=== PATIENT | male | born 1955 | race Caucasian/White ===

== ENCOUNTER 2016-07-17 11:50 | Inpatient (IN) | payer MEDICARE ==
[2016-07-17 12:43] LABS: Hematocrit 23 % (42-52); Hemoglobin 7.6 g/dl (14.0-18.0); Mean Corpuscular HGB Conc 34 g/dl (31-36); Mean Corpuscular Hemoglobin 33 pg (27-31); Mean Corpuscular Volume 98 fL (80-94); Mean Platelet Volume 9 um3 (7.4-10.4); Red Blood Count 2.33 10^6/ul (4.0-5.4); Red Cell Distribution Width 16 % (10.5-15); White Blood Count 10.5 10^3/ul (3.5-10.8)
[2016-07-17 12:44] LABS: Comments Flag Yes
[2016-07-17] MEDS ORDERED: NS 0.9% 1000 ML* 1,000 ML IV ONE (12:45)
[2016-07-17 12:47] LABS: Add Diff/Slide Review? Slide Review Added
[2016-07-17] MEDS ORDERED: Pantoprazole IV* 40 MG IV ONE (12:51)
--- NOTE | 2016-07-17 12:54 | RAD ---
HISTORY: Chest pain COMPARISONS: January 17, 2016 VIEWS:1: Single frontal portable view of the chest at 12:49 PM FINDINGS: LINES AND TUBES: None. CARDIOMEDIASTINAL SILHOUETTE: The cardiomediastinal silhouette is normal for portable technique. PLEURA: The costophrenic angles are sharp. No pleural abnormalities are noted. LUNG PARENCHYMA: The lungs are clear. ABDOMEN: The upper abdomen is clear. There is no subphrenic gas. BONES AND SOFT TISSUES: No bone or soft tissue abnormalities are noted. IMPRESSION: NO ACTIVE CARDIOPULMONARY DISEASE.
[2016-07-17 12:57] LABS: ALT 13 U/L (7-52); AST 28 U/L (13-39); Albumin 2.6 g/dL (3.2-5.2); Alkaline Phosphatase 113 U/L (34-104); Anion Gap 7 mmol/L (2-11); BUN/Creatinine Ratio 39.7 (8-20); Blood Urea Nitrogen 50 mg/dL (6-24); CO2 Carbon Dioxide 22 mmol/L (22-32); Calcium 7.9 mg/dL (8.6-10.3); Chloride 107 mmol/L (101-111); Creatine Kinase 166 U/L (10-223); EGFR African American 74.8 (>60); EGFR Non-African American 58.2 (>60); Globulin 2.9 g/dL (2-4); Glucose 140 mg/dL (70-100); Lipase 69 U/L (11.0-82.0); Potassium 5.4 mmol/L (3.5-5.0); Sodium 136 mmol/L (133-145); Total Protein 5.5 g/dL (6.4-8.9)
[2016-07-17 12:58] LABS: Troponin I 0.03 ng/mL (<0.04)
[2016-07-17] MEDS ORDERED: Phytonadione INJ (Adult)* 10 MG/ML 1 ML AMP SUBCUT ONE (13:54)
[2016-07-17] MEDS ORDERED: Octreotide Acetate* 50 MCG in NS 0.9% 50 ML* 50 ML IVPB ONE (13:54)
[2016-07-17] MEDS ORDERED: Thiamine IV* 100 MG, Folic Acid IV* 1 MG, Multiple Vitamin IV ADULT* 10 ML in NS 0.9% 1... IV ONE (13:59)
[2016-07-17] MEDS ORDERED: LORazepam INJ* 2 MG/ML 1 ML VIAL IV SCH (14:00)
[2016-07-17] MEDS ORDERED: Octreotide Acetate* 500 MCG in NS 0.9% 100 ML* 100 ML IVPB SCH ×5 (14:00→18:00)
[2016-07-17] MEDS ORDERED: Pantoprazole IV* 80 MG in NS 0.9% 250 ML* 250 ML IVPB SCH (14:00)
[2016-07-17 14:45] LABS: Alcohol < 10 mg/dL (<10)
[2016-07-17] MEDS ORDERED: cefTRIAXone VIAL(*) 1,000 MG in NS 0.9% 50 ML* 50 ML IVPB SCH (15:00)
[2016-07-17] MEDS ORDERED: Meperidine SYRINGE* 50 MG/ML ONE (15:42)
[2016-07-17] MEDS ORDERED: Midazolam* 1 MG/ML 10 ML VIAL (10 MG) ONE (15:43)
[2016-07-17] MEDS: cefTRIAXone VIAL(*) 1,000 MG in NS 0.9% 50 ML* 50 ML IVPB SCH (18:10)
[2016-07-17 18:43] LABS: Comments Flag Yes; Hematocrit 25 % (42-52); Hemoglobin 8.5 g/dl (14.0-18.0)
--- NOTE | 2016-07-17 23:25 | HP ---
HISTORY AND PHYSICAL: DATE OF ADMISSION: 07/17/16 PRIMARY CARE PROVIDER: None. ATTENDING PHYSICIAN WHILE IN THE HOSPITAL: John Thornton MD * (report dictated by Guero Landis NP) CONSULTING CRYPTOGRAPHER: Gallito Glez MD CHIEF COMPLAINT: Hematemesis. HISTORY OF PRESENT ILLNESS: Mr. Goode is a 60-year-old male patient who has a history of EtOH abuse, varices, and cirrhosis. He also carries a history of portal hypertension and grade I esophageal varices that were diagnosed in 2014. He comes in today stating that at 1 o'clock in the morning, he started vomiting. He vomited twice. He did not realize that he was vomiting blood. He vomited again around 4 in the morning and at that point, he noticed that he was vomiting up profuse amounts of blood with clots. He continued to vomit off and on. Until about 11 o'clock this morning, he vomited about a total of 8 times at least. His daughter at that point convinced him to come in to the hospital because obviously there was something wrong and he himself thought that there was obviously something going on and then, he was still coughing up blood. He says that this morning at around 11, he went to stand up quickly and he felt very lightheaded and he felt like he was going to pass out, so he called 911 and he was brought in to the hospital. He denies any melena. He does state that he does not take any blood thinners. He is only on Aldactone and Lasix. He states that he did continue to drink about 4 beverages a day and he continues to smoke cigarettes and marijuana occasionally. He does admit to having some epigastric discomfort. He denies having any chest pain or any shortness of breath and states he does not feel like he is going to pass out at this point and states that he feels tired. He was evaluated in the ER. It was noted that he was obviously vomiting blood. His BUN was 50. His H and H were 7.6 and 23. He was noted to be a little tachycardic and slightly hypotensive with blood pressures in the 100s and the hospital service was asked to evaluate in admission. PAST MEDICAL HISTORY: Significant for: 1. Cirrhosis. 2. Esophageal varices. 3. EtOH abuse. 4. Portal hypertension. PAST SURGICAL HISTORY: 1. He has had an ORIF of the right upper extremity. 2. Back surgeries. HOME MEDICATIONS: According to the patient includes: 1. Spironolactone 50 mg daily. 2. Lasix 20 mg daily. 3. Ferrous sulfate 324 mg p.o. b.i.d. ALLERGIES TO MEDICATIONS: Include no known drug allergies. FAMILY HISTORY: His mother is alive and well. Father has a history of cancer. SOCIAL HISTORY: He does drink wine and beer daily. He is drinking 4 hard root beers a day now. He does state that he smokes about half a pack a day. He is not . His surrogate decision maker is his friend, Jono. He does smoke marijuana occasionally. REVIEW OF SYSTEMS: There is no documented fever. He denied any significant weight change. There is no double vision. There is no ear discharge. There is no rhinorrhea. No sore throat. No thyroid enlargement. Denies having any chest pain. There is no orthopnea. No nocturnal dyspnea. There is abdominal discomfort per my HPI. He does admit to having ascites and abdominal bloating. There was nausea with vomiting. No dysuria. No frequency. No loss of conscious. No pruritus. No skin ulcerations. Review of 14 systems completed, all others negative. PHYSICAL EXAMINATION VITAL SIGNS: Last blood pressure was 105/72 with a pulse of 97. HEENT: Head is atraumatic and normocephalic. Eyes: EOMs intact. Sclerae are anicteric and not pale. Throat: Oral mucosa appeared to be dry. He did have dry blood in his oropharynx. NECK: Supple. LUNGS: Clear to auscultation bilaterally. HEART: Sounds S1, S2. Regular rate and rhythm. No murmurs, rubs, or gallops. ABDOMEN: He does have an umbilical hernia. He has abdominal ascites as well, but he was nontender on exam. Bowel sounds present. EXTREMITIES: Pulses were 2+ throughout. He does have lower extremity edema, worse on the right side, compared to the left. He does have +2 to 3 pitting edema to the right ankle, which he has had for several years. NEUROLOGIC: He is awake, alert, and oriented x3. Tongue midline. Satellite Project Site Monitor are equal. He had no gross focal deficits. SKIN: Intact. DIAGNOSTIC STUDIES/LAB DATA: Today revealed a WBC of 10.5, RBC of 2.33, hemoglobin 7.6, and hematocrit 23. Last H and H from January of this year was again, his hemoglobin was 7.6 and platelet count was 76,000 and that was the platelet count in January. He does have an INR of 1.75 and PTT of 32.4. Sodium was 136, potassium was 5.4, chloride 107, bicarb of 22, BUN 50, creatinine of 1.26, glucose 140, lactic 3.2, and calcium 7.9. Total bili 3.3, AST is 28, ALT 13, and alk phos 113. Troponin 0.03. Albumin 2.6 and lipase 69. He had an EKG obtained today as well, which showed normal sinus rhythm with a rate of 92, normal axis, and no ST elevation or T-wave inversions. He had a chest x-ray, which did show no active cardiopulmonary disease. Old medical records were reviewed. ASSESSMENT AND PLAN: Mr. Goode is a 60-year-old male patient coming in to the ER today with complaints of hematemesis. On evaluation in the ER, it was noted that his H and H were low. In addition, his blood pressure was in the low 100s and heart rates in the 90s. He will be admitted under inpatient status for: 1. Upper gastrointestinal bleed: I am concerned for variceal bleed. He did have grade I varices in [address]. Dr. Glez has been consulted and will be evaluating the patient. Plan at this point is to go ahead and put him on an octreotide drip, Protonix drip, give him 2 units of blood right now, and have 2 units on hold. He can have 2 IVs. In addition to this, we will hydrate him with normal saline at 150 an hour. I will continue to monitor him closely. Fortunately, he has not had anymore episodes of recurrent bleeding. I am going to go ahead and give him a dose of vitamin K as well and we will continue to follow his platelets closely. We may need to consider platelet transfusion, but at this point, we will hold off. Hemoccults. 2. History of cirrhosis: He does have a mild amount of ascites. I am going to treat him empirically because of the GI bleed with Rocephin. We will restart his spironolactone and Lasix when able. 3. Acute blood loss anemia: We will transfuse 2 units and will continue to follow. We will give him 2 units of blood now. We will go ahead and have 2 on hold. In addition to this, we will go ahead and restart him on his iron when able. 4. Portal hypertension: Again, we will continue his Lasix and spironolactone when he is more stable. 5. EtOH abuse: I will put a social work consult and I did put a WAM protocol in. 6. DVT prophylaxis: He will just be put on SCDs for the time being because of active bleeding. 7. Code status: Full code. 8. Fluids, electrolytes, and nutrition: He is n.p.o. TIME SPENT: Time spent on the admission was 60 minutes; greater than half the time was spent [id number] with the patient obtaining my history and physical, the other half time is spent going over the plan of care with the patient and implementing plan of care. I discussed the plan of care with my attending, Dr. Thornton. He is in agreement. GUERO LANDIS NP CC: Dr. Glez* [id number]/[facility] #: [id number] [facility]
--- NOTE | 2016-07-17 23:59 | CONS ---
CONSULTATION REPORT: DATE OF CONSULT: 07/17/16 REQUESTING PHYSICIAN: Guero Landis NP NARRATIVE: Mr. Goode is a 60-year-old alcoholic who comes in today after having black and tarry stools and hematemesis. History is obtained from both the daughter and the patient. He does have a history of cirrhosis likely secondary to alcoholism. [facility] provide his [facility] and GI care. He tells us that he had an EGD with his [facility] try out person last year, which revealed grade 1 esophageal varices and portal hypertensive gastropathy. He continues to drink alcohol. He drinks hard root beer 3 to 4 per day. He states yesterday around 2:00 a.m., he started vomiting blood. Every 2 to 3 hours, he would vomit more blood, it was maroon in color. He has also been having black stools over the past day or two. He does have mild abdominal pain. There is no dizziness or lightheadedness. PAST MEDICAL HISTORY: Significant for alcoholism. PAST SURGICAL HISTORY: He had spinal surgeries. ALLERGIES: None. FAMILY HISTORY: No cirrhosis in the family. SOCIAL HISTORY: Continues to drink alcohol. REVIEW OF SYSTEMS: 12 systems were reviewed, other than mentioned in the HPI were unremarkable. PHYSICAL EXAM: Blood pressure is 113/72, pulse is 79, temperature is 99.0. General: Disheveled appearing male, appears older than stated age. Alert, oriented, pleasant, fluent. HEENT: Mucous membranes are moist. Dentition is absent. Heart: Regular rate and rhythm. Lungs were clear to auscultation. Abdomen: Positive bowel sounds. Soft, nontender, nondistended. No hepatosplenomegaly, masses, rebound or guarding. Skin is warm and dry. Numerous ecchymoses. Numerous spider angiomata. DIAGNOSTIC STUDIES/LAB DATA: Of note, white count is 10.8, hemoglobin of 7.6, platelets of 76, INR is 1.75. Potassium is 5.4, sodium is 136, BUN , creatinine is 1.29, lactic acid is 3.2, bilirubin is 3.3, alk phos is 113, albumin is 2.6. ASSESSMENT AND PLAN: Mr. Goode is a 60-year-old alcoholic with cirrhosis. He is having an upper gastrointestinal bleed. Given the history of varices and portal hypertensive gastropathy, we need to perform an upper endoscopy to make sure he does not have any variceal bleed. I will make arrangements for it in the very near future. He has been started on octreotide and Protonix. We will continue with both. He needs 2 large bore IVs. He is actively drinking, thus will not be a transplant candidate for at least the next 6 months. He will need to follow up with his [facility] try out person at discharge. CC: [facility]* [id number]/[facility] #: [id number] [facility]
[2016-07-18 02:02] LABS: Hematocrit 24 % (42-52); Hemoglobin 8.3 g/dl (14.0-18.0)
[2016-07-18 02:04] LABS: Comments Flag Yes
[2016-07-18 07:42] LABS: Hematocrit 23 % (42-52); Mean Corpuscular HGB Conc 34 g/dl (31-36); Mean Corpuscular Hemoglobin 32 pg (27-31); Mean Corpuscular Volume 94 fL (80-94); Mean Platelet Volume 9 um3 (7.4-10.4); Red Blood Count 2.47 10^6/ul (4.0-5.4); Red Cell Distribution Width 17 % (10.5-15); White Blood Count 8.1 10^3/ul (3.5-10.8)
--- NOTE | 2016-07-18 07:48 | PRO ---
PROCEDURE REPORT: DATE OF PROCEDURE: 07/17/16 PROCEDURE: EGD. INDICATION: Hematemesis. REFERRING PHYSICIAN: Gera Mcknight MD MEDICATIONS GIVEN: 1. 50 mg IV Demerol. 2. 9 mg IV Versed. DESCRIPTION OF PROCEDURE: After the EGD procedure including the risks, benefits , and alternatives not limited to perforation, surgery and/or were explained to the patient; written consent was then obtained; IV medication was given; and a biteblock was placed between the teeth. Olympus gastroscope was then inserted into the patient's mouth, and advanced down the esophagus, into the stomach, into the distal duodenum. In the esophagus at the GE junction, there were 3 varices. One was very large, grade 3 to 4, and 2 others were smaller grade 2, but of those had red giovany signs on them. I then went down into the stomach. No gastric varices were seen on retroflexion maneuver. Forward views did reveal mild portal hypertension gastropathy. The scope was advanced through the widely patent pylorus through the duodenal bulb and into the distal duodenum. Both of which were unremarkable. The scope was then withdrawn from the patient. A petroleum blending plant operator was placed on the tip of the scope and reintroduced into the patient's esophagus. I then placed 3 rubber bands each on one of the varices. They were deployed successfully. The scope was then withdrawn from the patient. He tolerated the procedure well and was returned to the care of the intensive care unit staff. IMPRESSION: 1. Complete upper endoscopy into the distal duodenum with esophageal varices and band ligation. 2. Esophageal varices, status post band ligation. 3. Portal hypertensive gastropathy. 4. I would recommend he continue with the octreotide. He should be on clears until tomorrow and we will continue to follow along. He can follow up with his [facility] pacu nurse. CC: Gera Mcknight MD, at [facility]* [id number]/[facility] #: [id number] [facility]
[2016-07-18 07:53] LABS: Calcium 7.5 mg/dL (8.6-10.3); EGFR African American 88.4 (>60); EGFR Non-African American 68.8 (>60); Potassium 4.3 mmol/L (3.5-5.0)
[2016-07-18 07:56] LABS: Comments Flag Yes
[2016-07-18] MEDS: NS 0.9% 1000 ML* 1,000 ML IV SCH ×3 (08:09→21:57)
[2016-07-18] MEDS: Thiamine TAB* 100 MG TAB PO SCH (10:57)
[2016-07-18] MEDS: Multivitamins/Minerals TAB PO SCH (10:57)
[2016-07-18] MEDS: Folic Acid TAB* 1 MG PO SCH (10:57)
[2016-07-18] MEDS ORDERED: NS 0.9% 500 ML* 500 ML IV ONE (17:00)
[2016-07-18] MEDS: cefTRIAXone VIAL(*) 1,000 MG in NS 0.9% 50 ML* 50 ML IVPB SCH (18:13)
--- NOTE | 2016-07-18 21:01 | PN ---
Subjective Date of Service: 07/18/16 Interval History: . Interviewed and examined patient at bedside; Discussed case with LOCOMOTIVE BOILERMAKER Boby and Dr. Hand ; Reviewed previous notes and radiology results; Patient stable - ok to go to floor will stop octreotide gtt. denies pain Family History: Unchanged from Admission Social History: Unchanged from Admission Past Medical History: Unchanged from Admission Objective Active Medications: . Folic Acid (Folvite Tab*) 1 mg PO DAILY [facility] Last Admin: 07/18/16 10:57 Dose: 1 mg Sodium Chloride (Ns 0.9% 1000 Ml*) 1,000 mls @ 150 mls/hr IV PER RATE [facility] Last Admin: 07/18/16 16:05 Dose: 150 mls/hr Ceftriaxone Sodium 1,000 mg/ (Sodium Chloride) 50 mls @ 200 mls/hr IVPB 1800 [facility] Last Admin: 07/18/16 18:13 Dose: 200 mls/hr Lorazepam (Ativan Inj*) 0 mg IV .PER WAM SCORE [facility] PRN Reason: Protocol Multivitamins/Minerals (Theragran/Minerals Tab*) 1 tab PO DAILY [facility] Last Admin: 07/18/16 10:57 Dose: 1 tab Thiamine HCl (Vitamin B-1 Tab*) 100 mg PO DAILY [facility] Last Admin: 07/18/16 10:57 Dose: 100 mg . Vital Signs 07/17/16 07/17/16 07/17/16 21:00 21:30 22:00 Temperature 98.1 F Pulse Rate 73 77 70 Respiratory 20 18 22 Rate Blood Pressure 116/69 111/65 101/64 (mmHg) O2 Sat by Pulse 93 96 95 Oximetry 07/17/16 07/17/16 07/17/16 22:30 23:00 23:30 Temperature Pulse Rate 76 72 80 Respiratory 20 21 26 Rate Blood Pressure 112/67 94/65 113/67 (mmHg) O2 Sat by Pulse 96 96 96 Oximetry Oxygen Devices in Use Now: Nasal Cannula Appearance: older than stated age. NAD Ears/Nose/Mouth/Throat: Clear Oropharnyx Neck: NL Appearance and Movements; NL JVP Respiratory: Symmetrical Chest Expansion and Respiratory Effort Cardiovascular: NL Sounds; No Murmurs; No JVD Abdominal: NL Sounds; No Tenderness; No Distention, - - + ascites Lymphatic: No Cervical Adenopathy Extremities: No Edema Skin: No Rash or Ulcers Neurological: Alert and Oriented x 3 Lines/Tubes/Other Access: Clean, Dry and Intact Peripheral IV Nutrition: Taking PO's Result Diagrams: 07/18/16 06:00 07/18/16 06:00 Microbiology and Other Data: Microbiology 07/17/16 20:15 Stool Occult Blood (TIFFANIE) - Final Stool 07/17/16 15:50 Nasal Screen MRSA (PCR)(TIFFANIE) - Final Nasal Mrsa Negative Assess/Plan/Problems-Billing . Assessment: 60 year old man with portal hypertensive gastropathy and hemorrhaging esophageal varices -- requiring massive transfusion. s/p EGD and band ligation. - Patient Problems (1) Portal hypertensive gastropathy Current Visit: Yes Status: Acute Priority: High Code(s): K31.89 - OTHER DISEASES OF STOMACH AND DUODENUM Comment: - stable - no active bleeding by end of EGD. - octreotide to reduce splanchnic blood flow - follow CBC and vitals (2) Transfusion of blood during current hospitalization Current Visit: Yes Status: Acute Priority: High Code(s): YGW8170 - Comment: - 2 units total (3) Symptomatic anemia Current Visit: No Status: Acute Priority: High Code(s): D64.9 - ANEMIA, UNSPECIFIED SNOMED Code(s): 949812796 Comment: - s/p 2 units prbc (4) Alcohol abuse Current Visit: No Status: Chronic Priority: Medium Code(s): F10.10 - ALCOHOL ABUSE, UNCOMPLICATED SNOMED Code(s): 19427358 Comment: Discussed cessation. Continue thiamine, folate, MVM. (5) Alcoholic cirrhosis Current Visit: No Status: Chronic Priority: Medium Code(s): K70.30 - ALCOHOLIC CIRRHOSIS OF LIVER WITHOUT ASCITES SNOMED Code(s): 482436578 Comment: Continue Lasix 20 mg daily and Spironolactone 25 mg daily Needs to f/u with outpatient GI. (6) Tobacco abuse Current Visit: Yes Status: Acute Priority: High Code(s): Z72.0 - TOBACCO USE SNOMED Code(s): 533317022 (7) Marijuana abuse Current Visit: Yes Status: Acute Priority: High Code(s): F12.10 - CANNABIS ABUSE, UNCOMPLICATED
[2016-07-19 02:07] LABS: Urine Bacteria Absent (Absent); Urine Bilirubin Negative (Negative); Urine Glucose Negative (Negative); Urine Nitrite Negative (Negative)
[2016-07-19 05:07] LABS: Hematocrit 20 % (42-52); Hemoglobin 6.9 g/dl (14.0-18.0); Mean Corpuscular HGB Conc 34 g/dl (31-36); Mean Corpuscular Hemoglobin 32 pg (27-31); Mean Corpuscular Volume 94 fL (80-94); Mean Platelet Volume 8 um3 (7.4-10.4); Red Blood Count 2.12 10^6/ul (4.0-5.4); Red Cell Distribution Width 17 % (10.5-15); White Blood Count 5.5 10^3/ul (3.5-10.8)
[2016-07-19 05:09] LABS: Comments Flag Yes
[2016-07-19 05:20] LABS: Albumin 2.3 g/dL (3.2-5.2); BUN/Creatinine Ratio 27.1 (8-20); Calcium 7.3 mg/dL (8.6-10.3); EGFR African American 102.4 (>60); EGFR Non-African American 79.6 (>60); Globulin 2.6 g/dL (2-4); Potassium 3.4 mmol/L (3.5-5.0); Total Protein 4.9 g/dL (6.4-8.9)
[2016-07-19] MEDS: NS 0.9% 1000 ML* 1,000 ML IV SCH (06:14)
[2016-07-19] MEDS: Folic Acid TAB* 1 MG PO SCH (08:57)
[2016-07-19] MEDS: Thiamine TAB* 100 MG TAB PO SCH (08:57)
[2016-07-19] MEDS: Multivitamins/Minerals TAB PO SCH (08:57)
--- NOTE | 2016-07-19 10:37 | PN ---
Subjective Date of Service: 07/19/16 Interval History: Pt is feeling ok but feels like his is not bouncing back as quick as before. He c/o pain in the R 1st MTP-he states it has bothered him for years. Additionally he c/o his umbilical hernia. He states he is able to "push it back in" but he is tired of dealing with it and would like it fixed. Objective Active Medications: Colchicine (Colcrys*) 0.6 mg PO DAILY [facility] Folic Acid (Folvite Tab*) 1 mg PO DAILY [facility] Last Admin: 07/19/16 08:57 Dose: 1 mg Sodium Chloride (Ns 0.9% 1000 Ml*) 1,000 mls @ 150 mls/hr IV PER RATE [facility] Last Admin: 07/19/16 06:14 Dose: 150 mls/hr Ceftriaxone Sodium 1,000 mg/ (Sodium Chloride) 50 mls @ 200 mls/hr IVPB 1800 [facility] Last Admin: 07/18/16 18:13 Dose: 200 mls/hr Lorazepam (Ativan Inj*) 0 mg IV .PER WAM SCORE [facility] PRN Reason: Protocol Multivitamins/Minerals (Theragran/Minerals Tab*) 1 tab PO DAILY [facility] Last Admin: 07/19/16 08:57 Dose: 1 tab Thiamine HCl (Vitamin B-1 Tab*) 100 mg PO DAILY [facility] Last Admin: 07/19/16 08:57 Dose: 100 mg Vital Signs 07/18/16 07/18/16 07/18/16 11:00 12:00 12:30 Temperature Pulse Rate 72 65 64 Respiratory 21 19 26 Rate Blood Pressure 106/56 96/53 103/60 (mmHg) O2 Sat by Pulse 96 96 96 Oximetry 07/18/16 07/18/16 07/18/16 13:00 13:30 14:34 Temperature 98.1 F Pulse Rate 75 70 67 Respiratory 19 19 18 Rate Blood Pressure 101/58 95/47 96/49 (mmHg) O2 Sat by Pulse 95 90 94 Oximetry 07/18/16 07/18/16 07/18/16 15:00 17:12 17:22 Temperature 98.1 F Pulse Rate 67 68 Respiratory 16 Rate Blood Pressure 96/49 105/54 (mmHg) O2 Sat by Pulse 94 95 Oximetry 07/18/16 07/18/16 07/18/16 18:04 20:00 20:12 Temperature 98.7 F 98.7 F Pulse Rate 67 73 Respiratory 20 12 Rate Blood Pressure 100/53 112/54 (mmHg) O2 Sat by Pulse 97 97 Oximetry 07/18/16 07/18/16 07/18/16 20:33 22:03 22:48 Temperature 99.5 F Pulse Rate 71 Respiratory 16 20 24 Rate Blood Pressure 96/46 (mmHg) O2 Sat by Pulse 98 Oximetry 07/19/16 07/19/16 07/19/16 00:06 00:11 02:09 Temperature 99.2 F 98.4 F Pulse Rate 71 69 Respiratory 16 12 16 Rate Blood Pressure 96/45 93/52 (mmHg) O2 Sat by Pulse 95 94 Oximetry 07/19/16 07/19/16 07/19/16 02:28 02:38 04:00 Temperature Pulse Rate Respiratory 16 16 18 Rate Blood Pressure (mmHg) O2 Sat by Pulse Oximetry 07/19/16 07/19/16 07/19/16 04:07 05:59 06:00 Temperature 98.2 F Pulse Rate 61 62 Respiratory 18 16 16 Rate Blood Pressure 97/36 93/44 (mmHg) O2 Sat by Pulse 94 96 Oximetry 07/19/16 07/19/16 08:03 10:17 Temperature 97.3 F Pulse Rate 64 Respiratory 16 Rate Blood Pressure 108/59 92/48 (mmHg) O2 Sat by Pulse 95 Oximetry Oxygen Devices in Use Now: None Appearance: Middle aged male lying in bed, NAD Eyes: No Scleral Icterus Ears/Nose/Mouth/Throat: Mucous Membranes Moist Respiratory: Symmetrical Chest Expansion and Respiratory Effort, Clear to Auscultation - diminished breath sounds in all lung cox Cardiovascular: NL Sounds; No Murmurs; No JVD, RRR, No Edema Abdominal: - - BS+ soft, NT, moderately distended, + reducible umbilical hernia Extremities: No Clubbing, Cyanosis Skin: No Rash or Ulcers, No Nodules or Sclerosis, - - + gouty appearing R 1st MTP (red/ hot) Neurological: Alert and Oriented x 3 Result Diagrams: 07/19/16 04:55 07/19/16 04:55 Microbiology and Other Data: Microbiology 07/17/16 20:15 Stool Occult Blood (TIFFANIE) - Final Stool 07/17/16 15:50 Nasal Screen MRSA (PCR)(TIFFANIE) - Final Nasal Mrsa Negative Assess/Plan/Problems-Billing Mr Goode is a 60 yo M with a h/o alcoholism, ascites and known esophageal varices who presented to the ER with c/o black stools and hematemesis. - Patient Problems (1) Upper GI bleed Current Visit: Yes Status: Acute Code(s): K92.2 - GASTROINTESTINAL HEMORRHAGE, UNSPECIFIED SNOMED Code(s): 66950926 Comment: The patient developed an upper GI bleed secondary to likely bleeding varices. He is s/p protonix and octreotide drips. He is also s/p EGD with banding x3. He appears to have stopped bleeding though his H/H is lower today. He will be transfused another unit of PRBC for his acute blood loss anemia secondary to UGIB. Will advance to soft diet today. Await any further recommendations from GI. He will need to continue to follow with his usual [facility]. (2) Ascites Current Visit: Yes Status: Acute Code(s): R18.8 - OTHER ASCITES SNOMED Code(s): 605946327 Comment: No signs of SBP. I will stop the ceftriaxone. Monitor for fever, leukocytosis and pain. (3) Alcohol abuse Current Visit: No Status: Chronic Code(s): F10.10 - ALCOHOL ABUSE, UNCOMPLICATED SNOMED Code(s): 21383991 Comment: I have encouraged abstinence though I am not convinced he will even attempt to quit. Continue thiamine, folate and multivitamin. Stop WAM as the patient has not been scoring. (4) DVT prophylaxis Current Visit: Yes Status: Acute Code(s): MPR5312 - SNOMED Code(s): 698124794 Comment: SCDs (5) Full code status Current Visit: Yes Status: Acute Code(s): Z78.9 - OTHER SPECIFIED HEALTH STATUS SNOMED Code(s): 140127639
[2016-07-19] MEDS ORDERED: Potassium Chlor TAB* 20 MEQ TAB.ER PO ONE (10:40)
[2016-07-19] MEDS: Spironolactone TAB* 25 MG PO SCH (11:19)
[2016-07-19] MEDS: Colchicine* 0.6 MG TAB PO SCH (11:22)
[2016-07-20 06:57] LABS: Hematocrit 23 % (42-52); Hemoglobin 7.8 g/dl (14.0-18.0); Mean Corpuscular HGB Conc 34 g/dl (31-36); Mean Corpuscular Hemoglobin 32 pg (27-31); Mean Corpuscular Volume 94 fL (80-94); Mean Platelet Volume 9 um3 (7.4-10.4); Red Blood Count 2.43 10^6/ul (4.0-5.4); Red Cell Distribution Width 17 % (10.5-15); White Blood Count 5.6 10^3/ul (3.5-10.8)
[2016-07-20 07:11] LABS: Comments Flag Yes
--- NOTE | 2016-07-20 07:57 | ED ---
Laura Moreno Rebecca, scribed for Chip Mclain MD on 07/17/16 at 1247 . GI/ HPI - HPI Summary HPI Summary: Pt is a 60 y/o M BIBA who presents to ED c/o hematemesis. Reports 4 episodes of hematemesis, suddenly starting at 0100 this morning and the last one at 1100 today. Describes blood as dark red. Sx aggravated and alleviated by nothing. Additionally c/o melena and abd pain. Pain is currently diffuse without radiation and ranked 5/10. Denies blood in stool. PMHx cirrhosis of the liver. SHx drinking 3-4 drinks every day. When asked, pt states that drop foot of the right foot is the result of a back operation. IF THERE IS ONE, PLEASE SEE DICTATION BY DR. MCLAIN FOR FURTHER INFORMATION. - History of Current Complaint Chief Complaint: EDGIBleed Time Seen by Provider: 07/17/16 12:28 Stated Complaint: VOMITING BLOOD Hx Obtained From: Patient Onset/Duration: Started Hours Ago - 12 hours ago Timing: Intermittent Severity: Moderate Current Severity: Moderate Vaginal Bleeding Description: Dark Red Pain Intensity: 5 Location of Pain: Diffuse Associated Signs and Symptoms: Positive: Hematemesis, Abdominal Pain - diffuse, Melena. Negative: Blood w/Stool Aggravating Factor(s): Nothing Alleviating Factor(s): Nothing - Additional Pertinent History Primary Care Physician: [id number] - Allergy/Home Medications Allergies/Adverse Reactions: Allergies Allergy/AdvReac Type Severity Reaction Status Date / Time No Known Allergies Allergy Verified 09/10/15 13:56 Home Medications: Home Medications Spironolactone (NF) [Spironolactone 50 MG (NF)] 50 mg PO DAILY 07/17/16 [ History Confirmed 07/17/16] PMH/Surg Hx/FS Hx/Imm Hx Endocrine/Hematology History: Denies: Hx Diabetes Cardiovascular History: Denies: Hx Hypercholesterolemia, Hx Hypertension GI History: Reports: Hx Hiatal Hernia, Other GI Disorders - ABD PAIN History: Reports: Other Problems/Disorders - Hx cirrhosis of the liver Infectious Disease History: No Infectious Disease History: Denies: Traveled Outside the [place] in Last 30 Days - Family History Known Family History: Positive: Cardiac Disease - Social History Alcohol Use: Daily Alcohol Amount: 3-4 drinks per day Hx Substance Use: No Substance Use Type: Reports: Marijuana Substance Use Comment - Amount & Last Used: 3x/wk Hx Tobacco Use: Yes Smoking Status (MU): Heavy Every Day Tobacco Smoker Type: Cigarettes Review of Systems - ROS Summary Review of Systems Summary: IF THERE IS ONE, PLEASE SEE DICTATION BY DR. MCLAIN FOR FURTHER INFORMATION. Positive: Abdominal Pain - diffuse, Vomiting - Hematemesis - 4 episodes Positive: other - Melena; denies blood in stool All Other Systems Reviewed And Are Negative: Yes Physical Exam - Summary Physical Exam Summary: GENERAL: Awake, alert, oriented, no acute distress, very pleasant, speaks slowly HEAD/FACE: Head is normocephalic, atraumatic, covered in blood EYES: anicteric sclera, clear conjunctiva ENT: mucous membranes moist, no erythema, no discharge, no lesions, neck is supple, trachea is midline, no JVD CARDIAC: S1, S2, no rub, no murmur, no gallop, 2+ radial and pedal pulses bilaterally, tachycardic RESPIRATORY: Clear to auscultation bilaterally with no rales, rhonchi, or wheezes, non-tender ABDOMEN: Bowel sounds positive, no bruit, soft, non-tender, no CVA tenderness, prominent veins on the belly EXTREMITIES: No edema, warm, dry, foot dop of the R foot NEUROLOGICAL: Mood is appropriate, moving all extremities in a grossly normal manner IF THERE IS ONE, PLEASE SEE DICTATION BY DR. MCLAIN FOR FURTHER INFORMATION. Triage Information Reviewed: Yes Vital Signs On Initial Exam: Initial Vitals Temp Pulse Resp BP Pulse Ox 97.8 F 96 16 111/64 94 07/17/16 11:53 07/17/16 11:53 07/17/16 11:53 07/17/16 11:53 07/17/16 11:53 Vital Signs Reviewed: Yes Diagnostics - Vital Signs Vital Signs Temp Pulse Resp BP Pulse Ox 07/17/16 12:20 84 18 125/65 100 07/17/16 12:10 84 21 111/64 100 07/17/16 12:09 85 20 100 07/17/16 11:53 97.8 F 96 16 111/64 94 - Laboratory Lab Results: Lab Results 07/17/16 07/17/16 07/17/16 Range/Units 12:23 12:23 12:23 WBC 10.5 (3.5-10.8) 10^3/ul RBC 2.33 L (4.0-5.4) 10^6/ul Hgb 7.6 L (14.0-18.0) g/dl Hct 23 L (42-52) % MCV 98 H (80-94) fL MCH 33 H (27-31) pg MCHC 34 (31-36) g/dl RDW 16 H (10.5-15) % Plt Count 76 L (150-450) 10^3/ul MPV 9 (7.4-10.4) um3 Neut % (Auto) 82.3 (38-83) % Lymph % (Auto) 10.3 L (25-47) % [place] % (Auto) 6.9 (1-9) % Eos % (Auto) 0.1 (0-6) % Baso % (Auto) 0.4 (0-2) % Absolute Neuts (auto) 8.6 H (1.5-7.7) 10^3/ul Absolute Lymphs (auto) 1.1 (1.0-4.8) 10^3/ul Absolute Monos (auto) 0.7 (0-0.8) 10^3/ul Absolute Eos (auto) 0 (0-0.6) 10^3/ul Absolute Basos (auto) 0 (0-0.2) 10^3/ul Absolute Nucleated RBC 0 10^3/ul Nucleated RBC % 0 INR (Anticoag Therapy) 1.75 H (0.89-1.11) APTT 32.4 (26.0-36.3) seconds Sodium 136 (133-145) mmol/L Potassium 5.4 H (3.5-5.0) mmol/L Chloride 107 (101-111) mmol/L Carbon Dioxide 22 (22-32) mmol/L Anion Gap 7 (2-11) mmol/L BUN 50 H (6-24) mg/dL Creatinine 1.26 H (0.67-1.17) mg/dL Est GFR ( Amer) 74.8 (>60) Est GFR (Non-Af Amer) 58.2 (>60) BUN/Creatinine Ratio 39.7 H (8-20) Glucose 140 H (70-100) mg/dL Lactic Acid (0.5-2.0) mmol/L Calcium 7.9 L (8.6-10.3) mg/dL Total Bilirubin 3.30 H (0.2-1.0) mg/dL AST 28 (13-39) U/L ALT 13 (7-52) U/L Alkaline Phosphatase 113 H (34-104) U/L Total Creatine Kinase 166 (10-223) U/L CK-MB (CK-2) 5.4 (0.6-6.3) ng/mL Myoglobin 100.3 (17.4-105.7) ng/mL Troponin I 0.03 (<0.04) ng/mL B-Natriuretic Peptide ( - 100) pg/mL Total Protein 5.5 L (6.4-8.9) g/dL Albumin 2.6 L (3.2-5.2) g/dL Globulin 2.9 (2-4) g/dL Albumin/Globulin Ratio 0.9 L (1-3) Lipase 69 (11.0-82.0) U/L Serum Alcohol < 10 (<10) mg/dL Blood Type Antibody Screen Crossmatch 07/17/16 07/17/16 07/17/16 Range/Units 12:23 12:23 12:23 WBC (3.5-10.8) 10^3/ul RBC (4.0-5.4) 10^6/ul Hgb (14.0-18.0) g/dl Hct (42-52) % MCV (80-94) fL MCH (27-31) pg MCHC (31-36) g/dl RDW (10.5-15) % Plt Count (150-450) 10^3/ul MPV (7.4-10.4) um3 Neut % (Auto) (38-83) % Lymph % (Auto) (25-47) % [place] % (Auto) (1-9) % Eos % (Auto) (0-6) % Baso % (Auto) (0-2) % Absolute Neuts (auto) (1.5-7.7) 10^3/ul Absolute Lymphs (auto) (1.0-4.8) 10^3/ul Absolute Monos (auto) (0-0.8) 10^3/ul Absolute Eos (auto) (0-0.6) 10^3/ul Absolute Basos (auto) (0-0.2) 10^3/ul Absolute Nucleated RBC 10^3/ul Nucleated RBC % INR (Anticoag Therapy) (0.89-1.11) APTT (26.0-36.3) seconds Sodium (133-145) mmol/L Potassium (3.5-5.0) mmol/L Chloride (101-111) mmol/L Carbon Dioxide (22-32) mmol/L Anion Gap (2-11) mmol/L BUN (6-24) mg/dL Creatinine (0.67-1.17) mg/dL Est GFR ( Amer) (>60) Est GFR (Non-Af Amer) (>60) BUN/Creatinine Ratio (8-20) Glucose (70-100) mg/dL Lactic Acid 3.2 H* (0.5-2.0) mmol/L Calcium (8.6-10.3) mg/dL Total Bilirubin (0.2-1.0) mg/dL AST (13-39) U/L ALT (7-52) U/L Alkaline Phosphatase (34-104) U/L Total Creatine Kinase (10-223) U/L CK-MB (CK-2) (0.6-6.3) ng/mL Myoglobin (17.4-105.7) ng/mL Troponin I (<0.04) ng/mL B-Natriuretic Peptide 116 H ( - 100) pg/mL Total Protein (6.4-8.9) g/dL Albumin (3.2-5.2) g/dL Globulin (2-4) g/dL Albumin/Globulin Ratio (1-3) Lipase (11.0-82.0) U/L Serum Alcohol (<10) mg/dL Blood Type A Positive Antibody Screen Negative Crossmatch See Detail Result Diagrams: 07/20/16 06:02 07/19/16 04:55 Lab Statement: Any lab studies that have been ordered have been reviewed, and results considered in the medical decision making process. - Radiology CXR Xray Interpretation: No Acute Changes Radiology Interpretation Completed By: Radiologist - EKG 1146 Cardiac Rate: NL - 92 bpm EKG Rhythm: Sinus Rhythm - normal EKG Interpretation: No acute ischemia GIGU Course/Dx - Diagnoses Provider Diagnoses: GI bleed, Cirrhosis - Physician Notifications Discussed Care Of Patient With: Dr. Thornton, hospitalist, who agrees to admit pt. Dr. Glez, dredge hand, at 1300 who advised that pt receive protonix and he will evaluate pt in the ED. Time Discussed With Above Provider: 12:55 Discharge - Discharge Plan Condition: Guarded Disposition: ADMITTED TO [facility] documentation as recorded by the Laura figueroa Rebecca accurately reflects the service I personally performed and the decisions made by , Chip Mclain MD.
[2016-07-20] MEDS: Thiamine TAB* 100 MG TAB PO SCH (08:55)
[2016-07-20] MEDS: Colchicine* 0.6 MG TAB PO SCH (08:55)
[2016-07-20] MEDS: Multivitamins/Minerals TAB PO SCH (08:55)
[2016-07-20] MEDS: Folic Acid TAB* 1 MG PO SCH (08:56)
[2016-07-20] MEDS: Spironolactone TAB* 25 MG PO SCH (08:56)
[2016-07-20 16:05] LABS: Hematocrit 25 % (42-52); Hemoglobin 8.5 g/dl (14.0-18.0)
[2016-07-20 16:06] LABS: Comments Flag Yes
--- NOTE | 2016-07-20 16:09 | PN ---
Subjective Date of Service: 07/20/16 Interval History: Pt is feeling well. He states he has been having black stools. He states the stools have been black since his banding procedure. He denies any abdominal pain. He is anxious to go home but understands why I want him to stay overnight again. Objective Active Medications: Colchicine (Colcrys*) 0.6 mg PO DAILY [facility] Last Admin: 07/20/16 08:55 Dose: 0.6 mg Folic Acid (Folvite Tab*) 1 mg PO DAILY [facility] Last Admin: 07/20/16 08:56 Dose: 1 mg Multivitamins/Minerals (Theragran/Minerals Tab*) 1 tab PO DAILY [facility] Last Admin: 07/20/16 08:55 Dose: 1 tab Spironolactone (Aldactone Tab*) 25 mg PO DAILY [facility] Last Admin: 07/20/16 08:56 Dose: 25 mg Thiamine HCl (Vitamin B-1 Tab*) 100 mg PO DAILY [facility] Last Admin: 07/20/16 08:55 Dose: 100 mg Vital Signs 07/19/16 07/20/16 07/20/16 20:00 00:01 07:31 Temperature 99.1 F 98.5 F Pulse Rate 73 66 Respiratory 16 16 16 Rate Blood Pressure 106/60 97/50 (mmHg) O2 Sat by Pulse 96 97 Oximetry 07/20/16 07/20/16 08:00 15:55 Temperature Pulse Rate Respiratory 16 Rate Blood Pressure (mmHg) O2 Sat by Pulse 95 Oximetry Oxygen Devices in Use Now: None Appearance: Middle aged male lying in bed, NAD Eyes: No Scleral Icterus Ears/Nose/Mouth/Throat: Mucous Membranes Moist Respiratory: Symmetrical Chest Expansion and Respiratory Effort, Clear to Auscultation Cardiovascular: NL Sounds; No Murmurs; No JVD, RRR, No Edema Abdominal: NL Sounds; No Tenderness; No Distention, - - + umbilical hernia Extremities: No Clubbing, Cyanosis Skin: No Rash or Ulcers, No Nodules or Sclerosis, - - erythematous R 1st MTP, less warm to touch Neurological: Alert and Oriented x 3 Result Diagrams: 07/20/16 06:02 07/19/16 04:55 Additional Lab and Data: Lab Results 07/17/16 07/17/16 07/17/16 Range/Units 12:23 12:23 12:23 WBC 10.5 (3.5-10.8) 10^3/ul RBC 2.33 L (4.0-5.4) 10^6/ul Hgb 7.6 L (14.0-18.0) g/dl Hct 23 L (42-52) % MCV 98 H (80-94) fL MCH 33 H (27-31) pg MCHC 34 (31-36) g/dl RDW 16 H (10.5-15) % Plt Count 76 L (150-450) 10^3/ul MPV 9 (7.4-10.4) um3 Neut % (Auto) 82.3 (38-83) % Lymph % (Auto) 10.3 L (25-47) % [place] % (Auto) 6.9 (1-9) % Eos % (Auto) 0.1 (0-6) % Baso % (Auto) 0.4 (0-2) % Absolute Neuts (auto) 8.6 H (1.5-7.7) 10^3/ul Absolute Lymphs (auto) 1.1 (1.0-4.8) 10^3/ul Absolute Monos (auto) 0.7 (0-0.8) 10^3/ul Absolute Eos (auto) 0 (0-0.6) 10^3/ul Absolute Basos (auto) 0 (0-0.2) 10^3/ul Absolute Nucleated RBC 0 10^3/ul Nucleated RBC % 0 INR (Anticoag Therapy) 1.75 H (0.89-1.11) APTT 32.4 (26.0-36.3) seconds Sodium 136 (133-145) mmol/L Potassium 5.4 H (3.5-5.0) mmol/L Chloride 107 (101-111) mmol/L Carbon Dioxide 22 (22-32) mmol/L Anion Gap 7 (2-11) mmol/L BUN 50 H (6-24) mg/dL Creatinine 1.26 H (0.67-1.17) mg/dL Est GFR ( Amer) 74.8 (>60) Est GFR (Non-Af Amer) 58.2 (>60) BUN/Creatinine Ratio 39.7 H (8-20) Glucose 140 H (70-100) mg/dL Lactic Acid (0.5-2.0) mmol/L Calcium 7.9 L (8.6-10.3) mg/dL Total Bilirubin 3.30 H (0.2-1.0) mg/dL AST 28 (13-39) U/L ALT 13 (7-52) U/L Alkaline Phosphatase 113 H (34-104) U/L Total Creatine Kinase 166 (10-223) U/L CK-MB (CK-2) 5.4 (0.6-6.3) ng/mL Myoglobin 100.3 (17.4-105.7) ng/mL Troponin I 0.03 (<0.04) ng/mL B-Natriuretic Peptide ( - 100) pg/mL Total Protein 5.5 L (6.4-8.9) g/dL Albumin 2.6 L (3.2-5.2) g/dL Globulin 2.9 (2-4) g/dL Albumin/Globulin Ratio 0.9 L (1-3) Lipase 69 (11.0-82.0) U/L Serum Alcohol < 10 (<10) mg/dL Blood Type Antibody Screen Crossmatch 07/17/16 07/17/16 07/17/16 Range/Units 12:23 12:23 12:23 WBC (3.5-10.8) 10^3/ul RBC (4.0-5.4) 10^6/ul Hgb (14.0-18.0) g/dl Hct (42-52) % MCV (80-94) fL MCH (27-31) pg MCHC (31-36) g/dl RDW (10.5-15) % Plt Count (150-450) 10^3/ul MPV (7.4-10.4) um3 Neut % (Auto) (38-83) % Lymph % (Auto) (25-47) % [place] % (Auto) (1-9) % Eos % (Auto) (0-6) % Baso % (Auto) (0-2) % Absolute Neuts (auto) (1.5-7.7) 10^3/ul Absolute Lymphs (auto) (1.0-4.8) 10^3/ul Absolute Monos (auto) (0-0.8) 10^3/ul Absolute Eos (auto) (0-0.6) 10^3/ul Absolute Basos (auto) (0-0.2) 10^3/ul Absolute Nucleated RBC 10^3/ul Nucleated RBC % INR (Anticoag Therapy) (0.89-1.11) APTT (26.0-36.3) seconds Sodium (133-145) mmol/L Potassium (3.5-5.0) mmol/L Chloride (101-111) mmol/L Carbon Dioxide (22-32) mmol/L Anion Gap (2-11) mmol/L BUN (6-24) mg/dL Creatinine (0.67-1.17) mg/dL Est GFR ( Amer) (>60) Est GFR (Non-Af Amer) (>60) BUN/Creatinine Ratio (8-20) Glucose (70-100) mg/dL Lactic Acid 3.2 H* (0.5-2.0) mmol/L Calcium (8.6-10.3) mg/dL Total Bilirubin (0.2-1.0) mg/dL AST (13-39) U/L ALT (7-52) U/L Alkaline Phosphatase (34-104) U/L Total Creatine Kinase (10-223) U/L CK-MB (CK-2) (0.6-6.3) ng/mL Myoglobin (17.4-105.7) ng/mL Troponin I (<0.04) ng/mL B-Natriuretic Peptide 116 H ( - 100) pg/mL Total Protein (6.4-8.9) g/dL Albumin (3.2-5.2) g/dL Globulin (2-4) g/dL Albumin/Globulin Ratio (1-3) Lipase (11.0-82.0) U/L Serum Alcohol (<10) mg/dL Blood Type A Positive Antibody Screen Negative Crossmatch See Detail Microbiology and Other Data: Microbiology 07/17/16 20:15 Stool Occult Blood (TIFFANIE) - Final Stool 07/17/16 15:50 Nasal Screen MRSA (PCR)(TIFFANIE) - Final Nasal Mrsa Negative Assess/Plan/Problems-Billing Mr Goode is a 60 yo M with a h/o alcoholism, ascites and known esophageal varices who presented to the ER with c/o black stools and hematemesis. - Patient Problems (1) Upper GI bleed Current Visit: Yes Status: Acute Code(s): K92.2 - GASTROINTESTINAL HEMORRHAGE, UNSPECIFIED SNOMED Code(s): 94762540 Comment: The patient developed an upper GI bleed secondary to likely bleeding varices. He is s/p protonix and octreotide drips. He is also s/p EGD with banding x3. The patient has been having black stools (just reported to me today though the patient states they have been ongoing). Will repeat H/H now and follow up again tomorrow AM. (2) Ascites Current Visit: Yes Status: Acute Code(s): R18.8 - OTHER ASCITES SNOMED Code(s): 304220338 Comment: No signs of SBP. Monitor for fever, leukocytosis and pain. (3) Alcohol abuse Current Visit: Yes Status: Chronic Code(s): F10.10 - ALCOHOL ABUSE, UNCOMPLICATED SNOMED Code(s): 50614471 Comment: Continue to encourage abstinence though I am not convinced he will even attempt to quit. Continue thiamine, folate and multivitamin. Stop WAM as the patient has not been scoring. (4) DVT prophylaxis Current Visit: Yes Status: Acute Code(s): PLS0135 - SNOMED Code(s): 574699011 Comment: SCDs (5) Full code status Current Visit: Yes Status: Acute Code(s): Z78.9 - OTHER SPECIFIED HEALTH STATUS SNOMED Code(s): 070679019
[2016-07-21 08:16] VITALS: BP 92/56
[2016-07-21] MEDS: Multivitamins/Minerals TAB PO SCH (08:31)
[2016-07-21] MEDS: Folic Acid TAB* 1 MG PO SCH (08:31)
[2016-07-21] MEDS: Thiamine TAB* 100 MG TAB PO SCH (08:31)
[2016-07-21] MEDS: Spironolactone TAB* 25 MG PO SCH (08:31)
[2016-07-21] MEDS: Colchicine* 0.6 MG TAB PO SCH (08:32)
[2016-07-21 09:05] LABS: Hematocrit 27 % (42-52); Hemoglobin 9.1 g/dl (14.0-18.0); Mean Corpuscular HGB Conc 34 g/dl (31-36); Mean Corpuscular Hemoglobin 32 pg (27-31); Mean Corpuscular Volume 94 fL (80-94); Mean Platelet Volume 8 um3 (7.4-10.4); Red Blood Count 2.82 10^6/ul (4.0-5.4); Red Cell Distribution Width 17 % (10.5-15); White Blood Count 7.5 10^3/ul (3.5-10.8)
[2016-07-21 09:06] LABS: Comments Flag Yes
[2016-07-21 09:22] LABS: Albumin 3.1 g/dL (3.2-5.2); BUN/Creatinine Ratio 16.1 (8-20); Calcium 8.3 mg/dL (8.6-10.3); EGFR African American 114.7 (>60); EGFR Non-African American 89.2 (>60); Globulin 3.2 g/dL (2-4); Potassium 3.7 mmol/L (3.5-5.0); Total Bilirubin 2.3 mg/dL (0.2-1.0); Total Protein 6.3 g/dL (6.4-8.9)
--- NOTE | 2016-07-21 10:26 | PN ---
Subjective Date of Service: 07/21/16 Interval History: Pt is feeling well. He is anxious to go home. He states his stool is less black this AM. No abdominal pain. Objective Active Medications: Colchicine (Colcrys*) 0.6 mg PO DAILY [facility] Last Admin: 07/21/16 08:32 Dose: 0.6 mg Folic Acid (Folvite Tab*) 1 mg PO DAILY [facility] Last Admin: 07/21/16 08:31 Dose: 1 mg Multivitamins/Minerals (Theragran/Minerals Tab*) 1 tab PO DAILY [facility] Last Admin: 07/21/16 08:31 Dose: 1 tab Spironolactone (Aldactone Tab*) 25 mg PO DAILY [facility] Last Admin: 07/21/16 08:31 Dose: 25 mg Thiamine HCl (Vitamin B-1 Tab*) 100 mg PO DAILY [facility] Last Admin: 07/21/16 08:31 Dose: 100 mg Vital Signs 07/20/16 07/20/16 07/20/16 15:32 15:55 20:00 Temperature 98.5 F Pulse Rate 71 Respiratory 16 18 Rate Blood Pressure 126/54 (mmHg) O2 Sat by Pulse 98 95 Oximetry 07/20/16 07/21/16 07/21/16 23:23 07:36 08:00 Temperature 97.9 F 98.5 F Pulse Rate 64 82 Respiratory 16 16 18 Rate Blood Pressure 101/53 92/56 (mmHg) O2 Sat by Pulse 100 96 Oximetry Oxygen Devices in Use Now: None Appearance: Middle aged male sittin kaden the edge of the bed, NAD Eyes: No Scleral Icterus Ears/Nose/Mouth/Throat: Mucous Membranes Moist Respiratory: Symmetrical Chest Expansion and Respiratory Effort, Clear to Auscultation Cardiovascular: NL Sounds; No Murmurs; No JVD, RRR, - - 1+ LE ededma, R foot more markedly swollen (chronic per pt) Abdominal: NL Sounds; No Tenderness; No Distention - + umbilical hernia- reducible Extremities: No Clubbing, Cyanosis Skin: No Rash or Ulcers, No Nodules or Sclerosis, - - R 1st MTP still mildy erthematous and warm Neurological: Alert and Oriented x 3 Result Diagrams: 07/21/16 08:57 07/21/16 08:57 Additional Lab and Data: Lab Results 07/17/16 07/17/16 07/17/16 Range/Units 12:23 12:23 12:23 WBC 10.5 (3.5-10.8) 10^3/ul RBC 2.33 L (4.0-5.4) 10^6/ul Hgb 7.6 L (14.0-18.0) g/dl Hct 23 L (42-52) % MCV 98 H (80-94) fL MCH 33 H (27-31) pg MCHC 34 (31-36) g/dl RDW 16 H (10.5-15) % Plt Count 76 L (150-450) 10^3/ul MPV 9 (7.4-10.4) um3 Neut % (Auto) 82.3 (38-83) % Lymph % (Auto) 10.3 L (25-47) % [place] % (Auto) 6.9 (1-9) % Eos % (Auto) 0.1 (0-6) % Baso % (Auto) 0.4 (0-2) % Absolute Neuts (auto) 8.6 H (1.5-7.7) 10^3/ul Absolute Lymphs (auto) 1.1 (1.0-4.8) 10^3/ul Absolute Monos (auto) 0.7 (0-0.8) 10^3/ul Absolute Eos (auto) 0 (0-0.6) 10^3/ul Absolute Basos (auto) 0 (0-0.2) 10^3/ul Absolute Nucleated RBC 0 10^3/ul Nucleated RBC % 0 INR (Anticoag Therapy) 1.75 H (0.89-1.11) APTT 32.4 (26.0-36.3) seconds Sodium 136 (133-145) mmol/L Potassium 5.4 H (3.5-5.0) mmol/L Chloride 107 (101-111) mmol/L Carbon Dioxide 22 (22-32) mmol/L Anion Gap 7 (2-11) mmol/L BUN 50 H (6-24) mg/dL Creatinine 1.26 H (0.67-1.17) mg/dL Est GFR ( Amer) 74.8 (>60) Est GFR (Non-Af Amer) 58.2 (>60) BUN/Creatinine Ratio 39.7 H (8-20) Glucose 140 H (70-100) mg/dL Lactic Acid (0.5-2.0) mmol/L Calcium 7.9 L (8.6-10.3) mg/dL Total Bilirubin 3.30 H (0.2-1.0) mg/dL AST 28 (13-39) U/L ALT 13 (7-52) U/L Alkaline Phosphatase 113 H (34-104) U/L Total Creatine Kinase 166 (10-223) U/L CK-MB (CK-2) 5.4 (0.6-6.3) ng/mL Myoglobin 100.3 (17.4-105.7) ng/mL Troponin I 0.03 (<0.04) ng/mL B-Natriuretic Peptide ( - 100) pg/mL Total Protein 5.5 L (6.4-8.9) g/dL Albumin 2.6 L (3.2-5.2) g/dL Globulin 2.9 (2-4) g/dL Albumin/Globulin Ratio 0.9 L (1-3) Lipase 69 (11.0-82.0) U/L Serum Alcohol < 10 (<10) mg/dL Blood Type Antibody Screen Crossmatch 07/17/16 07/17/16 07/17/16 Range/Units 12:23 12:23 12:23 WBC (3.5-10.8) 10^3/ul RBC (4.0-5.4) 10^6/ul Hgb (14.0-18.0) g/dl Hct (42-52) % MCV (80-94) fL MCH (27-31) pg MCHC (31-36) g/dl RDW (10.5-15) % Plt Count (150-450) 10^3/ul MPV (7.4-10.4) um3 Neut % (Auto) (38-83) % Lymph % (Auto) (25-47) % [place] % (Auto) (1-9) % Eos % (Auto) (0-6) % Baso % (Auto) (0-2) % Absolute Neuts (auto) (1.5-7.7) 10^3/ul Absolute Lymphs (auto) (1.0-4.8) 10^3/ul Absolute Monos (auto) (0-0.8) 10^3/ul Absolute Eos (auto) (0-0.6) 10^3/ul Absolute Basos (auto) (0-0.2) 10^3/ul Absolute Nucleated RBC 10^3/ul Nucleated RBC % INR (Anticoag Therapy) (0.89-1.11) APTT (26.0-36.3) seconds Sodium (133-145) mmol/L Potassium (3.5-5.0) mmol/L Chloride (101-111) mmol/L Carbon Dioxide (22-32) mmol/L Anion Gap (2-11) mmol/L BUN (6-24) mg/dL Creatinine (0.67-1.17) mg/dL Est GFR ( Amer) (>60) Est GFR (Non-Af Amer) (>60) BUN/Creatinine Ratio (8-20) Glucose (70-100) mg/dL Lactic Acid 3.2 H* (0.5-2.0) mmol/L Calcium (8.6-10.3) mg/dL Total Bilirubin (0.2-1.0) mg/dL AST (13-39) U/L ALT (7-52) U/L Alkaline Phosphatase (34-104) U/L Total Creatine Kinase (10-223) U/L CK-MB (CK-2) (0.6-6.3) ng/mL Myoglobin (17.4-105.7) ng/mL Troponin I (<0.04) ng/mL B-Natriuretic Peptide 116 H ( - 100) pg/mL Total Protein (6.4-8.9) g/dL Albumin (3.2-5.2) g/dL Globulin (2-4) g/dL Albumin/Globulin Ratio (1-3) Lipase (11.0-82.0) U/L Serum Alcohol (<10) mg/dL Blood Type A Positive Antibody Screen Negative Crossmatch See Detail Microbiology and Other Data: Microbiology 07/17/16 20:15 Stool Occult Blood (TIFFANIE) - Final Stool 07/17/16 15:50 Nasal Screen MRSA (PCR)(TIFFANIE) - Final Nasal Mrsa Negative Assess/Plan/Problems-Billing Mr Goode is a 60 yo M with a h/o alcoholism, ascites and known esophageal varices who presented to the ER with c/o black stools and hematemesis. - Patient Problems (1) Upper GI bleed Current Visit: Yes Status: Acute Code(s): K92.2 - GASTROINTESTINAL HEMORRHAGE, UNSPECIFIED SNOMED Code(s): 61075879 Comment: The patient developed an upper GI bleed secondary to likely bleeding varices. He is s/p protonix and octreotide drips. He is also s/p EGD with banding x3. The patient has been having black stools but now improving. H/ H is improving despite the black stools making me think the black stools are from old blood. Follow up H/H on 07/24/16. He will need to follow up with GI for his varices-[facility] is where he had been seen previously or can establish with [facility]. (2) Ascites Current Visit: Yes Status: Acute Code(s): R18.8 - OTHER ASCITES SNOMED Code(s): 108403884 Comment: No signs of SBP. Continue spironolactone but continue to hold lasix as his BP is soft. (3) Alcohol abuse Current Visit: Yes Status: Chronic Code(s): F10.10 - ALCOHOL ABUSE, UNCOMPLICATED SNOMED Code(s): 47465774 Comment: I continue to encourage abstinence though the patient will likely not quit drinking. (4) DVT prophylaxis Current Visit: Yes Status: Acute Code(s): ALG7990 - SNOMED Code(s): 676675717 Comment: SCDs (5) Full code status Current Visit: Yes Status: Acute Code(s): Z78.9 - OTHER SPECIFIED HEALTH STATUS SNOMED Code(s): 173051660
--- NOTE | 2016-07-22 01:38 | DS ---
DISCHARGE SUMMARY: DATE OF ADMISSION: 07/17/16 DATE OF DISCHARGE: 07/21/16 PRIMARY CARE PROVIDER: To be established. PRINCIPAL DIAGNOSES: 1. Upper GI bleed secondary to bleeding esophageal varices. 2. Alcohol abuse. 3. Ascites. SECONDARY DIAGNOSIS: Possible gout of the right first MTP. DISCHARGE MEDICATIONS: 1. Ferrous gluconate 324 mg p.o. b.i.d. 2. Spironolactone 25 mg p.o. daily (reduced dose). 3. Thiamine 100 mg p.o. daily (new). 4. Multivitamin 1 tab p.o. daily (new). 5. Folic acid 1 mg p.o. daily (new). 6. Colchicine 0.6 mg p.o. daily (p.r.n. gout/pain). Discontinued medications: Lasix. HOSPITAL COURSE: Mr. Goode is a 60-year-old male who presented to the emergency room on 07/17/16 with complaints of hematemesis. The patient carries a longstanding history of alcohol abuse with known cirrhosis and varices. He had been previously diagnosed with grade 1 esophageal varices in 2014. At approximately 1 a.m., he started vomiting. He noted this to be blood with clots. The patient presented to the emergency room for evaluation. The patient was seen urgently in consultation by Dr. Glez. The patient underwent emergent EGD that revealed one large grade 3 to 4 esophageal varix and 2 smaller grade 2 varices. Each of these were banded. The patient presented initially with a hemoglobin of 7.6. It did trend down to 6.9 on 07/19/16. He received one more unit of packed red blood cells. His hemoglobin is up to 9.1 on the day of discharge. The patient has been having black stools; however, with his improving hemoglobin, I suspect that this is old blood that he is passing. The patient's mental status is quite clear. He has no abdominal pain. The patient has been instructed to abstain from drinking alcohol; however , I have a very low suspicion that he will do so. The patient was also found to be thrombocytopenic during his hospitalization. The patient's platelet count has been relatively stable and in fact slightly improved on the day of discharge. In terms of the patient's known history of cirrhosis and ascites, he was supposed to be taking Lasix and spironolactone at home. I do not believe that he was taking these routinely. His blood pressure has been soft to low normal. During the course of his hospitalization, he has been asymptomatic with this. Because of his lower blood pressures, I have discontinued the Lasix and continued him only on spironolactone 25 mg p.o. daily. The patient at this time does not have a primary care provider and needs to establish with somebody. The patient's coordinator will work on getting this in place. Additionally, the patient will need to follow up with Gastroenterology. The patient had previously seen at [facility] and this has been recommended that he follow back up with them. FOLLOWUP CONCERNS: The patient is being discharged home today on 07/21/16. ACTIVITY LEVEL: As tolerated. DIET: Regular. CONDITION ON DISCHARGE: Stable. TIME SPENT: 35 minutes were spent discharging this patient. [id number] #: [id number] MTDD
== END 2016-07-21 11:05 | disposition home or self-care (01) | DRG 441 ==
LOC: ED 11:50 → ICU 13:47 → MED 07-18 11:59
PROVIDERS: ADMIT Internal Medicine; ATTEND Hospitalist
PROC: 0W3P8ZZ Control Bleeding in Gastrointestinal Tract, Via Natural or Artificial Opening Endoscopic (ICD-10-PCS; principal; 2016-07-17)
PROC: 30233N1 Transfusion of Nonautologous Red Blood Cells into Peripheral Vein, Percutaneous Approach (ICD-10-PCS; 2016-07-17)
DX: K76.6 Portal hypertension (principal); I85.11 Secondary esophageal varices with bleeding; D62 Acute posthemorrhagic anemia; D69.6 Thrombocytopenia, unspecified; K70.31 Alcoholic cirrhosis of liver with ascites; F10.20 Alcohol dependence, uncomplicated; Y90.0 Blood alcohol level of less than 20 mg/100 ml; K31.89 Other diseases of stomach and duodenum; F17.210 Nicotine dependence, cigarettes, uncomplicated; F12.10 Cannabis abuse, uncomplicated
CPT/HCPCS: 36415; 71010; 80048; 80053; 80320; 81003; 81015; 82140; 82272; 82550; 82553; 83605; 83690; 83874; 83880; 84484; 85014; 85018; 85025; 85027; 85610; 85730; 86850; 86900; 86901; 86922; 87641; 93005; 94760; 99284; 99406; A9270-GY; G0480; J0696; J2175; J2250; J2354; J3411; J3430; P9040

== ENCOUNTER 2016-09-12 18:36 | Emergency (ER) | payer MEDICARE ==
[2016-09-12] MEDS ORDERED: Pantoprazole IV* 40 MG IV ONE (19:03)
[2016-09-12] MEDS ORDERED: NS 0.9% 1000 ML* 3,000 ML IV ONE (19:03)
[2016-09-12 19:25] LABS: Hematocrit 29 % (42-52); Hemoglobin 9.8 g/dl (14.0-18.0); Mean Corpuscular HGB Conc 34 g/dl (31-36); Mean Corpuscular Hemoglobin 32 pg (27-31); Mean Corpuscular Volume 97 fL (80-94); Mean Platelet Volume 9 um3 (7.4-10.4); Red Blood Count 3.02 10^6/ul (4.0-5.4); Red Cell Distribution Width 17 % (10.5-15); White Blood Count 14.3 10^3/ul (3.5-10.8)
[2016-09-12 19:42] LABS: Albumin 3.1 g/dL (3.2-5.2); C Reactive Protein 9.51 mg/L (< 5.00); Calcium 9.6 mg/dL (8.6-10.3); EGFR African American 81.2 (>60); EGFR Non-African American 63.2 (>60); Globulin 3.5 g/dL (2-4); Potassium 4.7 mmol/L (3.5-5.0); Total Bilirubin 2.3 mg/dL (0.2-1.0); Total Protein 6.6 g/dL (6.4-8.9)
[2016-09-12] MEDS ORDERED: Pantoprazole IV* 80 MG in NS 0.9% 250 ML* 250 ML IV SCH (20:00)
--- NOTE | 2016-09-12 20:17 | ED ---
Driss Moreno Benjamin, scribed for Gt Gamino MD on 09/12/16 at 1934 . GI/ HPI - HPI Summary HPI Summary: 61yo male who had two episodes of hematemesis at home. States he has black tarry stool. Symptoms started this am. Pt reports feeling lightheaded and dizzy. Denies CP or SOB. Was admitted to [facility] on Jul 17, 2016 for esophageal varices which banding was performed. Pt states doing well until today. Pt still drinks. Hx includes of cirrhosis. Pt is still smoking tobacco. No fever, chills , cough, or RIVERO. - History of Current Complaint Chief Complaint: EDGIBleed Time Seen by Provider: 09/12/16 19:01 Stated Complaint: VOMITING BLOOD Hx Obtained From: Patient Onset/Duration: Started Days Ago, Still Present Timing: Constant Severity: Mild Current Severity: Mild Pain Intensity: 0 Location of Pain: None Associated Signs and Symptoms: Positive: Vomiting - hematemisis, Black Tarry Stool - Additional Pertinent History Primary Care Physician: ARIANE - Allergy/Home Medications Allergies/Adverse Reactions: Allergies Allergy/AdvReac Type Severity Reaction Status Date / Time No Known Allergies Allergy Verified 09/10/15 13:56 PMH/Surg Hx/FS Hx/Imm Hx Endocrine/Hematology History: Reports: Hx Anemia, Other Endocrine/Hematological Disorders - elevated INR-liver disease Denies: Hx Anticoagulant Therapy, Hx Diabetes Cardiovascular History: Denies: Hx Hypercholesterolemia, Hx Hypertension GI History: Reports: Hx Cirrhosis, Hx Hiatal Hernia, Other GI Disorders - ABD PAIN History: Reports: Other Problems/Disorders - Hx cirrhosis of the liver Musculoskeletal History: Reports: Hx Back Problems - back surgery, foot drop, Other Musculoskeletal History - right arm surgery Neurological History: Reports: Hx Spinal Cord Injury - hx back surg with drop foot right - Surgical History Surgery Procedure, Year, and Place: low back, right forearm Infectious Disease History: No Infectious Disease History: Denies: Hx Clostridium Difficile, Traveled Outside the [place] in Last 30 Days - Family History Known Family History: Positive: Unknown, Cardiac Disease - Social History Alcohol Use: Daily Alcohol Amount: 3-4 drinks per day Hx Substance Use: No Substance Use Type: Reports: Marijuana Substance Use Comment - Amount & Last Used: 3x/wk Hx Tobacco Use: Yes Smoking Status (MU): Heavy Every Day Tobacco Smoker Type: Cigarettes Review of Systems Constitutional: Negative Eyes: Negative ENT: Negative Cardiovascular: Negative Negative: Chest Pain Respiratory: Negative Positive: Vomiting - hemetemisis , Other - black tarry stool Genitourinary: Negative Musculoskeletal: Negative Skin: Negative Neurological: Negative Psychological: Normal All Other Systems Reviewed And Are Negative: Yes Physical Exam - Summary Physical Exam Summary: The patient is well-nourished in no acute distress and in no acute pain. The skin is warm. Diaphoretic. Pale. Capillary refill greater than 3 seconds. HEENT: The head is normocephalic and atraumatic. The pupils are equal and reactive. Sclera icterus and jaundice. Nares are patent and without drainage. Mouth reveals dry mucous membranes and the throat is without erythema and exudate. The external ears are intact. The ear canals are patent and without drainage. The tympanic membranes are intact. Neck is supple with full range of motion and non-tender. There are no carotid bruits. There is no neck vein distension. Respiratory: Chest is non-tender. Lungs are clear to auscultation and breath sounds are symmetrical and equal. Cardiovascular: Hear is tachycardic. There is no murmur or rub auscultated. There is no peripheral edema and pulses are symmetrical and equal. Pt has umbilical hernia, which is easily reducible. Abdomen: The abdomen is obese, but soft and non-tender. There are normal bowel sounds heard in all four quadrants and there is no organomegaly palpated. Musculoskeletal: There is no back pain noted. Extremities are non-tender with full range of motion. There is good capillary refill. There is no peripheral edema or calf tenderness elicited. Neurological: Patient is alert and oriented to person, place and time. The patient has symmetrical motor strength in all four extremities. Cranial nerves are grossly intact. Deep tendon reflexes are symmetrical and equal in all four extremities. Psychiatric: The patient has an appropriate affect and does not exhibit any anxiety or depression. RECTAL EXAM: black tarry melanotic stool noted. Triage Information Reviewed: Yes Vital Signs On Initial Exam: Initial Vitals Temp Pulse Resp BP Pulse Ox 98.0 F 128 20 86/53 95 09/12/16 18:42 09/12/16 18:42 09/12/16 18:42 09/12/16 18:42 09/12/16 18:42 Vital Signs Reviewed: Yes Diagnostics - Vital Signs Vital Signs Temp Pulse Resp BP Pulse Ox 03/01/17 18:42 98.0 F 128 20 86/53 95 - Laboratory Lab Results: Lab Results 09/12/16 09/12/16 09/12/16 Range/Units 19:00 19:00 19:00 WBC 14.3 H (3.5-10.8) 10^3/ul RBC 3.02 L (4.0-5.4) 10^6/ul Hgb 9.8 L (14.0-18.0) g/dl Hct 29 L (42-52) % MCV 97 H (80-94) fL MCH 32 H (27-31) pg MCHC 34 (31-36) g/dl RDW 17 H (10.5-15) % Plt Count 126 L (150-450) 10^3/ul MPV 9 (7.4-10.4) um3 Neut % (Auto) 60.5 (38-83) % Lymph % (Auto) 29.5 (25-47) % [place] % (Auto) 8.2 (1-9) % Eos % (Auto) 0.8 (0-6) % Baso % (Auto) 1.0 (0-2) % Absolute Neuts (auto) 8.7 H (1.5-7.7) 10^3/ul Absolute Lymphs (auto) 4.2 (1.0-4.8) 10^3/ul Absolute Monos (auto) 1.2 H (0-0.8) 10^3/ul Absolute Eos (auto) 0.1 (0-0.6) 10^3/ul Absolute Basos (auto) 0.1 (0-0.2) 10^3/ul Absolute Nucleated RBC 0 10^3/ul Nucleated RBC % 0 Sodium 139 (133-145) mmol/L Potassium 4.7 (3.5-5.0) mmol/L Chloride 108 (101-111) mmol/L Carbon Dioxide 22 (22-32) mmol/L Anion Gap 9 (2-11) mmol/L BUN 48 H (6-24) mg/dL Creatinine 1.17 (0.67-1.17) mg/dL Est GFR ( Amer) 81.2 (>60) Est GFR (Non-Af Amer) 63.2 (>60) BUN/Creatinine Ratio 41.0 H (8-20) Glucose 111 H (70-100) mg/dL Lactic Acid (0.5-2.0) mmol/L Calcium 9.6 (8.6-10.3) mg/dL Total Bilirubin 2.30 H (0.2-1.0) mg/dL AST 34 (13-39) U/L ALT 13 (7-52) U/L Alkaline Phosphatase 123 H (34-104) U/L Ammonia 79 H (16-53) mol/L Total Creatine Kinase 188 (10-223) U/L C-Reactive Protein 9.51 H (< 5.00) mg/L Total Protein 6.6 (6.4-8.9) g/dL Albumin 3.1 L (3.2-5.2) g/dL Globulin 3.5 (2-4) g/dL Albumin/Globulin Ratio 0.9 L (1-3) Amylase 54 (29-103) U/L Lipase 57 (11.0-82.0) U/L Blood Type Antibody Screen 09/12/16 09/12/16 Range/Units 19:00 19:00 WBC (3.5-10.8) 10^3/ul RBC (4.0-5.4) 10^6/ul Hgb (14.0-18.0) g/dl Hct (42-52) % MCV (80-94) fL MCH (27-31) pg MCHC (31-36) g/dl RDW (10.5-15) % Plt Count (150-450) 10^3/ul MPV (7.4-10.4) um3 Neut % (Auto) (38-83) % Lymph % (Auto) (25-47) % [place] % (Auto) (1-9) % Eos % (Auto) (0-6) % Baso % (Auto) (0-2) % Absolute Neuts (auto) (1.5-7.7) 10^3/ul Absolute Lymphs (auto) (1.0-4.8) 10^3/ul Absolute Monos (auto) (0-0.8) 10^3/ul Absolute Eos (auto) (0-0.6) 10^3/ul Absolute Basos (auto) (0-0.2) 10^3/ul Absolute Nucleated RBC 10^3/ul Nucleated RBC % Sodium (133-145) mmol/L Potassium (3.5-5.0) mmol/L Chloride (101-111) mmol/L Carbon Dioxide (22-32) mmol/L Anion Gap (2-11) mmol/L BUN (6-24) mg/dL Creatinine (0.67-1.17) mg/dL Est GFR ( Amer) (>60) Est GFR (Non-Af Amer) (>60) BUN/Creatinine Ratio (8-20) Glucose (70-100) mg/dL Lactic Acid 2.9 H* (0.5-2.0) mmol/L Calcium (8.6-10.3) mg/dL Total Bilirubin (0.2-1.0) mg/dL AST (13-39) U/L ALT (7-52) U/L Alkaline Phosphatase (34-104) U/L Ammonia (16-53) mol/L Total Creatine Kinase (10-223) U/L C-Reactive Protein (< 5.00) mg/L Total Protein (6.4-8.9) g/dL Albumin (3.2-5.2) g/dL Globulin (2-4) g/dL Albumin/Globulin Ratio (1-3) Amylase (29-103) U/L Lipase (11.0-82.0) U/L Blood Type A Positive Antibody Screen Negative Result Diagrams: 09/12/16 19:00 09/12/16 19:00 Lab Statement: Any lab studies that have been ordered have been reviewed, and results considered in the medical decision making process. - EKG 1847. Cardiac Rate: Tachycardia EKG Rhythm: Sinus Tachycardia EKG Interpretation: Left axis deviation. Poor R waves No STEMI Re-Evaluation - Re-Evaluation First Eval Re-Evaluation Time: 20:01 Change: Improved - BP at 111, pulse in 80s, and pt states that he is feeling better.Pt's Ammonia level of 79. Will give lactulose and transfer the pt. GIGU Course/Dx - Course Course Of Treatment: There is no GI coverage. Pt will be transferred. pt had requested to go to [facility] but they were unable to accept the patient. pt agreed to transfer to [facility] in [place]. [facility] was contacted and the pt was accepted by the hospitalist, Dr. Sykes. - Diagnoses Differential Diagnoses - Male: Esophageal Varices, Other - gi bleed, hepatic encehalopathy, ascites Provider Diagnoses: Upper GI bleed, Esophageal varices, Ascites, hepatic encephalitis - Physician Notifications Discussed Care Of Patient With: Dr. Glez (GI) @191. He states there is no GI coverage. Dr. Sykes from [facility]. @1999. Dr. Sykes accepts the pt for transfer. 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 - there was no GI coverage, today. - Critical Care Time Critical Care Time: 30-74 min - 30 minutes of critcal care time which includes time spent with patient and family, reviewing laboratory studies and old records and time spent with consulatants. Discharge - Discharge Plan Condition: Guarded Disposition: TRANS HIGHER LVL OF CARE FAC The documentation as recorded by the Driss figueroa Benjamin accurately reflects the service I personally performed and the decisions made by me, Gt Gamino MD.
[2016-09-12 21:34] VITALS: BP 121/55
== END 2016-09-12 21:41 | disposition short-term general hospital (02) ==
LOC: ED 18:36
DX: K92.2 Gastrointestinal hemorrhage, unspecified (principal); I85.00 Esophageal varices without bleeding; G04.90 Encephalitis and encephalomyelitis, unspecified; R11.10 Vomiting, unspecified; F17.210 Nicotine dependence, cigarettes, uncomplicated
CPT/HCPCS: 36415; 80053; 82140; 82150; 82272; 82550; 83605; 83690; 85025; 86140; 86850; 86900; 86901; 93005; 96374; 99283

== ENCOUNTER 2016-09-20 06:17 | Inpatient (IN) | payer MEDICARE ==
[2016-09-20] MEDS ORDERED: NS 0.9% 1000 ML* 1,000 ML IV ONE ×2 (06:36→08:52)
[2016-09-20] MEDS ORDERED: Ondansetron INJ* 2 MG/ML VIAL IV ONE (06:36)
[2016-09-20] MEDS ORDERED: Pantoprazole IV* 40 MG IV ONE (07:11)
[2016-09-20 07:44] LABS: Hematocrit 19 % (42-52); Mean Corpuscular HGB Conc 33 g/dl (31-36); Mean Corpuscular Hemoglobin 31 pg (27-31); Mean Corpuscular Volume 95 fL (80-94); Mean Platelet Volume 10 um3 (7.4-10.4); Red Blood Count 2.04 10^6/ul (4.0-5.4); Red Cell Distribution Width 18 % (10.5-15); White Blood Count 12.4 10^3/ul (3.5-10.8)
[2016-09-20 07:51] LABS: Comments Flag Yes
[2016-09-20 07:54] LABS: Add Diff/Slide Review? Slide Review Added; Hemoglobin 6.4 g/dl (14.0-18.0)
[2016-09-20 08:01] LABS: Albumin 2.6 g/dL (3.2-5.2); C Reactive Protein 19.29 mg/L (< 5.00); Calcium 8.7 mg/dL (8.6-10.3); EGFR Non-African American 70.8 (>60); Globulin 2.6 g/dL (2-4); Magnesium 1.4 mg/dL (1.9-2.7); Potassium 3.9 mmol/L (3.5-5.0); Total Bilirubin 1.1 mg/dL (0.2-1.0); Total Protein 5.2 g/dL (6.4-8.9)
[2016-09-20] MEDS ORDERED: Octreotide Acetate* 50 MCG in NS 0.9% 50 ML* 50 ML IVPB ONE (09:03)
[2016-09-20 09:31] LABS: Macrocytosis 1+; Microcytosis 2+; Polychromasia 1+
--- NOTE | 2016-09-20 09:52 | ED ---
Mel Moreno Alok, scribed for Octavio Soliman MD on 09/20/16 at 0742 . GI/ HPI - HPI Summary HPI Summary: 61 y/o male with PMHx of liver sclerosis reports to the ED with c/o hematochezia and hematemesis. Pt's hematemesis reportedly began last night while his hematochezia has been on and off for the last month. Pt notes cramping sensations in his abd currently but denies any N/V currently. PMHx includes hx of GI bleeds and alcohol abuse though the pt has quit drinking since. - History of Current Complaint Chief Complaint: EDGIBleed Time Seen by Provider: 09/20/16 07:10 Stated Complaint: VOMITING BLOOD Hx Obtained From: Patient Onset/Duration: Started Days Ago, Atraumatic, Still Present Timing: Intermittent Severity: Moderate Current Severity: Moderate Pain Intensity: 5 Location of Pain: Diffuse Pain Characteristics: Cramping Associated Signs and Symptoms: Positive: Hematemesis, Black Tarry Stool Aggravating Factor(s): Nothing Alleviating Factor(s): Nothing - Additional Pertinent History Primary Care Physician: [id number] - Allergy/Home Medications Allergies/Adverse Reactions: Allergies Allergy/AdvReac Type Severity Reaction Status Date / Time No Known Allergies Allergy Verified 09/10/15 13:56 PMH/Surg Hx/FS Hx/Imm Hx Endocrine/Hematology History: Reports: Hx Anemia, Other Endocrine/Hematological Disorders - elevated INR-liver disease Denies: Hx Anticoagulant Therapy, Hx Diabetes Cardiovascular History: Denies: Hx Hypercholesterolemia, Hx Hypertension GI History: Reports: Hx Cirrhosis, Hx Hiatal Hernia, Other GI Disorders - ABD PAIN History: Reports: Other Problems/Disorders - Hx cirrhosis of the liver Musculoskeletal History: Reports: Hx Back Problems - back surgery, foot drop, Other Musculoskeletal History - right arm surgery Neurological History: Reports: Hx Spinal Cord Injury - hx back surg with drop foot right - Surgical History Surgery Procedure, Year, and Place: low back, right forearm Infectious Disease History: No Infectious Disease History: Denies: Hx Clostridium Difficile, Traveled Outside the US in Last 30 Days - Family History Known Family History: Positive: Unknown, Cardiac Disease - Social History Alcohol Use: Daily Alcohol Amount: 3-4 drinks per day Hx Substance Use: No Substance Use Type: Reports: Marijuana Substance Use Comment - Amount & Last Used: 3x/wk Hx Tobacco Use: Yes Smoking Status (MU): Heavy Every Day Tobacco Smoker Type: Cigarettes Review of Systems Negative: Fever Positive: Abdominal Pain, Vomiting - Hematemesis, Other - Hematochezia All Other Systems Reviewed And Are Negative: Yes Physical Exam - Summary Physical Exam Summary: Rectal Exam: Normal sphincter tone. Melena. No gross bleeding. Triage Information Reviewed: Yes Vital Signs On Initial Exam: Initial Vitals Temp Pulse Resp BP Pulse Ox 100 F 101 18 113/65 97 09/20/16 06:23 09/20/16 06:23 09/20/16 06:23 09/20/16 06:23 09/20/16 06:23 Vital Signs Reviewed: Yes Appearance: Positive: Well-Appearing - Male. Disheveled., No Pain Distress Skin: Positive: Warm, Dry, Other - Pallor Head/Face: Positive: Normal Head/Face Inspection - Mouth: Dry red blood Eyes: Positive: Normal, EOMI, LUIS ENT: Positive: Normal ENT inspection Neck: Positive: Supple, Nontender Respiratory/Lung Sounds: Positive: Clear to Auscultation, Breath Sounds Present Cardiovascular: Positive: Normal, RRR Abdomen Description: Positive: Distended, Hernia @, Other: - Melena. No active bleeding Bowel Sounds: Positive: Present Musculoskeletal: Positive: Normal Neurological: Positive: Normal, Sensory/Motor Intact, Alert, Oriented to Person Place, Time Psychiatric: Positive: Normal, Affect/Mood Appropriate Diagnostics - Vital Signs Vital Signs Temp Pulse Resp BP Pulse Ox 09/20/16 06:23 100 F 101 18 113/65 97 - Laboratory Lab Results: Lab Results 09/20/16 09/20/16 09/20/16 Range/Units 07:30 07:30 07:30 WBC 12.4 H (3.5-10.8) 10^3/ul RBC 2.04 L (4.0-5.4) 10^6/ul Hgb 6.4 L* (14.0-18.0) g/dl Hct 19 L (42-52) % MCV 95 H (80-94) fL MCH 31 (27-31) pg MCHC 33 (31-36) g/dl RDW 18 H (10.5-15) % Plt Count 113 L (150-450) 10^3/ul MPV 10 (7.4-10.4) um3 Neut % (Auto) 78.2 (38-83) % Lymph % (Auto) 11.0 L (25-47) % [place] % (Auto) 8.7 (1-9) % Eos % (Auto) 1.5 (0-6) % Baso % (Auto) 0.6 (0-2) % Absolute Neuts (auto) 9.7 H (1.5-7.7) 10^3/ul Absolute Lymphs (auto) 1.4 (1.0-4.8) 10^3/ul Absolute Monos (auto) 1.1 H (0-0.8) 10^3/ul Absolute Eos (auto) 0.2 (0-0.6) 10^3/ul Absolute Basos (auto) 0.1 (0-0.2) 10^3/ul Absolute Nucleated RBC 0.01 10^3/ul Nucleated RBC % 0.1 Normal RBC Morphology Not Reportable Polychromasia 1+ Microcytosis 2+ Macrocytosis 1+ INR (Anticoag Therapy) 1.38 H (0.89-1.11) Sodium 137 (133-145) mmol/L Potassium 3.9 (3.5-5.0) mmol/L Chloride 109 (101-111) mmol/L Carbon Dioxide 22 (22-32) mmol/L Anion Gap 6 (2-11) mmol/L BUN 36 H (6-24) mg/dL Creatinine 1.06 (0.67-1.17) mg/dL Est GFR ( Amer) 91.0 (>60) Est GFR (Non-Af Amer) 70.8 (>60) BUN/Creatinine Ratio 34.0 H (8-20) Glucose 112 H (70-100) mg/dL Lactic Acid (0.5-2.0) mmol/L Calcium 8.7 (8.6-10.3) mg/dL Magnesium 1.4 L (1.9-2.7) mg/dL Total Bilirubin 1.10 H (0.2-1.0) mg/dL AST 29 (13-39) U/L ALT 12 (7-52) U/L Alkaline Phosphatase 97 (34-104) U/L Ammonia (16-53) mol/L C-Reactive Protein 19.29 H (< 5.00) mg/L Total Protein 5.2 L (6.4-8.9) g/dL Albumin 2.6 L (3.2-5.2) g/dL Globulin 2.6 (2-4) g/dL Albumin/Globulin Ratio 1.0 (1-3) Lipase 60 (11.0-82.0) U/L Blood Type Antibody Screen Crossmatch 09/20/16 09/20/16 09/20/16 Range/Units 07:30 07:30 07:30 WBC (3.5-10.8) 10^3/ul RBC (4.0-5.4) 10^6/ul Hgb (14.0-18.0) g/dl Hct (42-52) % MCV (80-94) fL MCH (27-31) pg MCHC (31-36) g/dl RDW (10.5-15) % Plt Count (150-450) 10^3/ul MPV (7.4-10.4) um3 Neut % (Auto) (38-83) % Lymph % (Auto) (25-47) % [place] % (Auto) (1-9) % Eos % (Auto) (0-6) % Baso % (Auto) (0-2) % Absolute Neuts (auto) (1.5-7.7) 10^3/ul Absolute Lymphs (auto) (1.0-4.8) 10^3/ul Absolute Monos (auto) (0-0.8) 10^3/ul Absolute Eos (auto) (0-0.6) 10^3/ul Absolute Basos (auto) (0-0.2) 10^3/ul Absolute Nucleated RBC 10^3/ul Nucleated RBC % Normal RBC Morphology Polychromasia Microcytosis Macrocytosis INR (Anticoag Therapy) (0.89-1.11) Sodium (133-145) mmol/L Potassium (3.5-5.0) mmol/L Chloride (101-111) mmol/L Carbon Dioxide (22-32) mmol/L Anion Gap (2-11) mmol/L BUN (6-24) mg/dL Creatinine (0.67-1.17) mg/dL Est GFR ( Amer) (>60) Est GFR (Non-Af Amer) (>60) BUN/Creatinine Ratio (8-20) Glucose (70-100) mg/dL Lactic Acid 1.5 (0.5-2.0) mmol/L Calcium (8.6-10.3) mg/dL Magnesium (1.9-2.7) mg/dL Total Bilirubin (0.2-1.0) mg/dL AST (13-39) U/L ALT (7-52) U/L Alkaline Phosphatase (34-104) U/L Ammonia 82 H (16-53) mol/L C-Reactive Protein (< 5.00) mg/L Total Protein (6.4-8.9) g/dL Albumin (3.2-5.2) g/dL Globulin (2-4) g/dL Albumin/Globulin Ratio (1-3) Lipase (11.0-82.0) U/L Blood Type A Positive Antibody Screen Negative Crossmatch See Detail Result Diagrams: 09/20/16 07:30 09/20/16 07:30 Lab Statement: Any lab studies that have been ordered have been reviewed, and results considered in the medical decision making process. - EKG 0823 Cardiac Rate: Tachycardia EKG Rhythm: Sinus Tachycardia - 105 bpm EKG Interpretation: No ST elevation GIGU Course/Dx - Course Course Of Treatment: 61 y/o male with PMHx of liver sclerosis reports to the ED with c/o hematochezia and hematemesis. Pt's hematemesis reportedly began last night while his hematochezia has been on and off for the last month. Pt notes cramping sensations in his abd currently but denies any N/V currently. PMHx includes hx of GI bleeds and alcohol abuse though the pt has quit drinking since. Assessment/Plan: Blood work normal except WBC 12.4 H, Hemoglobin 6.4 L, INR 1.38 , BUN 36 H, Creatine 1.06, Glucose 112 H, CRP 19.29 H. Pt was given IV fluids, achieved 2 IV axis since BP low to atttempt Resuscitation. Pt BP now stable at 103/59. Ordered two units of packed blood cells. Pt now alert and oriented x3 and he is hemodynamically stable. I discussed the case with Dr. Glez from GI and he will consuult. I also discussed the case with Dr. Thornton and he accepted the patient for admission. - Diagnoses Provider Diagnoses: UPPER GI BLEED - Physician Notifications Discussed Care Of Patient With: Dr. Ramos (Gastro) @ 0800 - Dr. Ramos will consult pt. Dr. Thornton (Hospitalist) @ 0805 - Dr. Thornton will admit pt following further workup - Critical Care Time Critical Care Time: 30-74 min Discharge - Discharge Plan Condition: Stable Disposition: ADMITTED TO [facility] The documentation as recorded by the Mel figueroa Alok accurately reflects the service I personally performed and the decisions made by Jourdan mendoza Walter, MD.
[2016-09-20 11:03] LABS: Urine Bacteria Absent (Absent); Urine Bilirubin Negative (Negative); Urine Glucose Negative (Negative); Urine Nitrite Negative (Negative)
--- NOTE | 2016-09-20 12:09 | RAD ---
HISTORY: Question aspiration pneumonia COMPARISONS: July 17, 2016 VIEWS:1: Single frontal portable view of the chest at 11:45 AM FINDINGS: LINES AND TUBES: None. CARDIOMEDIASTINAL SILHOUETTE: The cardiomediastinal silhouette is normal for portable technique. PLEURA: The costophrenic angles are sharp. No pleural abnormalities are noted. LUNG PARENCHYMA: The lungs are clear. ABDOMEN: The upper abdomen is clear. There is no subphrenic gas. BONES AND SOFT TISSUES: No bone or soft tissue abnormalities are noted. IMPRESSION: NO ACTIVE CARDIOPULMONARY DISEASE.
[2016-09-20] MEDS: Pantoprazole IV* 80 MG in NS 0.9% 250 ML* 250 ML IVPB SCH ×3 (14:00→23:40)
--- NOTE | 2016-09-20 16:46 | HP ---
ADMISSION HISTORY AND PHYSICAL: DATE OF ADMISSION: 09/20/16 REASON FOR ADMISSION: Upper GI hemorrhage. HISTORY OF PRESENT ILLNESS: This patient is a 61-year-old alcoholic with a history of cirrhosis and esophageal varices with upper GI bleeding (has had banding procedures in the past) who came to the emergency department today because of repeated episodes of hematemesis at home and in the emergency department, and was noted to have a hemoglobin of 6.4. The patient's mental status and blood pressure were adequate in the emergency department, and there was only one episode of mild hematemesis in the ED. The patient was discharged from [place] about 3 to 4 days ago for the same problem. He continues to drink. There are no other significant medical problems at this time. OUTPATIENT MEDICATIONS: 1. Thiamine 100 mg daily. 2. Spironolactone 25 mg daily. 3. Folic acid 1 mg daily. 4. Colchicine 0.6 mg daily p.r.n. ALLERGIES: There are no known drug allergies. REVIEW OF SYSTEMS: Noncontributory. PHYSICAL EXAMINATION GENERAL: The patient is alert, oriented and resting comfortably in bed. VITAL SIGNS: Temperature 99.6, blood pressure 101/70, pulse rate 80 and regular , respirations 16, O2 sat 97% on nasal O2 at 4 L/min. HEENT: No fetor hepaticus. LUNGS: Clear. CARDIAC: Regular rhythm. No murmurs, rubs, or gallops. ABDOMEN: Protuberant. Question fluid wave. EXTREMITIES: Warm, not cyanotic. 1+ edema in the legs. NEURO: No asterixis. DIAGNOSTIC STUDIES/LAB DATA: Significant laboratory abnormalities included hemoglobin of 6.4, white count 12.4, magnesium 1.4, bilirubin 1.1, ammonia 82, albumin 2.6, and C-reactive protein 9.29. INR was elevated at 1.38. Chest x-ray showed no pulmonary infiltration. EKG pending. IMPRESSION: Recurrent variceal GI bleeding. No evidence of hepatic encephalopathy at this time. MANAGEMENT PLAN: GI service has been consulted regarding endoscopy. In the meantime, the patient will receive an octreotide drip and a Protonix drip. Two units of packed cells are being infused and patient's hemoglobin will be kept above 7 grams per deciliter. There was no need to correct the underlying coagulopathy at this time (since INR is less than 1.4). CRITICAL CARE TIME: 60 minutes. [id number]/[facility] #: [id number] MTDDivya
[2016-09-20 17:14] LABS: Hematocrit 21 % (42-52); Hemoglobin 7.2 g/dl (14.0-18.0)
[2016-09-20 17:15] LABS: Comments Flag Yes
[2016-09-21 05:27] LABS: Hematocrit 20 % (42-52); Hemoglobin 6.7 g/dl (14.0-18.0); Mean Corpuscular HGB Conc 34 g/dl (31-36); Mean Corpuscular Hemoglobin 30 pg (27-31); Mean Corpuscular Volume 91 fL (80-94); Mean Platelet Volume 9 um3 (7.4-10.4); Red Blood Count 2.22 10^6/ul (4.0-5.4); Red Cell Distribution Width 21 % (10.5-15); White Blood Count 7.2 10^3/ul (3.5-10.8)
[2016-09-21 05:28] LABS: Comments Flag Yes
[2016-09-21 05:38] LABS: BUN/Creatinine Ratio 25.2 (8-20); Calcium 8.1 mg/dL (8.6-10.3); EGFR African American 90.1 (>60); Magnesium 2.3 mg/dL (1.9-2.7); Potassium 4.5 mmol/L (3.5-5.0)
[2016-09-21] MEDS: Pantoprazole IV* 80 MG in NS 0.9% 250 ML* 250 ML IVPB SCH (09:17)
[2016-09-21 13:07] LABS: Hematocrit 22 % (42-52); Hemoglobin 7.3 g/dl (14.0-18.0)
[2016-09-21 13:11] LABS: Comments Flag Yes
--- NOTE | 2016-09-21 13:50 | PN ---
Critical Care Services: Patient admitted yesterday with acute variceal bleeding. No episodes overnight but Hb dropped (slightly) from 7.2 to 6.7 - given one unit packed RBCs with increase in Hb to 7.2. Patient has been hemodynamically stable since admission. Vital Signs: Temp Pulse Resp BP SpO2 FiO2 99.7 F 71 13 102/63 96 Physical Exam: Gen:Alert, oriented Abdomen:distended Extremities:Warm. No cyanosis Neuro:No asterixis Fluid Balance (Past 24 Hours): 09/21/16 06:59 Intake Total 4889 Output Total 1075 Balance +3814 Weight 187 lb Intake: IV Fluids 2594 LR 594 NS (0.9%) 2000 IVPB 103 Mg+ 103 Medicated IV 593 GEN - Octreotide 219 GEN - Pantoprazole/ 374 Protonix Oral 980 Packed Cells 619 Output: Urine 1075 Other: Date of Last Bowel 09/21/16 Movement # Bowel Movements 3 Estimated Stool Amount Large Labs: 09/21/16 05:02 Sodium 136 Potassium 4.5 Chloride 111 Carbon Dioxide 20 BUN 27 Creatinine 1.07 Glucose 103 Magnesium 2.3 09/21/16 09/21/16 09/21/16 05:02 05:02 12:45 WBC 7.2 Hgb 6.7 7.3 Hct 20 22 Plt Count 80 L INR (Anticoag Therapy) 1.18 Ammonia 87 Studies: None Nutrition: Oral diet Impression: No evidence of ongoing hemorrhage. Plan: 1. D/C octreotide and protonix drip. 2. Monitor serum hemoglobin and platelet count. 3. Start lactulose for hepatic encephalopathy prophylaxis (considering ammonia level in 80s) 4. Transfer to floor
[2016-09-21] MEDS: Lactulose* 15 ML UDC PO SCH ×2 (14:01→21:15)
[2016-09-22] MEDS: Lactulose* 15 ML UDC PO SCH (05:51)
[2016-09-22 06:32] LABS: Hematocrit 23 % (42-52); Hemoglobin 7.8 g/dl (14.0-18.0); Mean Corpuscular HGB Conc 34 g/dl (31-36); Mean Corpuscular Hemoglobin 31 pg (27-31); Mean Corpuscular Volume 89 fL (80-94); Mean Platelet Volume 9 um3 (7.4-10.4); Red Blood Count 2.55 10^6/ul (4.0-5.4); Red Cell Distribution Width 19 % (10.5-15); White Blood Count 6.7 10^3/ul (3.5-10.8)
[2016-09-22 06:34] LABS: Comments Flag Yes
[2016-09-22 08:08] VITALS: BP 98/60
[2016-09-22] MEDS ORDERED: Famotidine TAB* 20 MG PO SCH (09:00)
--- NOTE | 2016-09-23 11:50 | DS ---
DISCHARGE SUMMARY: DATE OF ADMISSION: 09/20/16 DATE OF DISCHARGE: 09/22/16 ADMISSION DIAGNOSES: 1. Upper GI bleed. 2. Anemia due to acute blood loss. 3. Alcohol abuse. 4. Cirrhosis. DISCHARGE DIAGNOSES: 1. Upper GI bleed. 2. Anemia due to acute blood loss. 3. Alcohol abuse. 4. Cirrhosis. HOSPITAL COURSE: The patient is a 61-year-old who presented to the [facility] with chief complaint of bleeding with repeated episodes of hematemesis, having a hemoglobin of 6.4. The patient was originally admitted to the ICU. The patient was placed on octreotide and PPI. He stabilized without any evidence of ongoing hemorrhage. The patient apparently did receive 3 units of packed red blood cells and responded accordingly. He felt much better and was very anxious to go home on the date of discharge. There was concern for some hepatic encephalopathy. He was not confused at all and did receive lactulose and did not want it on discharge. The patient will be discharged home with close followup with PCP. He was strongly encouraged not to drink anymore and he will return to the ER if the patient develops anymore episodes of bleeding. PHYSICAL EXAMINATION: Vital Signs: On the date of discharge, temperature 98.8 degrees, heart rate 61 beats per minute, respiratory rate 17 breaths per minute , pulse ox 96% on room air, blood pressure 98/60. HEENT: Normocephalic/ atraumatic. Pupils equal, round, reactive to light. Moist mucous membranes. Neck: Supple. No JVD, bruits, palpable thyroid, or lymphadenopathy. Chest: Clear to auscultation and percussion bilaterally. Cardiovascular: S1, S2 appreciated bilaterally. Regular rate and rhythm. Abdomen: Positive bowel sounds in all 4 quadrants. Soft, nontender, nondistended. Extremities: No cyanosis, clubbing, or edema. +2 peripheral pulses bilaterally. Neuro: Alert and oriented x3. He moves all extremities. Skin: No rashes or abnormalities. STUDIES DONE WHILE IN THE HOSPITAL: Chest x-ray on 09/20/16, impression: No active cardiopulmonary disease. DISCHARGE MEDICATIONS: 1. Thiamine 100 mg daily. 2. Spironolactone 25 mg daily. 3. Multivitamin 1 tablet daily. 4. Folic acid 1 mg daily. 5. Ferrous gluconate 324 mg twice daily. 6. Colchicine 0.6 mg daily. DISCHARGE PLAN: The patient will be discharged home. He will follow up with PCP this week who is encouraging him to stop drinking. He states he will do so. He will return to the ED if there is anymore evidence of bleeding or anemia or if he develops any worrisome symptoms. TIME SPENT: Over 40 minutes was spent on this discharge, more than 25 minutes of which were spent in direct [id number] contact with the patient in evaluation, physical exam, counseling, and coordination of care. CC: Dr. Bolivar* [id number]/[facility] #: [id number] FLOWER
== END 2016-09-22 13:25 | disposition home or self-care (01) | DRG 378 ==
LOC: ED 06:17 → ICU 08:55 → MED 09-21 17:54
PROVIDERS: ADMIT Internal Medicine Critical Care Medicine; ATTEND Internal Medicine
PROC: 30233N1 Transfusion of Nonautologous Red Blood Cells into Peripheral Vein, Percutaneous Approach (ICD-10-PCS; principal; 2016-09-20)
DX: K92.0 Hematemesis (principal); D62 Acute posthemorrhagic anemia; K76.6 Portal hypertension; K70.30 Alcoholic cirrhosis of liver without ascites; F10.20 Alcohol dependence, uncomplicated; I85.10 Secondary esophageal varices without bleeding; K31.89 Other diseases of stomach and duodenum; Z79.899 Other long term (current) drug therapy
CPT/HCPCS: 36415; 71010; 80048; 80053; 81003; 81015; 82140; 82272; 83605; 83690; 83735; 85014; 85018; 85025; 85027; 85610; 86140; 86850; 86900; 86901; 86922; 87086; 93005; 99406; A9270-GY; J2354; J2405; J3475; P9040

== ENCOUNTER 2016-09-25 07:52 | Inpatient (IN) | payer MEDICARE ==
[2016-09-25] MEDS ORDERED: NS 0.9% 1000 ML* 2,000 ML IV ONE (08:18)
[2016-09-25] MEDS ORDERED: Pantoprazole IV* 40 MG IV ONE ×2 (08:18→08:25)
[2016-09-25] MEDS ORDERED: Octreotide Acetate* 50 MCG in NS 0.9% 50 ML* 50 ML IVPB ONE (08:27)
[2016-09-25 08:33] LABS: Hematocrit 18 % (42-52); Mean Corpuscular HGB Conc 31 g/dl (31-36); Mean Corpuscular Hemoglobin 30 pg (27-31); Mean Corpuscular Volume 96 fL (80-94); Mean Platelet Volume 10 um3 (7.4-10.4); Red Blood Count 1.87 10^6/ul (4.0-5.4); Red Cell Distribution Width 21 % (10.5-15); White Blood Count 18.9 10^3/ul (3.5-10.8)
[2016-09-25 08:43] LABS: Comments Flag Yes
[2016-09-25 08:45] LABS: Hemoglobin 5.6 g/dl (14.0-18.0)
[2016-09-25 09:00] LABS: TSH (Thyroid Stimulating Horm) 2.87 mcIU/mL (0.34-5.60)
[2016-09-25] MEDS ORDERED: Ondansetron INJ* 2 MG/ML VIAL IV ONE (09:03)
[2016-09-25] MEDS: Pantoprazole IV* 80 MG in NS 0.9% 250 ML* 250 ML IVPB SCH ×2 (09:07→17:11)
[2016-09-25 09:27] LABS: ALT 14 U/L (7-52); AST 34 U/L (13-39); Albumin 2.7 g/dL (3.2-5.2); Alkaline Phosphatase 95 U/L (34-104); Anion Gap 14 mmol/L (2-11); BUN/Creatinine Ratio 37.1 (8-20); Blood Urea Nitrogen 52 mg/dL (6-24); C Reactive Protein 11.88 mg/L (< 5.00); CO2 Carbon Dioxide 16 mmol/L (22-32); Calcium 8.7 mg/dL (8.6-10.3); Chloride 108 mmol/L (101-111); EGFR Non-African American 51.4 (>60); Globulin 2.6 g/dL (2-4); Glucose 132 mg/dL (70-100); Lipase 86 U/L (11.0-82.0); Magnesium 1.7 mg/dL (1.9-2.7); Potassium 4.9 mmol/L (3.5-5.0); Sodium 138 mmol/L (133-145); Total Protein 5.3 g/dL (6.4-8.9)
--- NOTE | 2016-09-25 09:29 | CONS ---
CONSULTATION REPORT: DATE OF CONSULT: 09/20/16 REQUESTING PHYSICIAN: Dr. Marrero. INDICATION: Hematemesis. NARRATIVE: This is a 61-year-old alcoholic well known to our service. He has a history of cirrhosi s secondary to alcoholism. He also has a history of varices. I had last seen him in July at [facility] time I performed an upper endoscopy with variceal band ligation for esophageal varices. He repre sented to the emergency room last week with hematemesis and hypotension. He was transferred to [facility] and while at [facility] exactly 1 week ago, today, he had an upper endoscopy. The upper endoscopy revealed portal hypertensive gastropathy and very small varices. They were not ed to be grade I and not banded. The patient states that yesterday he was having dark stools. This morning, he threw up blood that looked like coffee ground. He does have mild abdominal pain, sligh t nausea, and no vomiting. He continues to drink alcohol. He came to the emergency room and was fo und to have hemoglobin of 6.4. PAST MEDICAL HISTORY: Please see the HPI. Also gout. PAST SURGICAL HISTORY: Noncontributory. MEDICATIONS: Upon admission include: 1. Spironolactone. 2. Thiamine. 3. Folic acid. 4. Colchicine. ALLERGIES: None. SOCIAL HISTORY: He continues to drink alcohol. No tobacco. REVIEW OF SYSTEMS: Twelve systems are reviewed; other than that mentioned in the HPI were unremarka ble. PHYSICAL EXAM: General: Mildly ill-appearing male, in no apparent distress. Alert and oriented, pl easant, and fluent. Vital Signs: His temperature is 99.1, blood pressure is 93/42, and pulse is 58 . HEENT: Mucous membranes are moist. Lungs: Clear to auscultation. Heart: Regular rate and rhyt hm. Abdomen: Slightly distended. Positive bowel sounds, soft, nontender, and nondistended. No hep atosplenomegaly, masses, rebound, or guarding. Skin: Warm and dry. DIAGNOSTIC STUDIES/LAB DATA: Of note, his hemoglobin is 6.4, white count is 12.4, and platelets of 113. INR is 1.38. His BUN is 36 with creatinine of 1.06. Bilirubin 1.1. CRP is 19. ASSESSMENT AND PLAN: This is a pleasant 61-year-old gentleman with varices and cirrhosis secondary to continued alcohol abuse. The patient just had an endoscopy a week ago at which time, his varices were small. He did have portal hypertensive gastropathy. He has not had any further episodes of h ematemesis since he has been to the hospital. I do wonder if his hematemesis was from his portal hy pertensive gastropathy as his varices were small just a week ago. I would like to continue to monit or him very closely. He is in the intensive care unit. He is on an octreotide drip and a Protonix drip. I do not think we need to perform another endoscopy at this time due to the fact that likely he bled form his portal hypertensive gastropathy; however, if he continues to drop his hemoglobin or becomes hypotensive or vomits bright red blood, we may need to consider a repeat endoscopy to again look for varices; however, just a week ago they were small. We will continue to monitor him very c losely. [id number]/[facility] #: [id number]
[2016-09-25 09:47] LABS: Troponin I 0.02 ng/mL (<0.04)
[2016-09-25] MEDS ORDERED: NS 0.9% 1000 ML* 1,000 ML IV SCH (10:15)
[2016-09-25] MEDS: cefTRIAXone VIAL(*) 1,000 MG in NS 0.9% 50 ML* 50 ML IVPB SCH (10:49)
--- NOTE | 2016-09-25 10:57 | ED ---
Mel Moreno Alok, scribed for Aidan Cuevas MD on 09/25/16 at 0822 . GI/ HPI - HPI Summary HPI Summary: 61 y/o male with Hx of EtOH abuse present to the ED with hematemesis once this morning at 0200. Pt states he has not had a drink for the last week and also notes dark black diarrhea consistent with hematochezia. - History of Current Complaint Chief Complaint: EDGIBleed Stated Complaint: VOMITING BLOOD Hx Obtained From: Patient Onset/Duration: Started Hours Ago, Atraumatic, Still Present Timing: Intermittent Severity: Moderate Current Severity: Moderate Pain Intensity: 0 Associated Signs and Symptoms: Positive: Hematemesis, External Hemorrhoid, Diarrhea - Black Aggravating Factor(s): Nothing Alleviating Factor(s): Nothing - Additional Pertinent History Primary Care Physician: [id number] - Allergy/Home Medications Allergies/Adverse Reactions: Allergies Allergy/AdvReac Type Severity Reaction Status Date / Time No Known Allergies Allergy Verified 09/10/15 13:56 PMH/Surg Hx/FS Hx/Imm Hx Endocrine/Hematology History: Reports: Hx Anemia, Other Endocrine/Hematological Disorders - elevated INR-liver disease Denies: Hx Anticoagulant Therapy, Hx Diabetes Cardiovascular History: Denies: Hx Hypercholesterolemia, Hx Hypertension GI History: Reports: Hx Cirrhosis, Hx Hiatal Hernia, Other GI Disorders - ABD PAIN History: Reports: Other Problems/Disorders - Hx cirrhosis of the liver Musculoskeletal History: Reports: Hx Back Problems - back surgery, foot drop, Other Musculoskeletal History - right arm surgery Neurological History: Reports: Hx Spinal Cord Injury - hx back surg with drop foot right Psychiatric History: Reports: Other Psychiatric Issues/Disorders - ETOH abuse - Surgical History Surgery Procedure, Year, and Place: low back, right forearm Infectious Disease History: No Infectious Disease History: Denies: Hx Clostridium Difficile, Traveled Outside the [place] in Last 30 Days - Family History Known Family History: Positive: Cardiac Disease - Social History Alcohol Use: Daily Alcohol Amount: 3-4 drinks per day Hx Substance Use: No Substance Use Type: Reports: Marijuana Substance Use Comment - Amount & Last Used: 3x/wk Hx Tobacco Use: Yes Smoking Status (MU): Heavy Every Day Tobacco Smoker Type: Cigarettes Review of Systems Negative: Fever Eyes: Negative ENT: Negative Cardiovascular: Negative Respiratory: Negative Positive: Vomiting - Hematoemesis , Diarrhea Genitourinary: Negative Musculoskeletal: Negative Skin: Other - PALE Neurological: Negative Psychological: Normal All Other Systems Reviewed And Are Negative: Yes Physical Exam Triage Information Reviewed: Yes Vital Signs On Initial Exam: Initial Vitals Temp Pulse Resp BP Pulse Ox 98.0 F 126 22 83/35 95 09/25/16 07:52 09/25/16 07:52 09/25/16 07:52 09/25/16 07:52 09/25/16 07:52 Vital Signs Reviewed: Yes Appearance: Positive: Well-Appearing, No Pain Distress Skin: Positive: Warm, Dry, Jaundiced, Pale Head/Face: Positive: Normal Head/Face Inspection Eyes: Positive: EOMI, LUIS ENT: Positive: Normal ENT inspection Neck: Positive: Supple, Nontender Respiratory/Lung Sounds: Positive: Clear to Auscultation, Breath Sounds Present Cardiovascular: Positive: Tachycardia Abdomen Description: Positive: Nontender, Soft Bowel Sounds: Positive: Present Musculoskeletal: Positive: Normal, Strength/ROM Intact Neurological: Positive: Normal, Sensory/Motor Intact, Alert, Oriented to Person Place, Time Psychiatric: Positive: Normal, Affect/Mood Appropriate Diagnostics - Vital Signs Vital Signs Temp Pulse Resp BP Pulse Ox 09/25/16 07:52 98.0 F 126 22 83/35 95 - Laboratory Lab Results: Lab Results 09/25/16 09/25/16 09/25/16 Range/Units 07:10 07:10 07:10 WBC 18.9 H (3.5-10.8) 10^3/ul RBC 1.87 L (4.0-5.4) 10^6/ul Hgb 5.6 L* (14.0-18.0) g/dl Hct 18 L (42-52) % MCV 96 H (80-94) fL MCH 30 (27-31) pg MCHC 31 (31-36) g/dl RDW 21 H (10.5-15) % Plt Count 210 (150-450) 10^3/ul MPV 10 (7.4-10.4) um3 Neut % (Auto) 69.0 (38-83) % Lymph % (Auto) 21.0 L (25-47) % [place] % (Auto) 8.2 (1-9) % Eos % (Auto) 0.4 (0-6) % Baso % (Auto) 1.4 (0-2) % Absolute Neuts (auto) 13.1 H (1.5-7.7) 10^3/ul Absolute Lymphs (auto) 4.0 (1.0-4.8) 10^3/ul Absolute Monos (auto) 1.5 H (0-0.8) 10^3/ul Absolute Eos (auto) 0.1 (0-0.6) 10^3/ul Absolute Basos (auto) 0.3 H (0-0.2) 10^3/ul Absolute Nucleated RBC 0.01 10^3/ul Nucleated RBC % 0 INR (Anticoag Therapy) 1.31 H (0.89-1.11) APTT 28.7 (26.0-36.3) seconds Sodium 138 (133-145) mmol/L Potassium 4.9 (3.5-5.0) mmol/L Chloride 108 (101-111) mmol/L Carbon Dioxide 16 L (22-32) mmol/L Anion Gap 14 H (2-11) mmol/L BUN 52 H (6-24) mg/dL Creatinine 1.40 H (0.67-1.17) mg/dL Est GFR ( Amer) 66.0 (>60) Est GFR (Non-Af Amer) 51.4 (>60) BUN/Creatinine Ratio 37.1 H (8-20) Glucose 132 H (70-100) mg/dL Lactic Acid (0.5-2.0) mmol/L Calcium 8.7 (8.6-10.3) mg/dL Magnesium 1.7 L (1.9-2.7) mg/dL Total Bilirubin 1.30 H (0.2-1.0) mg/dL AST 34 (13-39) U/L ALT 14 (7-52) U/L Alkaline Phosphatase 95 (34-104) U/L Troponin I 0.02 (<0.04) ng/mL C-Reactive Protein 11.88 H (< 5.00) mg/L Total Protein 5.3 L (6.4-8.9) g/dL Albumin 2.7 L (3.2-5.2) g/dL Globulin 2.6 (2-4) g/dL Albumin/Globulin Ratio 1.0 (1-3) Lipase 86 H (11.0-82.0) U/L TSH 2.87 (0.34-5.60) mcIU/mL Blood Type Antibody Screen Crossmatch 09/25/16 09/25/16 Range/Units 07:10 07:10 WBC (3.5-10.8) 10^3/ul RBC (4.0-5.4) 10^6/ul Hgb (14.0-18.0) g/dl Hct (42-52) % MCV (80-94) fL MCH (27-31) pg MCHC (31-36) g/dl RDW (10.5-15) % Plt Count (150-450) 10^3/ul MPV (7.4-10.4) um3 Neut % (Auto) (38-83) % Lymph % (Auto) (25-47) % [place] % (Auto) (1-9) % Eos % (Auto) (0-6) % Baso % (Auto) (0-2) % Absolute Neuts (auto) (1.5-7.7) 10^3/ul Absolute Lymphs (auto) (1.0-4.8) 10^3/ul Absolute Monos (auto) (0-0.8) 10^3/ul Absolute Eos (auto) (0-0.6) 10^3/ul Absolute Basos (auto) (0-0.2) 10^3/ul Absolute Nucleated RBC 10^3/ul Nucleated RBC % INR (Anticoag Therapy) (0.89-1.11) APTT (26.0-36.3) seconds Sodium (133-145) mmol/L Potassium (3.5-5.0) mmol/L Chloride (101-111) mmol/L Carbon Dioxide (22-32) mmol/L Anion Gap (2-11) mmol/L BUN (6-24) mg/dL Creatinine (0.67-1.17) mg/dL Est GFR ( Amer) (>60) Est GFR (Non-Af Amer) (>60) BUN/Creatinine Ratio (8-20) Glucose (70-100) mg/dL Lactic Acid 5.6 H* (0.5-2.0) mmol/L Calcium (8.6-10.3) mg/dL Magnesium (1.9-2.7) mg/dL Total Bilirubin (0.2-1.0) mg/dL AST (13-39) U/L ALT (7-52) U/L Alkaline Phosphatase (34-104) U/L Troponin I (<0.04) ng/mL C-Reactive Protein (< 5.00) mg/L Total Protein (6.4-8.9) g/dL Albumin (3.2-5.2) g/dL Globulin (2-4) g/dL Albumin/Globulin Ratio (1-3) Lipase (11.0-82.0) U/L TSH (0.34-5.60) mcIU/mL Blood Type A Positive Antibody Screen Negative Crossmatch See Detail Result Diagrams: 09/25/16 07:10 09/25/16 07:10 Lab Statement: Any lab studies that have been ordered have been reviewed, and results considered in the medical decision making process. GIGU Course/Dx - Course Assessment/Plan: DISCUSSED WITH DR JEFF. ADMIT TO ICU STABLE. - Diagnoses Provider Diagnoses: GI BLEED, LIKELY VARICEAL - Physician Notifications Discussed Care Of Patient With: Dr. Mccann (Gastro) @ 0862. Dr. Mane ( Hospitalist) @ 6225 - Agreed to admit Discharge - Discharge Plan Condition: Critical Disposition: ADMITTED TO [facility] documentation as recorded by the Mel figueroa Alok accurately reflects the service I personally performed and the decisions made by , Aidan Cuevas MD.
[2016-09-25 14:24] LABS: Urine Bilirubin Negative (Negative); Urine Glucose Negative (Negative); Urine Nitrite Negative (Negative)
--- NOTE | 2016-09-25 14:34 | HP ---
CC: Dr. Bolivar HISTORY AND PHYSICAL: DATE OF ADMISSION: 09/25/16 PRIMARY CARE PHYSICIAN: Dr. Bolivar. CHIEF COMPLAINT: Hematemesis. HISTORY OF PRESENT ILLNESS: Mr. Goode is a 61-year-old male with a past medical history of cirrh osis, varices status post banding and drop foot who presents to the hospital just 3 days after disch arge for the same. The patient states he woke up this morning around 2 a.m. and had some diarrhea t hat he states was black. He subsequently had 1 episode of hematemesis. He states he did not throw up a lot of blood, but quantifies it at about a half a pint. He states there were some blood clots mixed in with fresh blood. He denies any abdominal pain. Since then, he has had 3 additional episo nati of diarrhea; however, very small volume, still black. He had 1 additional episode of emesis her e in the emergency room where he vomited a very small clot. The patient states he had been feeling well since his previous discharge just a few days ago. He denies any abdominal pain, fever, chills, chest pain, shortness of breath, hematuria or dysuria. He denies any intermittent alcohol use. He states his last drink was 10 days ago prior to the previous admission. This has been a recurrent issue for the patient. He underwent an EGD with Dr. Glez on 07/17/16, this was his last procedure done here in the hospital. At that time, he was found to have 3 varices , one that was very large. All 3 were banded. He came back to the emergency room on 09/12/16 and a s we did not have any GI coverage at that time, he was transferred to [facility]. He states he u nderwent an endoscopy there too, but there were no bands placed and he feels that the bleed may have been from the stomach. He was admitted again on 09/20/16 to the ICU service. At that time, he was treated supportively. He did not undergo an additional endoscopy. He was seen again by Dr. Brayden carlos who confirmed that his previous endoscopy showed portal hypertensive gastropathy and small varices that were not banded. At that time, at the last consult, Dr. Glez thought that the patient may have been bleeding from his portal hypertensive gastropathy rather than the varices and just recomme nded continued monitoring. The patient had no further bleeding and was discharged home. PAST MEDICAL HISTORY: Cirrhosis, varices, drop foot. PAST SURGICAL HISTORY: Variceal banding, arm fracture surgery. HOME MEDICATIONS: 1. Thiamine 100 mg by mouth daily. 2. Spironolactone 25 mg by mouth daily. 3. Multivitamin 1 tablet by mouth daily. 4. Folic acid 1 mg by mouth daily. 5. Ferrous gluconate 324 mg by mouth 2 times daily. 6. Colchicine 0.6 mg by mouth daily as needed for gout. ALLERGIES: The patient states no known drug allergies. FAMILY HISTORY: Significant for father with cancer of unknown origin. The patient states his james gutiérrez is still alive but he has no contact with her. SOCIAL HISTORY: The patient has a 40-bjxp-cytk smoking history. He has current tobacco abuse. Occ asionally smokes marijuana. Reports either drinking liquor or alcoholic root beer. He states he wi ll have anywhere between 3 to 5 drinks a day. Again, he states he does not have any alcohol since pr ior to his last admission. REVIEW OF SYSTEMS: A 12-point review of systems is negative except for that as noted in the HPI. PHYSICAL EXAMINATION GENERAL: The patient is a middle aged man lying in bed, in no apparent distress. VITAL SIGNS: On admission, temperature 98, heart rate of 126, respiratory rate of 22, O2 saturation 95% on room air. Initial blood pressure 83/35. Last blood pressure 102/35 with a heart rate of 83 . HEENT: Anicteric sclerae. Dry mucous membranes. No cervical adenopathy. LUNGS: Clear to auscultation bilaterally. No wheezes, rales, or rhonchi. CARDIOVASCULAR: Regular rate and rhythm. S1 and S2. No murmurs, rubs, or gallops. ABDOMEN: Mildly distended. Possibly some hepatomegaly, some tenderness in the right upper quadrant . No rebound or guarding. Bowel sounds are positive. EXTREMITIES: The patient has right foot deformity with some swelling that he states is at baseline. No left lower extremity edema. LABS AND DIAGNOSTICS: White blood cell count of 18.9, hematocrit of 5.6, platelets of 210, INR of 1.31, sodium of 138, potassium of 4.9, chloride of 108. BUN of 52, creatinine 1.40, glucose of 132, magnesium 1.7. Total bilirubin of 1.3. AST of 34, ALT of 14, CRP of 11.8, troponin of 0.02. TSH of 2.87, lipase of 86. ASSESSMENT AND PLAN: Upper gastrointestinal bleed in a 61-year-old male with a past medical history of cirrhosis, esophageal varices, history of ascites, and drop foot. 1. Upper GI bleed, unclear at this time whether this is due to a variceal bleed or possibly portal hypertensive gastropathy. The patient will be transfused 2 units of blood right now. His vital sig ns are stable at the moment. We will recheck a hemoglobin and hematocrit later in the day and again tomorrow. The patient was started on a Protonix and octreotide drip in the emergency department. We will continue this for now as well as IV fluids at 100 cc per hour. We will start the patient on prophylactic antibiotics with ceftriaxone 1 g daily. Will trend his leukocytosis. We will ask Gas troenterology to evaluate the patient. 2. Acute kidney injury. The patient's creatinine is up from baseline, likely due to prerenal cause s. Will trend this for now. Blood and IV fluids as above. 3. Cirrhosis. Hold the patient's home spironolactone along with vitamins for now while the patient is n.p.o. He states he has had a paracentesis only once about 6 to 8 months ago and has not report ed any significant recurrence in his belly since then. 4. Gout. Hold home colchicine for now. 5. DVT prophylaxis. SCDs. 6. Code status. The patient is a full code. TIME SPENT: Total time spent on this admission, 55 minutes, with over half the time spent face to f corrine with the patient in counseling and coordinating care. [id number]/[facility] #: [id number]
[2016-09-25 14:59] LABS: Hematocrit 19 % (42-52)
[2016-09-25 15:00] LABS: Comments Flag Yes; Hemoglobin 6.3 g/dl (14.0-18.0)
[2016-09-25] MEDS ORDERED: Midazolam* 1 MG/ML 10 ML VIAL (10 MG) ONE (18:07)
[2016-09-25] MEDS ORDERED: Meperidine SYRINGE* 50 MG/ML ONE (18:07)
--- NOTE | 2016-09-25 22:54 | CONS ---
GASTROENTEROLOGY CONSULT: DATE: 09/25/16 REFERRING PHYSICIANS: Portia Quiroz, Leonardo Bolivar.* REASON FOR CONSULT: Hematemesis HISTORY: This 61-year-old alcoholic admits he has been drinking heavily for 50 years. He says he quit drinking a couple of weeks ago, and therefore is perplexed that he still continues to have trouble. His first endoscopy ever with variceal banding was in July 2016. He has had several other presentations with hematemesis since then and on September 12, he was transferred to [facility] where upper endoscopy the next day showed small and unimpressive varices and portal hypertensive gastropathy and those findings were assumed to be still relevant when he re-presented here with another episode of hematemesis on 09/20/16 so no EGD was done then. He actually was feeling pretty well over the weekend and having brown stools. He maintains he was not drinking any alcohol. He was quite hungry on 09/23/16 and had sausage and a whole breakfast, skipping lunch, and then had pot roast with all the trimmings and dessert, evening of September 24. His female friend, daughter, and grandchild were with him at that time. He says the meal went down just fine, but then around 2 a.m., he suddenly vomited and there was blood from the beginning. He had another episode of emesis around 5 a.m. He had had normal brown bowel movements on September 24, and then the stools turned darker looking early this morning. He was seen in the ER around 9 a.m. He has not had any more vomiting over the next 8 hours and no more stools either. In the ER, his hemoglobin was 5.6, INR 1.31, platelets 210. His pulse was 126, but with hydration, it fell into the 90s and then 80s, and a blood pressure of 83/35 and that went to 100/60. He was transfused 2 units and is now receiving a third. He also received 3 units in July around the time of the esophageal banding and 2 units, January 2016. He says he was told he has other problems many years ago and cirrhosis several years ago, not remembering the details, saying "it wasn't a hard call." He presented with hematemesis, July 17, and Dr Glez found a large varix and a couple of others and 3 bands were deployed. The second endoscopy, 09/12/16, at [facility] apparently just showed unimpressive varices and portal hypertensive gastropathy. PAST MEDICAL HISTORY: 1. Alcoholic liver disease - he had an impressive elevation of AST in the 300s to 185, October 2010, and bilirubin that was in the upper 3s to as high as 4.4, October 2010, and has diminished over the last couple of months. His worst INR was July 2016 at 1.75, now 1.31. Most recently, he had been drinking alcoholic root beer, but says he has not had any in 2 weeks. He did make the statement that to him now it seems "if you drink, you and if you don't drink , you ." He was at rehab, [facility] in [place], 20 years ago. 2. Anemia - ferritin 18.1, 01/17/16. Iron saturation 7% then, iron 21, TIBC 316, B12 579, October 2010. Folate normal then at 872. His ammonia levels have been consistently elevated above 65 since 07/19/16 and were normal at 57 and 58 , October 2010, when he was admitted with the high elevation of AST. 3. Smoking - ongoing. 4. Right forearm surgery repair of fracture. MEDICATIONS: At home listed as having spironolactone, colchicine, ferrous gluconate, and thiamine, compliance uncertain. ALLERGIES: He has no known drug allergies. SOCIAL HISTORY: He is originally from this area. and estranged from the mother of his two daughters, one of whom has a new grandchild and who has moved in with him in the last couple of months. 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 REVIEW OF SYSTEMS: No history of stroke, IN, angina, arrhythmias, syncope, seizure, ulcer, or recent fall or fracture. PHYSICAL EXAM: He is a middle-aged man with abdominal protuberance, in no distress at this time. He is exuberantly describing all the recent events and has quite colorful comments about many of the highlights. He has no adenopathy or icterus. Lungs are clear. Heart sounds are regular. He seems to be a very accurate historian at this time. His abdomen shows an umbilical hernia and clear-cut ascites with modest protuberance though it is soft. No organomegaly is palpated. Rectal: Deferred. Extremities show 1+ edema. LABORATORY DATA: After 2 units, hemoglobin 6.3, hematocrit 19, MCV 96, platelets 210. INR 1.31. BUN 52, creatinine 1.4. Sodium 138, potassium 4.9, magnesium 1.7. HOSPITAL COURSE: He was admitted to the ICU and placed on octreotide and Protonix drips. He has been clinically stable. IMPRESSION: This 61-year-old man who was drinking up until just several weeks ago has portal hypertension and the borderline liver function is on the verge of synthetic decompensation. He has fixed portal hypertensive gastropathy. His ascites has not been clinically an issue for him, although bleeding from the upper gut has been a major issue. History of the rather large rich meal might suggest a reflux event and a Ольга- Ramirez tear. Another endoscopy will help sort out the proper course. Given his retained functional status and apparent strength, there is still a prospect of improvement should he maintain his sobriety though he is clearly on the knife edge of a fatal bleed. He is aware of TIPS, but with his elevated ammonia baseline, that could be fraught with complications. [id number]/[facility] #: [id number] [place]
[2016-09-26] MEDS ORDERED: Ondansetron INJ* 2 MG/ML VIAL IV PRN (00:10)
[2016-09-26 01:01] LABS: Alcohol < 10 mg/dL (<10); Iron 36 ug/dL (50-212); Total Iron Binding Capacity 325 mcg/dL (250-450); Transferrin 232 mg/dL (203-362)
[2016-09-26 01:21] LABS: Ferritin 29.1 ng/mL (24-336)
[2016-09-26 01:52] LABS: Hematocrit 24 % (42-52)
[2016-09-26 01:54] LABS: Comments Flag Yes
[2016-09-26 01:55] LABS: Hemoglobin 7.9 g/dl (14.0-18.0)
--- NOTE | 2016-09-26 04:53 | PRO ---
DATE: 09/25/16 - inpatient room #[id number] REFERRING PHYSICIAN: Leonardo Bolivar.* PROCEDURE: Upper gastrointestinal endoscopy and esophageal banding with five deployed 38 to 30 cm INDICATION: This man with alcoholic cirrhosis who had banding on 07/17/[address] Glez has had several episodes of hematemesis. Upper endoscopy on 09/12 did not show impressive varices at [facility]. He has actually been feeling reasonably well and ate full meals yesterday. He said his stools were normal brown in color. He is not taking any aspirin. At this time, he is in the ICU with 2 IVs and a PPI and octreotide drip running. Informed consent was obtained with an opportunity for questions and special concerns. ENDOSCOPIST: Dr Mccann. MEDICATIONS: Midazolam 7, meperidine 37.5 with excellent cooperation and actually no gagging whatsoever. FINDINGS: He is a middle-aged man vigorous in no particular distress. He is in no pain. EGD: Larynx - no gross findings on limited slide-by views. Esophagus - easily entered and the mucosa is normal in the upper and mid esophagus and then varices begin from 28 to 30. They slowly mount and are fairly impressive with very intense purple nevi appearance from 35 to 38 to 39. The EG junction is slightly loose. There are no clots or active bleeding. Stomach - moderately impressive portal hypertensive gastropathy in the fundus, but especially proximal body. There was no active bleeding or wispy bleeding seen. There are no erosions. The antrum appears normal. Duodenum - the proximal bulb appears normal though in the distal bulb, there are slight thickenings and irregularities to the mucosa appearing soft and pliable and without dusky tones suggesting venous collaterals. They appear consistent with Lamar's gland hyperplasia, but are broader and lower profile than is typical for that entity. Once into the second portion of the duodenum, findings are normal through the fourth portion. Following this, the scope was withdrawn and the production team member applied. The first production team member deployed all of the upper bands in a cascade unattached. The bands were pushed into the stomach. A second band was then taken down and after test firing externally, five bands were deployed at 38 cm at 10 o'clock orientation 37 at 3, 35 at 4, 32 at 2 o'clock and the final band at a 9 o'clock orientation at 31 cm. The fourth band was the white band. There were no findings in the upper esophagus. The patient tolerated this well. IMPRESSION: 1. Portal hypertensive gastropathy - without active signs of bleeding. 2. Duodenal bulb irregularity - appeared benign. 3. Esophageal varices - banded x5 and octreotide drip will be continued, clear liquids begun and continued sobriety endorsed. 4. Anemia - iron deficiency will need to be reversed. [id number]/[facility] #: [id number] [facility]
[2016-09-26] MEDS: Pantoprazole IV* 80 MG in NS 0.9% 250 ML* 250 ML IVPB SCH ×2 (05:10→14:17)
[2016-09-26] MEDS ORDERED: NS 0.9% 1000 ML* 1,000 ML IV SCH (08:36)
--- NOTE | 2016-09-26 08:42 | PN ---
Subjective Date of Service: 09/26/16 Interval History: Hungry, no other c/o. Objective Active Medications: Pantoprazole Sodium 80 mg/ (Sodium Chloride) 250 mls @ 25 mls/hr IVPB Q10H ZITA Last Admin: 09/26/16 05:10 Dose: 25 mls/hr Octreotide Acetate 500 mcg/ (Sodium Chloride) 101 mls @ 10.1 mls/hr IVPB Q10H ZITA PRN Reason: 50 MCG/HR Last Admin: 09/26/16 05:09 Dose: 10.1 mls/hr Ceftriaxone Sodium 1,000 mg/ (Sodium Chloride) 50 mls @ 200 mls/hr IVPB Q24H ZITA Last Admin: 09/25/16 10:49 Dose: 200 mls/hr Lactulose (Lactulose*) 30 ml PO TID ZITA Ondansetron HCl (Zofran Inj*) 4 mg IV Q6H PRN PRN Reason: NAUSEA/VOMITING Vital Signs 09/25/16 09/25/16 09/25/16 09:15 09:28 09:30 Temperature 99.2 F Pulse Rate 87 90 86 Respiratory 23 15 15 Rate Blood Pressure 99/58 120/66 105/59 (mmHg) O2 Sat by Pulse 97 100 98 Oximetry 09/25/16 09/25/16 09/25/16 09:38 09:45 10:00 Temperature Pulse Rate 97 86 82 Respiratory 19 18 19 Rate Blood Pressure 106/63 102/35 (mmHg) O2 Sat by Pulse 98 98 100 Oximetry 09/25/16 09/25/16 09/25/16 10:02 10:07 10:15 Temperature 99.2 F Pulse Rate 87 Respiratory 21 Rate Blood Pressure 118/70 127/83 (mmHg) O2 Sat by Pulse 97 Oximetry 09/25/16 09/25/16 09/25/16 10:57 11:00 11:57 Temperature Pulse Rate 84 Respiratory 12 16 21 Rate Blood Pressure (mmHg) O2 Sat by Pulse 98 Oximetry 09/25/16 09/25/16 09/25/16 12:00 13:00 14:00 Temperature Pulse Rate 80 72 73 Respiratory 18 17 20 Rate Blood Pressure 118/70 92/50 (mmHg) O2 Sat by Pulse 97 95 97 Oximetry 09/25/16 09/25/16 09/25/16 14:02 14:29 14:47 Temperature 98 F Pulse Rate 77 Respiratory 19 20 Rate Blood Pressure 99/55 (mmHg) O2 Sat by Pulse 97 Oximetry 09/25/16 09/25/16 09/25/16 15:00 16:00 16:25 Temperature Pulse Rate 78 78 75 Respiratory 19 18 17 Rate Blood Pressure 88/46 94/55 96/67 (mmHg) O2 Sat by Pulse 97 95 96 Oximetry 09/25/16 09/25/16 09/25/16 17:00 17:15 17:20 Temperature Pulse Rate 73 89 80 Respiratory 17 20 20 Rate Blood Pressure 112/58 93/51 94/49 (mmHg) O2 Sat by Pulse 97 97 93 Oximetry 09/25/16 09/25/16 09/25/16 17:25 17:30 17:35 Temperature Pulse Rate 74 81 79 Respiratory 19 21 19 Rate Blood Pressure 93/47 87/48 91/44 (mmHg) O2 Sat by Pulse 94 93 94 Oximetry 09/25/16 09/25/16 09/25/16 17:40 17:45 17:50 Temperature Pulse Rate 83 75 79 Respiratory 19 19 17 Rate Blood Pressure 87/43 92/54 126/70 (mmHg) O2 Sat by Pulse 92 95 97 Oximetry 09/25/16 09/25/16 09/25/16 17:55 18:00 18:15 Temperature 98.7 F Pulse Rate 82 75 74 Respiratory 19 20 18 Rate Blood Pressure 133/73 117/80 109/61 (mmHg) O2 Sat by Pulse 95 96 94 Oximetry 09/25/16 09/25/16 09/25/16 18:30 18:45 19:00 Temperature Pulse Rate 72 71 65 Respiratory 19 17 18 Rate Blood Pressure 106/54 104/62 104/64 (mmHg) O2 Sat by Pulse 93 93 95 Oximetry 09/25/16 09/25/16 09/25/16 19:15 19:42 19:55 Temperature 98.6 F Pulse Rate 65 Respiratory 16 16 Rate Blood Pressure 102/53 (mmHg) O2 Sat by Pulse 94 Oximetry 09/25/16 09/25/16 09/25/16 20:00 20:42 21:00 Temperature Pulse Rate 63 61 58 Respiratory 16 19 17 Rate Blood Pressure 99/57 106/52 84/51 (mmHg) O2 Sat by Pulse 94 96 95 Oximetry 09/25/16 09/25/16 09/25/16 21:03 22:00 23:00 Temperature 98.7 F Pulse Rate 68 58 55 Respiratory 19 15 18 Rate Blood Pressure 97/73 109/64 96/56 (mmHg) O2 Sat by Pulse 95 94 98 Oximetry 09/26/16 09/26/16 09/26/16 00:00 00:01 00:40 Temperature Pulse Rate 63 62 60 Respiratory 15 16 20 Rate Blood Pressure 89/76 (mmHg) O2 Sat by Pulse 95 95 96 Oximetry 09/26/16 09/26/16 09/26/16 01:00 02:00 03:00 Temperature Pulse Rate 60 68 66 Respiratory 20 22 19 Rate Blood Pressure 103/86 106/64 114/59 (mmHg) O2 Sat by Pulse 96 95 97 Oximetry 09/26/16 09/26/16 09/26/16 03:54 04:00 05:00 Temperature 98.5 F Pulse Rate 66 68 Respiratory 17 23 Rate Blood Pressure 108/70 110/62 (mmHg) O2 Sat by Pulse 95 94 Oximetry 09/26/16 09/26/16 09/26/16 05:48 06:00 07:00 Temperature Pulse Rate 67 64 Respiratory 22 23 18 Rate Blood Pressure 121/85 97/51 (mmHg) O2 Sat by Pulse 97 93 Oximetry 09/26/16 09/26/16 09/26/16 07:42 07:53 08:00 Temperature 99.5 F Pulse Rate 64 Respiratory 14 21 Rate Blood Pressure 81/46 (mmHg) O2 Sat by Pulse 96 Oximetry Oxygen Devices in Use Now: None Appearance: Alert, partly up in bed. In good spirits. Looks comfortable. Eyes: No Scleral Icterus Ears/Nose/Mouth/Throat: Clear Oropharnyx, Mucous Membranes Moist Neck: NL Appearance and Movements; NL JVP, No Thyroid Enlargement, Masses Respiratory: Symmetrical Chest Expansion and Respiratory Effort, Clear to Auscultation, Clear to Percussion Cardiovascular: NL Sounds; No Murmurs; No JVD, RRR, No Edema, - Extremities: No Clubbing, Cyanosis, - - R foot chronic edema, deformity Skin: No Rash or Ulcers, No Nodules or Sclerosis Neurological: Alert and Oriented x 3, NL Sensation - Knows present month, his age. No asterixis. Result Diagrams: 09/26/16 01:33 09/25/16 07:10 Additional Lab and Data: Lab Results 09/25/16 09/25/16 09/25/16 Range/Units 07:10 07:10 07:10 WBC 18.9 H (3.5-10.8) 10^3/ul RBC 1.87 L (4.0-5.4) 10^6/ul Hgb 5.6 L* (14.0-18.0) g/dl Hct 18 L (42-52) % MCV 96 H (80-94) fL MCH 30 (27-31) pg MCHC 31 (31-36) g/dl RDW 21 H (10.5-15) % Plt Count 210 (150-450) 10^3/ul MPV 10 (7.4-10.4) um3 Neut % (Auto) 69.0 (38-83) % Lymph % (Auto) 21.0 L (25-47) % Sauk % (Auto) 8.2 (1-9) % Eos % (Auto) 0.4 (0-6) % Baso % (Auto) 1.4 (0-2) % Absolute Neuts (auto) 13.1 H (1.5-7.7) 10^3/ul Absolute Lymphs (auto) 4.0 (1.0-4.8) 10^3/ul Absolute Monos (auto) 1.5 H (0-0.8) 10^3/ul Absolute Eos (auto) 0.1 (0-0.6) 10^3/ul Absolute Basos (auto) 0.3 H (0-0.2) 10^3/ul Absolute Nucleated RBC 0.01 10^3/ul Nucleated RBC % 0 INR (Anticoag Therapy) 1.31 H (0.89-1.11) APTT 28.7 (26.0-36.3) seconds Sodium 138 (133-145) mmol/L Potassium 4.9 (3.5-5.0) mmol/L Chloride 108 (101-111) mmol/L Carbon Dioxide 16 L (22-32) mmol/L Anion Gap 14 H (2-11) mmol/L BUN 52 H (6-24) mg/dL Creatinine 1.40 H (0.67-1.17) mg/dL Est GFR ( Amer) 66.0 (>60) Est GFR (Non-Af Amer) 51.4 (>60) BUN/Creatinine Ratio 37.1 H (8-20) Glucose 132 H (70-100) mg/dL Lactic Acid (0.5-2.0) mmol/L Calcium 8.7 (8.6-10.3) mg/dL Magnesium 1.7 L (1.9-2.7) mg/dL Total Bilirubin 1.30 H (0.2-1.0) mg/dL AST 34 (13-39) U/L ALT 14 (7-52) U/L Alkaline Phosphatase 95 (34-104) U/L Troponin I 0.02 (<0.04) ng/mL C-Reactive Protein 11.88 H (< 5.00) mg/L Total Protein 5.3 L (6.4-8.9) g/dL Albumin 2.7 L (3.2-5.2) g/dL Globulin 2.6 (2-4) g/dL Albumin/Globulin Ratio 1.0 (1-3) Lipase 86 H (11.0-82.0) U/L TSH 2.87 (0.34-5.60) mcIU/mL Blood Type Antibody Screen Crossmatch 09/25/16 09/25/16 Range/Units 07:10 07:10 WBC (3.5-10.8) 10^3/ul RBC (4.0-5.4) 10^6/ul Hgb (14.0-18.0) g/dl Hct (42-52) % MCV (80-94) fL MCH (27-31) pg MCHC (31-36) g/dl RDW (10.5-15) % Plt Count (150-450) 10^3/ul MPV (7.4-10.4) um3 Neut % (Auto) (38-83) % Lymph % (Auto) (25-47) % Sauk % (Auto) (1-9) % Eos % (Auto) (0-6) % Baso % (Auto) (0-2) % Absolute Neuts (auto) (1.5-7.7) 10^3/ul Absolute Lymphs (auto) (1.0-4.8) 10^3/ul Absolute Monos (auto) (0-0.8) 10^3/ul Absolute Eos (auto) (0-0.6) 10^3/ul Absolute Basos (auto) (0-0.2) 10^3/ul Absolute Nucleated RBC 10^3/ul Nucleated RBC % INR (Anticoag Therapy) (0.89-1.11) APTT (26.0-36.3) seconds Sodium (133-145) mmol/L Potassium (3.5-5.0) mmol/L Chloride (101-111) mmol/L Carbon Dioxide (22-32) mmol/L Anion Gap (2-11) mmol/L BUN (6-24) mg/dL Creatinine (0.67-1.17) mg/dL Est GFR ( Amer) (>60) Est GFR (Non-Af Amer) (>60) BUN/Creatinine Ratio (8-20) Glucose (70-100) mg/dL Lactic Acid 5.6 H* (0.5-2.0) mmol/L Calcium (8.6-10.3) mg/dL Magnesium (1.9-2.7) mg/dL Total Bilirubin (0.2-1.0) mg/dL AST (13-39) U/L ALT (7-52) U/L Alkaline Phosphatase (34-104) U/L Troponin I (<0.04) ng/mL C-Reactive Protein (< 5.00) mg/L Total Protein (6.4-8.9) g/dL Albumin (3.2-5.2) g/dL Globulin (2-4) g/dL Albumin/Globulin Ratio (1-3) Lipase (11.0-82.0) U/L TSH (0.34-5.60) mcIU/mL Blood Type A Positive Antibody Screen Negative Crossmatch See Detail Assess/Plan/Problems-Billing Assessment: - Patient Problems (1) Alcoholic cirrhosis Current Visit: No Status: Chronic Priority: Medium Code(s): K70.30 - ALCOHOLIC CIRRHOSIS OF LIVER WITHOUT ASCITES SNOMED Code(s): 376375525 Comment: With variceal bleeding, banding x 5 09/25/16. Continue octreotide and pantoprazole infusions. Start lactulose. (2) Tobacco abuse Current Visit: No Status: Acute Priority: High Code(s): Z72.0 - TOBACCO USE SNOMED Code(s): 860575077 Comment: Pt advised to quit smoking and avoid second hand smoke. (3) Alcoholism Current Visit: Yes Status: Acute Code(s): F10.20 - ALCOHOL DEPENDENCE, UNCOMPLICATED SNOMED Code(s): 0768087 Comment: SW consult requested. (4) Anemia Current Visit: Yes Status: Acute Code(s): D64.9 - ANEMIA, UNSPECIFIED SNOMED Code(s): 610925704 Comment: Ferritin low nl, could use some iron supplements.
[2016-09-26] MEDS: LACTULOSE* 30 ML UDC PO SCH ×3 (09:03→20:49)
[2016-09-26] MEDS: cefTRIAXone VIAL(*) 1,000 MG in NS 0.9% 50 ML* 50 ML IVPB SCH (10:39)
[2016-09-26 11:04] LABS: Hematocrit 24 % (42-52); Hemoglobin 7.9 g/dl (14.0-18.0); Mean Corpuscular HGB Conc 33 g/dl (31-36); Mean Corpuscular Hemoglobin 29 pg (27-31); Mean Corpuscular Volume 89 fL (80-94); Mean Platelet Volume 9 um3 (7.4-10.4); Red Cell Distribution Width 20 % (10.5-15); White Blood Count 8.2 10^3/ul (3.5-10.8)
[2016-09-26] MEDS: Spironolactone TAB* 25 MG PO SCH ×2 (11:14→20:49)
[2016-09-26] MEDS: Furosemide TAB* 20 MG PO SCH (11:14)
[2016-09-26 11:16] LABS: Albumin 2.5 g/dL (3.2-5.2); Calcium 7.7 mg/dL (8.6-10.3); EGFR Non-African American 59.1 (>60); Globulin 2.4 g/dL (2-4); Potassium 3.9 mmol/L (3.5-5.0); Total Bilirubin 1.9 mg/dL (0.2-1.0); Total Protein 4.9 g/dL (6.4-8.9)
[2016-09-26] MEDS: Nadolol TAB* 40 MG PO SCH (12:11)
[2016-09-27] MEDS: Pantoprazole IV* 80 MG in NS 0.9% 250 ML* 250 ML IVPB SCH (00:54)
[2016-09-27 08:27] LABS: Hematocrit 24 % (42-52); Hemoglobin 7.9 g/dl (14.0-18.0); Mean Corpuscular HGB Conc 33 g/dl (31-36); Mean Corpuscular Hemoglobin 29 pg (27-31); Mean Corpuscular Volume 88 fL (80-94); Mean Platelet Volume 9 um3 (7.4-10.4); Red Blood Count 2.69 10^6/ul (4.0-5.4); Red Cell Distribution Width 21 % (10.5-15); White Blood Count 7.1 10^3/ul (3.5-10.8)
[2016-09-27 08:29] LABS: Add Diff/Slide Review? Slide Review Added; Comments Flag Yes
[2016-09-27] MEDS: LACTULOSE* 30 ML UDC PO SCH ×3 (08:35→20:21)
[2016-09-27] MEDS: Nadolol TAB* 40 MG PO SCH (08:35)
[2016-09-27] MEDS: Spironolactone TAB* 25 MG PO SCH ×2 (08:35→20:22)
[2016-09-27] MEDS: Furosemide TAB* 20 MG PO SCH (08:36)
--- NOTE | 2016-09-27 08:42 | PN ---
Subjective Date of Service: 09/27/16 Interval History: No c/o. Objective Active Medications: Ferrous Sulfate (Feosol Liq*) 300 mg PO DAILY [facility] Furosemide (Lasix Tab*) 20 mg PO QAM [facility] Last Admin: 09/27/16 08:36 Dose: 20 mg Lactulose (Lactulose*) 30 ml PO TID [facility] Last Admin: 09/27/16 08:35 Dose: 30 ml Nadolol (Corgard Tab*) 10 mg PO DAILY [facility] Last Admin: 09/27/16 08:35 Dose: 10 mg Omeprazole (Prilosec Cap*) 20 mg PO BID [facility] Ondansetron HCl (Zofran Inj*) 4 mg IV Q6H PRN PRN Reason: NAUSEA/VOMITING Spironolactone (Aldactone Tab*) 25 mg PO BID [facility] Last Admin: 09/26/16 20:49 Dose: 25 mg Vital Signs 09/26/16 09/26/16 09/26/16 09:00 10:00 11:00 Temperature Pulse Rate 64 68 60 Respiratory 22 16 24 Rate Blood Pressure 96/54 113/52 102/47 (mmHg) O2 Sat by Pulse 94 96 95 Oximetry 09/26/16 09/26/16 09/26/16 12:00 13:00 14:00 Temperature 98.2 F Pulse Rate 67 62 Respiratory 23 18 19 Rate Blood Pressure 97/56 106/43 (mmHg) O2 Sat by Pulse 94 93 Oximetry 09/26/16 09/26/16 09/26/16 15:00 16:00 16:02 Temperature 99.9 F Pulse Rate 61 Respiratory 20 19 20 Rate Blood Pressure 104/68 104/57 (mmHg) O2 Sat by Pulse 93 Oximetry 09/26/16 09/26/16 09/26/16 17:00 18:00 19:00 Temperature Pulse Rate 57 76 63 Respiratory 19 23 20 Rate Blood Pressure 99/62 121/44 103/59 (mmHg) O2 Sat by Pulse 96 93 94 Oximetry 09/26/16 09/26/16 09/26/16 20:00 21:00 22:00 Temperature 98.7 F Pulse Rate 62 83 58 Respiratory 18 20 19 Rate Blood Pressure 117/65 96/60 (mmHg) O2 Sat by Pulse 93 96 96 Oximetry 09/26/16 09/26/16 09/27/16 23:00 23:55 00:00 Temperature 98.5 F Pulse Rate 61 61 Respiratory 21 22 Rate Blood Pressure 107/67 (mmHg) O2 Sat by Pulse 93 95 Oximetry 09/27/16 09/27/16 09/27/16 00:01 01:00 02:00 Temperature Pulse Rate 59 62 67 Respiratory 19 18 18 Rate Blood Pressure 117/69 109/56 110/62 (mmHg) O2 Sat by Pulse 95 94 93 Oximetry 09/27/16 09/27/16 09/27/16 03:00 04:00 05:00 Temperature 99.2 F Pulse Rate 62 60 62 Respiratory 16 21 22 Rate Blood Pressure 105/64 117/65 107/65 (mmHg) O2 Sat by Pulse 93 93 93 Oximetry 09/27/16 09/27/16 09/27/16 06:00 07:00 07:48 Temperature 99.2 F Pulse Rate 62 61 Respiratory 20 19 Rate Blood Pressure 112/73 119/80 (mmHg) O2 Sat by Pulse 93 93 Oximetry Oxygen Devices in Use Now: None Appearance: Alert, supine in bed. In good spirits. Looks comfortable. Eyes: No Scleral Icterus Ears/Nose/Mouth/Throat: Clear Oropharnyx, Mucous Membranes Moist Neck: NL Appearance and Movements; NL JVP, No Thyroid Enlargement, Masses Respiratory: Symmetrical Chest Expansion and Respiratory Effort, Clear to Auscultation, Clear to Percussion Cardiovascular: NL Sounds; No Murmurs; No JVD, RRR, No Edema, - Abdominal: NL Sounds; No Tenderness; No Distention, No Hepatosplenomegaly, - - 5 -6 cm diameter umbilical hernia, soft and easily reducible, not tender Extremities: No Edema, No Clubbing, Cyanosis, - Skin: No Rash or Ulcers, No Nodules or Sclerosis, - Neurological: Alert and Oriented x 3, NL Sensation Result Diagrams: 09/27/16 06:46 09/26/16 10:51 Additional Lab and Data: Lab Results 09/25/16 09/25/16 09/25/16 Range/Units 07:10 07:10 07:10 WBC 18.9 H (3.5-10.8) 10^3/ul RBC 1.87 L (4.0-5.4) 10^6/ul Hgb 5.6 L* (14.0-18.0) g/dl Hct 18 L (42-52) % MCV 96 H (80-94) fL MCH 30 (27-31) pg MCHC 31 (31-36) g/dl RDW 21 H (10.5-15) % Plt Count 210 (150-450) 10^3/ul MPV 10 (7.4-10.4) um3 Neut % (Auto) 69.0 (38-83) % Lymph % (Auto) 21.0 L (25-47) % Murray % (Auto) 8.2 (1-9) % Eos % (Auto) 0.4 (0-6) % Baso % (Auto) 1.4 (0-2) % Absolute Neuts (auto) 13.1 H (1.5-7.7) 10^3/ul Absolute Lymphs (auto) 4.0 (1.0-4.8) 10^3/ul Absolute Monos (auto) 1.5 H (0-0.8) 10^3/ul Absolute Eos (auto) 0.1 (0-0.6) 10^3/ul Absolute Basos (auto) 0.3 H (0-0.2) 10^3/ul Absolute Nucleated RBC 0.01 10^3/ul Nucleated RBC % 0 INR (Anticoag Therapy) 1.31 H (0.89-1.11) APTT 28.7 (26.0-36.3) seconds Sodium 138 (133-145) mmol/L Potassium 4.9 (3.5-5.0) mmol/L Chloride 108 (101-111) mmol/L Carbon Dioxide 16 L (22-32) mmol/L Anion Gap 14 H (2-11) mmol/L BUN 52 H (6-24) mg/dL Creatinine 1.40 H (0.67-1.17) mg/dL Est GFR ( Amer) 66.0 (>60) Est GFR (Non-Af Amer) 51.4 (>60) BUN/Creatinine Ratio 37.1 H (8-20) Glucose 132 H (70-100) mg/dL Lactic Acid (0.5-2.0) mmol/L Calcium 8.7 (8.6-10.3) mg/dL Magnesium 1.7 L (1.9-2.7) mg/dL Total Bilirubin 1.30 H (0.2-1.0) mg/dL AST 34 (13-39) U/L ALT 14 (7-52) U/L Alkaline Phosphatase 95 (34-104) U/L Troponin I 0.02 (<0.04) ng/mL C-Reactive Protein 11.88 H (< 5.00) mg/L Total Protein 5.3 L (6.4-8.9) g/dL Albumin 2.7 L (3.2-5.2) g/dL Globulin 2.6 (2-4) g/dL Albumin/Globulin Ratio 1.0 (1-3) Lipase 86 H (11.0-82.0) U/L TSH 2.87 (0.34-5.60) mcIU/mL Blood Type Antibody Screen Crossmatch 09/25/16 09/25/16 Range/Units 07:10 07:10 WBC (3.5-10.8) 10^3/ul RBC (4.0-5.4) 10^6/ul Hgb (14.0-18.0) g/dl Hct (42-52) % MCV (80-94) fL MCH (27-31) pg MCHC (31-36) g/dl RDW (10.5-15) % Plt Count (150-450) 10^3/ul MPV (7.4-10.4) um3 Neut % (Auto) (38-83) % Lymph % (Auto) (25-47) % Murray % (Auto) (1-9) % Eos % (Auto) (0-6) % Baso % (Auto) (0-2) % Absolute Neuts (auto) (1.5-7.7) 10^3/ul Absolute Lymphs (auto) (1.0-4.8) 10^3/ul Absolute Monos (auto) (0-0.8) 10^3/ul Absolute Eos (auto) (0-0.6) 10^3/ul Absolute Basos (auto) (0-0.2) 10^3/ul Absolute Nucleated RBC 10^3/ul Nucleated RBC % INR (Anticoag Therapy) (0.89-1.11) APTT (26.0-36.3) seconds Sodium (133-145) mmol/L Potassium (3.5-5.0) mmol/L Chloride (101-111) mmol/L Carbon Dioxide (22-32) mmol/L Anion Gap (2-11) mmol/L BUN (6-24) mg/dL Creatinine (0.67-1.17) mg/dL Est GFR ( Amer) (>60) Est GFR (Non-Af Amer) (>60) BUN/Creatinine Ratio (8-20) Glucose (70-100) mg/dL Lactic Acid 5.6 H* (0.5-2.0) mmol/L Calcium (8.6-10.3) mg/dL Magnesium (1.9-2.7) mg/dL Total Bilirubin (0.2-1.0) mg/dL AST (13-39) U/L ALT (7-52) U/L Alkaline Phosphatase (34-104) U/L Troponin I (<0.04) ng/mL C-Reactive Protein (< 5.00) mg/L Total Protein (6.4-8.9) g/dL Albumin (3.2-5.2) g/dL Globulin (2-4) g/dL Albumin/Globulin Ratio (1-3) Lipase (11.0-82.0) U/L TSH (0.34-5.60) mcIU/mL Blood Type A Positive Antibody Screen Negative Crossmatch See Detail Assess/Plan/Problems-Billing Assessment: - Patient Problems (1) Alcoholic cirrhosis Current Visit: No Status: Chronic Priority: Medium Code(s): K70.30 - ALCOHOLIC CIRRHOSIS OF LIVER WITHOUT ASCITES SNOMED Code(s): 111800381 Comment: With variceal bleeding, banding x 5 09/25/16. Change to bid PPI. Started furosemide and spironolactone 09/26. Output 3000 ml yesterday. BMP . (2) Tobacco abuse Current Visit: No Status: Acute Priority: High Code(s): Z72.0 - TOBACCO USE SNOMED Code(s): 752145924 Comment: Pt advised to quit smoking and avoid second hand smoke. (3) Alcoholism Current Visit: Yes Status: Acute Code(s): F10.20 - ALCOHOL DEPENDENCE, UNCOMPLICATED SNOMED Code(s): 1786441 Comment: SW consult requested. (4) Anemia Current Visit: Yes Status: Acute Code(s): D64.9 - ANEMIA, UNSPECIFIED SNOMED Code(s): 650680161 Comment: Ferritin low nl, start oral liquid iron, change to tablets on discharge.
[2016-09-27] MEDS: Omeprazole CAP* 20 MG PO SCH ×2 (09:39→20:22)
[2016-09-27] MEDS: Ferrous Sulfate LIQ* 300 MG/5 ML UDC PO SCH (09:39)
[2016-09-27] MEDS ORDERED: Acetaminophen TAB* 325 MG PO PRN (20:22)
[2016-09-28 07:37] LABS: Hematocrit 24 % (42-52); Hemoglobin 7.9 g/dl (14.0-18.0)
[2016-09-28 07:40] LABS: Comments Flag Yes
[2016-09-28 07:49] LABS: Albumin 2.4 g/dL (3.2-5.2); BUN/Creatinine Ratio 13.9 (8-20); EGFR African American 82.9 (>60); EGFR Non-African American 64.4 (>60); Globulin 2.5 g/dL (2-4); Potassium 3.7 mmol/L (3.5-5.0); Total Bilirubin 1.3 mg/dL (0.2-1.0); Total Protein 4.9 g/dL (6.4-8.9)
[2016-09-28 08:32] VITALS: BP 96/57
--- NOTE | 2016-09-28 08:50 | DCNOTE ---
Subjective Date of Service: 09/28/16 Interval History: No c/o. Anxious to go home. Objective Active Medications: Acetaminophen (Tylenol Tab*) 650 mg PO Q6H PRN PRN Reason: PAIN Last Admin: 09/27/16 21:02 Dose: 650 mg Ferrous Sulfate (Feosol Liq*) 300 mg PO DAILY [facility]S [facility] Last Admin: 09/27/16 09:39 Dose: 300 mg Furosemide (Lasix Tab*) 20 mg PO QAM [facility]S [facility] Last Admin: 09/27/16 08:36 Dose: 20 mg Lactulose (Lactulose*) 30 ml PO TID [facility]S AT [facility] Last Admin: 09/27/16 20:21 Dose: 30 ml Nadolol (Corgard Tab*) 10 mg PO DAILY [facility] 234 B[facility]S AT [facility] Last Admin: 09/27/16 08:35 Dose: 10 mg Omeprazole (Prilosec Cap*) 20 mg PO BID [facility] 234 B[facility]S AT [facility] Last Admin: 09/27/16 20:22 Dose: 20 mg Ondansetron HCl (Zofran Inj*) 4 mg IV Q6H PRN PRN Reason: NAUSEA/VOMITING Spironolactone (Aldactone Tab*) 25 mg PO BID [facility] 234 B[facility]S [facility] Last Admin: 09/27/16 20:22 Dose: 25 mg Vital Signs 09/27/16 09/27/16 09/27/16 09:00 10:00 11:00 Temperature Pulse Rate 58 Respiratory 19 16 14 Rate Blood Pressure 112/69 (mmHg) O2 Sat by Pulse 92 Oximetry 09/27/16 09/27/16 09/27/16 12:15 15:21 19:51 Temperature 99.4 F 97.7 F 98.4 F Pulse Rate 55 57 65 Respiratory 20 16 16 Rate Blood Pressure 104/55 112/62 102/64 (mmHg) O2 Sat by Pulse 95 93 95 Oximetry 09/27/16 09/27/16 09/28/16 20:00 22:00 00:51 Temperature 98.2 F Pulse Rate 70 Respiratory 16 16 Rate Blood Pressure 118/66 (mmHg) O2 Sat by Pulse 97 Oximetry 09/28/16 09/28/16 03:31 07:43 Temperature 98.0 F 98.0 F Pulse Rate 51 53 Respiratory 18 Rate Blood Pressure 99/54 96/57 (mmHg) O2 Sat by Pulse 94 96 Oximetry Oxygen Devices in Use Now: None Appearance: Alert, in a chair. In good spirits. Looks comfortable. Eyes: No Scleral Icterus Extremities: No Edema, No Clubbing, Cyanosis, - Skin: No Rash or Ulcers, No Nodules or Sclerosis, - Neurological: Alert and Oriented x 3, NL Sensation Result Diagrams: 09/28/16 07:16 09/28/16 07:19 Additional Lab and Data: Lab Results 09/25/16 09/25/16 09/25/16 Range/Units 07:10 07:10 07:10 WBC 18.9 H (3.5-10.8) 10^3/ul RBC 1.87 L (4.0-5.4) 10^6/ul Hgb 5.6 L* (14.0-18.0) g/dl Hct 18 L (42-52) % MCV 96 H (80-94) fL MCH 30 (27-31) pg MCHC 31 (31-36) g/dl RDW 21 H (10.5-15) % Plt Count 210 (150-450) 10^3/ul MPV 10 (7.4-10.4) um3 Neut % (Auto) 69.0 (38-83) % Lymph % (Auto) 21.0 L (25-47) % Rice % (Auto) 8.2 (1-9) % Eos % (Auto) 0.4 (0-6) % Baso % (Auto) 1.4 (0-2) % Absolute Neuts (auto) 13.1 H (1.5-7.7) 10^3/ul Absolute Lymphs (auto) 4.0 (1.0-4.8) 10^3/ul Absolute Monos (auto) 1.5 H (0-0.8) 10^3/ul Absolute Eos (auto) 0.1 (0-0.6) 10^3/ul Absolute Basos (auto) 0.3 H (0-0.2) 10^3/ul Absolute Nucleated RBC 0.01 10^3/ul Nucleated RBC % 0 INR (Anticoag Therapy) 1.31 H (0.89-1.11) APTT 28.7 (26.0-36.3) seconds Sodium 138 (133-145) mmol/L Potassium 4.9 (3.5-5.0) mmol/L Chloride 108 (101-111) mmol/L Carbon Dioxide 16 L (22-32) mmol/L Anion Gap 14 H (2-11) mmol/L BUN 52 H (6-24) mg/dL Creatinine 1.40 H (0.67-1.17) mg/dL Est GFR ( Amer) 66.0 (>60) Est GFR (Non-Af Amer) 51.4 (>60) BUN/Creatinine Ratio 37.1 H (8-20) Glucose 132 H (70-100) mg/dL Lactic Acid (0.5-2.0) mmol/L Calcium 8.7 (8.6-10.3) mg/dL Magnesium 1.7 L (1.9-2.7) mg/dL Total Bilirubin 1.30 H (0.2-1.0) mg/dL AST 34 (13-39) U/L ALT 14 (7-52) U/L Alkaline Phosphatase 95 (34-104) U/L Troponin I 0.02 (<0.04) ng/mL C-Reactive Protein 11.88 H (< 5.00) mg/L Total Protein 5.3 L (6.4-8.9) g/dL Albumin 2.7 L (3.2-5.2) g/dL Globulin 2.6 (2-4) g/dL Albumin/Globulin Ratio 1.0 (1-3) Lipase 86 H (11.0-82.0) U/L TSH 2.87 (0.34-5.60) mcIU/mL Blood Type Antibody Screen Crossmatch 09/25/16 09/25/16 Range/Units 07:10 07:10 WBC (3.5-10.8) 10^3/ul RBC (4.0-5.4) 10^6/ul Hgb (14.0-18.0) g/dl Hct (42-52) % MCV (80-94) fL MCH (27-31) pg MCHC (31-36) g/dl RDW (10.5-15) % Plt Count (150-450) 10^3/ul MPV (7.4-10.4) um3 Neut % (Auto) (38-83) % Lymph % (Auto) (25-47) % Rice % (Auto) (1-9) % Eos % (Auto) (0-6) % Baso % (Auto) (0-2) % Absolute Neuts (auto) (1.5-7.7) 10^3/ul Absolute Lymphs (auto) (1.0-4.8) 10^3/ul Absolute Monos (auto) (0-0.8) 10^3/ul Absolute Eos (auto) (0-0.6) 10^3/ul Absolute Basos (auto) (0-0.2) 10^3/ul Absolute Nucleated RBC 10^3/ul Nucleated RBC % INR (Anticoag Therapy) (0.89-1.11) APTT (26.0-36.3) seconds Sodium (133-145) mmol/L Potassium (3.5-5.0) mmol/L Chloride (101-111) mmol/L Carbon Dioxide (22-32) mmol/L Anion Gap (2-11) mmol/L BUN (6-24) mg/dL Creatinine (0.67-1.17) mg/dL Est GFR ( Amer) (>60) Est GFR (Non-Af Amer) (>60) BUN/Creatinine Ratio (8-20) Glucose (70-100) mg/dL Lactic Acid 5.6 H* (0.5-2.0) mmol/L Calcium (8.6-10.3) mg/dL Magnesium (1.9-2.7) mg/dL Total Bilirubin (0.2-1.0) mg/dL AST (13-39) U/L ALT (7-52) U/L Alkaline Phosphatase (34-104) U/L Troponin I (<0.04) ng/mL C-Reactive Protein (< 5.00) mg/L Total Protein (6.4-8.9) g/dL Albumin (3.2-5.2) g/dL Globulin (2-4) g/dL Albumin/Globulin Ratio (1-3) Lipase (11.0-82.0) U/L TSH (0.34-5.60) mcIU/mL Blood Type A Positive Antibody Screen Negative Crossmatch See Detail Assess/Plan/Problems-Billing Assessment: - Patient Problems (1) Alcoholic cirrhosis Current Visit: No Status: Chronic Priority: Medium Code(s): K70.30 - ALCOHOLIC CIRRHOSIS OF LIVER WITHOUT ASCITES SNOMED Code(s): 845249132 Comment: With variceal bleeding, banding x 5 09/25/16. Continue bid PPI, furosemide and spironolactone. BMP 10/01 as outpt. Labs 09/28 all OK. I again emphasized that even a single drink of alcohol could have fatal consequences, and that continued alcohol consumption almost certainly would have fatal consequences. (2) Tobacco abuse Current Visit: No Status: Acute Priority: High Code(s): Z72.0 - TOBACCO USE SNOMED Code(s): 382635128 Comment: Pt advised to quit smoking and avoid second hand smoke. (3) Alcoholism Current Visit: Yes Status: Acute Code(s): F10.20 - ALCOHOL DEPENDENCE, UNCOMPLICATED SNOMED Code(s): 2894442 Comment: consult requested. (4) Anemia Current Visit: Yes Status: Acute Code(s): D64.9 - ANEMIA, UNSPECIFIED SNOMED Code(s): 504943385 Comment: Ferritin low nl, start oral liquid iron, change to tablets on discharge. Status and Disposition: Discharge now. Fup Dr. Bolivar.
--- NOTE | 2016-09-28 08:52 | PN ---
Progress Note - Progress Note Note: Time spent on discharge 50 minutes.
[2016-09-28] MEDS: Ferrous Sulfate LIQ* 300 MG/5 ML UDC PO SCH (09:46)
[2016-09-28] MEDS: LACTULOSE* 30 ML UDC PO SCH (09:47)
[2016-09-28] MEDS: Furosemide TAB* 20 MG PO SCH (09:47)
[2016-09-28] MEDS: Spironolactone TAB* 25 MG PO SCH (09:47)
[2016-09-28] MEDS: Nadolol TAB* 40 MG PO SCH (09:47)
[2016-09-28] MEDS: Omeprazole CAP* 20 MG PO SCH (09:47)
--- NOTE | 2016-09-28 11:48 | DS ---
CC: Dr. Bolivar DISCHARGE SUMMARY: DATE OF ADMISSION: 09/25/16 DATE OF DISCHARGE: 09/28/16 HISTORY: This 61-year-old man presented with hematemesis, has a known history of cirrhosis and has had esophageal varices banded in the past. He was actually discharged only a few days ago, admitted for GI bleeding and had red cells, I believe 3 units of packed cells. At this time on 09/25/16, the patient had endoscopy with banding of 5 varices. I think he had hepatic gastropathy, but not actively bleeding. The patient had 4 units of packed red blood cells on this admission on . His hemoglobin on the day of discharge was 7.9 and had been stable. The lowest value on admission was 5.6. The patient understands that even 1 drink could have fatal consequences and that continued use of alcohol on regular basis almost certainly would have serious and possibly fatal consequences. The patient was started on several new medications. He will have a BMP on 10/01 as an outpatient as he is on more diuretics than before. FINAL DIAGNOSES: 1. Upper GI bleeding due to esophageal varices, status post banding x5. 2. Alcoholic cirrhosis. 3. Tobacco abuse. 4. Anemia. DISCHARGE MEDICATIONS: 1. Furosemide 20 mg daily. 2. Lactulose 30 mg t.i.d. 3. Nadolol 10 mg daily. 4. Omeprazole 20 mg b.i.d. 5. Spironolactone 25 mg b.i.d. 6. Folic acid daily. 7. Thiamine 100 mg daily. 8. Colchicine 0.6 mg daily p.r.n. [id number]/[facility] #: [id number] [facility]
== END 2016-09-28 12:45 | disposition home or self-care (01) | DRG 369 ==
LOC: ED 07:52 → ICU 09:11 → MED 09-27 08:37
PROVIDERS: ADMIT Hospitalist; ATTEND Internal Medicine
PROC: 0W3P8ZZ Control Bleeding in Gastrointestinal Tract, Via Natural or Artificial Opening Endoscopic (ICD-10-PCS; principal; 2016-09-25)
PROC: 30233N1 Transfusion of Nonautologous Red Blood Cells into Peripheral Vein, Percutaneous Approach (ICD-10-PCS; 2016-09-25)
DX: I85.01 Esophageal varices with bleeding (principal); N17.9 Acute kidney failure, unspecified; K76.6 Portal hypertension; K70.30 Alcoholic cirrhosis of liver without ascites; F17.210 Nicotine dependence, cigarettes, uncomplicated; D50.9 Iron deficiency anemia, unspecified; F12.90 Cannabis use, unspecified, uncomplicated; M10.9 Gout, unspecified; F32.9 Major depressive disorder, single episode, unspecified; K31.89 Other diseases of stomach and duodenum
CPT/HCPCS: 36415; 80053; 80320; 81003; 82140; 82728; 83540; 83550; 83605; 83690; 83735; 84443; 84484; 85014; 85018; 85025; 85610; 85730; 86140; 86850; 86900; 86901; 86922; 93005; 99406; A9270-GY; G0480; J0696; J2250; J2354; J2405; P9040

== ENCOUNTER 2016-12-27 10:12 | Emergency (ER) | payer MEDICARE ==
[2016-12-27] MEDS ORDERED: NS 0.9% 1000 ML* 1,000 ML IV ONE (11:12)
[2016-12-27 11:28] LABS: Hematocrit 28 % (42-52); Hemoglobin 8.9 g/dl (14.0-18.0); Mean Corpuscular HGB Conc 31 g/dl (31-36); Mean Corpuscular Hemoglobin 23 pg (27-31); Mean Corpuscular Volume 74 fL (80-94); Mean Platelet Volume 7 um3 (7.4-10.4); Red Blood Count 3.81 10^6/ul (4.0-5.4); Red Cell Distribution Width 21 % (10.5-15); White Blood Count 5.9 10^3/ul (3.5-10.8)
[2016-12-27 11:31] LABS: Add Diff/Slide Review? Slide Review Added; Comments Flag Yes
[2016-12-27 11:44] LABS: Albumin 3.7 g/dL (3.2-5.2); BUN/Creatinine Ratio 8.7 (8-20); C Reactive Protein 4.04 mg/L (< 5.00); Calcium 9.1 mg/dL (8.6-10.3); EGFR African American 94.1 (>60); EGFR Non-African American 73.2 (>60); Globulin 3.5 g/dL (2-4); Magnesium 1.5 mg/dL (1.9-2.7); Potassium 3.6 mmol/L (3.5-5.0); Total Bilirubin 1.6 mg/dL (0.2-1.0); Total Protein 7.2 g/dL (6.4-8.9)
[2016-12-27] MEDS ORDERED: Magnesium Oxide TAB* 400 MG PO ONE (12:33)
[2016-12-27 15:16] VITALS: BP 128/81
--- NOTE | 2016-12-28 18:08 | ED ---
Aziza Moreno Edward, scribed for Octavio Soliman MD on 12/27/16 at 1116 . Complex/Multi-Sys Presentation - HPI Summary HPI Summary: 61 y/o male presents to ED with general weakness, fatigue and nausea. Pt c/o that he feels like "something is going to break" but cannot describe any further. Assoc sx: dizziness. Denies CP, SOB, abd pain, diarrhea, or constipation. PMHx liver disease. - History Of Current Complaint Chief Complaint: EDGeneral Time Seen by Provider: 12/27/16 10:52 Hx Obtained From: Patient Onset/Duration: Gradual Onset Timing: Constant Severity Currently: Mild Severity Initially: Mild Character: Unable To Describe Associated Signs And Symptoms: Positive: Dizziness, Weakness, Nausea, Other - No constipation. Negative: SOB, Chest Pain, Diarrhea, Abdominal Pain - Allergies/Home Medications Allergies/Adverse Reactions: Allergies Allergy/AdvReac Type Severity Reaction Status Date / Time No Known Allergies Allergy Verified 09/10/15 13:56 PMH/Surg Hx/FS Hx/Imm Hx Previously Healthy: No Endocrine/Hematology History: Reports: Hx Anemia, Other Endocrine/Hematological Disorders - elevated INR-liver disease Denies: Hx Anticoagulant Therapy, Hx Diabetes Cardiovascular History: Denies: Hx Hypercholesterolemia, Hx Hypertension GI History: Reports: Hx Cirrhosis, Hx Hiatal Hernia, Other GI Disorders - ABD PAIN History: Reports: Other Problems/Disorders - Hx cirrhosis of the liver Musculoskeletal History: Reports: Hx Back Problems - back surgery, foot drop, Other Musculoskeletal History - right arm surgery Sensory History: Reports: Hx Contacts or Glasses Opthamlomology History: Reports: Hx Contacts or Glasses Neurological History: Reports: Hx Spinal Cord Injury - hx back surg with drop foot right Psychiatric History: Reports: Other Psychiatric Issues/Disorders - ETOH abuse - Surgical History Surgery Procedure, Year, and Place: low back, right forearm Infectious Disease History: No Infectious Disease History: Denies: Hx Clostridium Difficile, Traveled Outside the [place] in Last 30 Days - Family History Known Family History: Positive: Cardiac Disease - Social History Occupation: Disabled Lives: With Family Alcohol Use: Occasionally Alcohol Amount: 2-3 beers/day Hx Substance Use: No Substance Use Type: Reports: Marijuana Substance Use Comment - Amount & Last Used: 2-3/WEEK Hx Tobacco Use: Yes Smoking Status (MU): Heavy Every Day Tobacco Smoker Type: Cigarettes Amount Used/How Often: 1PPD Length of Time of Smoking/Using Tobacco: 50 Have You Smoked in the Last Year: Yes Review of Systems Positive: Fatigue, Other - Feels "like something's going to break" Eyes: Negative ENT: Negative Cardiovascular: Negative Negative: Chest Pain Respiratory: Negative Negative: Shortness Of Breath Positive: Nausea, Other - No constipation. Negative: Abdominal Pain, Diarrhea Genitourinary: Negative Musculoskeletal: Negative Skin: Negative Positive: Weakness Psychological: Normal All Other Systems Reviewed And Are Negative: Yes Physical Exam - Summary Physical Exam Summary: VITAL SIGNS:~Reviewed. GENERAL:~ Patient is a well-developed, nourished male with poor hygiene who is lying comfortable in the stretcher.~ Patient is not in any acute respiratory distress. HEAD AND FACE:~No signs of trauma.~ No ecchymosis, hematomas or skull depressions. No sinus tenderness. EYES:~PERRLA, EOMI x 2, No injected conjunctiva, no nystagmus. EARS:~Hearing grossly intact. Ear canals and tympanic membranes are within normal limits. MOUTH:~Oropharynx within normal limits. NECK:~Supple, trachea is midline, no adenopathy, no JVD, no carotid bruit, no c- spine tenderness, neck with full ROM. CHEST:~Symmetric, no tenderness at palpation LUNGS:~Clear to auscultation bilaterally. No wheezing or crackles. CVS:~Regular rate and rhythm, S1 and S2 present, no murmurs or gallops appreciated. ABDOMEN:~ Umbilical hernia, not carcerated. Soft, non-tender. No signs of distention. No rebound no guarding, and no masses palpated. Bowel sounds are normal. EXTREMITIES:~FROM in all major joints, no cyanosis or clubbing. Chronic bilateral lower extremity edema. NEURO:~Alert and oriented x 3. No acute neurological deficits. Speech is normal and follows commands. SKIN:~Dry and warm. Ecchymosis in left flank, fading. ~ Triage Information Reviewed: Yes Vital Signs On Initial Exam: Initial Vitals Temp Pulse Resp BP Pulse Ox 98.5 F 89 20 140/86 98 12/27/16 10:21 12/27/16 10:21 12/27/16 10:21 12/27/16 10:12/27/16 10:21 Vital Signs Reviewed: Yes - [place] Coma Scale Coma Scale Total: 15 Diagnostics - Vital Signs Vital Signs Temp Pulse Resp BP Pulse Ox 12/27/16 10:24 99.2 F 93 20 140/86 96 12/27/16 10:21 98.5 F 89 20 140/86 98 - Laboratory Lab Results: Lab Results 12/27/16 12/27/16 12/27/16 Range/Units 11:19 11:19 11:19 WBC 5.9 (3.5-10.8) 10^3/ul RBC 3.81 L (4.0-5.4) 10^6/ul Hgb 8.9 L (14.0-18.0) g/dl Hct 28 L (42-52) % MCV 74 L (80-94) fL MCH 23 L (27-31) pg MCHC 31 (31-36) g/dl RDW 21 H (10.5-15) % Plt Count 84 L (150-450) 10^3/ul MPV 7 L (7.4-10.4) um3 Neut % (Auto) 74.9 (38-83) % Lymph % (Auto) 15.1 L (25-47) % [place] % (Auto) 7.7 (1-9) % Eos % (Auto) 0.9 (0-6) % Baso % (Auto) 1.4 (0-2) % Absolute Neuts (auto) 4.4 (1.5-7.7) 10^3/ul Absolute Lymphs (auto) 0.9 L (1.0-4.8) 10^3/ul Absolute Monos (auto) 0.5 (0-0.8) 10^3/ul Absolute Eos (auto) 0.1 (0-0.6) 10^3/ul Absolute Basos (auto) 0.1 (0-0.2) 10^3/ul Absolute Nucleated RBC 0 10^3/ul Nucleated RBC % 0 Hem Pathologist Commnt Sodium 138 (133-145) mmol/L Potassium 3.6 (3.5-5.0) mmol/L Chloride 106 (101-111) mmol/L Carbon Dioxide 23 (22-32) mmol/L Anion Gap 9 (2-11) mmol/L BUN 9 (6-24) mg/dL Creatinine 1.03 (0.67-1.17) mg/dL Est GFR ( Amer) 94.1 (>60) Est GFR (Non-Af Amer) 73.2 (>60) BUN/Creatinine Ratio 8.7 (8-20) Glucose 103 H (70-100) mg/dL Lactic Acid 2.0 (0.5-2.0) mmol/L Calcium 9.1 (8.6-10.3) mg/dL Magnesium 1.5 L (1.9-2.7) mg/dL Total Bilirubin 1.60 H (0.2-1.0) mg/dL AST 46 H (13-39) U/L ALT 12 (7-52) U/L Alkaline Phosphatase 155 H (34-104) U/L C-Reactive Protein 4.04 (< 5.00) mg/L Total Protein 7.2 (6.4-8.9) g/dL Albumin 3.7 (3.2-5.2) g/dL Globulin 3.5 (2-4) g/dL Albumin/Globulin Ratio 1.1 (1-3) Amylase 53 (29-103) U/L Lipase 42 (11.0-82.0) U/L Result Diagrams: 12/27/16 11:19 12/27/16 11:19 Lab Statement: Any lab studies that have been ordered have been reviewed, and results considered in the medical decision making process. Complex Multi-Symp Course/Dx Assessment/Plan: 61 y/o male presents to ED with general weakness and nausea. Pt c/o that he feels like "something is going to break" but cannot describe any further. Assoc sx: dizziness. Denies CP, SOB, abd pain, diarrhea, or constipation. PMHx liver disease. Test results show chronic anemia and magnesium of 1.5. In the ED course, he was given PO magnesium and was hydrated. The patient is feeling much better, eating and drinking . He is ambulating with good and steady walk. Therefore, since the patient is feeling better , he will be discharged with a f/u with PCP. - Diagnoses Differential Diagnoses/HQI/PQRI: Other - Weakness, fatigue Provider Diagnoses: General weakness Discharge - Discharge Plan Condition: Stable Disposition: HOME Patient Education Materials: Weakness (ED) Referrals: Leonardo Bolivar MD [Primary Care Provider] - 3 Days (Follow up 2-3 days) The documentation as recorded by the Aziza figueroa Edward accurately reflects the service I personally performed and the decisions made by me, Octavio Soliman MD.
== END 2016-12-27 15:13 | disposition home or self-care (01) ==
LOC: ED 10:12
DX: R53.1 Weakness (principal); R42 Dizziness and giddiness; R11.0 Nausea; R53.83 Other fatigue; F17.210 Nicotine dependence, cigarettes, uncomplicated
CPT/HCPCS: 36415; 80053; 82150; 83605; 83690; 83735; 85025; 85060; 86140; 99283

== ENCOUNTER 2017-09-01 23:16 | Emergency (ER) | payer MEDICARE ==
[2017-09-02] MEDS ORDERED: NS 0.9% 1000 ML* 1,000 ML IV ONE (00:33)
[2017-09-02] MEDS ORDERED: Ondansetron INJ* 2 MG/ML VIAL IV ONE (00:38)
[2017-09-02] MEDS ORDERED: HYDROmorphone INJ* 2 MG/ML CARPUJECT SYRINGE IV SLOW PU ONE (00:38)
[2017-09-02 00:52] LABS: ABS Basophils 0.1 10^3/ul (0-0.2); ABS Eosinophils 0.1 10^3/ul (0-0.6); ABS Lymphocytes 1.2 10^3/ul (1.0-4.8); ABS Monocytes 0.8 10^3/ul (0-0.8); ABS Neutrophils 5.6 10^3/ul (1.5-7.7); ABS Nucleated RBC 0 10^3/ul; Eosinophil % 1.3 % (0-6); Hematocrit 39 % (42-52); Hemoglobin 13.6 g/dl (14.0-18.0); Lymphocyte % 15.2 % (25-47); Mean Corpuscular HGB Conc 35 g/dl (31-36); Mean Corpuscular Hemoglobin 33 pg (27-31); Mean Corpuscular Volume 93 fL (80-94); Mean Platelet Volume 8 um3 (7.4-10.4); Nucleated Red Blood Cells % 0.4; Platelet Count 110 10^3/ul (150-450); Red Blood Count 4.18 10^6/ul (4.0-5.4); Red Cell Distribution Width 17 % (10.5-15); White Blood Count 7.8 10^3/ul (3.5-10.8)
[2017-09-02 01:00] LABS: INR 1.11 (0.77-1.02)
[2017-09-02 01:03] LABS: EGFR Non-African American 81.1 (>60)
[2017-09-02 01:57] VITALS: BP 153/83
--- NOTE | 2017-09-02 05:12 | ED ---
Jayden Moreno Julia, scribed for Nish Crooks MD on 09/02/17 at 0033 . Abdominal Pain/Male - HPI Summary HPI Summary: This patient is a 62 year old M presenting to [facility] accompanied by his son with a chief complaint of a protruding lower abdominal hernia with sharp pain described as hard as a rock for the past hour. Patient states when this has happened he has been able to push it back in, but is unable to today. He states the sharp pains with hardened hernia have never happened before. Patient denies vomiting. He last drank fluid at 21:00. The patient rates the pain 10/10 in severity. - History of Current Complaint Chief Complaint: EDAbdPain Stated Complaint: ABD PAIN Time Seen by Provider: 09/02/17 00:24 Hx Obtained From: Patient Onset/Duration: Lasting Hours Timing: Constant Pain Intensity: 10 Pain Scale Used: 0-10 Numeric Location: Other - lower abdomen, at hernia Radiates: No Character: Sharp Associated Signs And Symptoms: Negative: Vomiting Similar Episode/Dx As:: previous hernia - Allergies/Home Medications Allergies/Adverse Reactions: Allergies Allergy/AdvReac Type Severity Reaction Status Date / Time No Known Allergies Allergy Verified 09/10/15 13:56 PMH/Surg Hx/FS Hx/Imm Hx Endocrine/Hematology History: Reports: Hx Anemia, Other Endocrine/Hematological Disorders - elevated INR-liver disease Denies: Hx Anticoagulant Therapy, Hx Diabetes Cardiovascular History: Denies: Hx Hypercholesterolemia, Hx Hypertension GI History: Reports: Hx Cirrhosis, Hx Hiatal Hernia, Other GI Disorders - ABD PAIN History: Reports: Other Problems/Disorders - Hx cirrhosis of the liver Musculoskeletal History: Reports: Hx Back Problems - back surgery, foot drop, Other Musculoskeletal History - right arm surgery Sensory History: Reports: Hx Contacts or Glasses Opthamlomology History: Reports: Hx Contacts or Glasses Neurological History: Reports: Hx Spinal Cord Injury - hx back surg with drop foot right Psychiatric History: Reports: Other Psychiatric Issues/Disorders - ETOH abuse - Surgical History Surgery Procedure, Year, and Place: low back, right forearm Infectious Disease History: No Infectious Disease History: Denies: Hx Clostridium Difficile, Traveled Outside the [place] in Last 30 Days - Family History Known Family History: Positive: Cardiac Disease - Social History Alcohol Use: Occasionally Alcohol Amount: 2-3 beers/day Hx Substance Use: No Substance Use Type: Reports: Marijuana Substance Use Comment - Amount & Last Used: 2-3/WEEK Hx Tobacco Use: Yes Smoking Status (MU): Heavy Every Day Tobacco Smoker Type: Cigarettes Amount Used/How Often: 1PPD Length of Time of Smoking/Using Tobacco: 50 Have You Smoked in the Last Year: Yes Review of Systems Gastrointestinal: Other - hernia Positive: Abdominal Pain. Negative: Vomiting Negative: Myalgia All Other Systems Reviewed And Are Negative: Yes Physical Exam - Summary Physical Exam Summary: Appearance: Well appearing, no pain distress Skin: warm, dry, reflects adequate perfusion with tannish hue Head/face: normal Eyes: EOMI, LUIS ENT: normal Neck: supple, non-tender Respiratory: CTA, breath sounds present Cardiovascular: RRR, pulses symmetrical Abdomen: large protruding umbilical hernia with strangulation and incarceration (unable to reduce) Bowel: present Musculoskeletal: normal, strength/ROM intact, no LE edema, Neuro: normal, sensory motor intact, A&Ox3, R drop foot Triage Information Reviewed: Yes Vital Signs On Initial Exam: Initial Vitals Temp Pulse Resp BP Pulse Ox 99.5 F 93 24 134/89 96 09/01/17 23:17 09/01/17 23:17 09/01/17 23:17 09/01/17 23:17 09/01/17 23:17 Vital Signs Reviewed: Yes Diagnostics - Vital Signs Vital Signs Temp Pulse Resp BP Pulse Ox 09/01/17 23:17 99.5 F 93 24 134/89 96 - Laboratory Lab Results: Lab Results 09/02/17 09/02/17 09/02/17 Range/Units 00:19 00:19 00:19 WBC 7.8 (3.5-10.8) 10^3/ul RBC 4.18 (4.0-5.4) 10^6/ul Hgb 13.6 L (14.0-18.0) g/dl Hct 39 L (42-52) % MCV 93 (80-94) fL MCH 33 H (27-31) pg MCHC 35 (31-36) g/dl RDW 17 H (10.5-15) % Plt Count 110 L (150-450) 10^3/ul MPV 8 (7.4-10.4) um3 Neut % (Auto) 72.6 (38-83) % Lymph % (Auto) 15.2 L (25-47) % [place] % (Auto) 9.9 H (1-9) % Eos % (Auto) 1.3 (0-6) % Baso % (Auto) 1.0 (0-2) % Absolute Neuts (auto) 5.6 (1.5-7.7) 10^3/ul Absolute Lymphs (auto) 1.2 (1.0-4.8) 10^3/ul Absolute Monos (auto) 0.8 (0-0.8) 10^3/ul Absolute Eos (auto) 0.1 (0-0.6) 10^3/ul Absolute Basos (auto) 0.1 (0-0.2) 10^3/ul Absolute Nucleated RBC 0 10^3/ul Nucleated RBC % 0.4 INR (Anticoag Therapy) (0.77-1.02) APTT (26.0-36.3) seconds Sodium 130 L (133-145) mmol/L Potassium 3.9 (3.5-5.0) mmol/L Chloride 99 L (101-111) mmol/L Carbon Dioxide 20 L (22-32) mmol/L Anion Gap 11 (2-11) mmol/L BUN 14 (6-24) mg/dL Creatinine 0.94 (0.67-1.17) mg/dL Est GFR ( Amer) 104.2 (>60) Est GFR (Non-Af Amer) 81.1 (>60) BUN/Creatinine Ratio 14.9 (8-20) Glucose 125 H (70-100) mg/dL Lactic Acid 1.4 (0.5-2.0) mmol/L Calcium 9.4 (8.6-10.3) mg/dL Total Bilirubin 2.40 H (0.2-1.0) mg/dL AST 69 H (13-39) U/L ALT 25 (7-52) U/L Alkaline Phosphatase 308 H (34-104) U/L Ammonia (16-53) mol/L C-Reactive Protein 42.54 H (< 5.00) mg/L Total Protein 7.9 (6.4-8.9) g/dL Albumin 3.7 (3.2-5.2) g/dL Globulin 4.2 H (2-4) g/dL Albumin/Globulin Ratio 0.9 L (1-3) Lipase 146 H (11.0-82.0) U/L 09/02/17 09/02/17 Range/Units 00:19 00:19 WBC (3.5-10.8) 10^3/ul RBC (4.0-5.4) 10^6/ul Hgb (14.0-18.0) g/dl Hct (42-52) % MCV (80-94) fL MCH (27-31) pg MCHC (31-36) g/dl RDW (10.5-15) % Plt Count (150-450) 10^3/ul MPV (7.4-10.4) um3 Neut % (Auto) (38-83) % Lymph % (Auto) (25-47) % [place] % (Auto) (1-9) % Eos % (Auto) (0-6) % Baso % (Auto) (0-2) % Absolute Neuts (auto) (1.5-7.7) 10^3/ul Absolute Lymphs (auto) (1.0-4.8) 10^3/ul Absolute Monos (auto) (0-0.8) 10^3/ul Absolute Eos (auto) (0-0.6) 10^3/ul Absolute Basos (auto) (0-0.2) 10^3/ul Absolute Nucleated RBC 10^3/ul Nucleated RBC % INR (Anticoag Therapy) 1.11 H (0.77-1.02) APTT 35.6 (26.0-36.3) seconds Sodium (133-145) mmol/L Potassium (3.5-5.0) mmol/L Chloride (101-111) mmol/L Carbon Dioxide (22-32) mmol/L Anion Gap (2-11) mmol/L BUN (6-24) mg/dL Creatinine (0.67-1.17) mg/dL Est GFR ( Amer) (>60) Est GFR (Non-Af Amer) (>60) BUN/Creatinine Ratio (8-20) Glucose (70-100) mg/dL Lactic Acid (0.5-2.0) mmol/L Calcium (8.6-10.3) mg/dL Total Bilirubin (0.2-1.0) mg/dL AST (13-39) U/L ALT (7-52) U/L Alkaline Phosphatase (34-104) U/L Ammonia 65 H (16-53) mol/L C-Reactive Protein (< 5.00) mg/L Total Protein (6.4-8.9) g/dL Albumin (3.2-5.2) g/dL Globulin (2-4) g/dL Albumin/Globulin Ratio (1-3) Lipase (11.0-82.0) U/L Result Diagrams: 09/02/17 00:19 09/02/17 00:19 Lab Statement: Any lab studies that have been ordered have been reviewed, and results considered in the medical decision making process. - Radiology CXR Radiology Interpretation Completed By: ED Physician - cardiomegaly, no acute pulmonary disease - CT A/p CT Interpretation Completed By: Radiologist - Cirrhosis and aplenomegaly, indicating portal venous hyertension, without ascites. Small bowel obstruction secondary to an umbilical hernia without abcess of free air. Bilateral common iliac artery aneurysms with evidence of leak. ED Physician has reviewed this report. - EKG 0036 Cardiac Rate: NL - at 71 BPM EKG Rhythm: Sinus Rhythm ST Segment: Non-Specific EKG Interpretation: short SC, nml axis, no delta wave Re-Evaluation - Re-Evaluation First Eval Change: Improved - pain gone after he was able to be successfully reduced by surgeon with my assistance Abdominal Pain Fem Course/Dx - Course Course Of Treatment: Dr. Christianson came to bedside and was able to reduce hernia at 01:10, he recommends discharge and will see pt this week with plan to perform surgery. lactate non-elevated. Pt comfortable at discharge. - Diagnoses Differential Diagnosis/HQI/PQRI: Other - incarcerated/strangulated hernia Provider Diagnoses: Strangulated umbilical hernia - Provider Notifications Discussed Care Of Patient With: Han Christianson Time Discussed With Above Provider: 00:34 Instructed by Provider To: Will See In ED - would like CT Discharge - Discharge Plan Condition: Good Disposition: HOME Patient Education Materials: Umbilical Hernia (ED) Referrals: Han Christianson MD [Medical Doctor] - Leonardo Bolivar MD [Primary Care Provider] - Additional Instructions: Call the surgeon first thing in the morning for appt to have this repaired. Return immediately if it comes back out and cannot be reduced as in the ER. The plan is to fix this surgically this week. Ibuprofen as needed for soreness. The documentation as recorded by the Jayden figueroa Julia accurately reflects the service I personally performed and the decisions made by me, Nish Crooks MD.
--- NOTE | 2017-09-02 07:51 | RAD ---
INDICATION: Preoperative chest x-ray prior to hernia repair COMPARISON: Chest x-ray September 20, 2016 TECHNIQUE: Single AP portable view of the chest was obtained. FINDINGS: Image quality is compromised due to the relative inferiority of a portable chest x-ray. The heart and mediastinum exhibit normal size and contour. The lungs are grossly clear. There is no evidence of a large pleural effusion. Visualized bones are normal for the patient's age. IMPRESSION: No radiographic evidence for acute cardiopulmonary abnormality on this portable chest x-ray.
--- NOTE | 2017-09-02 07:58 | RAD ---
INDICATION: Evaluate incarcerated umbilical hernia for presence of bowel. COMPARISON: Comparison is made with a prior study from June 24, 2014. TECHNIQUE: A CT scan of the abdomen and pelvis was performed without intravenous or oral contrast. Contiguous axial sections were obtained from the lung bases through the symphysis pubis. Images were reconstructed in the coronal and sagittal planes. FINDINGS: There is mild dependent bilateral lower lobe subsegmental atelectasis. No pleural effusion is present. The liver is enlarged in slightly heterogeneous without discrete focal abnormality on this noncontrast study. Liver has a nodular contour consistent with cirrhosis. No calcified gallstones are noted. The spleen is enlarged spanning 16.4 cm craniocaudad which has increased in size and previously measured 13.0 cm craniocaudad. The pancreas appears to be within normal limits. The adrenal glands and kidneys are normal in size. No renal calculi or hydronephrosis is seen. 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 These appear similar to the prior study. No significant enlarged retroperitoneal lymph nodes are seen. The stomach is nondistended. There is moderate distention of the small bowel secondary to a umbilical hernia containing a loop of dilated small bowel with an air-fluid level. There also appears to be mild bowel wall thickening. No pneumatosis is seen. The appendix is not well demonstrated. There is air present within the colon which is nondistended. There is no evidence for diverticulitis or colitis. No free intraperitoneal air or fluid is seen. No significant focal osseous abnormality is seen. IMPRESSION: 1. THERE IS A UMBILICAL HERNIA CONTAINING A LOOP OF SMALL BOWEL GIVING RISE TO A MODERATE GRADE PARTIAL SMALL BOWEL OBSTRUCTION. 2. NO EVIDENCE FOR FREE INTRAPERITONEAL AIR OR ASCITES. 3. FINDINGS CONSISTENT WITH CIRRHOSIS AND PORTAL HYPERTENSION. 4. SMALL ANEURYSM OF THE DISTAL ABDOMINAL AORTA SLIGHTLY INCREASED IN SIZE AND BILATERAL COMMON ILIAC ARTERY ANEURYSMS, UNCHANGED.
--- NOTE | 2017-09-02 12:27 | CONS ---
CC: Dr. Leonardo Bolivar * CONSULTATION REPORT: DATE OF CONSULT: 09/02/17 - EMERGENCY DEPT HISTORY: The patient is a 62-year-old male with a history of alcoholic cirrhosis and a known umbilical hernia. He says it has been popping in and out for years, but now 2 hours prior to arrival he had very intense pain, it is never like that before. He has had no nausea and vomiting, no recent trauma or injury, just very intense pain. He has not had known ascites before. He has not had a previous paracentesis. He states that he is on lactulose for his cirrhosis. PHYSICAL EXAM: On examination, he is a well-developed, well-nourished male, does not appear acutely ill, but he is appearing quite uncomfortable. The abdomen has an 8 cm umbilical hernia which has a trace of erythema and is quite tender and firm. Abdomen is otherwise soft and nontender. DIAGNOSTIC STUDIES/LAB DATA: I reviewed a CT scan which shows a loop of small bowel up in the hernia with the patient placed in little Trendelenburg position. I was able to manipulate the hernia and get it completely reduced. The defect was about 2 fingers across, I put a bulky gauze into the defect and taped it in place. He had immediate release of his pain and again the abdomen remains completely soft and nontender. IMPRESSION: A 62-year-old male with alcoholic cirrhosis and a moderately large umbilical hernia with small bowel entrapment which has now been reduced. I discussed the role of the surgery and I think he absolutely needs surgery in the relatively near future. I offered him the opportunity to come to my office first thing in the morning and we will arrange surgery for him on an urgent basis. He is agreeable to this approach. [id number]/[facility] #: [id number] [place]
== END 2017-09-02 01:59 | disposition home or self-care (01) ==
LOC: ED 23:16
DX: K42.9 Umbilical hernia without obstruction or gangrene (principal); Z86.2 Personal history of diseases of the blood and blood-forming organs and certain disorders involving the immune mechanism; F17.210 Nicotine dependence, cigarettes, uncomplicated
CPT/HCPCS: 36415; 71045; 74176; 80053; 82140; 83605; 83690; 85025; 85610; 85730; 86140; 93005; 99283; J1170; J2405

== ENCOUNTER 2017-09-05 07:43 | Day surgery (SDC) | payer MEDICARE ==
--- NOTE | 2017-09-02 21:44 | HP ---
HISTORY AND PHYSICAL: DATE OF ADMISSION/SURGERY: 09/05/17 PATIENT OF: Han Christianson MD ATTENDING SURGEON: Han Christianson MD * (DICTATED BY MAURISIO MATIAS) PRIMARY CARE PHYSICIAN: Leonardo Bolivar MD CHIEF COMPLAINT: Umbilical hernia. HISTORY OF PRESENT ILLNESS: Mr. Goode is a pleasant 62-year-old gentleman, who was seen in the emergency room last night with complaints of umbilical pain. The patient apparently has had an umbilical hernia for the past 2 years or so that caused him some intermittent abdominal pain. He describes increase in bulging of a known umbilical hernia in the past 2 years but every time he has been able to reduce the hernia manually. He denies any nausea, vomiting, abdominal distention, or changes in the bowel habits. He was seen in the office last year by Dr. Valentino to consider an elective umbilical hernia repair; however, the patient felt he does not need to proceed with surgery at that time. Last night, he described worsening abdominal pain and felt like his hernia was "hard as a rock" for which he went to the emergency room for further evaluation. He was seen by the ED provider, who was unsuccessful to reduce the hernia. The patient was eventually seen by Dr. Christianson last night and his hernia was reduced. CT scan of the abdomen and pelvis was obtained and revealed evidence of umbilical hernia with some bowel involvement; however, there was no evidence of incarceration or strangulation after the hernia was reduced. The patient eventually was discharged home and returned to the office today to discuss proceeding with hernia repair later this week. He denied any significant changes since his emergency room visit last night. His pain has been well under control and he is keeping pressure dressing around his umbilicus. He notes that he has been coughing a lot recently and he believes that was the source of his increased size of umbilical hernia with associated pain. He also notes that he had just returned from an overseas trip in [place], where he went to visit some friends last week. He has a known history of chronic alcoholism with liver cirrhosis and he described an episode of epistaxis while he was in [place] for which he went to the hospital and was found to have low platelet number and according to the patient, it required transfusion of 1 unit of platelets. He denies any easy gum bleeding or easy bruising recently. Given his ongoing symptoms of his umbilical hernia, he was seen today and he is tentatively scheduled for an umbilical hernia repair by Dr. Christianson later this week. PAST MEDICAL HISTORY: Significant for umbilical hernia for which he had for 2 years. He also has history of hyperlipidemia, alcohol abuse, gout, chronic obstructive lung disease, iron deficiency anemia, alcoholic liver cirrhosis, and splenomegaly, and episode of bleeding esophageal varices years ago that required per the patient an upper endoscopy with ligation of esophageal varices. Hypertension and gouty arthritis. PAST SURGICAL HISTORY: Significant for lumbar fusion as well as upper endoscopy with ligation of esophageal varices years ago. CURRENT MEDICATIONS: His medications at home include: 1. Ferrous sulfate 325 mg 1 tablet daily. 2. Lasix 20 mg 1 tablet daily. 3. Omeprazole 20 mg 1 tablet twice a day. 4. Colchicine 0.8 mg 1 tablet by mouth q. day as needed for pain. 5. Nadolol 20 mg p.o. daily. 6. Thiamine 100 mg p.o. daily. 7. Folic acid 1 mg p.o. daily. 8. Spironolactone 25 mg p.o. daily. ALLERGIES: He has no known drug allergies. FAMILY HISTORY: Noncontributory. SOCIAL HISTORY: The patient is single. He lives alone. He continues to smoke on average 1 pack per day for the past 50 years. He is a former alcohol drinker 6 to 8 drinks per day for the past 40 years and he claims he has not been drinking for the past year or so. He denies illicit drug use. REVIEW OF SYSTEMS: See HPI, otherwise negative. He denies any headache, dizziness, blurred vision, or double vision. No sore throat or shortness of breath; however, he admits to chronic nonproductive cough likely due to his COPD. He denies any chest pain, palpitation. No back pain, flank pain, dysuria , hematuria, or urinary frequency. He admits to large umbilical hernia with intermittent pain; however, has been able to reduce it manually and denies any associated nausea, vomiting, or changes in the bowel habits. No fever, chills, weight loss, or night sweats. PHYSICAL EXAMINATION GENERAL: He is a pleasant upper middle-aged gentleman, appears comfortable and in no acute distress or discomfort today. VITAL SIGNS: Revealed blood pressure of 140/92, temperature of 98.4, respirations of 18, pulse of 76, and O2 sats of 100%. His BMI is 27. HEENT: Head is normocephalic, atraumatic. Sclerae anicteric. PERRLA. EOMs intact. Oropharynx is pink and moist with no exudate. NECK: Supple. Trachea midline. No cervical adenopathy, thyromegaly, or JVD. LUNGS: Clear to auscultation bilaterally. There are bilateral decreased breath sounds noted with occasional expiratory wheezing noted. HEART: Regular rate and rhythm. Normal S1 and S2 without rubs, murmurs, or gallops. BACK: With normal curvature. No CVA tenderness. ABDOMEN: Soft and nondistended. There is a large umbilical hernia noted, covered with pressure dressing. Hernia is easily reducible while the patient lying supine. The defect can be felt by hand measuring approximately 2 to 3 cm in diameter. There is no tenderness upon reducing the hernia. No guarding, rigidity, or rebound tenderness noted. There are no other hernias or masses. EXTREMITIES: Without cyanosis, clubbing, or edema. RECTAL: Deferred at this time. NEUROLOGIC: Grossly intact. It is to be mentioned that patient has a slight drop foot on the right lower extremity that was likely due to his history of lumbar fusion in the past. DIAGNOSTIC DATA: Chest x-ray and CT scan, they were all reviewed on his record during [place] [facility] [place] last night. IMPRESSION: A 62-year-old gentleman with intermittent abdominal pain secondary to a large umbilical hernia. PLAN: The patient is scheduled for umbilical hernia repair with mesh by Dr. Christianson on 09/05/17. The rationale, indication, risks, and benefits of surgery were discussed with him today. Risks include but not limited to infection, bleeding, or injury to adjacent structures. He appears to understand and wishes to proceed as outlined. We reviewed his laboratory workup and his platelet count appears to be stable with value of 110. He was advised to seek emergency room visit if he experienced any recurrent pain or hardness of his umbilical hernia; however, he was advised also to maintain his pressure dressing for the next couple of days and we will see him in the office a week after his hernia repair. MAURISIO MATIAS [id number]/[facility] #: [id number] [facility]
[~2017-09-05 07:43] MED LIST: Buffered Lidocaine 0.9% SYRIN* 5 ML/SYR SYRINGE INTRADERM ONE; NS 0.9% 1000 ML* 1,000 ML IV SCH
[2017-09-05] MEDS ORDERED: Buffered Lidocaine 0.9% SYRIN* 5 ML/SYR SYRINGE ONE (08:02)
[2017-09-05] MEDS ORDERED: ceFAZolin 1 GM in Dextrose (*) 2 GM/100 ML BAG IVPB ONE (08:03)
[2017-09-05] MEDS ORDERED: Naloxone* 0.4 MG/ML 1 ML VIAL IV PRN (08:24)
[2017-09-05] MEDS ORDERED: Acetaminophen TAB* 325 MG PO PRN (08:24)
[2017-09-05] MEDS ORDERED: Levalbuterol 0.63MG/3ML NEB* UNIT OF USE INH PRN (08:24)
[2017-09-05] MEDS ORDERED: PROCHLORPERAZINE INJ 5 MG/ML 2 ML VIAL IV PRN (08:24)
[2017-09-05] MEDS ORDERED: DiMENhydriNATE IV* 50 MG/ML VIAL IV PUSH PRN (08:24)
[2017-09-05] MEDS ORDERED: fentaNYL* 50 MCG/ML 2 ML VIAL (100 MCG VIAL) IV PRN (08:24)
[2017-09-05] MEDS ORDERED: Ondansetron INJ* 2 MG/ML VIAL IV PRN (08:24)
[2017-09-05] MEDS ORDERED: fentaNYL* 50 MCG/ML 2 ML VIAL (100 MCG VIAL) ONE ×3 (08:31→10:45)
[2017-09-05] MEDS ORDERED: Midazolam* 1 MG/ML 2 ML VIAL (2 MG) ONE (08:31)
[2017-09-05] MEDS ORDERED: Bupivacaine 0.5% SDV PF* 10-30ML VIAL ONE (09:42)
[2017-09-05] MEDS ORDERED: Lidocaine 1% MPF wEPI 200,000* 30 ML SDV ONE (09:42)
[2017-09-05] MEDS ORDERED: Famotidine IV* 10 MG/ML 2 ML (20 mg) ONE (09:49)
[2017-09-05] MEDS ORDERED: Ketorolac INJ* 30 MG/ML 1 ML VIAL ONE (09:49)
[2017-09-05] MEDS ORDERED: Dexamethasone IV* 4 MG/ML 1 ML (4 MG) ONE ×2 (09:49→10:02)
[2017-09-05] MEDS ORDERED: Propofol* 10 MG/ML 20 ML BTL IV PUSH ONE ×2 (09:49→10:44)
[2017-09-05] MEDS ORDERED: Lidocaine 2% PF * 5 ML VIAL ONE (09:50)
[2017-09-05] MEDS ORDERED: Levalbuterol HFA INHALER* 1 PUFF MDI ONE (10:00)
[2017-09-05] MEDS ORDERED: EPHEDrine (Pressors)* 50 MG/ML VIAL ONE (10:00)
[2017-09-05 13:36] VITALS: BP 119/78
--- NOTE | 2017-09-06 11:21 | OP ---
CC: Dr. Christianson OPERATIVE REPORT: DATE OF OPERATION: 09/05/17 DATE OF : 53 SURGEON: Han Christianson MD FRONT OFFICE MANAGER: None. ANESTHESIOLOGIST: Dr. Momin. ANESTHESIA: General anesthetic and local infiltration by the surgeon. PRE-OP DIAGNOSIS: Umbilical hernia. POST-OP DIAGNOSIS: Umbilical hernia. OPERATIVE PROCEDURE: Open repair umbilical hernia with mesh. DESCRIPTION OF PROCEDURE: The patient was supine on the operative table. After adequate general ane sthesia, compression stockings, and Marky Hugger warmer, intravenous antibiotics, the abdomen was prep ped with antiseptic, draped in a sterile fashion. Supraumbilical curvilinear incision was created of approximately 5 cm in length. The hernia itself was almost 8 cm in greatest dimension. The defect was about 3 cm. The hernia sac was dissected off the back of the umbilical skin. It was dissected f ree from the fascia and reduced in the preperitoneal plane was developed. An 8 cm Ventralex underlay coated patch was utilized. This was parachuted in and tied at the 4 quadrants using 0 Vicryl. Keith tional sutures were then placed in between each of these full thickness up through the suturing patch and then the fascia was closed over top using 0 Vicryl. Operative site was irrigated and hemostasis was ensured. The umbilical skin was tacked back down with 3-0 Vicryl which was also used to reappro ximate the adipose. Skin was closed with 5-0 Vicryl followed by Steri-Strips and a bulky gaze dressi ng. He tolerated the procedure well, was awakened and brought to Recovery in good condition. No com plications. No drains. No pathologic specimens. Sponge and instrument counts were correct. Estima eloina blood loss is 30 mL. [id number]/[facility] #: [id number]
== END 2017-09-05 13:55 | disposition home or self-care (01) ==
LOC: OR 07:43
PROVIDERS: ATTEND Surgery
DX: K42.0 Umbilical hernia with obstruction, without gangrene (principal); I10 Essential (primary) hypertension; J44.9 Chronic obstructive pulmonary disease, unspecified; F17.210 Nicotine dependence, cigarettes, uncomplicated; D50.9 Iron deficiency anemia, unspecified; D73.2 Chronic congestive splenomegaly; K70.30 Alcoholic cirrhosis of liver without ascites; I85.10 Secondary esophageal varices without bleeding
CPT/HCPCS: A9270-GY; C1781; J0690; J1100; J1885; J2001; J2250; J2704; J3010

== ENCOUNTER 2018-03-08 12:58 | Emergency (ER) | payer MEDICARE ==
[2018-03-08] MEDS ORDERED: NS 0.9% 1000 ML* 1,000 ML IV ONE (14:41)
[2018-03-08] MEDS ORDERED: Pantoprazole IV* 40 MG IV ONE (14:42)
[2018-03-08] MEDS ORDERED: Octreotide Acetate* 50 MCG in NS 0.9% 50 ML* 50 ML IVPB ONE (14:42)
--- NOTE | 2018-03-08 14:51 | ED ---
GI/ HPI - HPI Summary HPI Summary: This patient is a 62 year old M presenting to [facility] accompanied by his good friend with a chief complaint of three bouth of vomiting blood blots today with the last episode occurring roughly 45 minutes ago. Reports weakness. Denies abdominal pain and CP. PMHx includes upper GI bleeds, liver cirrhosis and esophageal varices. Denies PMHx of IA. Patient states he smoke roughly a half PPD and is still drinking alcohol. - History of Current Complaint Chief Complaint: EDGIBleed Time Seen by Provider: 03/08/18 14:15 Stated Complaint: BLOOD IN VOMIT Hx Obtained From: Patient Onset/Duration: Started Hours Ago Timing: Intermittent Vaginal Bleeding Description: Bright Red Pain Intensity: 0 Location of Pain: None Associated Signs and Symptoms: Positive: Hematemesis, Weakness - Additional Pertinent History Primary Care Physician: KACEY - Allergy/Home Medications Allergies/Adverse Reactions: Allergies Allergy/AdvReac Type Severity Reaction Status Date / Time No Known Allergies Allergy Verified 09/03/17 11:22 PMH/Surg Hx/FS Hx/Imm Hx Endocrine/Hematology History: Reports: Hx Anemia - takes iron, Other Endocrine/ Hematological Disorders - elevated INR-liver disease Denies: Hx Anticoagulant Therapy, Hx Diabetes Cardiovascular History: Reports: Hx Hypertension - Was told he does but no meds Denies: Hx Hypercholesterolemia GI History: Reports: Hx Cirrhosis - liver from ETOH, Hx Hiatal Hernia, Other GI Disorders - hx of upper GI bleed History: Reports: Other Problems/Disorders - Hx cirrhosis of the liver Musculoskeletal History: Reports: Hx Arthritis, Hx Back Problems - back surgery , foot drop, Other Musculoskeletal History - right arm surgery Sensory History: Reports: Hx Contacts or Glasses - to read Denies: Hx Hearing Aid Opthamlomology History: Reports: Hx Contacts or Glasses - to read Neurological History: Reports: Hx Spinal Cord Injury - hx back surg with drop foot right Psychiatric History: Reports: Other Psychiatric Issues/Disorders - ETOH abuse - Cancer History Hx Chemotherapy: No - Surgical History Surgery Procedure, Year, and Place: lumbar fusion back, right forearm. EGD with ligation of esophageal varices Hx Anesthesia Reactions: No Infectious Disease History: No Infectious Disease History: Denies: Hx Clostridium Difficile, Traveled Outside the [place] in Last 30 Days - Family History Known Family History: Positive: Cardiac Disease - Social History Alcohol Use: Daily Alcohol Amount: couple 6 packs a week Hx Substance Use: No Substance Use Type: Reports: Marijuana Substance Use Comment - Amount & Last Used: 2-3/WEEK Hx Tobacco Use: Yes Smoking Status (MU): Heavy Every Day Tobacco Smoker Type: Cigarettes Amount Used/How Often: 1PPD smoked for 50 years, .5 PPD currently Length of Time of Smoking/Using Tobacco: 50 Have You Smoked in the Last Year: Yes Review of Systems Negative: Chest Pain Positive: Vomiting - hematemsis. Negative: Abdominal Pain Positive: Weakness All Other Systems Reviewed And Are Negative: Yes Physical Exam - Summary Physical Exam Summary: GENERAL: Patient is a well developed and nourished male who is lying comfortable in the stretcher. Patient is not in any acute respiratory distress. HEAD AND FACE: Normocephalic EYES: PERRLA, EOMI x 2. EARS: Hearing grossly intact. MOUTH: Oropharynx within normal limits. NECK: Supple, trachea is midline, no adenopathy, no JVD, no carotid bruit. CHEST: Symmetric, no tenderness at palpation LUNGS: Clear to auscultation bilaterally. No wheezing or crackles. CVS: Tachycardic rate and regular rhythm, S1 and S2 present, no murmurs or gallops appreciated. ABDOMEN: Soft, non-tender. Bowel sounds are normal. No abdominal abnormal pulsations. EXTREMITIES: Full ROM in all major joints, no edema, no cyanosis or clubbing. NEURO: Alert and oriented x 3. No acute neurological deficits. Speech is normal and follows commands. SKIN: Dry and warm Triage Information Reviewed: Yes Vital Signs On Initial Exam: Initial Vitals Temp Pulse Resp BP Pulse Ox 97.8 F 115 14 90/59 90 03/08/18 14:08 03/08/18 14:08 03/08/18 14:08 03/08/18 14:08 03/08/18 14:08 Vital Signs Reviewed: Yes Diagnostics - Vital Signs Vital Signs Temp Pulse Resp BP Pulse Ox 03/08/18 14:08 97.8 F 115 14 90/59 90 - Laboratory Result Diagrams: 03/08/18 15:03 Lab Statement: Any lab studies that have been ordered have been reviewed, and results considered in the medical decision making process. - EKG 1506 Cardiac Rate: NL - 96 BPM EKG Rhythm: Sinus Rhythm EKG Interpretation: left axis deviation GIGU Course/Dx - Course Course Of Treatment: 62 year old M presenting to [facility] accompanied by his good friend with a chief complaint of three bouth of vomiting blood blots today with the last episode occurring roughly 45 minutes ago. Patient is tachycardic and hypotensive upon arrival to the ED. Patient is given Protonix and IV fluids. An EKG reveals normarl sinus rhythm with a rate of 96 BPM with left axis deviation. Bloodwork is obtained. Patient was inititally tachy up to 108 and hypotensive with SPB in the 80s. HGb is 10.7 Hct is 31. Blood Pressure is 113/ 74 and Heart rate is 99 BPM after 1 L IVF. Patient will be transferred to [place] since no GI coverage currently. Patient accepted for transfer by Dr. Hoskins. Transfer was initiated immediately due to lack of GI coverage. Patient will be flying to [place] in [facility]. Helicopter arrived prior to accepting physician name. - Diagnoses Provider Diagnoses: Upper GI bleed - Critical Care Time Critical Care Time: 30-74 min Discharge - Sign-Out/Discharge Documenting (check all that apply): Patient Departure - transfer - Discharge Plan Condition: Critical Disposition: TRANS HIGHER LVL OF CARE FAC Referrals: Leonardo Bolivar MD [Primary Care Provider] - - Billing Disposition and Condition Condition: CRITICAL Disposition: Trans Higher Lvl of Care Fac - Attestation Statements Document Initiated by Scribe: Yes Documenting Scribe: Armida Carpenter Provider For Whom Helena is Documenting (Include Credential): Alvarez Fraser MD Scribe Attestation: Armida Moreno scribed for Alvarez Fraser MD on 03/08/18 at 1536. Scribe Documentation Reviewed: Yes Provider Attestation: The documentation as recorded by the jazzyibArmida beverly accurately reflects the service I personally performed and the decisions made by me, Alvarez Fraser MD
[2018-03-08] MEDS ORDERED: Pantoprazole IV* 80 MG in NS 0.9% 250 ML* 250 ML IV SCH (15:00)
[2018-03-08 15:22] LABS: ABS Basophils 0.1 10^3/ul (0-0.2); ABS Eosinophils 0.1 10^3/ul (0-0.6); ABS Lymphocytes 1.2 10^3/ul (1.0-4.8); ABS Monocytes 0.9 10^3/ul (0-0.8); ABS Nucleated RBC 0 10^3/ul; Eosinophil % 0.7 % (0-6); Hematocrit 31 % (42-52); Hemoglobin 10.7 g/dl (14.0-18.0); Lymphocyte % 10.4 % (25-47); Mean Corpuscular HGB Conc 34 g/dl (31-36); Mean Corpuscular Hemoglobin 33 pg (27-31); Mean Corpuscular Volume 97 fL (80-94); Mean Platelet Volume 8.8 um3 (7.4-10.4); Nucleated Red Blood Cells % 0; Platelet Count 84 10^3/ul (150-450); Red Blood Count 3.21 10^6/ul (4.00-5.40); Red Cell Distribution Width 16 % (10.5-15); White Blood Count 11.1 10^3/ul (3.5-10.8)
[2018-03-08 15:30] LABS: INR 1.35 (0.77-1.02)
[2018-03-08 15:40] LABS: EGFR Non-African American 60.6 (>60)
--- NOTE | 2018-03-08 15:55 | RAD ---
Indication: Shortness of breath, cough. COPD. Comparison: September 02, 2017 Technique: Upright AP 1500 hours Report: Minimal prominence and patchy rarefaction of interstitial markings. No focal pulmonary lesion, compelling alveolar consolidation, pleural effusion, pneumothorax. The heart, pulmonary vasculature, and mediastinal contours are unremarkable. IMPRESSION: #. Stigmata of obstructive lung disease. No acute pulmonary or cardiac process evident.
[2018-03-08 16:01] VITALS: BP 86/61
== END 2018-03-08 16:10 | disposition short-term general hospital (02) ==
LOC: ED 12:58
DX: K92.2 Gastrointestinal hemorrhage, unspecified (principal); R53.1 Weakness; D64.9 Anemia, unspecified; R94.31 Abnormal electrocardiogram [ECG] [EKG]; Z82.49 Family history of ischemic heart disease and other diseases of the circulatory system; F17.210 Nicotine dependence, cigarettes, uncomplicated
CPT/HCPCS: 36415; 71045; 80053; 82140; 84484; 85025; 85610; 85730; 86850; 86900; 86901; 93005; 96374; 99285; J2354

== ENCOUNTER 2018-03-20 19:05 | Inpatient (IN) | payer MEDICARE ==
[2018-03-20] MEDS ORDERED: NS 0.9% 1000 ML* 1,000 ML IV ONE (21:37)
[2018-03-20] MEDS ORDERED: Octreotide Acetate* 50 MCG in NS 0.9% 50 ML* 50 ML IVPB ONE (21:38)
--- NOTE | 2018-03-20 21:40 | ED ---
GI/ HPI - HPI Summary HPI Summary: This pt is a 62 y/o male presenting to [facility] c/o bloody stools for the past 4 hours. Pt also reports abdominal distension , intermittent abd pain, and nausea. He describes diarrhea as black. Denies fever, chills, vomiting. Pt states he was in the ED on 03/08/18 for hematemesis and was transferred to [facility]. He was at [facility] last week where he had an endoscopy and colonoscopy done, pt is unable to give results. Pt notes he still drinks alcohol. PMHx includes alcoholic liver cirrhosis, esophageal varices, upper GI bleeding in the past. Pt is on lactulose. He has had abdominal tap once before a "few years ago" and had 2L taken out. Pt denies syncope or any complications with the abd tap. - History of Current Complaint Chief Complaint: EDAbdPain Time Seen by Provider: 03/20/18 21:24 Stated Complaint: NAUSEA/VOMITING/DIARRHEA Hx Obtained From: Patient Onset/Duration: Started Hours Ago, Still Present Timing: Lasting Hours Current Severity: Mild Pain Intensity: 3 Location of Pain: Diffuse Associated Signs and Symptoms: Positive: Nausea, Blood w/Stool, Diarrhea, Abdominal Pain. Negative: Vomiting, Fever, Chills Aggravating Factor(s): Nothing Alleviating Factor(s): Nothing - Additional Pertinent History Primary Care Physician: [id number] - Allergy/Home Medications Allergies/Adverse Reactions: Allergies Allergy/AdvReac Type Severity Reaction Status Date / Time No Known Allergies Allergy Verified 03/20/18 22:07 PMH/Surg Hx/FS Hx/Imm Hx Endocrine/Hematology History: Reports: Hx Anemia - takes iron, Other Endocrine/ Hematological Disorders - elevated INR-liver disease Denies: Hx Anticoagulant Therapy, Hx Diabetes Cardiovascular History: Reports: Hx Hypertension - Was told he does but no meds Denies: Hx Hypercholesterolemia GI History: Reports: Hx Cirrhosis - liver from ETOH, Hx Hiatal Hernia, Other GI Disorders - hx of upper GI bleed, esophageal varices History: Reports: Other Problems/Disorders - Hx cirrhosis of the liver Musculoskeletal History: Reports: Hx Arthritis, Hx Back Problems - back surgery , foot drop, Other Musculoskeletal History - right arm surgery Sensory History: Reports: Hx Contacts or Glasses - to read Denies: Hx Hearing Aid Opthamlomology History: Reports: Hx Contacts or Glasses - to read Neurological History: Reports: Hx Spinal Cord Injury - hx back surg with drop foot right Psychiatric History: Reports: Other Psychiatric Issues/Disorders - ETOH abuse - Cancer History Hx Chemotherapy: No - Surgical History Surgery Procedure, Year, and Place: lumbar fusion back, right forearm. EGD with ligation of esophageal varices Hx Anesthesia Reactions: No Infectious Disease History: No Infectious Disease History: Denies: Hx Clostridium Difficile, Traveled Outside the [place] in Last 30 Days - Family History Known Family History: Positive: Cardiac Disease - Social History Alcohol Use: Daily Alcohol Amount: couple 6 packs a week Hx Substance Use: No Substance Use Type: Reports: Marijuana Substance Use Comment - Amount & Last Used: 2-3/WEEK Hx Tobacco Use: Yes Smoking Status (MU): Heavy Every Day Tobacco Smoker Type: Cigarettes Amount Used/How Often: 1PPD smoked for 50 years, .5 PPD currently Length of Time of Smoking/Using Tobacco: 50 Have You Smoked in the Last Year: Yes Review of Systems Negative: Fever, Chills Eyes: Negative ENT: Negative Gastrointestinal: Other - abd distension, bloody stools Positive: Abdominal Pain, Vomiting, Diarrhea, Nausea Musculoskeletal: Negative Skin: Negative Neurological: Negative All Other Systems Reviewed And Are Negative: Yes Physical Exam - Summary Physical Exam Summary: VITAL SIGNS: Reviewed. GENERAL: Patient is a well-developed and nourished male who is lying comfortable in the stretcher. Patient is not in any acute respiratory distress. HEAD AND FACE: No signs of trauma. No ecchymosis, hematomas or skull depressions. No sinus tenderness. EYES: PERRLA, EOMI x 2, No injected conjunctiva, no nystagmus. EARS: Hearing grossly intact. Ear canals and tympanic membranes are within normal limits. MOUTH: Oropharynx within normal limits. NECK: Supple, trachea is midline, no adenopathy, no JVD, no carotid bruit, no c- spine tenderness, neck with full ROM. CHEST: Symmetric, no tenderness at palpation LUNGS: Clear to auscultation bilaterally. No wheezing or crackles. CVS: Regular rate and rhythm, S1 and S2 present, no murmurs or gallops appreciated. ABDOMEN: Soft, non-tender. Abdominal distension. No rebound no guarding, and no masses palpated. Bowel sounds are normal. RECTAL EXAM: small external hemorrhoids, melena. EXTREMITIES: FROM in all major joints, no cyanosis or clubbing. Right lower extremity edema which is chronic. NEURO: Alert and oriented x 3. No acute neurological deficits. Speech is normal and follows commands. SKIN: Dry and warm Triage Information Reviewed: Yes Vital Signs On Initial Exam: Initial Vitals Temp Pulse Resp BP Pulse Ox 98.3 F 120 16 121/92 97 03/20/18 19:10 03/20/18 19:10 03/20/18 19:10 03/20/18 19:10 03/20/18 19:10 Vital Signs Reviewed: Yes Diagnostics - Vital Signs Vital Signs Temp Pulse Resp BP Pulse Ox 03/20/18 19:10 98.3 F 120 16 121/92 97 - Laboratory Result Diagrams: 03/20/18 22:07 03/20/18 22:07 Lab Statement: Any lab studies that have been ordered have been reviewed, and results considered in the medical decision making process. GIGU Course/Dx - Course Assessment/Plan: Pt is a 62 y/o male, with hx of alcoholic liver cirrhosis, esophageal varices, upper GI bleeding in the past, presenting to the ED for bloody stools for the past 4 hours. Pt also reports abdominal distension , intermittent abd pain, and nausea. He describes diarrhea as black. Denies fever , chills, vomiting. Pt states he was in the ED on 03/08/18 for hematemesis and was transferred to [facility]. He was at [facility] last week where he had an endoscopy and colonoscopy done, pt is unable to give results. Test results show hemoglobin of 8.3, hematocrit of 24, INR of 1.20, BUN of 38, magnesium of 1.5, total bili of 2.20, AST of 60, alkaline phosphatase of 204, serum alcohol of 79. In the ED course the pt was given IV fluids, octreotide acetate. I discussed pt care with Dr. Brumfield, hospitalist, who accepted the pt for admission. - Diagnoses Provider Diagnoses: Esophageal varices, Upper GI bleed - Physician Notifications Discussed Care Of Patient With: Siddharth Brumfield Time Discussed With Above Provider: 22:46 Instructed by Provider To: Admit As Inpatient Discharge - Sign-Out/Discharge Documenting (check all that apply): Patient Departure - Ad[place] [facility] - Discharge Plan Condition: Stable Disposition: ADMITTED TO [facility] Referrals: Leonardo Bolivar MD [Primary Care Provider] - - Attestation Statements Document Initiated by Scribe: Yes Documenting Scribe: Loretta Anderson Provider For Whom Andrewibrush is Documenting (Include Credential): Dr. Deepthi Hein MD Scribe Attestation: Loretta Moreno, scribed for Dr. Deepthi Hein MD on 03/20/18 at 2246.
[2018-03-20] MEDS ORDERED: Octreotide Acetate* 500 MCG in NS 0.9% 100 ML* 100 ML IVPB SCH (22:00)
[2018-03-20 22:17] LABS: ABS Basophils 0.1 10^3/ul (0-0.2); ABS Eosinophils 0 10^3/ul (0-0.6); ABS Lymphocytes 1.6 10^3/ul (1.0-4.8); ABS Monocytes 0.7 10^3/ul (0-0.8); ABS Neutrophils 6.4 10^3/ul (1.5-7.7); ABS Nucleated RBC 0 10^3/ul; Eosinophil % 0.3 % (0-6); Hematocrit 24 % (42-52); Hemoglobin 8.3 g/dl (14.0-18.0); Lymphocyte % 17.7 % (25-47); Mean Corpuscular HGB Conc 34 g/dl (31-36); Mean Corpuscular Hemoglobin 32 pg (27-31); Mean Corpuscular Volume 95 fL (80-94); Mean Platelet Volume 7.7 um3 (7.4-10.4); Nucleated Red Blood Cells % 0.1; Platelet Count 140 10^3/ul (150-450); Red Blood Count 2.56 10^6/ul (4.00-5.40); Red Cell Distribution Width 17 % (10.5-15); White Blood Count 8.8 10^3/ul (3.5-10.8)
[2018-03-20 22:34] LABS: EGFR Non-African American 78.2 (>60)
[2018-03-20 22:50] LABS: INR 1.2 (0.77-1.02)
--- NOTE | 2018-03-20 23:04 | HP ---
H&P (Free Text) History and Physical: PCP: Ever Bolivar MD Date/Time: 03/20/2018 2300 CC: black stools HPI: Mr Goode is a 62YO male HX alcoholic cirrhosis w/ variceal bleed remotely s/p ligation, HTN, HLD, COPD who notably was in our ED 03/08/2018 with hematemesis and transferred to [place] where upper & lower endoscopy was performed but he is unaware of the findings. Records will be requested. Today he was having lower extremity cramping and took 2 OTC naproxen subsequently developing epigastric discomfort and nausea without emesis and loose/watery black stools. He denies chest pain, SOB, palpitations, light-headedness, or other issues. He reports only occasionally taking naproxen. ED nursing reports a significant drop in BP when going from laying to standing although this was not quantified. PMedHx alcoholic cirrhosis w/ varicele bleed remotely s/p ligation splenomegaly recent EGD/c-scope at [place], records requested HTN HLD COPD gout iron deficiency anemia chronic R foot drop & RLE edema Ambulatory Orders Colchicine* [Colcrys*] 0.6 mg PO DAILY PRN #30 tab 07/21/16 Ferrous Gluconate TAB* [Fergon TAB*] 324 mg PO DAILY #100 tab 09/28/16 Nadolol TAB* [Corgard TAB*] 10 mg PO DAILY #30 tab 09/28/16 Omeprazole CAP* [Prilosec CAP* 20 MG] 20 mg PO BID #60 cap 09/28/16 Folic Acid TAB* [Folvite TAB*] 1 mg PO QAM 09/03/17 Furosemide TAB* [Lasix TAB*] 20 mg PO BID 09/03/17 Lactulose* 30 ml PO BID 09/03/17 Naproxen Sodium [Aleve] 220 - 440 mg PO DAILY PRN 09/03/17 Spironolactone (NF) [Spironolactone 50 MG (NF)] 25 mg PO QAM 09/03/17 Allergies No Known Allergies Allergy (Verified 03/20/18 22:07) PSurgHx L-spine surgery esophagel variceal ligation ORIF R forearm SocHx: 1PPD cigarettes, admits to 1qt liquer [id number], denies recreational drugs ; , lives alone; disabled, 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 Father passed in his 70s of unknown cause. ROS: as above, otherwise reviewed and all were negative vitals: Vital Signs Temp 36.8 C 03/20/18 19:10 Pulse 90 03/20/18 22:23 Resp 18 03/20/18 22:23 BP 109/74 03/20/18 22:23 Pulse Ox 94 03/20/18 22:23 Intake & Output 03/19/18 03/20/18 03/20/18 23:59 11:59 23:59 Weight 81.647 kg Constitutional: NAD, normally developed, overweight white male HEENM: atraumatic; sclera/conjunctiva: very mild icterus/clear; hearing: clinically intact; oropharynx: clear, mucosa moist Neck: soft tissue: non-tender; thyroid: normal Pulmonary: clear to auscultation bilaterally, good aeration, no accessory muscle use CV: RR/RR, normal S1S2, no carotid bruit, no jugular venous distention, 2+ B DP/ PT, 1+ RLE edema Abdominal: soft, non-distended, minimal epigastric discomfort, no rebound/ guarding/rigidity, hyperactive bowel sounds, no hepatosplenomegaly or masses, no costovertebral angle tenderness Musculoskeletal: general: R foot drop Integumental: normal appearance and texture of exposed skin, no jaundice Psychiatric orientation: AA&O to PPS affect: calm mood: cooperative eye contact: good content: reliable responses: timely insight: fair Testing: Lab Results 03/20/18 03/20/18 03/20/18 Range/Units 22:07 22:07 22:07 WBC 8.8 (3.5-10.8) 10^3/ul RBC 2.56 L (4.00-5.40) 10^6/ul Hgb 8.3 L (14.0-18.0) g/dl Hct 24 L (42-52) % MCV 95 H (80-94) fL MCH 32 H (27-31) pg MCHC 34 (31-36) g/dl RDW 17 H (10.5-15) % Plt Count 140 L (150-450) 10^3/ul MPV 7.7 (7.4-10.4) um3 Neut % (Auto) 72.5 (38-83) % Lymph % (Auto) 17.7 L (25-47) % Harrison % (Auto) 8.1 H (0-7) % Eos % (Auto) 0.3 (0-6) % Baso % (Auto) 1.4 (0-2) % Absolute Neuts (auto) 6.4 (1.5-7.7) 10^3/ul Absolute Lymphs (auto) 1.6 (1.0-4.8) 10^3/ul Absolute Monos (auto) 0.7 (0-0.8) 10^3/ul Absolute Eos (auto) 0 (0-0.6) 10^3/ul Absolute Basos (auto) 0.1 (0-0.2) 10^3/ul Absolute Nucleated RBC 0 10^3/ul Nucleated RBC % 0.1 INR (Anticoag Therapy) 1.20 H (0.77-1.02) APTT 34.2 (26.0-36.3) seconds Sodium 142 (135-145) mmol/L Potassium 4.6 (3.5-5.0) mmol/L Chloride 109 (101-111) mmol/L Carbon Dioxide 23 (22-32) mmol/L Anion Gap 10 (2-11) mmol/L BUN 38 H (6-24) mg/dL Creatinine 0.97 (0.67-1.17) mg/dL Est GFR ( Amer) 94.6 (>60) Est GFR (Non-Af Amer) 78.2 (>60) BUN/Creatinine Ratio 39.2 H (8-20) Glucose 95 (70-100) mg/dL Calcium 8.6 (8.6-10.3) mg/dL Magnesium 1.5 L (1.9-2.7) mg/dL Total Bilirubin 2.20 H (0.2-1.0) mg/dL AST 60 H (13-39) U/L ALT 19 (7-52) U/L Alkaline Phosphatase 204 H (34-104) U/L Total Protein 6.0 L (6.4-8.9) g/dL Albumin 3.3 (3.2-5.2) g/dL Globulin 2.7 (2-4) g/dL Albumin/Globulin Ratio 1.2 (1-3) Serum Alcohol 79 H (<10) mg/dL Blood Type Antibody Screen 03/20/18 Range/Units 22:07 WBC (3.5-10.8) 10^3/ul RBC (4.00-5.40) 10^6/ul Hgb (14.0-18.0) g/dl Hct (42-52) % MCV (80-94) fL MCH (27-31) pg MCHC (31-36) g/dl RDW (10.5-15) % Plt Count (150-450) 10^3/ul MPV (7.4-10.4) um3 Neut % (Auto) (38-83) % Lymph % (Auto) (25-47) % Harrison % (Auto) (0-7) % Eos % (Auto) (0-6) % Baso % (Auto) (0-2) % Absolute Neuts (auto) (1.5-7.7) 10^3/ul Absolute Lymphs (auto) (1.0-4.8) 10^3/ul Absolute Monos (auto) (0-0.8) 10^3/ul Absolute Eos (auto) (0-0.6) 10^3/ul Absolute Basos (auto) (0-0.2) 10^3/ul Absolute Nucleated RBC 10^3/ul Nucleated RBC % INR (Anticoag Therapy) (0.77-1.02) APTT (26.0-36.3) seconds Sodium (135-145) mmol/L Potassium (3.5-5.0) mmol/L Chloride (101-111) mmol/L Carbon Dioxide (22-32) mmol/L Anion Gap (2-11) mmol/L BUN (6-24) mg/dL Creatinine (0.67-1.17) mg/dL Est GFR ( Amer) (>60) Est GFR (Non-Af Amer) (>60) BUN/Creatinine Ratio (8-20) Glucose (70-100) mg/dL Calcium (8.6-10.3) mg/dL Magnesium (1.9-2.7) mg/dL Total Bilirubin (0.2-1.0) mg/dL AST (13-39) U/L ALT (7-52) U/L Alkaline Phosphatase (34-104) U/L Total Protein (6.4-8.9) g/dL Albumin (3.2-5.2) g/dL Globulin (2-4) g/dL Albumin/Globulin Ratio (1-3) Serum Alcohol (<10) mg/dL Blood Type A Positive Antibody Screen Negative Impression: 62M HX alcoholic cirrhosis w/ variceal bleed remotely s/p ligation, HTN, HLD, COPD presenting with upper GI bleed DIAGNOSIS & PLAN Primary upper GI bleed in setting of alcoholic cirrhosis w/ varicele bleed remotely s/p ligation : trend H&H : type & screen : IVFs : octreotide bolus/GTT : pantoprazole bolus/GTT : continue lactulose : continue spironolactone : D/C naproxen & avoid NSAIDS in future : supplemental oxygen : obtain records from [place] : KARLA Johnson on-call apprised & will arrange evaluation in AM : supportive care Secondary splenomegaly : no acute issues HTN : hold anti-hypertensives in current situation HLD : review meds once reconciled COPD : albuterol PRN : smoking cessation recommended, low motivation gout : review meds once reconciled chronic R foot drop & RLE edema : no acute issues Admission Rational: Inpatient as without the above interventions the risk of impending adverse outcome is unacceptably high; inappropriate for the outpatient setting DVTp: SCDs, no anticoagulation in setting of GI bleeding Code Status: full HCP: Hilary moise Critical Care time: 50minutes with >50% spent at the bedside obtaining a history , performing the examination, advising of diagnosis & treatment options along with risks/benefits/reasoning; remainder spent discussing with ER MD, consulting GI via phone, reviewing labs and radiology exams, & performing documentation
[2018-03-20] MEDS ORDERED: Acetaminophen TAB* 325 MG PO PRN (23:20)
[2018-03-20] MEDS ORDERED: Melatonin 3 MG TAB PO PRN (23:20)
[2018-03-20] MEDS ORDERED: Pantoprazole IV* 40 MG IV ONE (23:27)
[2018-03-21] MEDS: NS 0.9% 1000 ML* 1,000 ML IV SCH ×2 (01:36→13:09)
[2018-03-21 01:58] LABS: Urine Appearance Clear; Urine Blood Negative (Negative); Urine Color Yellow; Urine Ketones Trace (Negative); Urine Protein Negative (Negative); Urine Specific Gravity 1.015 (1.010-1.030); Urine Urobilinogen Negative (Negative)
[2018-03-21 02:33] LABS: Hematocrit 21 % (42-52); Hemoglobin 7.1 g/dl (14.0-18.0)
[2018-03-21] MEDS: Pantoprazole IV* 80 MG in NS 0.9% 250 ML* 250 ML IVPB SCH ×3 (02:36→20:47)
[2018-03-21 06:32] LABS: Hematocrit 17 % (42-52); Mean Corpuscular HGB Conc 34 g/dl (31-36); Mean Corpuscular Hemoglobin 33 pg (27-31); Mean Corpuscular Volume 95 fL (80-94); Mean Platelet Volume 8.2 um3 (7.4-10.4); Platelet Count 107 10^3/ul (150-450); Red Blood Count 1.82 10^6/ul (4.00-5.40); Red Cell Distribution Width 17 % (10.5-15); White Blood Count 6.7 10^3/ul (3.5-10.8)
[2018-03-21 06:48] LABS: EGFR Non-African American 76.3 (>60)
[2018-03-21 06:53] LABS: ABS Basophils 0.1 10^3/ul (0-0.2); ABS Eosinophils 0.1 10^3/ul (0-0.6); ABS Lymphocytes 1.7 10^3/ul (1.0-4.8); ABS Monocytes 0.6 10^3/ul (0-0.8); ABS Neutrophils 4.2 10^3/ul (1.5-7.7); ABS Nucleated RBC 0 10^3/ul; Eosinophil % 1.5 % (0-6); Lymphocyte % 25.4 % (25-47); Nucleated Red Blood Cells % 0.2
[2018-03-21] MEDS: Spironolactone TAB* 25 MG PO SCH (09:15)
[2018-03-21] MEDS: Octreotide Acetate* 500 MCG in NS 0.9% 100 ML* 100 ML IVPB SCH ×2 (11:55→20:46)
--- NOTE | 2018-03-21 12:32 | CONS ---
CC: Dr. Brisa Bolivar CONSULTATION REPORT: DATE OF CONSULT: 03/21/18 REASON FOR CONSULT: Acute blood loss anemia, history of cirrhosis, and alcohol abuse. HISTORY OF PRESENT ILLNESS: This is a 62-year-old male with a past medical history of alco holic cirrhosis that had been decompensated in the past with variceal bleed, status post variceal ban d ligation; hypertension; hyperlipidemia; COPD; active alcohol use, who [facility] with hematemesis and was transferred to [facility] and upper and lower endosco py performed. Review of these records from [place] shows that they did an upper endoscopy that showe d grade 1 esophageal varices that were not banded, no active bleeding at that time. He had a colonos copy with no active bleeding source identified. His hemoglobin stabilized and he was discharged. Si nce discharge from the hospital, he denies any nausea, vomiting, or retching. He states that he does occasionally take naproxen and he continues to abuse alcohol on a daily basis. He seems to have nicholas y poor insight into his disease. He admits to a combination of black and occasionally maroon-colored stool over the last 24 hours. He denies any abdominal pain. Denies any diarrhea. No dysphagia, no odynophagia, no nausea or emesis at this time. He denies any lightheadedness, chest pain, or shortn ess of breath. The 14-point review of systems was otherwise negative except as mentioned in the HPI. PAST MEDICAL HISTORY: Alcoholic cirrhosis complicated by variceal bleeding, splenomegaly, recent EGD and colonoscopy at [facility] with above-noted results, hypertension, hyperlipidemia, COPD, gout, iron-de ficiency anemia, chronic right foot drop, and right lower extremity edema. PAST SURGICAL HISTORY: Lumbar spine surgery and above endoscopies. MEDICATIONS: Outpatient medications include: 1. Colchicine. 2. Ferrous gluconate. 3. Nadolol. 4. Omeprazole. 5. Folic acid. 6. Furosemide 20 mg p.o. b.i.d. 7. Spironolactone 50 mg daily. 8. Naproxen. 9. Lactulose. ALLERGIES: No known drug allergies. FAMILY HISTORY: No family history of liver or colon problems is noted. No family history of inflamm atory bowel disease. SOCIAL HISTORY: Admits to one-quarter liquor every 1 week, sometimes more. Smokes a pack a day of c igarettes. REVIEW OF SYSTEMS: A 14-point review of systems was otherwise negative except for as mentioned in th e above HPI. PHYSICAL EXAM: Vital Signs: Blood pressure is 106/57, pulse is 70, respiratory rate is 17, he is 93 % on room air, and 98.8 temperature. General: He is alert and oriented x3. Sclerae are mildly icte theresa. Conjunctivae are mildly pale. Oropharynx is without fresh or old blood. Neck is supple. No pa lpable thyromegaly. No palpable lymphadenopathy in the anterior chain. Chest: Diminished at the bas es bilaterally. Cardiovascular: Regular rate and rhythm. S1 and S2. Abdomen is obese, soft, nonte nder, and nondistended. Bowel sounds are positive, mildly hyperactive. Extremities: 1+ pitting antonio ma bilaterally. Rectal exam was deferred. LABORATORY DATA: Hemoglobin is 6.0, platelet count is 107. INR is 1.20. Sodium 141, potassium 4.3, creatinine is 0.99, glucose is 101. Bilirubin is 2.20. ASSESSMENT AND PLAN: This is a 62-year-old male with decompensated alcoholic cirrhosis presenting wi acute blood loss anemia in the form of predominantly melena with maroon stools. 1. Acute blood loss anemia. Agree with IV proton-pump inhibitor along with octreotide. We will als o give a dose of ceftriaxone, potentially erythromycin prior to the procedure. We will plan for uppe r endoscopy today. On review of records from [place], he did have esophageal varices that were grade 1 a week or two ago. He had an upper and lower endoscopy at that time without a clear active bleedi ng source. If this upper endoscopy is negative, I would recommend a bleeding scan to further determi ne the location of his bleeding source. Would transfuse to keep a goal hemoglobin between 7 to 8. A void over transfusion. Keep the head of bed elevated at 30 degrees at all times. Keep 2 units of DE BCs on hold. 2. Decompensated cirrhosis with history of esophageal varices in the past. His MELD sodium is 12. At this time, we will keep him n.p.o., restart his oral diuretics postprocedure and plan for endoscop ic evaluation today. He certainly does need to stop drinking. He is continuing to have active alcoh ol abuse and this is worsening his clinical picture. He has a very poor insight into his disease. 3. Alcohol abuse. The patient was extensively counseled, but seems to have poor insight. [id number]/[facility] #: [id number]
[2018-03-21] MEDS ORDERED: Midazolam* 1 MG/ML 10 ML VIAL (10 MG) ONE (18:27)
[2018-03-21] MEDS ORDERED: fentaNYL* 50 MCG/ML 2 ML VIAL (100 MCG VIAL) ONE (18:30)
[2018-03-21] MEDS ORDERED: KETAMINE HCL* 50 MG/ML 10 ML VIAL ONE (18:35)
[2018-03-21] MEDS ORDERED: Naloxone* 0.4 MG/ML 1 ML VIAL IV PRN (19:01)
--- NOTE | 2018-03-21 19:09 | CONSULT ---
Consult Consult: GI Proc Note (Brief) EGD findings: 2 large column EV with high risk stigmata (red giovany) s/p 3 bands 1 small column Portal hypertensive gastropathy Rec: Clears Octreotide x72 hr H/H q6, keep 2 units PRBC on hold, keep hob elevated. Ceftriaxone q24hr. Viscous lidocaine if pain post banding. Will need repeat egd in 4 weeks for re-evaluation Needs to d/c ETOH!!! Guillaume Mendoza DO 03/21/18 [id number]
[2018-03-21] MEDS: cefTRIAXone(*) 1 GM in NS 0.9% 50 ML* 50 ML IVPB SCH (20:49)
[2018-03-21 21:35] LABS: Hematocrit 24 % (42-52); Mean Corpuscular HGB Conc 34 g/dl (31-36); Mean Corpuscular Hemoglobin 32 pg (27-31); Mean Corpuscular Volume 93 fL (80-94); Mean Platelet Volume 7.8 um3 (7.4-10.4); Platelet Count 68 10^3/ul (150-450); Red Blood Count 2.52 10^6/ul (4.00-5.40); Red Cell Distribution Width 18 % (10.5-15)
--- NOTE | 2018-03-21 21:49 | PN ---
Subjective Date of Service: 03/21/18 Interval History: Pt seen and examined. Meds and labs reviewed. CC: Melena/maroon colored stools ROS: Denied RIVERO/dizziness, F/C, N/V, CP, SOB, increased cough, sputum production , abd pain, constipation, dysuria, myalgias, arthralgias, throat pain, and new skin lesions. The rest of the 14 point ROS are unremarkable. PHYSICAL EXAM: GEN APPEARANCE: Awake, not in acute distress HEENT: NC/AT, PERRLA, moist oral mucosa, (-) throat erythema NECK: Soft, supple, (-) cervical LAD, (-)JVD HEART: S1S2 WNL, RRR, No MRG CHEST: CTA, BL, GAE, No W/R/R ABD: Soft, ND/NT, NABS 4x Q EXT: No C/C/E SKIN: Warm to touch PSYCH: No active psychosis, hallucinations, depression, SI/HI NEURO: AAOx3, (-) asterexis Objective Active Medications: Acetaminophen (Tylenol Tab*) 650 mg PO Q6H PRN PRN Reason: FEVER/PAIN Sodium Chloride (Ns 0.9% 1000 Ml*) 1,000 mls @ 125 mls/hr IV PER RATE [facility] Last Admin: 03/21/18 13:09 Dose: 125 mls/hr Pantoprazole Sodium 80 mg/ (Sodium Chloride) 250 mls @ 25 mls/hr IVPB Q10H [facility] Last Admin: 03/21/18 20:47 Dose: 25 mls/hr Octreotide Acetate 500 mcg/ (Sodium Chloride) 101 mls @ 10.1 mls/hr IVPB Q10H [facility] Last Admin: 03/21/18 20:46 Dose: 10.1 mls/hr Ceftriaxone Sodium 1 gm/ (Sodium Chloride) 50 mls @ 200 mls/hr IVPB Q24H [facility] Last Admin: 03/21/18 20:49 Dose: 200 mls/hr Lactulose (Lactulose*) 30 ml PO BID [facility] Last Admin: 03/21/18 09:15 Dose: Not Given Melatonin (Melatonin) 3 mg PO BEDTIME PRN; Protocol PRN Reason: Sleep Spironolactone (Aldactone Tab*) 25 mg PO QAM [facility] Last Admin: 03/21/18 09:15 Dose: Not Given Vital Signs - 8 hr 03/21/18 03/21/18 03/21/18 14:00 15:00 16:00 Temperature 98 F Pulse Rate 80 62 Respiratory 25 21 20 Rate Blood Pressure (mmHg) O2 Sat by Pulse 92 96 Oximetry 03/21/18 03/21/18 03/21/18 17:00 17:01 18:56 Temperature 99.3 F Pulse Rate 64 62 75 Respiratory 19 22 Rate Blood Pressure 100/57 127/80 (mmHg) O2 Sat by Pulse 95 95 95 Oximetry 03/21/18 03/21/18 03/21/18 19:00 19:01 19:05 Temperature Pulse Rate 75 71 70 Respiratory 16 15 14 Rate Blood Pressure 124/79 116/79 (mmHg) O2 Sat by Pulse 97 98 96 Oximetry 03/21/18 03/21/18 03/21/18 19:10 19:15 19:20 Temperature Pulse Rate 69 69 68 Respiratory 15 14 17 Rate Blood Pressure 118/74 110/72 113/73 (mmHg) O2 Sat by Pulse 96 95 95 Oximetry 03/21/18 03/21/18 03/21/18 19:25 19:30 19:35 Temperature Pulse Rate 66 63 61 Respiratory 15 14 15 Rate Blood Pressure 100/76 116/74 110/75 (mmHg) O2 Sat by Pulse 94 94 93 Oximetry 03/21/18 03/21/18 03/21/18 19:40 19:45 19:50 Temperature Pulse Rate 63 60 62 Respiratory 16 15 18 Rate Blood Pressure 118/71 99/68 117/76 (mmHg) O2 Sat by Pulse 93 94 97 Oximetry 03/21/18 03/21/18 03/21/18 20:00 20:16 20:36 Temperature Pulse Rate 59 54 61 Respiratory 17 20 20 Rate Blood Pressure 118/71 124/76 111/64 (mmHg) O2 Sat by Pulse 97 97 97 Oximetry 03/21/18 03/21/18 03/21/18 20:46 21:00 21:16 Temperature Pulse Rate 58 57 60 Respiratory 21 19 18 Rate Blood Pressure 111/76 105/70 114/71 (mmHg) O2 Sat by Pulse 96 95 94 Oximetry Oxygen Devices in Use Now: Nasal Cannula Result Diagrams: 03/21/18 20:53 03/21/18 06:15 Microbiology and Other Data: Microbiology 03/21/18 02:20 Nasal Screen MRSA (PCR) - Final Nasal Mrsa Not Detected 03/20/18 21:43 Stool Occult Blood (TIFFANIE) - Final Stool Assess/Plan/Problems-Billing Assessment: - Patient Problems (1) UGIB (upper gastrointestinal bleed) Current Visit: Yes Status: Acute Code(s): K92.2 - GASTROINTESTINAL HEMORRHAGE, UNSPECIFIED SNOMED Code(s): 26799624 Comment: -D/W Dr. Mendoza in AM and reviewed data from [place] -S/P EGD late today and was found to have EV with high risk stigmata S/P 3 bands placed, 1 small column and evidence of portal hypertensive gastropathy as seen in recent EGD -Continue Octreotide gtt x 72hrs and consider PPI bolus dosing in AM -Continue to monitor H&H -Transfused with 2 units PRBC today due to active bleed (2) Cirrhosis Current Visit: Yes Status: Acute Comment: #ETOH cirohosis: -MELD score =11 -Advised life style modifications -For outpatient referral to transplant center when pt establish sobriety as an outpatientdefer with GI F/U to time; TIPS maybe considered to prevent further bleeding but has dangers of hepatic decompensation and is best done when pt already listed if at all -Continue Spirinolactone to prevent ascites and Lactulose to prevent hepatic encephalopathy (3) HTN (hypertension) Current Visit: Yes Status: Acute Code(s): I10 - ESSENTIAL (PRIMARY) HYPERTENSION SNOMED Code(s): 68190831 Comment: -Hold BP meds due to active bleed -Continue to monitor since BP well controlled without meds at this time likely due to above (4) COPD (chronic obstructive pulmonary disease) Current Visit: Yes Status: Acute Code(s): J44.9 - CHRONIC OBSTRUCTIVE PULMONARY DISEASE, UNSPECIFIED SNOMED Code(s): 36131641 Comment: -Not in acute exacerbation (5) DVT prophylaxis Current Visit: No Status: Acute Code(s): RMH1706 - SNOMED Code(s): 415955906 Comment: -NO PHARMACOLOGIC PROPHYLAXIS DUE TO GIB -Continue SCDs Status and Disposition: -As above
[2018-03-22] MEDS: Octreotide Acetate* 500 MCG in NS 0.9% 100 ML* 100 ML IVPB SCH ×6 (00:11→19:23)
[2018-03-22] MEDS: NS 0.9% 1000 ML* 1,000 ML IV SCH ×2 (00:12→17:04)
[2018-03-22 03:23] LABS: Hematocrit 23 % (42-52)
[2018-03-22] MEDS: Pantoprazole IV* 80 MG in NS 0.9% 250 ML* 250 ML IVPB SCH ×3 (06:06→18:30)
[2018-03-22 06:29] LABS: Hematocrit 23 % (42-52); Hemoglobin 7.7 g/dl (14.0-18.0); Mean Corpuscular HGB Conc 34 g/dl (31-36); Mean Corpuscular Hemoglobin 32 pg (27-31); Mean Corpuscular Volume 92 fL (80-94); Mean Platelet Volume 8.2 um3 (7.4-10.4); Platelet Count 63 10^3/ul (150-450); Red Blood Count 2.45 10^6/ul (4.00-5.40); Red Cell Distribution Width 19 % (10.5-15); White Blood Count 4.6 10^3/ul (3.5-10.8)
[2018-03-22 06:35] LABS: INR 1.11 (0.77-1.02)
[2018-03-22 06:45] LABS: EGFR Non-African American 83.1 (>60)
[2018-03-22] MEDS: Spironolactone TAB* 25 MG PO SCH (09:51)
[2018-03-22 13:31] LABS: ABS Basophils 0 10^3/ul (0-0.2); ABS Eosinophils 0.1 10^3/ul (0-0.6); ABS Lymphocytes 0.6 10^3/ul (1.0-4.8); ABS Monocytes 0.3 10^3/ul (0-0.8); ABS Nucleated RBC 0 10^3/ul; Eosinophil % 3.2 % (0-6); Hematocrit 23 % (42-52); Hemoglobin 7.8 g/dl (14.0-18.0); Lymphocyte % 15.7 % (25-47); Mean Corpuscular HGB Conc 34 g/dl (31-36); Mean Corpuscular Hemoglobin 32 pg (27-31); Mean Corpuscular Volume 94 fL (80-94); Mean Platelet Volume 8.1 um3 (7.4-10.4); Nucleated Red Blood Cells % 0; Platelet Count 62 10^3/ul (150-450); Red Blood Count 2.47 10^6/ul (4.00-5.40); Red Cell Distribution Width 18 % (10.5-15); White Blood Count 4.1 10^3/ul (3.5-10.8)
--- NOTE | 2018-03-22 18:35 | PN ---
Subjective Date of Service: 03/22/18 Interval History: Pt seen and examined. Meds and labs reviewed. Pt mentions he has been passing brown stools, not maroon colored, not black, not bright red. CC: N/A ROS: Denied RIVERO/dizziness, F/C, N/V, CP, SOB, increased cough, sputum production , abd pain, diarrhea, constipation, dysuria, myalgias, arthralgias, throat pain , and new skin lesions. The rest of the 14 point ROS are unremarkable. PHYSICAL EXAM: GEN APPEARANCE: Awake, not in acute distress HEENT: NC/AT, PERRLA, moist oral mucosa, (-) throat erythema NECK: Soft, supple, (-) cervical LAD, (-)JVD HEART: S1S2 WNL, RRR, No MRG CHEST: CTA, BL, GAE, No W/R/R ABD: Soft, ND/NT, NABS 4x Q EXT: No C/C/E SKIN: Warm to touch PSYCH: No active psychosis, hallucinations, depression, SI/HI Objective Active Medications: Acetaminophen (Tylenol Tab*) 650 mg PO Q6H PRN PRN Reason: FEVER/PAIN Sodium Chloride (Ns 0.9% 1000 Ml*) 1,000 mls @ 125 mls/hr IV PER RATE [facility] Last Admin: 03/22/18 17:04 Dose: 125 mls/hr Pantoprazole Sodium 80 mg/ (Sodium Chloride) 250 mls @ 25 mls/hr IVPB Q10H [facility] Last Admin: 03/22/18 12:45 Dose: 25 mls/hr Octreotide Acetate 500 mcg/ (Sodium Chloride) 101 mls @ 10.1 mls/hr IVPB Q10H [facility] Last Admin: 03/22/18 09:53 Dose: 10.1 mls/hr Ceftriaxone Sodium 1 gm/ (Sodium Chloride) 50 mls @ 200 mls/hr IVPB Q24H [facility] Last Admin: 03/21/18 20:49 Dose: 200 mls/hr Lactulose (Lactulose*) 30 ml PO BID [facility] Last Admin: 03/22/18 09:51 Dose: 30 ml Melatonin (Melatonin) 3 mg PO BEDTIME PRN; Protocol PRN Reason: Sleep Spironolactone (Aldactone Tab*) 25 mg PO QAM [facility] Last Admin: 03/22/18 09:51 Dose: 25 mg Vital Signs - 8 hr 03/22/18 03/22/18 03/22/18 11:00 12:00 13:00 Temperature 99.1 F Pulse Rate 61 58 Respiratory 25 28 22 Rate Blood Pressure 93/62 91/58 (mmHg) O2 Sat by Pulse 92 90 Oximetry 03/22/18 03/22/18 03/22/18 14:00 14:01 15:00 Temperature Pulse Rate 61 68 Respiratory 19 16 22 Rate Blood Pressure 102/57 (mmHg) O2 Sat by Pulse 93 95 Oximetry 03/22/18 16:08 Temperature 97.8 F Pulse Rate 61 Respiratory 16 Rate Blood Pressure 102/66 (mmHg) O2 Sat by Pulse 98 Oximetry Oxygen Devices in Use Now: None Result Diagrams: 03/22/18 13:18 03/22/18 06:05 Microbiology and Other Data: Microbiology 03/21/18 02:20 Nasal Screen MRSA (PCR) - Final Nasal Mrsa Not Detected 03/20/18 21:43 Stool Occult Blood (TIFFANIE) - Final Stool Assess/Plan/Problems-Billing Assessment: - Patient Problems (1) UGIB (upper gastrointestinal bleed) Current Visit: Yes Status: Acute Code(s): K92.2 - GASTROINTESTINAL HEMORRHAGE, UNSPECIFIED SNOMED Code(s): 96620015 Comment: -S/P EGD (03/21) and was found to have EV with high risk stigmata S/P 3 bands placed, 1 small column and evidence of portal hypertensive gastropathy as seen in recent EGD -Continue Octreotide gtt x 72hrs and consider PPI bolus dosing in AM if H&H remain stable -Repeat H&H at 1300 is stable -Transfused with 2 units PRBC (03/21) due to active bleed (2) Cirrhosis Current Visit: Yes Status: Acute Comment: #ETOH cirohosis: -MELD score =10 -Advised life style modifications -For outpatient referral to transplant center when pt establish sobriety as an outpatientdefer with GI F/U to time; TIPS maybe considered to prevent further bleeding but has dangers of hepatic decompensation and is best done when pt already listed if at all -Continue Spirinolactone to prevent ascites and Lactulose to prevent hepatic encephalopathy (3) HTN (hypertension) Current Visit: Yes Status: Acute Code(s): I10 - ESSENTIAL (PRIMARY) HYPERTENSION SNOMED Code(s): 47710541 Comment: -Hold BP meds due to active bleed -Continue to monitor since BP well controlled without meds at this time likely due to above (4) COPD (chronic obstructive pulmonary disease) Current Visit: Yes Status: Acute Code(s): J44.9 - CHRONIC OBSTRUCTIVE PULMONARY DISEASE, UNSPECIFIED SNOMED Code(s): 26800588 Comment: -Not in acute exacerbation (5) DVT prophylaxis Current Visit: No Status: Acute Code(s): XHT9437 - SNOMED Code(s): 724354128 Comment: -NO PHARMACOLOGIC PROPHYLAXIS DUE TO GIB -Continue SCDs Status and Disposition: -Transferred pt out of ICU
[2018-03-22 19:47] LABS: Hematocrit 23 % (42-52); Hemoglobin 7.7 g/dl (14.0-18.0)
[2018-03-22] MEDS: cefTRIAXone(*) 1 GM in NS 0.9% 50 ML* 50 ML IVPB SCH (20:00)
[2018-03-23] MEDS: NS 0.9% 1000 ML* 1,000 ML IV SCH (01:03)
[2018-03-23] MEDS: Octreotide Acetate* 500 MCG in NS 0.9% 100 ML* 100 ML IVPB SCH ×3 (02:11→17:35)
[2018-03-23] MEDS: Pantoprazole IV* 80 MG in NS 0.9% 250 ML* 250 ML IVPB SCH ×2 (02:16→12:01)
[2018-03-23 05:10] LABS: ABS Basophils 0.1 10^3/ul (0-0.2); ABS Eosinophils 0.2 10^3/ul (0-0.6); ABS Lymphocytes 0.9 10^3/ul (1.0-4.8); ABS Monocytes 0.3 10^3/ul (0-0.8); ABS Neutrophils 2.9 10^3/ul (1.5-7.7); ABS Nucleated RBC 0 10^3/ul; Eosinophil % 3.6 % (0-6); Hematocrit 23 % (42-52); Hemoglobin 7.8 g/dl (14.0-18.0); Lymphocyte % 20.7 % (25-47); Mean Corpuscular HGB Conc 34 g/dl (31-36); Mean Corpuscular Hemoglobin 32 pg (27-31); Mean Corpuscular Volume 93 fL (80-94); Mean Platelet Volume 8.3 um3 (7.4-10.4); Nucleated Red Blood Cells % 0; Platelet Count 63 10^3/ul (150-450); Red Blood Count 2.43 10^6/ul (4.00-5.40); Red Cell Distribution Width 18 % (10.5-15); White Blood Count 4.2 10^3/ul (3.5-10.8)
[2018-03-23 05:11] LABS: INR 1.14 (0.77-1.02)
[2018-03-23 05:22] LABS: EGFR Non-African American 87.5 (>60)
--- NOTE | 2018-03-23 07:03 | PN ---
Progress Note - Progress Note Date of Service: 03/23/18 Note: Increased lactulose dose. Patient feels bloated and abdominal distention. Only one small stool per day per RN.
[2018-03-23] MEDS ORDERED: Potassium Phosphate IV* 15 MMOLE in NS 0.9% 250 ML* 250 ML IVPB ONE (09:30)
[2018-03-23] MEDS ORDERED: Magnesium Sulf 4 GM/100 ML IV* 4,000 MG/100 ML BAG IVPB ONE (09:30)
[2018-03-23] MEDS: Spironolactone TAB* 25 MG PO SCH (10:29)
[2018-03-23] MEDS ORDERED: Spironolactone TAB* 25 MG PO STA (11:14)
[2018-03-23] MEDS ORDERED: Furosemide IV* 10 MG/ML VIAL (40 MG) IV SCH (12:00)
[2018-03-23] MEDS ORDERED: Furosemide IV* 10 MG/ML 2 ML VIAL (20 MG) IV STA ×2 (13:42→16:38)
--- NOTE | 2018-03-23 14:40 | PN ---
Subjective Date of Service: 03/23/18 Interval History: Pt seen and examined. Meds and labs reviewed. CC: Abd distention ROS: Denied RIVERO/dizziness, F/C, N/V, CP, SOB, increased cough, sputum production , abd pain, diarrhea, constipation, dysuria, myalgias, arthralgias, throat pain , and new skin lesions. The rest of the 14 point ROS are unremarkable. PHYSICAL EXAM: GEN APPEARANCE: Awake, not in acute distress HEENT: NC/AT, PERRLA, moist oral mucosa, (-) throat erythema NECK: Soft, supple, (-) cervical LAD, (-)JVD HEART: S1S2 WNL, RRR, No MRG CHEST: CTA, BL, GAE, No W/R/R ABD: Soft, distended, dullness to percussion except most anterior portion, (+) fluid wave/NT, NABS 4x Q EXT: No C/C/E SKIN: Warm to touch PSYCH: No active psychosis, hallucinations, depression, SI/HI Objective Active Medications: Acetaminophen (Tylenol Tab*) 650 mg PO Q6H PRN PRN Reason: FEVER/PAIN Last Admin: 03/23/18 07:39 Dose: 650 mg Octreotide Acetate 500 mcg/ (Sodium Chloride) 101 mls @ 10.1 mls/hr IVPB Q10H [facility] Last Admin: 03/23/18 07:11 Dose: 10.1 mls/hr Ceftriaxone Sodium 1 gm/ (Sodium Chloride) 50 mls @ 200 mls/hr IVPB Q24H [facility] Last Admin: 03/22/18 20:00 Dose: 200 mls/hr Potassium Phosphate 15 mmole/ (Sodium Chloride) 255 mls @ 42 mls/hr IVPB ONCE ONE Stop: 03/23/18 15:34 Last Admin: 03/23/18 10:53 Dose: 42 mls/hr Lactulose (Lactulose*) 30 ml PO TID [facility] Last Admin: 03/23/18 13:55 Dose: 30 ml Melatonin (Melatonin) 3 mg PO BEDTIME PRN; Protocol PRN Reason: Sleep Pantoprazole Sodium (Protonix Iv*) 40 mg IV BID [facility] Spironolactone (Aldactone Tab*) 100 mg PO QAM [facility] Vital Signs - 8 hr 03/23/18 03/23/18 07:40 11:07 Temperature 98.3 F 98.0 F Pulse Rate 58 58 Respiratory 18 20 Rate Blood Pressure 103/61 110/51 (mmHg) O2 Sat by Pulse 96 97 Oximetry Oxygen Devices in Use Now: None Result Diagrams: 03/23/18 04:55 03/23/18 04:55 Microbiology and Other Data: Microbiology 03/21/18 02:20 Nasal Screen MRSA (PCR) - Final Nasal Mrsa Not Detected 03/20/18 21:43 Stool Occult Blood (TIFFANIE) - Final Stool Assess/Plan/Problems-Billing Assessment: - Patient Problems (1) UGIB (upper gastrointestinal bleed) Current Visit: Yes Status: Acute Code(s): K92.2 - GASTROINTESTINAL HEMORRHAGE, UNSPECIFIED SNOMED Code(s): 41952105 Comment: -S/P EGD (03/21) and was found to have EV with high risk stigmata S/P 3 bands placed, 1 small column and evidence of portal hypertensive gastropathy as seen in recent EGD -Continue Octreotide gtt x 72hrs (until tomorrow at 10 AM) -Will D/C Pantoprazole gtt and start of IV BID bolus dosing -Transfused with 2 units PRBC (03/21) due to active bleed (2) Ascites Current Visit: No Status: Acute Code(s): R18.8 - OTHER ASCITES SNOMED Code (s): 572307869 Comment: -Will increase spironolactone to total of 100 mg -Will challenge with low dose Lasix today -Continue low sodium diet -Did not have significant ascites previously during bleed and clinical picture does not suggest SBP prophylaxis needed due to recent GIB (3) Cirrhosis Current Visit: Yes Status: Acute Comment: #ETOH cirrhosis: -MELD score = 9 -Advised life style modifications -For outpatient referral to transplant center when pt establish sobriety as an outpatientdefer with GI F/U to time; TIPS maybe considered to prevent further bleeding but has dangers of hepatic decompensation and is best done when pt already listed if at all -Continue Spirinolactone with low dose Lasix to prevent ascites and Lactulose to prevent hepatic encephalopathy (4) COPD (chronic obstructive pulmonary disease) Current Visit: Yes Status: Acute Code(s): J44.9 - CHRONIC OBSTRUCTIVE PULMONARY DISEASE, UNSPECIFIED SNOMED Code(s): 66551432 Comment: -Not in acute exacerbation (5) Portal hypertension Current Visit: Yes Status: Acute Code(s): K76.6 - PORTAL HYPERTENSION SNOMED Code(s): 17504260 Comment: -S/P banding as described above -Hold Nadolol given escalation of diuretic therapy due to tense ascites that developed due to his recent active GIB, transfusion and IV resucitation -Continue to monitor since BP well controlled without meds at this time likely due to above (6) DVT prophylaxis Current Visit: No Status: Acute Code(s): TBF9255 - SNOMED Code(s): 523783113 Comment: -NO PHARMACOLOGIC PROPHYLAXIS DUE TO GIB -Continue SCDs Status and Disposition: -For possible D/C in 1-2 days
[2018-03-23] MEDS: cefTRIAXone(*) 1 GM in NS 0.9% 50 ML* 50 ML IVPB SCH (19:29)
[2018-03-23] MEDS: Pantoprazole IV* 40 MG IV SCH (20:08)
[2018-03-24] MEDS: Octreotide Acetate* 500 MCG in NS 0.9% 100 ML* 100 ML IVPB SCH ×3 (01:09→11:19)
--- NOTE | 2018-03-24 04:03 | PRO ---
CC: Dr. Trevino.* ELECTROENCEPHALOGRAPHY: DATE OF PROCEDURE: 03/21/18 - ROOM #440 PRIMARY CARE PROVIDER: Dr. Trevino. INDICATION FOR PROCEDURE: Acute blood loss anemia, reported dark and bright red blood. MEDICATIONS GIVEN: Please see anesthesia record. DESCRIPTION OF PROCEDURE: After the EGD procedure including the risks, benefits , and alternatives not limited to perforation, surgery, and/or were explained to the patient. Written consent was then obtained. Anesthesia was given by the anesthesia service and a bite block was placed between the teeth. The Olympus adult gastroscope was inserted into the patient's mouth, it was advanced down to the esophagus. In the distal esophagus 2 large columns of esophageal varices were identified and 1 small column of esophageal varices. They did have red sign with high-risk stigmata. The GE junction was located at 40 cm. The scope was advanced into the stomach which had diffuse portal hypertension gastropathy with more of a predisposition in the cardia and the body. There was no active bleeding from the PHG. The scope was then retroflexed, no gastric varices were seen and the scope was then passed through the widely patent pylorus, into the duodenal bulb, and through the C-loop of the duodenum. The mucosa was normal and there was no fresh oral blood that was noted. The scope was then withdrawn from the patient. The [employer] Super 7 administrative assistant was placed onto the gastroscope. The scope was then reintroduced into the esophagus. The GE junction was again confirmed at 40 cm and a band was placed at 39 cm on the largest column of esophageal varices with good decompressive effect. Another band was placed on a second column of the varices at 38 cm with good decompressive effect and furthermore a third band was placed on that first large column of esophageal varices at 37 cm over high risk of red stigmata with good effect. After the banding no bleeding was noted. The scope was withdrawn from the patient. He tolerated the procedure well and returned to the recovery room in stable condition. IMPRESSION AND PLAN: 1. Two columns of large esophageal varices with high-risk stigmata status post banding. 2. One small column of esophageal varices. 3. Portal hypertensive gastropathy. RECOMMENDATIONS: At this time we will keep the patient on a statin drip x72 hours. Upon prior review of his EGD and colonoscopy reports at [facility] I doubt there was a lower GI source at this time. I suspect the varices contributed to his acute blood loss anemia at this time. I would monitor his H and H every 6 hours, continue him on PPI. Okay for clear liquids tonight. Keep 2 units of blood on hold at all times and the patient will be started on IV ceftriaxone as well. [id number]/[facility] #: [id number] MTDD
[2018-03-24 06:21] LABS: Hematocrit 23 % (42-52); Hemoglobin 7.8 g/dl (14.0-18.0); Mean Corpuscular HGB Conc 34 g/dl (31-36); Mean Corpuscular Hemoglobin 32 pg (27-31); Mean Corpuscular Volume 94 fL (80-94); Mean Platelet Volume 8.5 um3 (7.4-10.4); Platelet Count 53 10^3/ul (150-450); Red Blood Count 2.46 10^6/ul (4.00-5.40); Red Cell Distribution Width 19 % (10.5-15); White Blood Count 3.7 10^3/ul (3.5-10.8)
[2018-03-24 06:22] LABS: INR 1.18 (0.77-1.02)
[2018-03-24 06:42] LABS: EGFR Non-African American 78.2 (>60)
[2018-03-24] MEDS: Furosemide TAB* 40 MG PO SCH (08:25)
[2018-03-24] MEDS: Spironolactone TAB* 25 MG PO SCH (08:26)
[2018-03-24] MEDS: Pantoprazole IV* 40 MG IV SCH ×2 (08:27→20:30)
[2018-03-24] MEDS ORDERED: Magnesium Sulfate IV* 3 GM in NS 0.9% 100 ML* 100 ML IVPB ONE (10:21)
[2018-03-24] MEDS ORDERED: Nadolol TAB* 40 MG PO ONE (10:22)
[2018-03-24] MEDS ORDERED: Albumin Human 25%* 25 GM/100 ML BTL IV ONE (12:00)
--- NOTE | 2018-03-24 17:55 | PN ---
Subjective Date of Service: 03/24/18 Interval History: Pt seen and examined. Meds and labs reviewed. CC: Abd distention, improving ROS: Denied RIVERO/dizziness, F/C, N/V, CP, SOB, increased cough, sputum production , abd pain, diarrhea, constipation, dysuria, myalgias, arthralgias, throat pain , and new skin lesions. The rest of the 14 point ROS are unremarkable. PHYSICAL EXAM: GEN APPEARANCE: Awake, not in acute distress HEENT: NC/AT, PERRLA, moist oral mucosa, (-) throat erythema NECK: Soft, supple, (-) cervical LAD, (-)JVD HEART: S1S2 WNL, RRR, No MRG CHEST: CTA, BL, GAE, No W/R/R ABD: Soft, distention improved, dullness to percussion except most anterior portion, /NT, NABS 4x Q EXT: No C/C/E SKIN: Warm to touch PSYCH: No active psychosis, hallucinations, depression, SI/HI Objective Active Medications: Acetaminophen (Tylenol Tab*) 650 mg PO Q6H PRN PRN Reason: FEVER/PAIN Last Admin: 03/23/18 07:39 Dose: 650 mg Furosemide (Lasix Tab*) 40 mg PO DAILY [facility] Last Admin: 03/24/18 08:25 Dose: 40 mg Ceftriaxone Sodium 1 gm/ (Sodium Chloride) 50 mls @ 200 mls/hr IVPB Q24H [facility] Last Admin: 03/23/18 19:29 Dose: 200 mls/hr Lactulose (Lactulose*) 30 ml PO TID [facility] Last Admin: 03/24/18 14:22 Dose: 30 ml Melatonin (Melatonin) 3 mg PO BEDTIME PRN; Protocol PRN Reason: Sleep Pantoprazole Sodium (Protonix Iv*) 40 mg IV BID [facility] Last Admin: 03/24/18 08:27 Dose: 40 mg Spironolactone (Aldactone Tab*) 100 mg PO QAM [facility] Last Admin: 03/24/18 08:26 Dose: 100 mg Vital Signs - 8 hr 03/24/18 03/24/18 03/24/18 11:20 12:00 15:07 Temperature 97.9 F 97.8 F Pulse Rate 58 55 Respiratory 16 18 18 Rate Blood Pressure 109/60 116/61 (mmHg) O2 Sat by Pulse 96 96 Oximetry 03/24/18 16:00 Temperature Pulse Rate Respiratory 18 Rate Blood Pressure (mmHg) O2 Sat by Pulse 96 Oximetry Oxygen Devices in Use Now: None Result Diagrams: 03/24/18 05:39 03/24/18 05:39 Microbiology and Other Data: Microbiology 03/21/18 02:20 Nasal Screen MRSA (PCR) - Final Nasal Mrsa Not Detected 03/20/18 21:43 Stool Occult Blood (TIFFANIE) - Final Stool Assess/Plan/Problems-Billing Assessment: - Patient Problems (1) UGIB (upper gastrointestinal bleed) Current Visit: Yes Status: Acute Code(s): K92.2 - GASTROINTESTINAL HEMORRHAGE, UNSPECIFIED SNOMED Code(s): 73572927 Comment: -S/P EGD (03/21) and was found to have EV with high risk stigmata S/P 3 bands placed, 1 small column and evidence of portal hypertensive gastropathy as seen in recent EGD -D/Cd Octreotide gtt -Continue PPI IV BID -Transfused with 2 units PRBC (03/21) due to active bleed -Will give 25 g of IV albumin prior to re-starting Nadolol due to pts soft BPs to further prevent GIB due to portal HTN (2) Ascites Current Visit: No Status: Acute Code(s): R18.8 - OTHER ASCITES SNOMED Code (s): 513553977 Comment: -Improving and diuresing well -Continue Spirinolactone and Lasix as ordered -Continue low sodium diet -Did not have significant ascites previously during bleed and clinical picture does not suggest SBP prophylaxis needed due to recent GIB (3) Cirrhosis Current Visit: Yes Status: Acute Comment: #ETOH cirrhosis: -MELD score = 9 -Advised life style modifications -For outpatient referral to transplant center when pt establish sobriety as an outpatientdefer with GI F/U to time; TIPS maybe considered to prevent further bleeding but has dangers of hepatic decompensation and is best done when pt already listed if at all -Continue Spirinolactone with low dose Lasix to prevent ascites and Lactulose to prevent hepatic encephalopathy (4) COPD (chronic obstructive pulmonary disease) Current Visit: Yes Status: Acute Code(s): J44.9 - CHRONIC OBSTRUCTIVE PULMONARY DISEASE, UNSPECIFIED SNOMED Code(s): 19149525 Comment: -Not in acute exacerbation (5) Portal hypertension Current Visit: Yes Status: Acute Code(s): K76.6 - PORTAL HYPERTENSION SNOMED Code(s): 20062370 Comment: -S/P banding as described above -Hold Nadolol given escalation of diuretic therapy due to tense ascites that developed due to his recent active GIB, transfusion and IV resucitation -Continue to monitor since BP well controlled without meds at this time likely due to above (6) DVT prophylaxis Current Visit: No Status: Acute Code(s): KRM3843 - SNOMED Code(s): 817753405 Comment: -NO PHARMACOLOGIC PROPHYLAXIS DUE TO GIB -Continue SCDs Status and Disposition: -For possible D/C in 1-2 days
[2018-03-24] MEDS: cefTRIAXone(*) 1 GM in NS 0.9% 50 ML* 50 ML IVPB SCH (19:35)
[2018-03-25 04:45] LABS: Hematocrit 23 % (42-52); Hemoglobin 7.9 g/dl (14.0-18.0); Mean Corpuscular HGB Conc 34 g/dl (31-36); Mean Corpuscular Hemoglobin 32 pg (27-31); Mean Corpuscular Volume 94 fL (80-94); Mean Platelet Volume 8.4 um3 (7.4-10.4); Platelet Count 54 10^3/ul (150-450); Red Blood Count 2.47 10^6/ul (4.00-5.40); Red Cell Distribution Width 19 % (10.5-15)
[2018-03-25 04:58] LABS: EGFR Non-African American 79.1 (>60)
[2018-03-25] MEDS: Spironolactone TAB* 25 MG PO SCH (09:16)
[2018-03-25] MEDS: Pantoprazole IV* 40 MG IV SCH (09:17)
[2018-03-25] MEDS: Furosemide TAB* 40 MG PO SCH (09:30)
[2018-03-25 11:39] VITALS: BP 91/48
--- NOTE | 2018-03-25 23:00 | DS ---
DISCHARGE SUMMARY: DATE OF ADMISSION: 03/20/18 DATE OF DISCHARGE: 03/25/18 FINAL DISCHARGE DIAGNOSES: 1. GI bleed secondary to esophageal varices. 2. Esophageal varices, status post banding x3. 3. Alcohol abuse and liver cirrhosis. 4. Portal hypertension. 5. Ascites. HOSPITAL COURSE: The patient was admitted to the hospitalist service at [facility] [place] on 03/20/18 after he presented to the emergency room with black tarry stool after he took naproxen for lower extremity pain and cramping. It should be noted that prior to our admission, the patient was seen in our ED on 03/08/18 for hematemesis and he was transferred to [facility] where he underwent upper and lower endoscopy. Given the finding of melena with his known history of alcohol abuse, esophageal varices and his hematocrit was 24 on admission, he was admitted to the medical service. He was placed on H and H followup, IV fluids. He was started on octreotide and pantoprazole drips. He was taken of course off his naproxen and GI consulted to evaluate the patient. On followup blood work, his CBC did decrease in terms of hematocrit from 24 down to 17 by the following morning and he did have 2 units of RBC transfused. He underwent endoscopy on 03/21/18, which shows esophageal varices and did receive band x3 sites. He was maintained on the medical service since 03/21/18 until today and his H and H has been stable with hematocrit 24. No further bleed. Tolerating p.o. well. Hence, the patient was seen and evaluated today. He was counseled extensively about alcohol cessation and avoid any NSAID, resume diet, and follow up with PCP and GI to have an appointment done in 4 weeks. PHYSICAL EXAMINATION: His physical exam on discharge shows temperature 98.5, pulse 57 to 55, respiratory rate 24, satting 94%, pressures 91/48 and 106/58. Generally, he is awake, alert, oriented, pleasant. Denies any discomfort. Head and Neck: Normocephalic, atraumatic. Supple. No JVD. His lungs clear to auscultation bilaterally. No crackles, rales, or wheezes. Abdomen: Positive bowel sounds. Soft, nondistended, nontender. Extremities: There is no edema. Good peripheral pulses. 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 INPATIENT DIAGNOSTIC STUDIES/LAB DATA: The patient had an EGD done on 03/21/18. His lab work significant for alcohol on presentation of 79. Hematocrit was as low as 17, up to 23 prior to discharge. His chemistry significant for low magnesium at 1.3 up to 1.7 before discharge, potassium 3.6. Slight elevation of his LFTs, AST was 49. Albumin 2.8. DISCHARGE MEDICATIONS: 1. Aldactone 100 mg once a day. 2. Vitamin B12 1000 mcg daily. 3. Lactulose increased to t.i.d. from b.i.d. 30 cc. 4. Melatonin 3 mg at bedtime. 5. Colchicine 0.6 mg daily. 6. Iron 325 daily. 7. Folic acid 1 mg daily. 8. Lasix 40 mg daily that is increased from 20. 9. Magnesium 400 mg b.i.d. 10. Omeprazole 20 mg b.i.d. 11. Thiamine 100 mg daily. 12. Spironolactone 100 mg daily. DISCHARGE INSTRUCTIONS: The patient is to follow up with his primary in 1 to 2 weeks. The patient to follow up with GI clinic with Dr. Guillaume Mendoza for repeat endoscopy in about a month. The above was relayed to the patient. Take all medications as prescribed. Alcohol cessation. Adhere to low-salt diet. [id number]/[facility] #: [id number] [facility]OSPITALDivya
== END 2018-03-25 13:40 | disposition home or self-care (01) | DRG 432 ==
LOC: ED 19:05 → ICU 23:11 → MEDTELE 03-22 16:57
PROVIDERS: ADMIT Hospitalist; ATTEND Internal Medicine
PROC: 0W3P8ZZ Control Bleeding in Gastrointestinal Tract, Via Natural or Artificial Opening Endoscopic (ICD-10-PCS; 2018-03-21)
PROC: 30233N1 Transfusion of Nonautologous Red Blood Cells into Peripheral Vein, Percutaneous Approach (ICD-10-PCS; principal; 2018-03-21 17:00)
DX: K70.31 Alcoholic cirrhosis of liver with ascites (principal); I85.11 Secondary esophageal varices with bleeding; K76.6 Portal hypertension; D62 Acute posthemorrhagic anemia; F10.20 Alcohol dependence, uncomplicated; Y90.3 Blood alcohol level of 60-79 mg/100 ml; J44.9 Chronic obstructive pulmonary disease, unspecified; I10 Essential (primary) hypertension; K31.89 Other diseases of stomach and duodenum; E78.5 Hyperlipidemia, unspecified; D50.9 Iron deficiency anemia, unspecified; M10.9 Gout, unspecified; M21.371 Foot drop, right foot; F17.210 Nicotine dependence, cigarettes, uncomplicated
CPT/HCPCS: 36415; 80048; 80053; 80320; 81003; 82272; 83735; 84100; 85014; 85018; 85025; 85027; 85610; 85730; 86850; 86900; 86901; 86922; 87641; 99285; A9270-GY; G0480; J0696; J1940; J2250; J2354; J3010; J3475; P9040; P9047

== ENCOUNTER 2018-04-24 09:56 | Day surgery (SDC) | payer MEDICARE ==
[~2018-04-24 09:56] MED LIST changes: -NS 0.9% 1000 ML* 1,000 ML IV SCH
[2018-04-24 10:40] LABS: Hematocrit 33 % (42-52); Hemoglobin 11.2 g/dl (14.0-18.0)
[2018-04-24] MEDS ORDERED: fentaNYL* 50 MCG/ML 2 ML VIAL (100 MCG VIAL) ONE (11:50)
[2018-04-24] MEDS ORDERED: Midazolam* 1 MG/ML 5 ML VIAL (5 MG) ONE (11:50)
[2018-04-24] MEDS ORDERED: Naloxone* 0.4 MG/ML 1 ML VIAL IV PRN (12:11)
[2018-04-24] MEDS ORDERED: Propofol* 10 MG/ML 20 ML BTL IV PUSH ONE (12:52)
[2018-04-24] MEDS ORDERED: Lidocaine 2% PF * 5 ML VIAL ONE (12:52)
[2018-04-24 14:04] VITALS: BP 116/71
--- NOTE | 2018-04-25 04:52 | PRO ---
CC: Dr. Leonardo Bolivar* PROCEDURE REPORT: DATE OF PROCEDURE: 04/24/18 PRIMARY CARE PHYSICIAN: Dr. Leonardo Bolivar. PROCEDURE PERFORMED: Esophagogastroduodenoscopy with banding. INDICATION FOR PROCEDURE: Cirrhosis, decompensated with history of esophageal varices, recent banding. MEDICATIONS GIVEN: Please see anesthesia record. DESCRIPTION OF PROCEDURE: After the EGD procedure including the risks, benefits , and alternatives with the risks not limited to perforation, surgery, missed lesion, and/or were explained to the patient, written consent was then obtained. Anesthesia was given by the anesthesia service and a bite-block was placed between the teeth. The adult Olympus gastroscope was then inserted into the patient's mouth, advanced down the esophagus. In the distal esophagus, he had 3 columns of esophageal varices, 2 were large, 1 was a little bit on the smaller end of things. They did have slight red giovany to the large ones. The previous banding sites look good and those areas were further decompressed. I was able to place 3 bands with good significant decompression of the 2 larger columns. These bands were placed at 39 and 38 cm respectively, one at 39 and 2 at 38 cm and 2 separate large varices. The remainder of the smaller column varices flattened completely with insufflation. The scope was then advanced through the lower esophageal sphincter into the stomach. He did have diffuse portal hypertensive gastropathy. There were no gastric varices that were identified. There was no fresh or old blood. The scope was advanced through the widely patent pylorus into the duodenal bulb, which showed some mild duodenitis and the C-loop which also showed some duodenitis and the distal duodenum appeared normal in appearance. The scope was withdrawn from the patient. He tolerated the procedure well. He returned to the recovery room in stable condition. IMPRESSION AND PLAN: 1. Complete esophagogastroduodenoscopy with esophageal variceal banding. 2. Two large columns of varices, status post 3 bands placed as above. 3. One smaller column that completely flattened with insufflation. 4. Portal hypertensive gastropathy. 5. Mild duodenitis. RECOMMENDATION: Still with significantly large esophageal varices, we will need to repeat the procedure in roughly 4 to 6 weeks, probably giving him a little bit more time on the side of 6 weeks. I will order some labs for his cirrhosis and also an ultrasound and then get him in clinic in 2 to 3 weeks. He did state that he was still actively drinking. I again had an extensive discussion that if he continues down this path, it will end poorly. I strongly encouraged him for complete cessation of alcohol. Otherwise, I fear that his liver disease will keep progressing and with significant morbidity and mortality. He appears to still have poor insight into his disease and does not appear to have a desire to quit at this time. I will further discuss this with him in the office and again, I strongly stated that he needs to completely cease alcohol abuse. [id number]/[facility] #: [id number] [place]
== END 2018-04-24 15:40 | disposition home or self-care (01) ==
LOC: OR 09:56
PROVIDERS: ATTEND Internal Medicine Gastroenterology
DX: K70.30 Alcoholic cirrhosis of liver without ascites (principal); I85.11 Secondary esophageal varices with bleeding; D62 Acute posthemorrhagic anemia; F10.20 Alcohol dependence, uncomplicated; R16.1 Splenomegaly, not elsewhere classified; I10 Essential (primary) hypertension; E78.5 Hyperlipidemia, unspecified; J44.9 Chronic obstructive pulmonary disease, unspecified; M10.9 Gout, unspecified; R60.0 Localized edema
CPT/HCPCS: 36415; 85014; 85018; J2250; J2704; J3010

== ENCOUNTER 2018-06-12 13:04 | Day surgery (SDC) | payer MEDICARE ==
[~2018-06-12 13:04] MED LIST changes: +Buffered Lidocaine 0.9% SYRIN* 5 ML/SYR SYRINGE ONE; +Lidocaine 2% PF * 5 ML VIAL ONE; +Propofol* 10 MG/ML 20 ML BTL ONE
[2018-06-12] MEDS ORDERED: Levalbuterol 1.25MG/0.5ML NEB ONE (13:11)
[2018-06-12] MEDS ORDERED: Succinylcholine* 20 MG/ML 10 ML VIAL ONE (14:21)
[2018-06-12] MEDS ORDERED: Midazolam* 1 MG/ML 2 ML VIAL (2 MG) ONE (14:22)
[2018-06-12] MEDS ORDERED: fentaNYL* 50 MCG/ML 2 ML VIAL (100 MCG VIAL) ONE (14:22)
[2018-06-12] MEDS ORDERED: Ondansetron INJ* 2 MG/ML VIAL ONE (14:45)
[2018-06-12] MEDS ORDERED: Dexamethasone IV* 4 MG/ML 1 ML (4 MG) ONE (14:45)
[2018-06-12] MEDS ORDERED: Metoclopramide IV* 5 MG/ML 2 ML VIAL ONE (14:45)
[2018-06-12] MEDS ORDERED: Phenylephrine INJ* 10 MG/ML 1 ML VIAL (10 MG) ONE (14:47)
[2018-06-12] MEDS ORDERED: Acetaminophen TAB* 325 MG PO PRN (14:50)
[2018-06-12] MEDS ORDERED: fentaNYL* 50 MCG/ML 2 ML VIAL (100 MCG VIAL) IV PRN (14:50)
[2018-06-12] MEDS ORDERED: Naloxone* 0.4 MG/ML 1 ML VIAL IV PRN (14:50)
[2018-06-12] MEDS ORDERED: Ondansetron INJ* 2 MG/ML VIAL IV PRN (14:50)
[2018-06-12 16:08] VITALS: BP 110/73
--- NOTE | 2018-06-13 11:16 | PRO ---
CC: Dr. Leonardo Bolivar * DATE OF PROCEDURE: 06/12/18 - [facility] PRIMARY CARE PHYSICIAN: Dr. Leonardo Bolivar. INDICATION FOR PROCEDURE: Esophageal varices, cirrhosis. PROCEDURE PERFORMED: Complete esophagogastroduodenoscopy with variceal banding x2 bands. MEDICATIONS GIVEN: Please see Anesthesia record. DESCRIPTION OF PROCEDURE: After the EGD procedure including the risks, benefits , and alternatives with the risks not limited to perforation, surgery, missed lesions, and/or were explained to the patient, written consent was then obtained, IV sedation was given by the anesthesia service, and a bite-block was placed between the teeth. The adult Olympus gastroscope was inserted into the patient's oropharynx and advanced very carefully down the entirety of the esophagus. In the esophagus, he did have 2 large columns again of esophageal varices, one at the 9 o'clock position did have a red giovany sign very close to the GE junction. I then pushed through the lower esophageal sphincter into the stomach, which had diffuse portal hypertensive gastropathy. On retroflexion, no evidence of gastric varices was seen. I then went past through the widely patent pylorus into the duodenal bulb, C-loop, and distal duodenum, which were normal in appearance. I then removed the scope and placed the Super[employer] freelance recruiter on the end of the scope and reintubated the esophagus. I placed the first band directly over the red giovany sign, which was at the GE junction at just around 40 cm. I then placed an additional band at 39 cm in the 12 o'clock position and another large column of varices. I then insufflated and had excellent decompression of both columns of varices. The scope was then removed. He tolerated the procedure well. He returned to the recovery room in stable condition. IMPRESSION: 1. Complete esophagogastroduodenoscopy with variceal banding. 2. Two large columns of esophageal varices, status post banding as above. 3. Diffuse portal hypertensive hypertensive gastropathy. RECOMMENDATIONS: Continue alcohol abstinence. He has been clean for about 6 weeks now and then we will repeat an EGD in 6 weeks to continue to proceed eradication of his varices. [id number]/[facility] #: [id number] MTDD
== END 2018-06-12 16:00 | disposition home or self-care (01) ==
LOC: OR 13:04
PROVIDERS: ATTEND Internal Medicine Gastroenterology
DX: I85.11 Secondary esophageal varices with bleeding (principal); K70.31 Alcoholic cirrhosis of liver with ascites; Z72.0 Tobacco use; Z95.5 Presence of coronary angioplasty implant and graft; F10.10 Alcohol abuse, uncomplicated
CPT/HCPCS: A9270-GY; J0330; J1100; J2250; J2405; J2704; J2765; J3010

== ENCOUNTER 2018-06-17 14:38 | Inpatient (IN) | payer MEDICARE ==
[2018-06-17] MEDS ORDERED: Pantoprazole IV* 40 MG IV ONE (14:50)
[2018-06-17] MEDS ORDERED: Ondansetron TAB* 4 MG PO ONE (14:50)
--- NOTE | 2018-06-17 14:51 | ED ---
GI/ HPI - HPI Summary HPI Summary: This pt is a 62 y/o male presenting to [facility] c/o hematemesis today. Pt reports he has hx of alcoholic cirrhosis. He had EGD with variceal banding x2 bands on 06/12/[address] Mendoza. Pt notes today he began to have nausea and vomiting. He had about 3-4 episodes of hematemesis described as bright red blood. Additionally reports chest pain. His last bowel movement was yesterday and he states it was normal. Denies fever, chills, SOB, diarrhea, constipation. Pt reports he did drink alcohol yesterday and is unsure how much he had, but does admit to getting drunk. - History of Current Complaint Stated Complaint: VOMITING BLOOD/ STENTS IN THROAT LAST Hx Obtained From: Patient Onset/Duration: Started Hours Ago, Still Present Timing: Lasting Hours Severity: Moderate Current Severity: None Associated Signs and Symptoms: Positive: Hematemesis, Nausea, Vomiting, Chest Pain. Negative: Constipation, Diarrhea, Fever, Chills Aggravating Factor(s): Nothing Alleviating Factor(s): Nothing - Additional Pertinent History Primary Care Physician: [id number] - Allergy/Home Medications Allergies/Adverse Reactions: Allergies Allergy/AdvReac Type Severity Reaction Status Date / Time No Known Allergies Allergy Verified 06/12/18 12:56 Home Medications: Home Medications Magnesium Oxide TAB* [MagOx 400 TAB*] 400 mg PO BID 06/17/18 [History Confirmed 06/17/18] Melatonin (NF) 3 mg PO BEDTIME 06/17/18 [History Confirmed 06/17/18] Spironolactone (NF) [Spironolactone 50 MG (NF)] 100 mg PO QAM 06/17/18 [History Confirmed 06/17/18] PMH/Surg Hx/FS Hx/Imm Hx Endocrine/Hematology History: Reports: Hx Anemia - takes iron, Other Endocrine/ Hematological Disorders - elevated INR-liver disease Denies: Hx Anticoagulant Therapy, Hx Bone Marrow Disease, Hx Diabetes, Hx Sickle Cell Disease Cardiovascular History: Reports: Hx Coronary Artery Disease, Hx Hypercholesterolemia, Hx Hypertension - Was told he does but no meds, Other Cardiovascular Problems/Disorders - STENTS PLACED IN CHEST PT. UNSURE WHERE OR WHY Denies: Hx Pacemaker/ICD, Hx Peripheral Vascular Disease Respiratory History: Reports: Hx Chronic Obstructive Pulmonary Disease (COPD), Other Respiratory Problems/Disorders - SMOKER, ENVIRONMENTAL EXPOSURE TOXIC WELDING GASES GI History: Reports: Hx Cirrhosis - liver from ETOH, Hx Gastroesophageal Reflux Disease - ON MEDS, Hx Hiatal Hernia, Hx Jaundice - NOT PRESENTLY, Hx Ulcer, Other GI Disorders - hx of upper GI bleed, esophageal varices WITH STENTS X 3 History: Reports: Other Problems/Disorders - Hx cirrhosis of the liver Musculoskeletal History: Reports: Hx Arthritis - GENERALIZED, Hx Back Problems - back surgery, foot drop, Other Musculoskeletal History - right arm surgery, drop foot occured at some point Sensory History: Reports: Hx Contacts or Glasses - READING GLASSES Denies: Hx Cataracts, Hx Glaucoma, Hx Hearing Aid Opthamlomology History: Reports: Hx Contacts or Glasses - READING GLASSES Denies: Hx Cataracts, Hx Glaucoma Neurological History: Reports: Hx Spinal Cord Injury - hx back surg with drop foot right Denies: Other Neuro Impairments/Disorders Psychiatric History: Reports: Other Psychiatric Issues/Disorders - ETOH abuse - Cancer History Hx Chemotherapy: No - Surgical History Surgery Procedure, Year, and Place: lumbar fusion back,. right forearm. EGD with ligation of esophageal varices 2 or 3 times last one 04/01 [facility] [place] one. EGD with variceal banding x2 bands on 06/12/18 Hx Anesthesia Reactions: No Infectious Disease History: Denies: Hx Clostridium Difficile, Traveled Outside the [place] in Last 30 Days - Family History Known Family History: Positive: Cardiac Disease - Social History Alcohol Use: Daily Alcohol Amount: vodka 2-3 glasses daily Hx Substance Use: No Substance Use Type: Reports: Marijuana Substance Use Comment - Amount & Last Used: smoked 04/18/18 Hx Tobacco Use: Yes Smoking Status (MU): Former Smoker Type: Cigarettes Amount Used/How Often: 50 yr hx 1ppd Length of Time of Smoking/Using Tobacco: 50 Have You Smoked in the Last Year: Yes Review of Systems Negative: Fever, Chills Positive: Chest Pain Negative: Shortness Of Breath Gastrointestinal: Other - POS: hematemesis Positive: Vomiting, Nausea. Negative: Diarrhea, Other - constipation, bloody stools All Other Systems Reviewed And Are Negative: Yes Physical Exam - Summary Physical Exam Summary: VITAL SIGNS: Reviewed. GENERAL: Patient is a well-developed and nourished male who is lying comfortable in the stretcher. Patient is not in any acute respiratory distress. HEAD AND FACE: No signs of trauma. No ecchymosis, hematomas or skull depressions. No sinus tenderness. EYES: PERRLA, EOMI x 2, No injected conjunctiva, no nystagmus. EARS: Hearing grossly intact. Ear canals and tympanic membranes are within normal limits. MOUTH: Oropharynx within normal limits. Dry blood in mouth. Not actively bleeding or vomiting. NECK: Supple, trachea is midline, no adenopathy, no JVD, no carotid bruit, no c- spine tenderness, neck with full ROM. CHEST: Symmetric, no tenderness at palpation LUNGS: Clear to auscultation bilaterally. No wheezing or crackles. CVS: Regular rate and rhythm, S1 and S2 present, no murmurs or gallops appreciated. ABDOMEN: Soft, non-tender. Abdomen is distended. No rebound, no guarding, and no masses palpated. Bowel sounds are normal. Not actively bleeding or vomiting. EXTREMITIES: FROM in all major joints, no edema, no cyanosis or clubbing. NEURO: Alert and oriented x 3. No acute neurological deficits. Speech is normal and follows commands. SKIN: Dry and warm Triage Information Reviewed: Yes Vital Signs On Initial Exam: Initial Vitals Temp Pulse Resp BP Pulse Ox 97.9 F 115 16 93/61 92 06/17/18 14:51 06/17/18 14:51 06/17/18 14:51 06/17/18 14:51 06/17/18 14:51 Vital Signs Reviewed: Yes Diagnostics - Laboratory Result Diagrams: 06/17/18 15:14 06/17/18 15:13 Lab Statement: Any lab studies that have been ordered have been reviewed, and results considered in the medical decision making process. - EKG 14:56 Cardiac Rate: Tachycardia - at 107 bpm EKG Rhythm: Sinus Tachycardia Summary of EKG Findings: No ST elevations. Re-Evaluation - Re-Evaluation First Eval Re-Evaluation Time: 15:32 Change: Worse Comment: Pt just vomited 150 cc of blood. Second Eval Re-Evaluation Time: 15:36 Comment: Dr. Oliva, tailman, is at bedside. GIGU Course/Dx - Course Assessment/Plan: Past medical history significant for alcoholic cirrhosis, still actively drinking, ascites, COPD, portal hypertension, hypertension, dyslipidemia, gout, and deficiency anemia, chronic right foot drop and right lower extremity edema, splenomegaly,. This patient had a complete esophagogastroduodenoscopy with variceal banding 2 bands on 06/12/18. In the ED the patient is hemodynamically stable, he is not actively having hemoptysis, although he reports that he had a couple episodes of vomiting bright red blood. In the ED course I placed 2 IV large access, IV fluids was started, Zofran was given for nausea and vomiting, and Protonix 80 mg bolus. Patient was also started on Octreotide 50 g bolus and the infusion of 50 mcg/h. Blood work without any significant abnormality except for hemoglobin of 10.9, hematocrit 32 and platelets 150. INR is 1.16 and PTT of 29. Glucose 136, calcium of 8.4, magnesium is 1.6 and ammonia 100 and CRP of 14.6. The the total protein is 6. I discussed my physical exam and findings with Dr. Mccann from and he will consult for this patient. He requested for the patient to be admitted to the ICU. I also discussed my physical exam and findings with Dr. Oliva, tailman , and he came to see the patient and accepted the patient for admission. Dr. Oliva also recommends for the patient to be given 2 units of packed red blood cells. The patient consented for the blood transfusion. The patient is more stable but still critical. - Diagnoses Provider Diagnoses: GI bleed - Physician Notifications Discussed Care Of Patient With: Zen Mccann Time Discussed With Above Provider: 15:03 Instructed by Provider To: Other - I discussed the case with Dr. Mccann, , who will consult for this pt. [15:18] I discussed with Dr. Oliva, tailman, who accepted the pt for admission. - Critical Care Time Critical Care Time: 75-104 min Discharge - Sign-Out/Discharge Documenting (check all that apply): Patient Departure - Admit to [facility] - Discharge Plan Condition: Critical Disposition: ADMITTED TO [facility] - Billing Disposition and Condition Condition: CRITICAL Disposition: Admitted to [facility] - Attestation Statements Document Initiated by Scribe: Yes Documenting Scribe: Loretta Anderson Provider For Whom Scribe is Documenting (Include Credential): Octavio Soliman MD Scribe Attestation: Loretta Moreno, scribed for Octavio Soliman MD on 06/17/18 at 1838. Scribe Documentation Reviewed: Yes Provider Attestation: The documentation as recorded by the scribe, Loretta Anderson accurately reflects the service I personally performed and the decisions made by me, Octavio Soliman MD Status of Scribe Document: Viewed
[2018-06-17] MEDS ORDERED: Ondansetron INJ* 2 MG/ML VIAL IV ONE (15:02)
[2018-06-17] MEDS ORDERED: Ondansetron INJ* 2 MG/ML VIAL ONE (15:02)
[2018-06-17] MEDS: NS 0.9% 1000 ML* 1,000 ML IV ONE ×2 (15:06→15:18)
[2018-06-17] MEDS ORDERED: Octreotide Acetate* 50 MCG in NS 0.9% 50 ML* 50 ML IVPB ONE (15:07)
[2018-06-17] MEDS ORDERED: NS 0.9% 1000 ML* 1,000 ML IV ONE (15:16)
[2018-06-17] MEDS ORDERED: Metoclopramide IV* 5 MG/ML 2 ML VIAL ONE (15:21)
[2018-06-17] MEDS ORDERED: Metoclopramide IV* 5 MG/ML 2 ML VIAL IV ONE (15:21)
[2018-06-17 15:23] LABS: ABS Basophils 0.1 10^3/ul (0-0.2); ABS Eosinophils 0.1 10^3/ul (0-0.6); ABS Monocytes 0.7 10^3/ul (0-0.8); ABS Neutrophils 6.9 10^3/ul (1.5-7.7); ABS Nucleated RBC 0 10^3/ul; Eosinophil % 1.3 %; Hematocrit 32 % (42-52); Hemoglobin 10.9 g/dl (14.0-18.0); Mean Corpuscular HGB Conc 34 g/dl (31-36); Mean Corpuscular Hemoglobin 31 pg (27-31); Mean Corpuscular Volume 92 fL (80-94); Mean Platelet Volume 7.4 fL (7.4-10.4); Nucleated Red Blood Cells % 0; Platelet Count 150 10^3/ul (150-450); Red Blood Count 3.49 10^6/ul (4.00-5.40); Red Cell Distribution Width 21 % (10.5-15); White Blood Count 9.8 10^3/ul (3.5-10.8)
[2018-06-17 15:39] LABS: INR 1.16 (0.77-1.02)
[2018-06-17] MEDS: Octreotide Acetate* 500 MCG in NS 0.9% 100 ML* 100 ML IVPB SCH (15:46)
[2018-06-17 15:51] LABS: EGFR Non-African American 72.1 (>60)
[2018-06-17] MEDS ORDERED: Magnesium Sulfate 1 GM IV* 1 GM/100 ML BAG IV ONE (15:59)
--- NOTE | 2018-06-17 16:18 | HP ---
H&P (Free Text) History and Physical: History and Physical -- Critical Care Limitations in history/physical: none HPI: 62y M w/pmhx of alcohol abuse, alcoholic liver cirrhosis, chronic thrombocytopenia, h/o variceal bleeding, portal hypertension, recent EGD with variceal banding 06/12/2018, active alcohol use and tobacco use, CAD, HLD, HTN, COPD? With occupational history history?; patient had a recent EGD with variceal banding x3 on 06/12. He comes today for sudden nausea+, vomiting+ and vomiting of bright red blood x 3 episodes at home, and 2 more in ER, all about cup worth. No sob/cp/abd pain. No diarrhea/black stools. no recent illness or fever/chills. He is awake, alert. He states abd is more distended today, but last bowel movement this morning. In ER, he was as low at 80s SBP, tachycardic, given IVF bolus thru peripheral IVs, now BP 100-110s, not as tach. Plan for 2 PRBC ordered. Labs reviewed, appear concentrated with higher hg and plt. GI contacted, plan for EGD later today once stabilized. Last drink last night, still drinking. ROS: negative except for pertinent positives mentioned above. PMHx: alcohol abuse, alcoholic liver cirrhosis, h/o variceal bleeding, portal hypertension, recent EGD with variceal banding 06/12/2018, active alcohol use and tobacco use, CAD, HLD, HTN, COPD? With occupational history history? PSHx: lumbar fusion, EGD with ligation of varices and banding Family History: cardiac diet Social History: Alcohol-active+, Smoking-50pack/year, active still, Drug use- none Allergies: Allergies Allergy/AdvReac Type Severity Reaction Status Date / Time No Known Allergies Allergy Verified 06/12/18 12:56 Home Medications: Folic Acid TAB* [Folvite TAB*] 1 mg PO QAM 09/03/17 [History Confirmed 06/17/18] Cyanocobalamin (Vitamin B-12) [Vitamin B-12] 1,000 mcg PO QAM 04/18/18 [History Confirmed 06/17/18] Ferrous Gluconate TAB* [Fergon TAB*] 324 mg PO QAM 04/18/18 [History Confirmed 06/17/18] Furosemide TAB* [Lasix TAB*] 40 mg PO QAM 04/18/18 [History Confirmed 06/17/18] Lactulose* 30 ml PO QAM 04/18/18 [History Confirmed 06/17/18] Pantoprazole TAB (NF) [Protonix TAB (NF)] 40 mg PO QAM 04/18/18 [History Confirmed 06/17/18] Thiamine TAB* [Vitamin B-1 TAB 100 MG*] 100 mg PO QAM 04/18/18 [History Confirmed 06/17/18] Magnesium Oxide TAB* [MagOx 400 TAB*] 400 mg PO BID 06/17/18 [History Confirmed 06/17/18] Melatonin (NF) 3 mg PO BEDTIME 06/17/18 [History Confirmed 06/17/18] Spironolactone (NF) [Spironolactone 50 MG (NF)] 100 mg PO QAM 06/17/18 [History Confirmed 06/17/18] Tele: sinus tachy, now NSR Vitals: Vital Signs Temp 97.7 F 06/17/18 16:16 Pulse 67 06/17/18 16:16 Resp 16 06/17/18 16:16 BP 109/74 06/17/18 16:16 Pulse Ox 95 06/17/18 16:16 Intake & Output 06/16/18 06/17/18 06/17/18 18:59 06:59 18:59 Intake Total 1999 Balance 1999 Weight 81.647 kg Intake: IV Fluids 1999 O2/Vent: RA Infusions: heplock Current Medications: Octreotide Acetate 500 mcg/ (Sodium Chloride) 101 mls @ 10.1 mls/hr IVPB Q10H [facility] Last Admin: 06/17/18 15:46 Dose: 10.1 mls/hr Pantoprazole Sodium (Protonix Iv Bag*) 80 mg in 250 mls @ 25 mls/hr IVPB Q10H [facility] Magnesium Sulfate/Dextrose (Magnesium Sulfate 1 Gm Iv*) 1 gm in 100 mls @ 200 mls/hr IV ED ONCE ONE Stop: 06/17/18 16:28 Physical Exam: General: awake, alert, no distress, no diaphoresis Head: normocephalic, atraumatic HEENT: + pallor, no icterus, dry mucous membranes Neck: soft, supple, no jvd, no stridor CVS: normal rate, regular, no murmur Resp: bilateral air entry, no rhales, no wheeze, no rhonchi, no acc muscle use Abdomen: soft, distended, tense, nontender, bowel sounds present Ext: pulses+, warm, no edema Skin: intact Neuro: awake, alert, orientedx3, moving all extremities, no gross focal deficit Labs: Laboratory Results - last 24 hr 06/17/18 06/17/18 06/17/18 15:13 15:13 15:14 WBC 9.8 RBC 3.49 L Hgb 10.9 L Hct 32 L MCV 92 MCH 31 MCHC 34 RDW 21 H Plt Count 150 MPV 7.4 Neut % (Auto) 70.7 Lymph % (Auto) 20.0 [place] % (Auto) 7.1 Eos % (Auto) 1.3 Baso % (Auto) 0.9 Absolute Neuts (auto) 6.9 Absolute Lymphs (auto) 2.0 Absolute Monos (auto) 0.7 Absolute Eos (auto) 0.1 Absolute Basos (auto) 0.1 Absolute Nucleated RBC 0 Nucleated RBC % 0 INR (Anticoag Therapy) 1.16 H APTT 29.5 Sodium 138 Potassium 4.6 Chloride 107 Carbon Dioxide 24 Anion Gap 7 BUN 18 Creatinine 1.04 Est GFR ( Amer) 87.3 Est GFR (Non-Af Amer) 72.1 BUN/Creatinine Ratio 17.3 Glucose 136 H Lactic Acid Calcium 8.4 L Magnesium 1.6 L Total Bilirubin 1.20 H AST 49 H ALT 25 Alkaline Phosphatase 170 H Ammonia C-Reactive Protein 14.67 H B-Natriuretic Peptide Total Protein 6.0 L Albumin 3.2 Globulin 2.8 Albumin/Globulin Ratio 1.1 Lipase 64 Blood Type Antibody Screen Crossmatch 06/17/18 06/17/18 06/17/18 15:14 15:14 15:14 WBC RBC Hgb Hct MCV MCH MCHC RDW Plt Count MPV Neut % (Auto) Lymph % (Auto) [place] % (Auto) Eos % (Auto) Baso % (Auto) Absolute Neuts (auto) Absolute Lymphs (auto) Absolute Monos (auto) Absolute Eos (auto) Absolute Basos (auto) Absolute Nucleated RBC Nucleated RBC % INR (Anticoag Therapy) APTT Sodium Potassium Chloride Carbon Dioxide Anion Gap BUN Creatinine Est GFR ( Amer) Est GFR (Non-Af Amer) BUN/Creatinine Ratio Glucose Lactic Acid 2.0 Calcium Magnesium Total Bilirubin AST ALT Alkaline Phosphatase Ammonia 100 H C-Reactive Protein B-Natriuretic Peptide 112 H Total Protein Albumin Globulin Albumin/Globulin Ratio Lipase Blood Type A Positive Antibody Screen Negative Crossmatch See Detail Imaging: - Assessment: 62y M w/pmhx of alcohol abuse, alcoholic liver cirrhosis, chronic thrombocytopenia, h/o variceal bleeding, portal hypertension, recent EGD with variceal banding 06/12/2018, active alcohol use and tobacco use, CAD, HLD, HTN, COPD? With occupational history history?; patient had a recent EGD with variceal banding x3 on 06/12. He comes today for sudden nausea+, vomiting+ and vomiting of bright red blood x 3 episodes at home, and 2 more in ER, all about cup worth. No sob/cp/abd pain. No diarrhea/black stools. no recent illness or fever/chills. He is awake, alert. Denies any other complaints. In ER, he was as low at 80s SBP, tachycardic, given IVF bolus thru peripheral IVs, now BP 100- 110s, not as tach. -Hypovolemic/hemorrhagic shock -Upper GI hemorrhage, likely from variceal hemorrhage, r/o PUD/gastritis -Alcoholic Cirrhosis Plan: Neuro- awake/alert. Delirium prec. Asp prec. Restart thiamine/folic acid later. CVS- hypotensive from hemorrhage, responded to IVF bolus. Hct and cell counts higher than normal, likely was concentrated a bit. Type and screen, for 2 prbc transfusion. 2 large bore IVs, central line if needed. Not on pressors. IVF bolus prn also. Repeat CBC later, follow plt and INR. No coagulopathy noted now , INR low 1s. hold aldactone/diuretics. Resp- RA, no distress ID- wbc normal. Afebrile. No active source of infection noted, nontoxic. Given history of cirrhosis, will start empiric Ceftriaxone for SBP proph. GI- NPO. Upper GI hem, suspect from variceal bleed. r/o PUD. Start octreotide and PPI infusion. For PRBC transfusion. US abd to eval for ascites. SBP proph. For planned EGD today, GI contacted by ER. Hold off lactulose. Renal- Cr okay. IVF bolus/infusion PRN. K okay, no acidosis. Fletcher if needed, hold off now. Heme- GI hemorrhage, CBC noted, possible concentration. PRBC transfusion x2 planned. Recheck CBC. h/o thrombocytopenia prior. INR normal. Check hg q6h. Endo- fingerstick q6h. Musculsk- pressure ulcer prophylaxis. Bedrest. Wounds- none Nutrition- NPO DVT prophylaxis: SCDs GI prophylaxis: PPI Central Line: no Arterial Line: no Fletcher Cathetor: no Disposition: admit to ICU; expected LOS >2 midnights Code Status: full code Total Critical Care time is 45 minutes, excluding procedures/teaching Azael Oliva MD [employer] (Electronically Signed)
[2018-06-17] MEDS: Pantoprazole* 80 mg IN NS 80 MG/250 ML BAG IVPB SCH (17:24)
[2018-06-17 21:05] LABS: Hematocrit 26 % (42-52); Hemoglobin 8.9 g/dl (14.0-18.0)
--- NOTE | 2018-06-17 21:45 | CONS ---
GASTROENTEROLOGY CONSULT: DATE: 10/30 CONSULTING PHYSICIANS: Dr. Azael Oliva, ICU; Dr. Leonardo Bolivar, [facility]; Dr. Guillaume Mendoza, [facility]. HISTORY: This 62-year-old alcoholic with cirrhosis with multiple episodes of upper GI bleeding, status post multiple sessions of variceal ligation,, most recently [address] Mendoza, comes in with hematemesis. After the banding, he went to home and he was feeling generally well. He smokes marijuana regularly. I questioned about alcohol, he deflected though admitted drinking to others. He was having some knee pain and with several sequential questions, it comes out that he did have Aleve for the first time in a couple of months on Saturday and Saturday. He said he just could not move his knees. The emesis has been relatively small amounts and he has not had any dizziness or syncope. He has not had any loose stools. PAST MEDICAL HISTORY: 1. Alcohol abuse - ongoing as he confessed to Dr. Oliva in the ICU. 2. Cirrhosis with portal hypertension - variceal ligation, July 2016, September 2016, and 3 banding sessions this fall by Dr. Mendoza. On 2 occasions, he has been transferred to [facility] shortly following a banding treatment here and gastroscopies have just shown grade 1 varices, nonbleeding there. Most recent [facility] transfer was 03/08/18. The EGD then again showed grade 1 varices. He has also had a colonoscopy during that admission with no major lesions seen. He has not had ascites or encephalopathy. 3. 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 MEDICATIONS: Furosemide 40; spironolactone 50 two tablets in the morning; pantoprazole 40; lactulose 30; magnesium oxide 400 b.i.d.; ferrous gluconate. SOCIAL HISTORY: He lives alone. REVIEW OF SYSTEMS: No history of MN, syncope, palpitations, cardiovascular disease, hemoptysis, or renal failure. No history of chronic skin disease. He has had an umbilical hernia repair about 6 years ago. No history of seizures. PHYSICAL EXAM: He is a chronically ill-appearing moderately overweight man in the ICU with an octreotide drip and Protonix drip in place. Blood pressure is about 100/60; pulse 95, regular. HEENT exam shows no icterus. He smells of tobacco. He has no adenopathy. He has multiple tattoos. Breath sounds are diminished, but symmetric. Heart sounds are regular. The abdomen shows umbilical hernia, depressed scar. There is obesity and organs cannot be felt. There is no gross ascites. Extremities show puffiness, but nonpitting changes on the right lower leg. He has dorsalis pedis pulses bilaterally. He is alert and oriented without any signs of encephalopathy. LABORATORY DATA: Hemoglobin 10.9, hematocrit 32, BUN 18, creatinine 1.04. LFTs are normal with AST 49, ALT 25, alkaline phosphatase 170. BUN 1.20, albumin 3.2. IMPRESSION: This 62-year-old alcoholic with cirrhosis , continues to abuse alcohol and tobacco. He has portal hypertension and has had multiple sessions with banding. The most recent about 6 days ago has probably protected him from a massive variceal eruption, although he is still at risk for bleeding once the bands detach and also from portal hypertensive gastropathy. An exacerbation of those latter 2 issues is likely to have been precipitated by naproxen use . I had a discussion with friend present about naproxen and that there is never going to be a time when taking it is advisable or permitted. At the moment, repeat endoscopy does not appear likely to result in benefit and will be deferred. Two days of the drips and then attention towards managing his musculoskeletal pain will be the focus. [id number]/[facility] #: [id number] [place]
[2018-06-17] MEDS ORDERED: NS 0.9% 500 ML* @ Wide Open(Bolus) 500ml IV ONE (23:00)
[2018-06-18] MEDS: Octreotide Acetate* 500 MCG in NS 0.9% 100 ML* 100 ML IVPB SCH ×3 (02:05→13:47)
[2018-06-18 02:38] LABS: ABS Basophils 0.1 10^3/ul (0-0.2); ABS Eosinophils 0.1 10^3/ul (0-0.6); ABS Lymphocytes 1.3 10^3/ul (1.0-4.8); ABS Monocytes 0.5 10^3/ul (0-0.8); ABS Neutrophils 3.7 10^3/ul (1.5-7.7); ABS Nucleated RBC 0 10^3/ul; Eosinophil % 1.9 %; Hematocrit 32 % (42-52); Hemoglobin 10.7 g/dl (14.0-18.0); Lymphocyte % 23.3 %; Mean Corpuscular HGB Conc 34 g/dl (31-36); Mean Corpuscular Hemoglobin 31 pg (27-31); Mean Corpuscular Volume 91 fL (80-94); Nucleated Red Blood Cells % 0.1; Red Blood Count 3.49 10^6/ul (4.00-5.40); Red Cell Distribution Width 18 % (10.5-15); White Blood Count 5.7 10^3/ul (3.5-10.8)
[2018-06-18 02:58] LABS: Mean Platelet Volume 7.9 fL (7.4-10.4); Platelet Count 67 10^3/ul (150-450)
[2018-06-18] MEDS: Pantoprazole* 80 mg IN NS 80 MG/250 ML BAG IVPB SCH ×3 (03:33→23:46)
[2018-06-18 06:32] LABS: Hematocrit 31 % (42-52); Hemoglobin 10.5 g/dl (14.0-18.0); INR 1.15 (0.77-1.02); Mean Corpuscular HGB Conc 34 g/dl (31-36); Mean Corpuscular Hemoglobin 31 pg (27-31); Mean Corpuscular Volume 91 fL (80-94); Mean Platelet Volume 7.7 fL (7.4-10.4); Platelet Count 63 10^3/ul (150-450); Red Blood Count 3.39 10^6/ul (4.00-5.40); Red Cell Distribution Width 19 % (10.5-15); White Blood Count 5.4 10^3/ul (3.5-10.8)
[2018-06-18 07:39] LABS: EGFR Non-African American 84.1 (>60)
[2018-06-18 10:01] LABS: Hematocrit 32 % (42-52); Hemoglobin 10.8 g/dl (14.0-18.0)
[2018-06-18] MEDS ORDERED: fentaNYL* 50 MCG/ML 2 ML VIAL (100 MCG VIAL) ONE (11:41)
[2018-06-18] MEDS ORDERED: Midazolam* 1 MG/ML 10 ML VIAL (10 MG) ONE (11:41)
[2018-06-18] MEDS ORDERED: Propofol* 100 ML ONE (11:42)
--- NOTE | 2018-06-18 12:16 | PN ---
Progress Note - Progress Note Date of Service: 06/18/18 Note: Progress Note -- Critical Care 24 hour events: -awake; alert -overnight total of 3 prbc, no further vomitting blood; had bloody/dark bowel movements -bp dropped to 80s once and responded to ivf bolus and prbc -tmax 100 Tele: NSR Vitals: Vital Signs Temp 99.2 F 06/18/18 11:44 Pulse 56 06/18/18 11:45 Resp 18 06/18/18 11:30 BP 103/55 06/18/18 11:45 Pulse Ox 92 06/18/18 11:45 Intake & Output 06/17/18 06/18/18 06/18/18 18:59 06:59 18:59 Intake Total 1999 1951.8 0 Output Total 2650 415 Balance 1999 -698.2 -415 Weight 88.2 kg 87.7 kg Intake: IV Fluids 1999 710 NS (0.9%) 710 Medicated IV 450.8 GEN - Octreotide 235.5 GEN - Pantoprazole/ 215.3 Protonix Oral 0 0 0 Packed Cells 791 Output: Urine 850 415 Cardona 0 Estimated Blood Loss 1800 Other: Date of Last Bowel 06/17/18 Movement # Bowel Movements 1 Estimated Stool Amount Medium O2/Vent: NC Infusions: heplock Current Medications: Octreotide Acetate 500 mcg/ (Sodium Chloride) 101 mls @ 10.1 mls/hr IVPB Q10H [facility] Last Admin: 06/18/18 02:05 Dose: 10.1 mls/hr Pantoprazole Sodium (Protonix Iv Bag*) 80 mg in 250 mls @ 25 mls/hr IVPB Q10H [facility] Last Admin: 06/18/18 03:33 Dose: 25 mls/hr Physical Exam: General: awake, alert, no distress, no diaphoresis Head: normocephalic, atraumatic HEENT: + pallor, no icterus, dry mucous membranes Neck: soft, supple, no jvd, no stridor CVS: normal rate, regular, no murmur Resp: bilateral air entry, no rhales, no wheeze, no rhonchi, no acc muscle use Abdomen: soft, distended, tense, nontender, bowel sounds present Ext: pulses+, warm, no edema Skin: intact Neuro: awake, alert, orientedx3, moving all extremities, no gross focal deficit Labs: Laboratory Results - last 24 hr 06/17/18 06/17/18 06/17/18 15:13 15:13 15:14 WBC 9.8 RBC 3.49 L Hgb 10.9 L Hct 32 L MCV 92 MCH 31 MCHC 34 RDW 21 H Plt Count 150 MPV 7.4 Neut % (Auto) 70.7 Lymph % (Auto) 20.0 [place] % (Auto) 7.1 Eos % (Auto) 1.3 Baso % (Auto) 0.9 Absolute Neuts (auto) 6.9 Absolute Lymphs (auto) 2.0 Absolute Monos (auto) 0.7 Absolute Eos (auto) 0.1 Absolute Basos (auto) 0.1 Absolute Nucleated RBC 0 Nucleated RBC % 0 INR (Anticoag Therapy) 1.16 H APTT 29.5 Sodium 138 Potassium 4.6 Chloride 107 Carbon Dioxide 24 Anion Gap 7 BUN 18 Creatinine 1.04 Est GFR ( Amer) 87.3 Est GFR (Non-Af Amer) 72.1 BUN/Creatinine Ratio 17.3 Glucose 136 H POC Glucose (mg/dL) Lactic Acid Calcium 8.4 L Magnesium 1.6 L Total Bilirubin 1.20 H Direct Bilirubin Indirect Bilirubin AST 49 H ALT 25 Alkaline Phosphatase 170 H Ammonia C-Reactive Protein 14.67 H B-Natriuretic Peptide Total Protein 6.0 L Albumin 3.2 Globulin 2.8 Albumin/Globulin Ratio 1.1 Lipase 64 Blood Type Antibody Screen Crossmatch 06/17/18 06/17/18 06/17/18 15:14 15:14 15:14 WBC RBC Hgb Hct MCV MCH MCHC RDW Plt Count MPV Neut % (Auto) Lymph % (Auto) [place] % (Auto) Eos % (Auto) Baso % (Auto) Absolute Neuts (auto) Absolute Lymphs (auto) Absolute Monos (auto) Absolute Eos (auto) Absolute Basos (auto) Absolute Nucleated RBC Nucleated RBC % INR (Anticoag Therapy) APTT Sodium Potassium Chloride Carbon Dioxide Anion Gap BUN Creatinine Est GFR ( Amer) Est GFR (Non-Af Amer) BUN/Creatinine Ratio Glucose POC Glucose (mg/dL) Lactic Acid 2.0 Calcium Magnesium Total Bilirubin Direct Bilirubin Indirect Bilirubin AST ALT Alkaline Phosphatase Ammonia 100 H C-Reactive Protein B-Natriuretic Peptide 112 H Total Protein Albumin Globulin Albumin/Globulin Ratio Lipase Blood Type A Positive Antibody Screen Negative Crossmatch See Detail 06/17/18 06/17/18 06/17/18 20:52 20:52 20:52 WBC RBC Hgb 8.9 L Hct 26 L MCV MCH MCHC RDW Plt Count MPV Neut % (Auto) Lymph % (Auto) [place] % (Auto) Eos % (Auto) Baso % (Auto) Absolute Neuts (auto) Absolute Lymphs (auto) Absolute Monos (auto) Absolute Eos (auto) Absolute Basos (auto) Absolute Nucleated RBC Nucleated RBC % INR (Anticoag Therapy) APTT Sodium Potassium Chloride Carbon Dioxide Anion Gap BUN Creatinine Est GFR ( Amer) Est GFR (Non-Af Amer) BUN/Creatinine Ratio Glucose POC Glucose (mg/dL) 111 H Lactic Acid 1.8 Calcium Magnesium Total Bilirubin Direct Bilirubin Indirect Bilirubin AST ALT Alkaline Phosphatase Ammonia C-Reactive Protein B-Natriuretic Peptide Total Protein Albumin Globulin Albumin/Globulin Ratio Lipase Blood Type Antibody Screen Crossmatch 06/18/18 06/18/18 06/18/18 02:00 02:05 06:00 WBC 5.7 RBC 3.49 L Hgb 10.7 L Hct 32 L MCV 91 MCH 31 MCHC 34 RDW 18 H Plt Count 67 L D MPV 7.9 Neut % (Auto) 64.9 Lymph % (Auto) 23.3 [place] % (Auto) 8.3 Eos % (Auto) 1.9 Baso % (Auto) 1.6 Absolute Neuts (auto) 3.7 Absolute Lymphs (auto) 1.3 Absolute Monos (auto) 0.5 Absolute Eos (auto) 0.1 Absolute Basos (auto) 0.1 Absolute Nucleated RBC 0 Nucleated RBC % 0.1 INR (Anticoag Therapy) APTT Sodium 138 Potassium 4.7 Chloride 113 H Carbon Dioxide 21 L Anion Gap 4 BUN 19 Creatinine 0.91 Est GFR ( Amer) 101.8 Est GFR (Non-Af Amer) 84.1 BUN/Creatinine Ratio 20.9 H Glucose 102 H POC Glucose (mg/dL) 107 H Lactic Acid Calcium 7.5 L Magnesium 1.7 L Total Bilirubin 1.70 H Direct Bilirubin 0.70 H Indirect Bilirubin 1.0 AST 40 H ALT 18 Alkaline Phosphatase 139 H Ammonia C-Reactive Protein B-Natriuretic Peptide Total Protein 5.0 L Albumin 2.7 L Globulin 2.3 Albumin/Globulin Ratio 1.2 Lipase Blood Type Antibody Screen Crossmatch 06/18/18 06/18/18 06/18/18 06:00 06:00 06:09 WBC 5.4 RBC 3.39 L Hgb 10.5 L Hct 31 L MCV 91 MCH 31 MCHC 34 RDW 19 H Plt Count 63 L MPV 7.7 Neut % (Auto) Lymph % (Auto) [place] % (Auto) Eos % (Auto) Baso % (Auto) Absolute Neuts (auto) Absolute Lymphs (auto) Absolute Monos (auto) Absolute Eos (auto) Absolute Basos (auto) Absolute Nucleated RBC Nucleated RBC % INR (Anticoag Therapy) 1.15 H APTT Sodium Potassium Chloride Carbon Dioxide Anion Gap BUN Creatinine Est GFR ( Amer) Est GFR (Non-Af Amer) BUN/Creatinine Ratio Glucose POC Glucose (mg/dL) 110 H Lactic Acid Calcium Magnesium Total Bilirubin Direct Bilirubin Indirect Bilirubin AST ALT Alkaline Phosphatase Ammonia C-Reactive Protein B-Natriuretic Peptide Total Protein Albumin Globulin Albumin/Globulin Ratio Lipase Blood Type Antibody Screen Crossmatch 06/18/18 09:47 WBC RBC Hgb 10.8 L Hct 32 L MCV MCH MCHC RDW Plt Count MPV Neut % (Auto) Lymph % (Auto) [place] % (Auto) Eos % (Auto) Baso % (Auto) Absolute Neuts (auto) Absolute Lymphs (auto) Absolute Monos (auto) Absolute Eos (auto) Absolute Basos (auto) Absolute Nucleated RBC Nucleated RBC % INR (Anticoag Therapy) APTT Sodium Potassium Chloride Carbon Dioxide Anion Gap BUN Creatinine Est GFR ( Amer) Est GFR (Non-Af Amer) BUN/Creatinine Ratio Glucose POC Glucose (mg/dL) Lactic Acid Calcium Magnesium Total Bilirubin Direct Bilirubin Indirect Bilirubin AST ALT Alkaline Phosphatase Ammonia C-Reactive Protein B-Natriuretic Peptide Total Protein Albumin Globulin Albumin/Globulin Ratio Lipase Blood Type Antibody Screen Crossmatch Imaging: - Assessment: 62y M w/pmhx of alcohol abuse, alcoholic liver cirrhosis, chronic thrombocytopenia, h/o variceal bleeding, portal hypertension, recent EGD with variceal banding 06/12/2018, active alcohol use and tobacco use, CAD, HLD, HTN, COPD? With occupational history history?; patient had a recent EGD with variceal banding x3 on 06/12. He comes today for sudden nausea+, vomiting+ and vomiting of bright red blood x 3 episodes at home, and 2 more in ER, all about cup worth. No sob/cp/abd pain. No diarrhea/black stools. no recent illness or fever/chills. He is awake, alert. Denies any other complaints. In ER, he was as low at 80s SBP, tachycardic, given IVF bolus thru peripheral IVs, now BP 100- 110s, not as tach. -Hypovolemic/hemorrhagic shock -Upper GI hemorrhage, likely from variceal hemorrhage, r/o PUD/gastritis -Alcoholic Cirrhosis Plan: Neuro- awake/alert. Delirium prec. Asp prec. Restart thiamine/folic acid later. CVS- BP stable. Hg 10s now. IVF PRN. Making ruine. thrombocytopenia, may need plt if further bleeding or drop in hg. INR normal. Resp- NC , no distress ID- wbc normal. tmax 100. No active source of infection noted, nontoxic. Given history of cirrhosis, cont empiric Ceftriaxone for SBP proph. GI- NPO. Upper GI hem, suspected variceal source. PPI and Octreotide infusion. EGD this morning scheduled. PRBC as needed. Lactulose on hold. GI consult. Renal- Cr okay. IVF bolus PRN. K okay, no acidosis. no cardona. Heme- GI hemorrhage, hg improved after 3 prbc. monitor for bleeding. PRN transfusion. Thrombocytopenia 60s, if further bleed or still ative, will transfuse Plt. INR normal. Endo- fingerstick q6h. Musculsk- pressure ulcer prophylaxis. Bedrest. Wounds- none Nutrition- NPO DVT prophylaxis: SCDs GI prophylaxis: PPI Central Line: no Arterial Line: no Cardona Cathetor: no Disposition: ICU Code Status: full code Total Critical Care time is 35 minutes, excluding procedures/teaching Azael Oliva MD [employer] (Electronically Signed)
--- NOTE | 2018-06-18 16:07 | PRO ---
CC: Leonardo Bolivar MD; Dr. Guillaume Mendoza PROCEDURE REPORT: DATE OF PROCEDURE: 06/18/18 PRIMARY CARE PROVIDER: Leonardo Bolivar MD PROCEDURE: EGD. INDICATIONS: The patient is an alcoholic cirrhotic with several episodes of variceal bleeding requiring banding in the past. Most recently, he was banded in the outpatient setting on 06/13/18. He reports that he did drink alcohol over the weekend. He also used Aleve. He reported some hematemesis at home and in the ER. He was admitted and initial recommendation was to continue octreotide and PPI. Overnight, he developed several episodes of dark red blood per rectum. He also developed hypotension, which responded to fluids and blood. He was given 3 units of blood total without significant increase in blood counts. No further episodes of bleeding or hematemesis since overnight. Plan is to reassess with EGD. MEDICATIONS GIVEN: By Anesthesia in ICU. The patient was not intubated during the exam. DESCRIPTION OF PROCEDURE: Full disclosure of risk was reviewed with the patient as detailed on the consent form. The patient was placed in the left lateral decubitus position and monitored with continuous pulse oximetry, interval blood pressure monitoring, and direct observation. A bite-block was placed between the teeth. An Olympus gastroscope was then inserted into the patient's mouth and advanced down the esophagus, into the stomach, and into the duodenum. Findings are described below. FINDINGS: Esophagus notable for at least 1 to 2 columns of [id number] nonbleeding varices without high risk stigmata in the mid to distal esophagus. In the distal esophagus, there is a large heaped up ulcer with scabbed appearance. There is no active bleeding or obvious visible vessel at ulcer, which is at the site of prior banding. Also in the distal esophagus is another post-banding site that demonstrated expected area of scarring. The scope was carefully advanced into the stomach, which was notable for portal hypertensive gastropathy. There was no fresh or old blood in the stomach. No erosions or ulcers. The scope was advanced into the duodenum. The duodenum was mildly erythematous with no erosions or ulcers. No fresh or old blood seen throughout the duodenum. The scope was withdrawn. Distal esophagus was again examined. No active bleeding seen. Scope was then withdrawn from the patient. The patient tolerated the procedure well. IMPRESSION: 1. Non-bleeding esophageal varices. 2. Non-bleeding post-variceal banding ulcer in distal esophagus. This is source of recent bleeding. Ulcer is non-bleeding without clear target for endotherapy. Will recommend medical management with PPI/Octreotide. 3. Portal hypertensive gastropathy. 4. No fresh or old blood seen on exam. Active bleeding appears to have stopped. FOLLOWUP: 1. Recommend PPI IV BID vs gtt. On discharge, the patient should be discharged on b.i.d. PPI until seen in clinic. 2. Recommend octreotide drip to complete 72 hours. 3. Recommend ceftriaxone for SBP prophylaxis. Can transition to oral antibiotics to complete a course prior to discharge. 4. Strongly encouraged the patient to avoid NSAIDs. Also reviewed the importance of abstinence from alcohol. 5. Can advance to clear liquid today if the patient remains stable. 6. The patient will follow-up in the clinic with Dr. Mendoza. Thank you for this consult. [id number]/[facility] #: [id number] [place]
[2018-06-18 19:06] LABS: Hematocrit 30 % (42-52); Hemoglobin 10.3 g/dl (14.0-18.0)
[2018-06-18] MEDS: Sucralfate TAB* 1 GM PO SCH (21:51)
[2018-06-19] MEDS: Octreotide Acetate* 500 MCG in NS 0.9% 100 ML* 100 ML IVPB SCH ×2 (00:09→10:59)
[2018-06-19 05:19] LABS: Hematocrit 31 % (42-52); Hemoglobin 10.5 g/dl (14.0-18.0); Mean Corpuscular HGB Conc 34 g/dl (31-36); Mean Corpuscular Hemoglobin 31 pg (27-31); Mean Corpuscular Volume 92 fL (80-94); Mean Platelet Volume 7.7 fL (7.4-10.4); Platelet Count 55 10^3/ul (150-450); Red Blood Count 3.37 10^6/ul (4.00-5.40); Red Cell Distribution Width 19 % (10.5-15); White Blood Count 5.1 10^3/ul (3.5-10.8)
[2018-06-19 05:21] LABS: INR 1.09 (0.77-1.02)
[2018-06-19 05:32] LABS: EGFR Non-African American 77.2 (>60)
[2018-06-19] MEDS: Sucralfate TAB* 1 GM PO SCH (09:53)
[2018-06-19] MEDS: Pantoprazole* 80 mg IN NS 80 MG/250 ML BAG IVPB SCH (10:59)
[2018-06-19] MEDS ORDERED: Magnesium Sulfate 2 GM IV* 2 GM/50 ML BAG IVPB ONE (11:00)
--- NOTE | 2018-06-19 11:05 | PN ---
Progress Note - Progress Note Date of Service: 06/19/18 Note: Progress Note -- Critical Care 24 hour events: -awake; alert -s/p EGD with esophageal ulcer yesterday near banding site; no further bleeding ; it was clotted -overnight tolerated clear lqiuids; no further vomitting blood or bloody in stools -no distress, afebrile; BP stable Tele: NSR Vitals: Vital Signs Temp 97.4 F 06/19/18 03:44 Pulse 48 06/19/18 06:00 Resp 22 06/19/18 06:00 BP 96/41 06/19/18 06:00 Pulse Ox 94 06/19/18 06:00 Intake & Output 06/18/18 06/19/18 06/19/18 18:59 06:59 18:59 Intake Total 1793 857.0 360 Output Total 1090 1000 Balance 703 -143.0 360 Weight 83.9 kg Intake: IV Fluids 500 NS (0.9%) 500 Medicated IV 313 732.0 GEN - Octreotide 89 147.0 GEN - Pantoprazole/ 224 585 Protonix Oral 980 125 360 Output: Urine 1090 1000 O2/Vent: NC Infusions: NS, octreotide infusion, ppi infusion Current Medications: Magnesium Sulfate 2 gm/ Sodium (Chloride) 104 mls @ 104 mls/hr IV ONCE ONE Stop: 06/19/18 11:53 Pantoprazole Sodium (Protonix Tab (Nf)) 40 mg PO BID ZITA Sucralfate (Sucralfate Susp) 1 gm PO BID [facility] Physical Exam: General: awake, alert, no distress, no diaphoresis Head: normocephalic, atraumatic HEENT: no pallor, no icterus, dry mucous membranes Neck: soft, supple, no jvd, no stridor CVS: normal rate, regular, no murmur Resp: bilateral air entry, no rhales, no wheeze, no rhonchi, no acc muscle use Abdomen: soft, distended, tense, nontender, bowel sounds present Ext: pulses+, warm, no edema Skin: intact Neuro: awake, alert, orientedx3, moving all extremities, no gross focal deficit Labs: Laboratory Results - last 24 hr 06/18/18 06/18/18 06/18/18 02:00 11:55 18:55 WBC RBC Hgb 10.3 L Hct 30 L MCV MCH MCHC RDW Plt Count MPV Hem Pathologist Commnt INR (Anticoag Therapy) Sodium Potassium Chloride Carbon Dioxide Anion Gap BUN Creatinine Est GFR ( Amer) Est GFR (Non-Af Amer) BUN/Creatinine Ratio Glucose POC Glucose (mg/dL) 114 H Calcium Magnesium Total Bilirubin Direct Bilirubin Indirect Bilirubin AST ALT Alkaline Phosphatase Total Protein Albumin Globulin Albumin/Globulin Ratio 06/19/18 06/19/18 06/19/18 04:46 04:46 04:46 WBC 5.1 RBC 3.37 L Hgb 10.5 L Hct 31 L MCV 92 MCH 31 MCHC 34 RDW 19 H Plt Count 55 L MPV 7.7 Hem Pathologist Commnt INR (Anticoag Therapy) 1.09 H Sodium 137 Potassium 4.1 Chloride 108 Carbon Dioxide 23 Anion Gap 6 BUN 16 Creatinine 0.98 Est GFR ( Amer) 93.5 Est GFR (Non-Af Amer) 77.2 BUN/Creatinine Ratio 16.3 Glucose 89 POC Glucose (mg/dL) Calcium 7.8 L Magnesium 1.6 L Total Bilirubin 1.80 H Direct Bilirubin 0.80 H Indirect Bilirubin 1.0 AST 42 H ALT 17 Alkaline Phosphatase 130 H Total Protein 5.0 L Albumin 2.6 L Globulin 2.4 Albumin/Globulin Ratio 1.1 Imaging: - Assessment: 62y M w/pmhx of alcohol abuse, alcoholic liver cirrhosis, chronic thrombocytopenia, h/o variceal bleeding, portal hypertension, recent EGD with variceal banding 06/12/2018, active alcohol use and tobacco use, CAD, HLD, HTN, COPD? With occupational history history?; patient had a recent EGD with variceal banding x3 on 06/12. He comes today for sudden nausea+, vomiting+ and vomiting of bright red blood x 3 episodes at home, and 2 more in ER, all about cup worth. No sob/cp/abd pain. No diarrhea/black stools. no recent illness or fever/chills. He is awake, alert. Denies any other complaints. In ER, he was as low at 80s SBP, tachycardic, given IVF bolus thru peripheral IVs, now BP 100- 110s, not as tach. -Hypovolemic/hemorrhagic shock; resolved -Upper GI hemorrhage 2/2 to esophageal ulcer -Alcoholic Cirrhosis Plan: Neuro- awake/alert. Delirium prec. Asp prec. thiamine/folic acid later. CVS- BP stable. Hg 10s. d/c IVF. toleratign po intake. no further bleeding noted. thrombocytopenia+ Resp- NC , no distress ID- wbc normal. afebrile. Off ceftriaxone now. GI- no further bleeding noted. hg stable. s/p EGD with esophageal ulcer which already stopped, it was around banding site. d/c octreotide and ppi infusion. start PPI po bid. cont carafate po bid. restart lactulose tomorrow or on discharge. Renal- Cr okay. d/c ivf. making urine. K okay, no acidosis. Replete IV Mg for hypomag. no cardona. Heme- GI hemorrhage, hg stable. noted thrombocytopenia, as prior history. no further bleeding. Endo- - Musculsk- pressure ulcer prophylaxis. oob to chair, ambulate as tolerated Wounds- none Nutrition- mech soft soft DVT prophylaxis: SCDs GI prophylaxis: PPI Central Line: no Arterial Line: no Cardona Cathetor: no Disposition: stable for transfer to [facility] floor Code Status: full code Azael Oliva MD Website Designer (Electronically Signed)
[2018-06-19] MEDS: Omeprazole CAP* 20 MG PO SCH ×2 (12:41→20:35)
[2018-06-19] MEDS ORDERED: NS 0.9% 1000 ML* 1,000 ML IV ONE (15:43)
[2018-06-19 15:50] LABS: Urine Appearance Clear; Urine Blood Negative (Negative); Urine Color Yellow; Urine Ketones Negative (Negative); Urine Protein Negative (Negative); Urine Specific Gravity 1.016 (1.010-1.030); Urine Urobilinogen Negative (Negative)
[2018-06-19 16:12] LABS: Hematocrit 34 % (42-52); Hemoglobin 11.5 g/dl (14.0-18.0); Mean Corpuscular HGB Conc 34 g/dl (31-36); Mean Corpuscular Hemoglobin 31 pg (27-31); Mean Corpuscular Volume 92 fL (80-94); Mean Platelet Volume 8.2 fL (7.4-10.4); Platelet Count 71 10^3/ul (150-450); Red Blood Count 3.71 10^6/ul (4.00-5.40); Red Cell Distribution Width 19 % (10.5-15); White Blood Count 7.8 10^3/ul (3.5-10.8)
[2018-06-19] MEDS: Sucralfate SUSP 1 GM/10 ml 10 ML UDC PO SCH (21:50)
[2018-06-19 22:50] LABS: Hematocrit 31 % (42-52); Hemoglobin 10.3 g/dl (14.0-18.0)
[2018-06-20 06:32] LABS: Hematocrit 31 % (42-52); Hemoglobin 10.2 g/dl (14.0-18.0); Mean Corpuscular HGB Conc 34 g/dl (31-36); Mean Corpuscular Hemoglobin 31 pg (27-31); Mean Corpuscular Volume 92 fL (80-94); Mean Platelet Volume 8.1 fL (7.4-10.4); Platelet Count 48 10^3/ul (150-450); Red Cell Distribution Width 19 % (10.5-15); White Blood Count 4.3 10^3/ul (3.5-10.8)
[2018-06-20 06:44] LABS: EGFR Non-African American 81.1 (>60)
[2018-06-20] MEDS: Folic Acid TAB* 1 MG PO SCH (08:59)
[2018-06-20] MEDS: Thiamine TAB* 100 MG TAB PO SCH (08:59)
[2018-06-20] MEDS: Omeprazole CAP* 20 MG PO SCH ×2 (08:59→19:46)
[2018-06-20] MEDS: Sucralfate SUSP 1 GM/10 ml 10 ML UDC PO SCH ×2 (08:59→19:46)
[2018-06-20] MEDS ORDERED: Magnesium Sulfate 2 GM IV* 2 GM/50 ML BAG IVPB ONE (09:42)
[2018-06-21 06:49] LABS: Hematocrit 31 % (42-52); Hemoglobin 10.3 g/dl (14.0-18.0); Mean Corpuscular HGB Conc 34 g/dl (31-36); Mean Corpuscular Hemoglobin 31 pg (27-31); Mean Corpuscular Volume 92 fL (80-94); Mean Platelet Volume 8.2 fL (7.4-10.4); Platelet Count 47 10^3/ul (150-450); Red Blood Count 3.31 10^6/ul (4.00-5.40); Red Cell Distribution Width 19 % (10.5-15); White Blood Count 4.1 10^3/ul (3.5-10.8)
[2018-06-21 07:02] LABS: EGFR Non-African American 86.3 (>60)
[2018-06-21 07:34] VITALS: BP 91/56
[2018-06-21] MEDS: Sucralfate SUSP 1 GM/10 ml 10 ML UDC PO SCH (08:24)
[2018-06-21] MEDS: Omeprazole CAP* 20 MG PO SCH (08:24)
[2018-06-21] MEDS: Thiamine TAB* 100 MG TAB PO SCH (08:24)
[2018-06-21] MEDS: Folic Acid TAB* 1 MG PO SCH (08:24)
--- NOTE | 2018-06-21 10:05 | PN ---
Subjective Date of Service: 06/20/18 Interval History: LATE ENTRY: Pt seen at about 1600 on 06/20/18. Pt was sitting in hallway feeling well. He informs me that today he had bloody stools x2. He denies any lightheadedness. He is anxious to go home. Objective Active Medications: Folic [facility] ([facility]olvite [facility]*) [facility] Last Admin: 06/21/18 08:24 Dose: 1 mg Omeprazole (Prilosec Cap*) 20 mg PO BID [facility] Last Admin: 06/21/18 08:24 Dose: 20 mg Sucralfate (Sucralfate Susp) 1 gm PO BID [facility] Last Admin: 06/21/18 08:24 Dose: 1 gm Thiamine HCl (Vitamin B-1 Tab*) 100 mg PO QAM [facility] Last Admin: 06/21/18 08:24 Dose: 100 mg Vital Signs - 8 hr 06/21/18 06/21/18 06/21/18 03:25 07:23 08:00 Temperature 98.1 F 98.6 F Pulse Rate 55 67 Respiratory 24 16 20 Rate Blood Pressure 100/52 91/56 (mmHg) O2 Sat by Pulse 94 95 Oximetry Oxygen Devices in Use Now: None Appearance: Middle aged male sitting up in a chair, NAD Eyes: No Scleral Icterus Ears/Nose/Mouth/Throat: Mucous Membranes Moist Respiratory: Symmetrical Chest Expansion and Respiratory Effort, Clear to Auscultation Cardiovascular: NL Sounds; No Murmurs; No JVD, RRR Abdominal: NL Sounds; No Tenderness; No Distention Extremities: No Clubbing, Cyanosis Skin: No Nodules or Sclerosis Neurological: Alert and Oriented x 3 Result Diagrams: 06/21/18 06:22 06/21/18 06:22 Microbiology and Other Data: Microbiology 06/17/18 18:00 Nasal Screen MRSA (PCR) - Final Nasal Mrsa Not Detected Assess/Plan/Problems-Billing Mr Goode is a 62 yo M who has a h/o alcohol abuse who underwent esophageal banding on 06/12/18 and presented to the ER with c/o hematemesis and was found to have an esophageal ulcer and hemorrhagic shock. - Patient Problems (1) Upper GI bleed Current Visit: Yes Status: Acute Code(s): K92.2 - GASTROINTESTINAL HEMORRHAGE, UNSPECIFIED SNOMED Code(s): 77331613 Comment: Secondary to esophageal ulcer at site of recent variceal banding. H/ H stable after 3 units PRBC. Continue BID PPI and carafate. (2) Hemorrhagic shock Current Visit: Yes Status: Acute Code(s): R57.8 - OTHER SHOCK SNOMED Code( s): 506871 Comment: Resolved. (3) Cirrhosis Current Visit: Yes Status: Acute Comment: Seconary to alcoholism. He is not ready to quit drinking. Continue lasix, spironolactone and lactulose. (4) Ascites Current Visit: Yes Status: Acute Code(s): R18.8 - OTHER ASCITES SNOMED Code(s): 271426038 Comment: Resume lasix and spironolactone. (5) DVT prophylaxis Current Visit: Yes Status: Acute Code(s): MGI7102 - SNOMED Code(s): 565284479 Comment: Ambulation (6) Full code status Current Visit: Yes Status: Acute Code(s): Z78.9 - OTHER SPECIFIED HEALTH STATUS SNOMED Code(s): 239331339
--- NOTE | 2018-06-21 11:14 | DS ---
CC: Dr. Bolivar; Dr. Mendoza * DISCHARGE SUMMARY: DATE OF ADMISSION: 06/17/18 DATE OF DISCHARGE: 06/21/18 PRIMARY CARE PROVIDER: Dr. Bolivar. NUCLEAR FUEL ENRICHMENT TECHNICIAN: Dr. Mendoza. PRINCIPAL DIAGNOSIS: Upper GI bleed with hemorrhagic shock secondary to esophageal ulcer. SECONDARY DIAGNOSES: 1. Alcohol abuse. 2. Alcoholic liver cirrhosis. 3. Chronic thrombocytopenia. 4. Portal hypertension. 5. Tobacco abuse. 6. Coronary artery disease. 7. Hyperlipidemia. 8. Hypertension. DISCHARGE MEDICATIONS: 1. Thiamine 100 mg p.o. daily. 2. Melatonin 3 mg p.o. q.h.s. 3. Magnesium oxide 400 mg p.o. b.i.d. 4. Folic acid 1 mg p.o. daily. 5. Ferrous gluconate 324 mg p.o. daily. 6. Vitamin B12 of 1000 mcg p.o. daily. 7. Protonix 40 mg p.o. twice daily. 8. Lasix 40 mg p.o. daily. 9. Spironolactone 100 mg p.o. daily. 10. Lactulose 30 mL p.o. daily. 11. Carafate 1 g p.o. b.i.d. HOSPITAL COURSE: Mr. Goode is a 62-year-old male with a known history of alcohol abuse, alcoholic cirrhosis who underwent EGD with esophageal variceal banding on 06/12/18. The patient presented to the emergency room on 06/17/18 with sudden onset of nausea and vomiting. He vomited bright red blood x3 episodes at home and 2 more in the emergency room. He was admitted for probable variceal bleed. The patient was started on octreotide and PPI infusions. He was seen in consultation by Dr. Mccann who recommended holding off on repeat EGD, however on 06/18/18 the patient ultimately did undergo EGD, which revealed nonbleeding esophageal varices. There is a nonbleeding post variceal banding ulcer in the distal esophagus. This was felt to be the source of the recent bleeding. Medical management was recommended. Of note, the patient was somewhat hypotensive during this event, this was felt to be due to hemorrhage. The patient was diagnosed with hemorrhagic shock. The patient was transfused 3 units of packed red blood cells. With the transfusion of 3 units of packed red blood cells, his hemoglobin has essentially been stable at 10 to 10.5. The patient has had intermittent blood noted within his stool. It was felt this is likely old blood. The patient has been instructed to monitor for any further bloody bowel movements or vomiting up of blood. If the is the case , he has been instructed to return to the emergency room. On the day of discharge, the patient is awake, alert, and oriented, walking in his room, in no acute distress. His cardiac exam reveals a normal S1, S2 with a regular rate and rhythm. His lungs are clear. His abdomen is soft, nontender , and mildly distended. He has no lower extremity edema. The patient is felt to be stable for discharge home. FOLLOWUP CONCERNS: The patient is being discharged home today 06/21/18. ACTIVITY LEVEL: As tolerated. DIET: Regular. CONDITION ON DISCHARGE: Stable. TIME SPENT: 35 minutes was spent discharging this patient. [id number]/CPS #: [id number] MTDD
== END 2018-06-21 10:30 | disposition home or self-care (01) | DRG 380 ==
LOC: ED 14:38 → ICU 15:48 → MED 06-19 11:46
PROVIDERS: ADMIT Internal Medicine Critical Care Medicine; ATTEND Hospitalist
PROC: 30233N1 Transfusion of Nonautologous Red Blood Cells into Peripheral Vein, Percutaneous Approach (ICD-10-PCS; principal; 2018-06-17)
PROC: 0DJ08ZZ Inspection of Upper Intestinal Tract, Via Natural or Artificial Opening Endoscopic (ICD-10-PCS; 2018-06-18)
DX: K22.11 Ulcer of esophagus with bleeding (principal); R57.8 Other shock; K76.6 Portal hypertension; K70.31 Alcoholic cirrhosis of liver with ascites; F10.10 Alcohol abuse, uncomplicated; D69.6 Thrombocytopenia, unspecified; F17.210 Nicotine dependence, cigarettes, uncomplicated; I25.10 Atherosclerotic heart disease of native coronary artery without angina pectoris; I11.9 Hypertensive heart disease without heart failure; E78.5 Hyperlipidemia, unspecified; I95.9 Hypotension, unspecified; F12.90 Cannabis use, unspecified, uncomplicated; J44.9 Chronic obstructive pulmonary disease, unspecified; K31.89 Other diseases of stomach and duodenum; Z79.899 Other long term (current) drug therapy
CPT/HCPCS: 36415; 80048; 80053; 80076; 81003; 82140; 83605; 83690; 83735; 83880; 85014; 85018; 85025; 85027; 85060; 85610; 85730; 86140; 86850; 86900; 86901; 86922; 87641; 93005; 99285; A9270-GY; J2250; J2354; J2405; J2704; J2765; J3010; J3475; P9040

== ENCOUNTER 2018-07-13 09:39 | Emergency (ER) | payer MEDICARE ==
[2018-07-13] MEDS: traMADol TAB* 50 MG PO ONE (12:29)
[2018-07-13 12:37] VITALS: BP 122/74
--- NOTE | 2018-07-13 15:52 | ED ---
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 He denies hitting his head or LOC. He endorses swelling without ecchymosis. Denies any color or temperature changes to the foot. Denies any pain to the lower extremity otherwise. He is endorsing 8/10 pain, constant and throbbing. - History of Current Complaint Chief Complaint: EDExtremityLower Stated Complaint: RIGHT ANKLE INJURY Time Seen by Provider: 07/13/18 09:57 Hx Obtained From: Patient Mechanism Of Injury: Twisted Onset of Pain: Hours Onset/Duration: Hours Severity Initially: Moderate Severity Currently: Moderate Pain Intensity: 8 Pain Scale Used: 0-10 Numeric Timing: Constant Location: Is Discrete @ - right ankle Character Of Pain: Aching Associated Signs And Symptoms: Positive: Swelling. Negative: Redness, Bruising , Weakness, Dizziness, Knee Pain Aggravating Factor(s): Standing, Ambulation, Movement, Weight Bearing Alleviating Factor(s): Rest Able to Bear Weight: No - Risk Factors Gout Risk Factors: Age Over 40, Male, Diabetes DVT Risk Factors: Negative Septic Arthritis Risk Factor: Negative - Allergies/Home Medications Allergies/Adverse Reactions: Allergies Allergy/AdvReac Type Severity Reaction Status Date / Time No Known Allergies Allergy Verified 07/13/18 09:53 PMH/Surg Hx/FS Hx/Imm Hx Previously Healthy: Yes Endocrine/Hematology History: Reports: Hx Blood Disorders, Hx Blood Transfusions , Hx Anemia - takes iron, Other Endocrine/Hematological Disorders - elevated INR -liver disease Denies: Hx Anticoagulant Therapy, Hx Bone Marrow Disease, Hx Diabetes, Hx Sickle Cell Disease, Hx Unexplained Bleeding - Report hematoemesis prior to ED arrival today, Hx varices bands x2 06/12/18 Cardiovascular History: Reports: Hx Coronary Artery Disease, Hx Hypercholesterolemia, Hx Hypertension - Was told he does but no meds, Other Cardiovascular Problems/Disorders - STENTS PLACED IN CHEST PT. UNSURE WHERE OR WHY Denies: Hx Pacemaker/ICD, Hx Peripheral Vascular Disease Respiratory History: Reports: Hx Chronic Obstructive Pulmonary Disease (COPD), Other Respiratory Problems/Disorders - SMOKER, ENVIRONMENTAL EXPOSURE TOXIC WELDING GASES GI History: Reports: Hx Cirrhosis - liver from ETOH, Hx Gastroesophageal Reflux Disease - ON MEDS, Hx Hiatal Hernia, Hx Jaundice - NOT PRESENTLY, Hx Ulcer, Other GI Disorders - hx of upper GI bleed, esophageal varices WITH STENTS X 3 History: Reports: Other Problems/Disorders - Hx cirrhosis of the liver Musculoskeletal History: Reports: Hx Arthritis - GENERALIZED, Hx Back Problems - back surgery, foot drop, Other Musculoskeletal History - right arm surgery, drop foot occured at some point Sensory History: Denies: Hx Cataracts, Hx Contacts or Glasses, Hx Glaucoma, Hx Hearing Aid Opthamlomology History: Denies: Hx Cataracts, Hx Contacts or Glasses, Hx Glaucoma Neurological History: Reports: Hx Spinal Cord Injury - hx back surg with drop foot right Denies: Hx Dementia, Hx Developmental Delay, Hx Headaches, Other Neuro Impairments/Disorders Psychiatric History: Reports: Other Psychiatric Issues/Disorders - ETOH abuse - Cancer History Hx Chemotherapy: No - Surgical History Surgery Procedure, Year, and Place: lumbar fusion back,. right forearm. EGD with ligation of esophageal varices 2 or 3 times last one 04/01 [facility] [place] [facility] [place]. EGD with variceal banding x2 bands on 06/12/18 Hx Anesthesia Reactions: No - Immunization History Hx Pertussis Vaccination: No Immunizations Up to Date: Yes Infectious Disease History: No Infectious Disease History: Denies: Hx Clostridium Difficile, Hx Hepatitis, Hx Human Immunodeficiency Virus (HIV), Traveled Outside the [place] in Last 30 Days - Family History Known Family History: Positive: Cardiac Disease - Social History Occupation: Employed Full-time Lives: With Family Alcohol Use: Daily Alcohol Amount: vodka 2-3 glasses daily Hx Substance Use: No Substance Use Type: Reports: Marijuana Substance Use Comment - Amount & Last Used: smoked 04/18/18 Hx Tobacco Use: Yes Smoking Status (MU): Current Every Day Smoker Type: Cigarettes Amount Used/How Often: 50 yr hx 1ppd Length of Time of Smoking/Using Tobacco: 50 Have You Smoked in the Last Year: Yes Review of Systems Constitutional: Negative Negative: Fever, Chills, Fatigue, Skin Diaphoresis Negative: Epistaxis, Dental Pain Negative: Palpitations, Chest Pain Negative: Shortness Of Breath, Cough Negative: Abdominal Pain, Vomiting Positive: Arthralgia - right ankle pain - swelling Skin: Negative Neurological: Negative All Other Systems Reviewed And Are Negative: Yes Physical Exam Triage Information Reviewed: Yes Vital Signs On Initial Exam: Initial Vitals Temp Pulse Resp BP Pulse Ox 98.8 F 88 16 110/80 95 07/13/18 09:55 07/13/18 09:55 07/13/18 09:55 07/13/18 09:55 07/13/18 09:55 Vital Signs Reviewed: Yes Appearance: Positive: Well-Appearing, Well-Nourished Skin: Positive: Warm, Skin Color Reflects Adequate Perfusion Head/Face: Positive: Normal Head/Face Inspection Eyes: Positive: EOMI, LUIS Neck: Positive: Supple, No Lymphadenopathy Respiratory/Lung Sounds: Positive: Clear to Auscultation, Breath Sounds Present Cardiovascular: Positive: RRR, Pulses are Symmetrical in both Upper and Lower Extremities Musculoskeletal: Positive: Pain @ - right ankle pain Neurological: Positive: Sensory/Motor Intact, Alert, Oriented to Person Place, Time Psychiatric: Positive: Affect/Mood Appropriate Procedures - Splinting Right Hand-Made Type: plaster Splint: sugar-tong Pre-Proc Neuro Vasc Exam: normal Post-Proc Neuro Vasc Exam: normal Diagnostics - Vital Signs Vital Signs Temp Pulse Resp BP Pulse Ox 07/13/18 12:35 97.9 F 65 20 122/74 95 07/13/18 09:55 98.8 F 88 16 110/80 95 - Laboratory Lab Statement: Any lab studies that have been ordered have been reviewed, and results considered in the medical decision making process. Lower Extremity Course/Dx - Course Course Of Treatment: Good pulses +2 bilaterally. Moderate amount of swelling to the right ankle. No ecchymosis noted. NV intact. Denies numbness or tingling. Unable to plantarflex or dorsiflex due to pain he denies any pain on palpation distally from the knee, however endorses pain just proximal to the ankle joint. X-ray obtained which shows minimally displaced fractures involving the fibular malleolus and posterior malleolus of the tibia. Discussed case with Dr. Perry. Dr. Perry able to see patient in ED. Provider placed posterior walking splint. Patient states pain improved. Tramadol 50 mg given in the ED. Terminal prescribed. Patient will call tomorrow morning to see Dr. Perry in the office. NV intact pre-and post splint. - Diagnoses Provider Diagnoses: Bimalleolar ankle fracture - Physician Notifications Discussed Care Of Patient With: Cosmo Merrill Discharge - Sign-Out/Discharge Documenting (check all that apply): Patient Departure - Discharge Plan Condition: Stable Disposition: HOME Prescriptions: traMADol TAB* [Ultram*] 50 mg PO Q8H PRN #12 tab MDD 3 PRN Reason: Pain Patient Education Materials: Ankle Fracture (ED) Referrals: Cosmo Merrill MD [Medical Doctor] - Yarelis Quispe MD [Primary Care Provider] - Additional Instructions: Please call Dr. Merrill's office tomorrow morning You will likely see him Saturday with potential surgery for saturday Keep the leg elevated as much as possible DO NOT BEAR WEIGHT Do not get the splint wet - Billing Disposition and Condition Condition: STABLE Disposition: Home
== END 2018-07-13 12:35 | disposition home or self-care (01) ==
LOC: ED 09:39
DX: S82.841A Displaced bimalleolar fracture of right lower leg, initial encounter for closed fracture (principal); W10.9XXA Fall (on) (from) unspecified stairs and steps, initial encounter; Y92.9 Unspecified place or not applicable; E11.9 Type 2 diabetes mellitus without complications; I10 Essential (primary) hypertension; I25.10 Atherosclerotic heart disease of native coronary artery without angina pectoris; F17.210 Nicotine dependence, cigarettes, uncomplicated
CPT/HCPCS: 99282; A9270-GY

== ENCOUNTER 2018-10-07 12:37 | Inpatient (IN) | payer MEDICARE ==
--- OUTSIDE RECORDS SUMMARY | 2018-10-07 12:51 | XMS REPORT | Continuity of Care Document ---
:1955 External Reference #:[id number] Author Name Devontekai Loni Care Team Providers Name Role Phone Dina Mortensen MD Primary Care Physician Unavailable Payers Date Identification Numbers Payment Provider Subscriber Policy Number: [id number] [facility] Medicare Solutions Christina Goode Group Number: [id number] [address] [address] PayID: [id number] [place] [address] Advance Directives Type Date Description Status Comment MOLST 04/04/2017 MOL Current and Verified Problems Date Description Provider Status Onset: 11/20/2010 Acute alcoholic liver disease Leonardo Bolivar M.D. Active Onset: 11/20/2010 Tobacco user Leonardo Bolivar M.D. Active Onset: 07/25/2016 Alcoholic cirrhosis Leonardo Bolivar M.D. Active Onset: 07/25/2016 Iron deficiency anemia Leonardo Bolivar M.D. Active Onset: 07/25/2016 Chronic obstructive lung disease Leonardo Bolivar M.D. Active Onset: 07/25/2016 Onychomycosis Leonardo Bolivar M.D. Active Onset: 07/25/2016 Gout Leonardo Bolivar M.D. Active Onset: 03/14/2017 Alcohol abuse, uncomplicated Leonardo Bolivar M.D. Active Onset: 04/04/2017 Mixed hyperlipidemia Leonardo Bolivar M.D. Active Onset: 04/04/2017 Umbilical hernia Leonardo Bolivar M.D. Active Onset: 05/16/2017 Hypertrophy of breast Leonardo Bolivar M.D. Active Onset: 03/20/2018 Gastrointestinal hemorrhage Siddharth Brumfield II, M.D. Active Onset: 03/21/2018 Essential hypertension Russ Trevino MD Active Onset: 03/23/2018 Portal hypertension Russ Trevino MD Active Onset: 03/25/2018 Alcohol abuse with other Jose Wilcox M.D. Active alcohol-induced disorder Onset: 06/20/2018 Bleeding ulcer of esophagus Lorraine Dexter, D.O. Active Onset: 06/20/2018 Other shock Lorraine Dexter, D.O. Active Onset: 06/20/2018 Alcohol dependence with other Lorraine Dexter, D.O. Active alcohol-induced disorder Family History Date Family Member(s) Observation Comments General Cancer General Hypertension Social History Type Date Description Comments Sex Unknown Lives With Alone Occupation Retired Tobacco Use Start: Unknown Current Cigarette Smoker 1 Pack age 12 Daily ETOH Use Former 6-8 drinks/day for 40yrs starting am ETOH Use drinks 12 drinks/week Recreational Drug Use Smokes pot Tobacco Use Start: Unknown Patient is a current smoker, smokes every day Tobacco Use Start: Unknown Light tobacco smoker (10 or fewer cigarettes/day) Smoking Status Reviewed: 10/06/18 Light tobacco smoker (10 or fewer cigarettes/day) Exercise Type/Frequency Exercises sporadically Allergies, Adverse Reactions, Alerts Description No Known Drug Allergies Medications Medication Date Status Form Strength Qnty SIG Indications Ordering Provider Spironolactone 10/06 Active Tablets 25mg 30tab once a day Dina s along with Mortensen, 100 mg of M.DAdele spironolacton e Right Ankle 10/02 Active 1unit 1 afo right S82.61xD Cosmo F Foot Orthosis /2018 s for chronic Desirae, right foot MD segal Ferrous Sulfate 04/30 Active Tablets 325(65Fe) 30tab 1 by mouth /2017 mg s every day Osmel with food Ingrid Thiamine HCL Active Tablets 100mg 90tab 1 by mouth / s every day Ingrid Bolivar Folic Acid Active Tablets 1mg 90tab 1 by mouth / s every day Ingrid Bolivar Vitamin B12 Active Tablets 1000mcg 1 by mouth ER every day (03/25/18 [facility]) Melatonin Active Capsules 3mg 1 tab by Unknown /0000 mouth every night at bedtime (03/25/18 [facility]) Magnesium Active Tablets 400mg 1 by mouth Unknown /0000 twice a day (03/25/18 [facility]) Lactulose Active Solution 10GM/15ML 473un Take 30 ML By Eli /0000 its Mouth Two MD Shahid Times A Day Furosemide Active Tablets 40mg 30tab Take One Karlee /0000 s Tablet By Cotton, Mouth Every M.D. Day Spironolactone Active Tablets 100mg 30tab Take One Karlee /0000 s Tablet By Cotton, Mouth Every M.D. Day Keflex 08/25 Hx Capsules 500mg 21cap 1 by mouth L03.115 Dirk s four times a Johanna, - day M.D. 10/06 Keflex 08/25 Hx Capsules 500mg 28cap 1 by mouth L03.115 Dirk s four times a Johanna, - day for 7 M.D. Carafate 06/27 Hx Tablets 1gm 30tab pt unsure if s he is Osmel, - taking-----on M.D. 10/06 e tab mouth twice daily. 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 03/04 Furosemide 09/28 Hx Tablets 20mg 90tab 1 by mouth s every day Osmel - M.D. 04/01 Propranolol HCL 09/28 Hx Tablets 10mg 30tab 1 tab daily s Ordering - Provider 10/02 Omeprazole 09/28 Hx Capsules 20mg 180ca [address] burks twice a day Osmel, - M.D. 03/13 Colchicine 09/28 Hx Tablets 0.6mg 30tab take one Leonardo s tablet by Osmel, - mouth daily M.D. 06/16 as needed for /2018 pain from gout attack Nadolol 09/28 Hx Tablets 20mg 90tab 1/2 tab by Bath sandhya mouth every Osmel, - day (not on M.D. 03/31 [facility] 03/12 DC /2017 med list) Lactulose 09/28 Hx Solution 10GM/15ML 473un Take 30ML Carlo its Twice Daily Diego Herrera M.D.,FACP 06/27 Spironolactone 07/25 Hx Tablets 25mg 180ta 1 by mouth K70.31 bs twice a day Diego Bolivar M.D. 04/04 Combivent 01/17 Hx 1unit 2puffs qid 496 Bath Inhal Diego Dover M.D. 01/17 Proventil HFA 01/17 Hx Aerosol 108(90Bas 1unit 2 puffs qid J44.9 e) mcg/ac Diego Dover M.D. 10/02 Kayexalate 15GM 11/22 Hx Powder 1 dose now Leonardo Diego Bolivar M.D. 02/18 Flexeril 11/05 Hx Tablets 10mg 45tab 1 po Qid federican Maciel Raza /Diego Lebron M.D. 11/15 Magnesium Oxide Hx 400mg po bid Unknown /0000 - 10/02 Multivitamin Hx po qday Unknown /0000 - 10/02 Colchicine Hx Capsules 0.6mg 1 by mouth Unknown /0000 every day - 07/25 Spironolactone Hx Tablets 25mg 1 by mouth Unknown /0000 every day - 03/13 Pantoprazole Hx Tablets 40mg 30tab 1 by mouth Leonardo Sodium /0000 DR arthur every day Osmel, - (per [facility] 03/12 M.D. 04/01 dc list) Omeprazole Hx Tablets 20mg 1 by mouth Unknown /0000 DR twice daily - (03/25/18 [facility] 06/27 DC) Pantoprazole Hx Tablets 40mg 14tab 1 by mouth Eli Sodium /0000 DR arthur every day MD Shahid - 10/06 Immunizations CPT Code Status Date Vaccine Reaction Lot # [id number] Given 10/02/2016 Pneumonia Vaccine no reaction, pt tolerated well [id number] Vital Signs Date Vital Result Comment 10/06/2018 1:21pm Height 69 inches 5'9" Weight 178.00 lb Heart Rate 85 /min BP Systolic 128 mmHg BP Diastolic 88 mmHg O2 % BldC Oximetry 98 % BMI (Body Mass Index) 26.3 kg/m2 10/02/2018 2:41pm Height 69 inches 5'9" Heart Rate 99 /min BP Systolic 118 mmHg BP Diastolic 78 mmHg Respiratory Rate 18 /min Body Temperature 98.0 F Pain Level 10 09/02/2018 2:07pm Height 69 inches 5'9" Weight 178.00 lb Heart Rate 68 /min BP Systolic 116 mmHg BP Diastolic 72 mmHg Body Temperature 96.5 F Pain Level 0 BMI (Body Mass Index) 26.3 kg/m2 08/25/2018 3:21pm Height 69 inches Weight 183.00 lb Heart Rate 108 /min BP Systolic 138 mmHg BP Diastolic 90 mmHg Respiratory Rate 16 /min Body Temperature 101.0 F Pain Level 8 BMI (Body Mass Index) 27.0 kg/m2 08/14/2018 1:03pm Height 68 inches 5'8" Weight 183.00 lb Heart Rate 76 /min BP Systolic 122 mmHg BP Diastolic 70 mmHg Respiratory Rate 14 /min Pain Level 0 BMI (Body Mass Index) 27.8 kg/m2 07/14/2018 12:02pm Height 68 inches 5'8" Weight 182.00 lb Heart Rate 80 /min BP Systolic 126 mmHg BP Diastolic 70 mmHg BMI (Body Mass Index) 27.7 kg/m2 06/16/2018 10:10am Height 64.5 inches 5'4.50" Weight 190.50 lb Heart Rate 65 /min BP Systolic 130 mmHg BP Diastolic 92 mmHg Body Temperature 97.7 F O2 % BldC Oximetry 94 % BMI (Body Mass Index) 32.2 kg/m2 09/16/2017 10:14am Heart Rate 96 /min BP Systolic Sitting 118 mmHg BP Diastolic Sitting 86 mmHg Respiratory Rate 20 /min Body Temperature 99.2 F 09/02/2017 1:09pm Height 69 inches 5'9" Weight 183.00 lb Heart Rate 76 /min BP Systolic 140 mmHg BP Diastolic 92 mmHg Respiratory Rate 18 /min Body Temperature 98.4 F BMI (Body Mass Index) 27.0 kg/m2 05/16/2017 11:27am Height 69 inches 5'9" Weight 198.00 lb Heart Rate 91 /min BP Systolic 130 mmHg BP Diastolic 70 mmHg Body Temperature 97.7 F O2 % BldC Oximetry 93 % BMI (Body Mass Index) 29.2 kg/m2 04/04/2017 8:56am Height 69 inches 5'9" Weight 182.00 lb Heart Rate 90 /min BP Systolic 130 mmHg BP Diastolic 74 mmHg Body Temperature 98.0 F O2 % BldC Oximetry 96 % BMI (Body Mass Index) 26.9 kg/m2 03/14/2017 9:20am Height 69 inches 5'9" Weight 194.00 lb Heart Rate 101 /min BP Systolic 144 mmHg BP Diastolic 86 mmHg Body Temperature 97.8 F O2 % BldC Oximetry 94 % BMI (Body Mass Index) 28.6 kg/m2 10/02/2016 9:42am Height 69 inches 5'9" Weight 187.25 lb Heart Rate 68 /min BP Systolic Sitting 94 mmHg BP Diastolic Sitting 56 mmHg Body Temperature 97.4 F O2 % BldC Oximetry 97 % BMI (Body Mass Index) 27.6 kg/m2 08/30/2016 1:16pm Height 69 inches 5'9" Weight 180.00 lb Heart Rate 72 /min BP Systolic 120 mmHg BP Diastolic 82 mmHg Respiratory Rate 18 /min Body Temperature 97.0 F BMI (Body Mass Index) 26.6 kg/m2 07/25/2016 1:02pm Weight 185.00 lb Heart Rate 70 /min BP Systolic Sitting 128 mmHg BP Diastolic Sitting 80 mmHg Respiratory Rate 15 /min Body Temperature 98.3 F O2 % BldC Oximetry 98 % 02/19/2014 11:09am Height 69 inches 5'9" Weight 172.00 lb Heart Rate 105 /min BP Systolic 130 mmHg BP Diastolic 90 mmHg BMI (Body Mass Index) 25.4 kg/m2 01/17/2011 9:32am Height 67 inches 5'7" Weight 151.00 lb Heart Rate 82 /min BP Systolic Sitting 110 mmHg BP Diastolic Sitting 64 mmHg BMI (Body Mass Index) 23.6 kg/m2 11/15/2010 8:22am Height 66 inches 5'6" Weight 132.00 lb Heart Rate 76 /min BP Systolic 116 mmHg BP Diastolic 80 mmHg BMI (Body Mass Index) 21.3 kg/m2 Results Test Date Facility Test Result H/L Range Note Laboratory test 06/17/2018 [facility] Partial 29.5 seconds N 26.0-36.[address] [place] [address] PTT [phone] B-Type Natriuretic Peptide BNP 112 pg/mL High <=100 Ammonia 100 mcmol/L High 16-53 Inr/Protime 06/17/2018 [facility] Inr 1.16 High 0.77-1.02 [place], [place] [id number] [phone] Urinalysis Profile 06/17/2018 [facility] [place] [address] [phone] Urine Appearance Clear Urine Specific [place]aver 1.016 N 1.010-1.030 Urine pH 6.0 N 5-9 Urine Urobilinogen Negative Negative Urine Ketones Negative Negative Urine Protein Negative Negative Urine Leukocytes Negative Negative Urine Blood Negative Negative Urine Nitrite Negative Negative Urine Bilirubin Negative Negative Urine Glucose Negative Negative Laboratory test 06/17/2018 [facility] Packed Cells SEE RESULTS 1 finding [facility] BELO <SEE NOTE> [place] [address] [phone] Type & Screen 06/17/2018 [facility] Patient [place] [address] [phone] Antibody Screen NEGATIVE Laboratory test 06/17/2018 [facility] Magnesium 1.6 mg/dL Low 1.9-2.7 [place] [address] [phone] Lipase 64 U/L N 11.0-82.0 C Reactive Protein 14.67 mg/L High <8.01 Comp Metabolic Panel 06/17/2018 [facility] Sodium 138 mmol/L N 135-145 [facility] [place] [address] [phone] Potassium 4.6 mmol/L N 3.5-5.0 Chloride 107 mmol/L N 101-111 Co2 Carbon Dioxide 24 mmol/L N 22-32 Anion Gap 7 mmol/L N 2-11 Glucose 136 mg/dL High 70-100 Blood Urea Nitrogen 18 mg/dL N 6-24 Creatinine 1.04 mg/dL N 0.67-1.17 BUN/Creatinine Ratio 17.3 N 8-20 Calcium 8.4 mg/dL Low 8.6-10.3 Total Protein 6.0 g/dL Low 6.4-8.9 Albumin 3.2 g/dL N 3.2-5.2 Globulin 2.8 g/dL N 2-4 Albumin/Globulin Ratio 1.1 N 1-3 Total Bilirubin 1.20 mg/dL High 0.2-1.0 Alkaline Phosphatase 170 U/L High 34-104 Alt 25 U/L N 7-52 Ast 49 U/L High 13-39 Egfr Non- 72.1 >60 Egfr 87.3 >60 2 Laboratory test 06/17/2018 [facility] Lactic Acid 2.0 mmol/L N 0.5-2.0 [address] [place] [address] [phone] CBC Auto Diff 06/17/2018 [facility] White Blood 9.8 10^3/uL N 3.5-10.[address] [place] [address] [phone] Red Blood Count 3.49 10^6/uL Low 4.00-5.40 Hemoglobin 10.9 g/dL Low 14.0-18.0 Hematocrit 32 % Low 42-52 Mean Corpuscular Volume 92 fL N 80-94 Mean Corpuscular Hemoglobin 31 pg N 27-31 Mean Corpuscular HGB Conc 34 g/dL N 31-36 Red Cell Distribution Width 21 % High 10.5-15 Platelet Count 150 10^3/uL N 150-450 Mean Platelet Volume 7.4 fL N 7.4-10.4 Abs Neutrophils 6.9 10^3/uL N 1.5-7.7 Abs Lymphocytes 2.0 10^3/uL N 1.0-4.8 Abs Monocytes 0.7 10^3/uL N 0-0.8 Abs Eosinophils 0.1 10^3/uL N 0-0.6 Abs Basophils 0.1 10^3/uL N 0-0.2 Abs Nucleated RBC 0 10^3/uL Granulocyte % 70.7 % Lymphocyte % 20.0 % Monocyte % 7.1 % Eosinophil % 1.3 % Basophil % 0.9 % Nucleated Red Blood Cells % 0 Hemoglobin/Hematocrit 04/24/2018 [facility] Hemoglobin 11.2 Low 14.0-18.[address] g/[place] [address] [phone] Hematocrit 33 % Low 42-52 Type & Screen 03/20/2018 [facility] Patient Blood Type A Positive [address] [place] [address] [phone] Antibody Screen NEGATIVE Type & Screen 03/20/2018 [facility] Patient Blood Type A Positive [address] [place] [address] [phone] Antibody Screen NEGATIVE Laboratory test 03/20/2018 [facility] Packed Cells SEE RESULTS [address] [place] <[place] [address] NOTE> [phone] Stool Occult 03/20/2018 [facility] Stool Occult SEE RESULT 6 Blood Diag [address] Blood, [place] [address] [phone] CBC Auto Diff 03/20/2018 [facility] White Blood 8.8 10^3/uL N 3.5-[address] Count .8 [place], [place] [id number] [phone] Red Blood Count 2.56 10^6/uL Low 4.00-5.40 Hemoglobin 8.3 g/dL Low 14.0-18.0 Hematocrit 24 % Low 42-52 Mean Corpuscular Volume 95 fL High 80-94 Mean Corpuscular Hemoglobin 32 pg High 27-31 Mean Corpuscular HGB Conc 34 g/dL N 31-36 Red Cell Distribution Width 17 % High 10.5-15 Platelet Count 140 10^3/uL Low 150-450 Mean Platelet Volume 7.7 um3 N 7.4-10.4 Abs Neutrophils 6.4 10^3/uL N 1.5-7.7 Abs Lymphocytes 1.6 10^3/uL N 1.0-4.8 Abs Monocytes 0.7 10^3/uL N 0-0.8 Abs Eosinophils 0 10^3/uL N 0-0.6 Abs Basophils 0.1 10^3/uL N 0-0.2 Abs Nucleated RBC 0 10^3/uL Granulocyte % 72.5 % N 38-83 Lymphocyte % 17.7 % Low 25-47 Monocyte % 8.1 % High 0-7 Eosinophil % 0.3 % N 0-6 Basophil % 1.4 % N 0-2 Nucleated Red Blood Cells % 0.1 Laboratory test 03/20/2018 [facility] Partial 34.2 N 26.0- 36.[address] [place] [address] PTT [phone] Inr/Protime 03/20/2018 [facility] Inr 1.20 High 0.77-1.02 [address] [place] [address] [phone] Comp Metabolic 03/20/2018 [facility] Sodium 142 mmol/L N 135- 145 Panel [address] [place] [address] [phone] Potassium 4.6 mmol/L N 3.5-5.0 Chloride 109 mmol/L N 101-111 Co2 Carbon Dioxide 23 mmol/L N 22-32 Anion Gap 10 mmol/L N 2-11 Glucose 95 mg/dL N 70-100 Blood Urea Nitrogen 38 mg/dL High 6-24 Creatinine 0.97 mg/dL N 0.67-1.17 BUN/Creatinine Ratio 39.2 High 8-20 Calcium 8.6 mg/dL N 8.6-10.3 Total Protein 6.0 g/dL Low 6.4-8.9 Albumin 3.3 g/dL N 3.2-5.2 Globulin 2.7 g/dL N 2-4 Albumin/Globulin Ratio 1.2 N 1-3 Total Bilirubin 2.20 mg/dL High 0.2-1.0 Alkaline Phosphatase 204 U/L High 34-104 Alt 19 U/L N 7-52 Ast 60 U/L High 13-39 Egfr Non- 78.2 >60 Egfr 94.6 >60 7 Laboratory test 03/20/2018 [facility] Magnesium 1.5 mg/dL Low 1.9-2.7 finding [address] [place] [address] [phone] Alcohol 79 mg/dL High <10 Urinalysis Profile 03/20/2018 [facility] Urine Color Yellow [address] [place] [address] [phone] Urine Appearance Clear Urine Specific [place] 1.015 N 1.010-1.030 Urine pH 6.0 N 5-9 Urine Urobilinogen Negative Negative Urine Ketones Trace Abnormal Negative Urine Protein Negative Negative Urine Leukocytes Negative Negative Urine Blood Negative Negative * * Abnormal Negative 8 Urine Nitrite Negative Negative Urine Bilirubin Negative Negative Urine Glucose Negative Negative Inr/Protime 03/08/2018 [facility] Inr 1.35 High 0.77-1.[address] [place] [address] [phone] Laboratory test 03/08/2018 [facility] Partial 31.5 N 26.0- 36.[address] [place] [address] Time PTT [phone] Comp Metabolic 03/08/2018 [facility] Sodium 139 mmol/L N 135- [address] [place] [address] [phone] Potassium 4.4 mmol/L N 3.5-5.0 Chloride 108 mmol/L N 101-111 Co2 Carbon Dioxide 24 mmol/L N 22-32 Anion Gap 7 mmol/L N 2-11 Glucose 108 mg/dL High 70-100 Blood Urea Nitrogen 36 mg/dL High 6-24 Creatinine 1.21 mg/dL High 0.67-1.17 BUN/Creatinine Ratio 29.8 High 8-20 Calcium 9.1 mg/dL N 8.6-10.3 Total Protein 6.1 g/dL Low 6.4-8.9 Albumin 3.3 g/dL N 3.2-5.2 Globulin 2.8 g/dL N 2-4 Albumin/Globulin Ratio 1.2 N 1-3 Total Bilirubin 2.80 mg/dL High 0.2-1.0 Alkaline Phosphatase 195 U/L High 34-104 Alt 20 U/L N 7-52 Ast 54 U/L High 13-39 Egfr Non- 60.6 >60 Egfr 73.3 >60 9 Laboratory test 03/08/2018 [facility] Troponin-I (TnI) 0.01 ng/ mL <0.[address] [place] [address] [phone] Ammonia 72 mcmol/L High 16-53 CBC Auto 03/08/2018 [facility] White Blood 11.1 10^3/uL High 3.5-10.[address] [place] [address] [phone] Red Blood Count 3.21 10^6/uL Low 4.00-5.40 Hemoglobin 10.7 g/dL Low 14.0-18.0 Hematocrit 31 % Low 42-52 Mean Corpuscular Volume 97 fL High 80-94 Mean Corpuscular Hemoglobin 33 pg High 27-31 Mean Corpuscular HGB Conc 34 g/dL N 31-36 Red Cell Distribution Width 16 % High 10.5-15 Platelet Count 84 10^3/uL Low 150-450 Mean Platelet Volume 8.8 um3 N 7.4-10.4 Abs Neutrophils 9.0 10^3/uL High 1.5-7.7 Abs Lymphocytes 1.2 10^3/uL N 1.0-4.8 Abs Monocytes 0.9 10^3/uL High 0-0.8 Abs Eosinophils 0.1 10^3/uL N 0-0.6 Abs Basophils 0.1 10^3/uL N 0-0.2 Abs Nucleated RBC 0 10^3/uL Granulocyte % 80.3 % N 38-83 Lymphocyte % 10.4 % Low 25-47 Monocyte % 8.0 % High 0-7 Eosinophil % 0.7 % N 0-6 Basophil % 0.6 % N 0-2 Nucleated Red Blood Cells % 0 Type & Screen 03/08/2018 [facility] Patient Blood Type A Positive [address] [place] [address] [phone] Antibody Screen NEGATIVE Laboratory test 09/02/2017 [facility] Ammonia 65 ?mol/L High 16-[address] [place] [address] [phone] CBC Auto Diff 09/02/2017 [facility] White Blood 7.8 10^3/uL N 3.5-10.[address] [place] [address] [phone] Red Blood Count 4.18 10^6/uL N 4.0-5.4 Hemoglobin 13.6 g/dL Low 14.0-18.0 Hematocrit 39 % Low 42-52 Mean Corpuscular Volume 93 fL N 80-94 Mean Corpuscular Hemoglobin 33 pg High 27-31 Mean Corpuscular HGB Conc 35 g/dL N 31-36 Red Cell Distribution Width 17 % High 10.5-15 Platelet Count 110 10^3/uL Low 150-450 Mean Platelet Volume 8 um3 N 7.4-10.4 Abs Neutrophils 5.6 10^3/uL N 1.5-7.7 Abs Lymphocytes 1.2 10^3/uL N 1.0-4.8 Abs Monocytes 0.8 10^3/uL N 0-0.8 Abs Eosinophils 0.1 10^3/uL N 0-0.6 Abs Basophils 0.1 10^3/uL N 0-0.2 Abs Nucleated RBC 0 10^3/uL Granulocyte % 72.6 % N 38-83 Lymphocyte % 15.2 % Low 25-47 Monocyte % 9.9 % High 1-9 Eosinophil % 1.3 % N 0-6 Basophil % 1.0 % N 0-2 Nucleated Red Blood Cells % 0.4 Inr/Protime 09/02/2017 [facility] Inr 1.11 High 0.77-1.[address] [place] [address] [phone] Laboratory test 09/02/2017 [facility] Partial 35.6 N 26.0- 36.[address] [place] [address] Time PTT [phone] Lactic Acid 1.4 mmol/L N 0.5-2.0 10 Comp Metabolic Panel 09/02/2017 [facility] Sodium 130 mmol/L Low 133-[address] [place] [address] [phone] Potassium 3.9 mmol/L N 3.5-5.0 Chloride 99 mmol/L Low 101-111 Co2 Carbon Dioxide 20 mmol/L Low 22-32 Anion Gap 11 mmol/L N 2-11 Glucose 125 mg/dL High 70-100 Blood Urea Nitrogen 14 mg/dL N 6-24 Creatinine 0.94 mg/dL N 0.67-1.17 BUN/Creatinine Ratio 14.9 N 8-20 Calcium 9.4 mg/dL N 8.6-10.3 Total Protein 7.9 g/dL N 6.4-8.9 Albumin 3.7 g/dL N 3.2-5.2 Globulin 4.2 g/dL High 2-4 Albumin/Globulin Ratio 0.9 Low 1-3 Total Bilirubin 2.40 mg/dL High 0.2-1.0 Alkaline Phosphatase 308 U/L High 34-104 Alt 25 U/L N 7-52 Ast 69 U/L High 13-39 Egfr Non- 81.1 >60 Egfr 104.2 >60 11 Laboratory test 09/02/2017 [facility] Lipase 146 U/L High 11.0 -82.0 finding [address] [place] [address] [phone] C Reactive Protein 42.54 mg/L High < 5.00 12 Iron & Iron Binding 04/16/2017 [facility] Iron 24 g/dL Low 50-212 Capacity [address] [place] [address] [phone] Unsaturated Iron Binding 469 g/dL N Total Iron Binding Capacity 493 g/dL High 250-450 % Iron Saturation 5 % Low 15-55 Vitamin B12 And 04/16/2017 [facility] Vitamin B12 353 pg/mL N 180-914 13 Folate Serum [address] [place] [address] [phone] Folic Acid (Folate) 17.13 ng/mL N >3.99 Laboratory test 04/16/2017 [facility] Uric Acid 9.5 mg/dL High 4.4-7.6 finding [address] [place] [address] [phone] PSA Screening 1.764 ng/mL N 0-4.000 14 Lipid Profile 04/04/2017 [facility] Triglycerides 128 mg/dL N 15 (Trig/Chol/HDL) [address] [place] [address] [phone] Cholesterol 169 mg/dL N 16 HDL Cholesterol 47.0 mg/dL N 17 LDL Cholesterol 96 mg/dL N 18 Laboratory test finding 04/04/2017 [facility] Ammonia 49 ?mol/L N 16-[address] [place] [address] [phone] Magnesium 1.6 mg/dL Low 1.9-2.7 CBC Auto Diff 04/04/2017 [facility] White Blood 5.9 10^3/uL N 3.5-10.8 [address] [facility] [address] [phone] Red Blood Count 4.01 10^6/uL N 4.0-5.4 Hemoglobin 10.1 g/dL Low 14.0-18.0 Hematocrit 31 % Low 42-52 Mean Corpuscular Volume 78 fL Low 80-94 Mean Corpuscular Hemoglobin 25 pg Low 27-31 Mean Corpuscular HGB Conc 32 g/dL N 31-36 Red Cell Distribution Width 20 % High 10.5-15 Platelet Count 83 10^3/uL Low 150-450 Mean Platelet Volume 8 um3 N 7.4-10.4 Abs Neutrophils 4.2 10^3/uL N 1.5-7.7 Abs Lymphocytes 0.9 10^3/uL Low 1.0-4.8 Abs Monocytes 0.7 10^3/uL N 0-0.8 Abs Eosinophils 0.1 10^3/uL N 0-0.6 Abs Basophils 0.1 10^3/uL N 0-0.2 Abs Nucleated RBC 0 10^3/uL N Granulocyte % 70.0 % N 38-83 Lymphocyte % 15.8 % Low 25-47 Monocyte % 11.2 % High 1-9 Eosinophil % 2.1 % N 0-6 Basophil % 0.9 % N 0-2 Nucleated Red Blood Cells % 0 N Comp Metabolic Panel 04/04/2017 [facility] Sodium 137 mmol/L N 133-[address] [place] [id number] [phone] Potassium 3.8 mmol/L N 3.5-5.0 Chloride 105 mmol/L N 101-111 Co2 Carbon Dioxide 24 mmol/L N 22-32 Anion Gap 8 mmol/L N 2-11 Glucose 89 mg/dL N 70-100 Blood Urea Nitrogen 11 mg/dL N 6-24 Creatinine 1.02 mg/dL N 0.67-1.17 BUN/Creatinine Ratio 10.8 N 8-20 Calcium 8.9 mg/dL N 8.6-10.3 Total Protein 7.2 g/dL N 6.4-8.9 Albumin 3.7 g/dL N 3.2-5.2 Globulin 3.5 g/dL N 2-4 Albumin/Globulin Ratio 1.1 N 1-3 Total Bilirubin 1.10 mg/dL High 0.2-1.0 Alkaline Phosphatase 179 U/L High 34-104 Alt 14 U/L N 7-52 Ast 39 U/L N 13-39 Egfr Non- 74.0 N >60 Egfr 95.2 N >60 19 CBC Auto Diff 03/11/2017 [facility] White Blood 7.9 10^3/uL N 3.5-10.[address] Count [place], [place] [address] [phone] Red Blood Count 4.41 10^6/uL N 4.0-5.4 Hemoglobin 10.9 g/dL Low 14.0-18.0 Hematocrit 34 % Low 42-52 Mean Corpuscular Volume 78 fL Low 80-94 Mean Corpuscular Hemoglobin 25 pg Low 27-31 Mean Corpuscular HGB Conc 32 g/dL N 31-36 Red Cell Distribution Width 21 % High 10.5-15 Platelet Count 112 10^3/uL Low 150-450 Mean Platelet Volume 8 um3 N 7.4-10.4 Abs Neutrophils 5.3 10^3/uL N 1.5-7.7 Abs Lymphocytes 1.7 10^3/uL N 1.0-4.8 Abs Monocytes 0.8 10^3/uL N 0-0.8 Abs Eosinophils 0.2 10^3/uL N 0-0.6 Abs Basophils 0.1 10^3/uL N 0-0.2 Abs Nucleated RBC 0 10^3/uL N Granulocyte % 66.3 % N 38-83 Lymphocyte % 21.1 % Low 25-47 Monocyte % 9.7 % High 1-9 Eosinophil % 2.0 % N 0-6 Basophil % 0.9 % N 0-2 Nucleated Red Blood Cells % 0 N Comp Metabolic Panel 03/11/2017 [facility] Sodium 134 mmol/L N 133-[address] [place], [place] [id number] [phone] Potassium 3.9 mmol/L N 3.5-5.0 Chloride 100 mmol/L Low 101-111 Co2 Carbon Dioxide 25 mmol/L N 22-32 Anion Gap 9 mmol/L N 2-11 Glucose 115 mg/dL High 70-100 Blood Urea Nitrogen 18 mg/dL N 6-24 Creatinine 1.29 mg/dL High 0.67-1.17 BUN/Creatinine Ratio 14.0 N 8-20 Calcium 9.6 mg/dL N 8.6-10.3 Total Protein 7.8 g/dL N 6.4-8.9 Albumin 3.9 g/dL N 3.2-5.2 Globulin 3.9 g/dL N 2-4 Albumin/Globulin Ratio 1.0 N 1-3 Total Bilirubin 1.20 mg/dL High 0.2-1.0 Alkaline Phosphatase 164 U/L High 34-104 Alt 16 U/L N 7-52 Ast 42 U/L High 13-39 Egfr Non- 56.4 N >60 Egfr 72.6 N >60 20 Laboratory test 03/11/2017 [facility] Magnesium 1.6 mg/dL Low 1.9-2.[address] [place] [address] [phone] Laboratory test 12/27/2016 [facility] Lactic Acid 2.0 mmol/L N 0.5-2.0 [address] [place] [address] [phone] CBC Auto Diff 12/27/2016 [facility] White Blood 5.9 N 3.5- 10.[address] Count 10^3/[place] [address] [phone] Red Blood Count 3.81 10^6/uL Low 4.0-5.4 Hemoglobin 8.9 g/dL Low 14.0-18.0 Hematocrit 28 % Low 42-52 Mean Corpuscular Volume 74 fL Low 80-94 Mean Corpuscular Hemoglobin 23 pg Low 27-31 Mean Corpuscular HGB Conc 31 g/dL N 31-36 Red Cell Distribution Width 21 % High 10.5-15 Platelet Count 84 10^3/uL Low 150-450 Mean Platelet Volume 7 um3 Low 7.4-10.4 Abs Neutrophils 4.4 10^3/uL N 1.5-7.7 Abs Lymphocytes 0.9 10^3/uL Low 1.0-4.8 Abs Monocytes 0.5 10^3/uL N 0-0.8 Abs Eosinophils 0.1 10^3/uL N 0-0.6 Abs Basophils 0.1 10^3/uL N 0-0.2 Abs Nucleated RBC 0 10^3/uL N Granulocyte % 74.9 % N 38-83 Lymphocyte % 15.1 % Low 25-47 Monocyte % 7.7 % N 1-9 Eosinophil % 0.9 % N 0-6 Basophil % 1.4 % N 0-2 Nucleated Red Blood Cells % 0 N Comp Metabolic Panel 12/27/2016 [facility] Sodium 138 mmol/L N 133-[address] [place] [address] [phone] Potassium 3.6 mmol/L N 3.5-5.0 Chloride 106 mmol/L N 101-111 Co2 Carbon Dioxide 23 mmol/L N 22-32 Anion Gap 9 mmol/L N 2-11 Glucose 103 mg/dL High 70-100 Blood Urea Nitrogen 9 mg/dL N 6-24 Creatinine 1.03 mg/dL N 0.67-1.17 BUN/Creatinine Ratio 8.7 N 8-20 Calcium 9.1 mg/dL N 8.6-10.3 Total Protein 7.2 g/dL N 6.4-8.9 Albumin 3.7 g/dL N 3.2-5.2 Globulin 3.5 g/dL N 2-4 Albumin/Globulin Ratio 1.1 N 1-3 Total Bilirubin 1.60 mg/dL High 0.2-1.0 Alkaline Phosphatase 155 U/L High 34-104 Alt 12 U/L N 7-52 Ast 46 U/L High 13-39 Egfr Non- 73.2 N >60 Egfr 94.1 N >60 22 Laboratory test 12/27/2016 [facility] Magnesium 1.5 mg/dL Low 1.9-2.7 finding [address] [place] [address] [phone] Amylase 53 U/L N 29-103 Lipase 42 U/L N 11.0-82.0 C Reactive Protein 4.04 mg/L N < 5.00 23 Pathologist Review (SEE NOTE) N 24 Laboratory test finding 09/25/2016 [facility] Alcohol < 10 mg/ dL N <10 25 [address] [place] [address] [phone] Ferritin 29.1 ng/mL N 24-336 Iron & Iron Binding 09/25/2016 [facility] Iron 36 g/dL Low 50-212 Capacity [address] [place] [address] [phone] Unsaturated Iron Binding 289 g/dL N Total Iron Binding Capacity 325 g/dL N 250-450 % Iron Saturation 11 % Low 15-55 Urinalysis Profile 09/25/2016 [facility] Urine Color Yellow N [address] [place] [address] [phone] Urine Appearance Clear N Urine Specific Beaver 1.017 N 1.010-1.030 Urine pH 6.0 N 5-9 Urine Urobilinogen Negative N Negative Urine Ketones Negative N Negative Urine Protein Negative N Negative Urine Leukocytes Negative N Negative Urine Blood Negative N Negative Urine Nitrite Negative N Negative Urine Bilirubin Negative N Negative Urine Glucose Negative N Negative Laboratory test 09/25/2016 [facility] Packed Cells SEE RESULTS [address] [place]O <SEE NOTE> [place] [address] [phone] Type & Screen 09/25/2016 [facility] Patient Blood A Positive [address] [place] [address] [phone] Antibody Screen NEGATIVE N Laboratory test 09/25/2016 [facility] Magnesium 1.7 mg/dL Low 1.9-2.[address] [place] [address] [phone] Lipase 86 U/L High 11.0-82.0 C Reactive Protein 11.88 mg/L High < 5.00 27 Troponin-I (TnI) 0.02 ng/mL N <0.04 28 Lactic Acid 5.6 mmol/L High 0.5-2.0 29 Comp Metabolic Panel 09/25/2016 [facility] Sodium 138 mmol/L N 133-[address] [place] [address] [phone] Potassium 4.9 mmol/L N 3.5-5.0 Chloride 108 mmol/L N 101-111 Co2 Carbon Dioxide 16 mmol/L Low 22-32 Anion Gap 14 mmol/L High 2-11 Glucose 132 mg/dL High 70-100 Blood Urea Nitrogen 52 mg/dL High 6-24 Creatinine 1.40 mg/dL High 0.67-1.17 BUN/Creatinine Ratio 37.1 High 8-20 Calcium 8.7 mg/dL N 8.6-10.3 Total Protein 5.3 g/dL Low 6.4-8.9 Albumin 2.7 g/dL Low 3.2-5.2 Globulin 2.6 g/dL N 2-4 Albumin/Globulin Ratio 1.0 N 1-3 Total Bilirubin 1.30 mg/dL High 0.2-1.0 Alkaline Phosphatase 95 U/L N 34-104 Alt 14 U/L N 7-52 Ast 34 U/L N 13-39 Egfr Non- 51.4 N >60 Egfr 66.0 N >60 30 Laboratory test 09/25/2016 [facility] Partial 28.7 seconds N 26.0-36.[address] [place] [address] PTT [phone] TSH (Thyroid Stim Horm) 2.87 mcIU/mL N 0.34-5.60 Inr/Protime 09/25/2016 [facility] Inr 1.31 High 0.89-1.[address] [place] [address] [phone] CBC Auto Diff 09/25/2016 [facility] White Blood 18.9 High 3.5- 10.[address] Count 10^3/[place] [address] [phone] Red Blood Count 1.87 10^6/uL Low 4.0-5.4 Hematocrit 18 % Low 42-52 Mean Corpuscular Volume 96 fL High 80-94 Mean Corpuscular Hemoglobin 30 pg N 27-31 Mean Corpuscular HGB Conc 31 g/dL N 31-36 Red Cell Distribution Width 21 % High 10.5-15 Platelet Count 210 10^3/uL N 150-450 Mean Platelet Volume 10 um3 N 7.4-10.4 Abs Neutrophils 13.1 10^3/uL High 1.5-7.7 Abs Lymphocytes 4.0 10^3/uL N 1.0-4.8 Abs Monocytes 1.5 10^3/uL High 0-0.8 Abs Eosinophils 0.1 10^3/uL N 0-0.6 Abs Basophils 0.3 10^3/uL High 0-0.2 Abs Nucleated RBC 0.01 10^3/uL N Granulocyte % 69.0 % N 38-83 Lymphocyte % 21.0 % Low 25-47 Monocyte % 8.2 % N 1-9 Eosinophil % 0.4 % N 0-6 Basophil % 1.4 % N 0-2 Nucleated Red Blood Cells % 0 N Hemoglobin 5.6 g/dL Low 14.0-18.0 31 Inr/Protime 09/20/2016 [facility] Inr 1.38 High 0.89-1.[address] [place] [address] [phone] Laboratory test 09/20/2016 [facility] Lactic Acid 1.5 N 0.5- 2.0 32 finding 101 mmol/[place] [address] [phone] Ammonia 82 ?mol/L High 16-53 Comp Metabolic Panel 09/20/2016 [facility] Sodium 137 mmol/L N 133-[address] [place] [address] [phone] Potassium 3.9 mmol/L N 3.5-5.0 Chloride 109 mmol/L N 101-111 Co2 Carbon Dioxide 22 mmol/L N 22-32 Anion Gap 6 mmol/L N 2-11 Glucose 112 mg/dL High 70-100 Blood Urea Nitrogen 36 mg/dL High 6-24 Creatinine 1.06 mg/dL N 0.67-1.17 BUN/Creatinine Ratio 34.0 High 8-20 Calcium 8.7 mg/dL N 8.6-10.3 Total Protein 5.2 g/dL Low 6.4-8.9 Albumin 2.6 g/dL Low 3.2-5.2 Globulin 2.6 g/dL N 2-4 Albumin/Globulin Ratio 1.0 N 1-3 Total Bilirubin 1.10 mg/dL High 0.2-1.0 Alkaline Phosphatase 97 U/L N 34-104 Alt 12 U/L N 7-52 Ast 29 U/L N 13-39 Egfr Non- 70.8 N >60 Egfr 91.0 N >60 33 Laboratory test 09/20/2016 [facility] Magnesium 1.4 mg/dL Low 1.9-2.[address] [place] [address] [phone] Lipase 60 U/L N 11.0-82.0 C Reactive Protein 19.29 mg/L High < 5.00 34 CBC Auto 09/20/2016 [facility] White Blood 12.4 10^3/uL High 3.5-10.[address] [place] [address] [phone] Red Blood Count 2.04 10^6/uL Low 4.0-5.4 Hemoglobin 6.4 g/dL Low 14.0-18.0 35 Hematocrit 19 % Low 42-52 Mean Corpuscular Volume 95 fL High 80-94 Mean Corpuscular Hemoglobin 31 pg N 27-31 Mean Corpuscular HGB Conc 33 g/dL N 31-36 Red Cell Distribution Width 18 % High 10.5-15 Platelet Count 113 10^3/uL Low 150-450 Mean Platelet Volume 10 um3 N 7.4-10.4 Abs Neutrophils 9.7 10^3/uL High 1.5-7.7 Abs Lymphocytes 1.4 10^3/uL N 1.0-4.8 Abs Monocytes 1.1 10^3/uL High 0-0.8 Abs Eosinophils 0.2 10^3/uL N 0-0.6 Abs Basophils 0.1 10^3/uL N 0-0.2 Abs Nucleated RBC 0.01 10^3/uL N Granulocyte % 78.2 % N 38-83 Lymphocyte % 11.0 % Low 25-47 Monocyte % 8.7 % N 1-9 Eosinophil % 1.5 % N 0-6 Basophil % 0.6 % N 0-2 Nucleated Red Blood Cells % 0.1 N Cell Morphology 09/20/2016 [facility] Macrocytosis 1+ N [address] [place] [address] [phone] Microcytosis 2+ N Polychromasia 1+ N Urinalysis Profile 09/20/2016 [facility] Urine Color Yellow N [address] [place] [address] [phone] Urine Appearance Clear N Urine Specific Beaver 1.019 N 1.010-1.030 Urine pH 5.0 N 5-9 Urine Urobilinogen Negative N Negative Urine Ketones Negative N Negative Urine Protein Negative N Negative Urine Leukocytes 1+ Abnormal Negative Urine Blood 1+ Abnormal Negative Urine Nitrite Negative N Negative Urine Bilirubin Negative N Negative Urine Glucose Negative N Negative Urine White Blood Cell 1+(6-10/hpf) Abnormal Absent Urine Red Blood Cell Trace(0-2/hpf) N Absent Urine Bacteria Absent N Absent Urine Squamous Epithelial Cell Present Abnormal Absent Urine Hyaline Casts Present Abnormal Absent Urinalysis Profile 09/20/2016 [facility] Urine Color Yellow N [address] [place] [address] [phone] Urine Appearance Clear N Urine Specific Beaver 1.019 N 1.010-1.030 Urine pH 5.0 N 5-9 Urine Urobilinogen Negative N Negative Urine Ketones Negative N Negative Urine Protein Negative N Negative Urine Leukocytes 1+ Abnormal Negative Urine Blood 1+ Abnormal Negative Urine Nitrite Negative N Negative Urine Bilirubin Negative N Negative Urine Glucose Negative N Negative Urine White Blood Cell 1+(6-10/hpf) Abnormal Absent Urine Red Blood Cell Trace(0-2/hpf) N Absent Urine Bacteria Absent N Absent Urine Squamous Epithelial Cell Present Abnormal Absent Urine Hyaline Casts Present Abnormal Absent Stool For Blood 09/20/2016 [facility] Stool Occult Blood SEE RESULT [address] [place] [address] [phone] Cell Morphology 09/20/2016 [facility] Macrocytosis 1+ [place] [address] [place] [address] [phone] Microcytosis 2+ N Polychromasia 1+ N Laboratory test 09/20/2016 [facility] Packed Cells SEE RESULTS [address] [place] <SEE NOTE> [place] [address] [phone] Type & Screen 09/20/2016 [facility] Patient Blood A Positive [address] [place] [address] [phone] Antibody Screen NEGATIVE N Laboratory test 09/20/2016 [facility] Magnesium 1.4 mg/dL Low 1.9-2.[address] [place] [address] [phone] Lipase 60 U/L N 11.0-82.0 C Reactive Protein 19.29 mg/L High < 5.00 38 Comp Metabolic Panel 09/20/2016 [facility] Sodium 137 mmol/L N 133-[address] [place] [address] [phone] Potassium 3.9 mmol/L N 3.5-5.0 Chloride 109 mmol/L N 101-111 Co2 Carbon Dioxide 22 mmol/L N 22-32 Anion Gap 6 mmol/L N 2-11 Glucose 112 mg/dL High 70-100 Blood Urea Nitrogen 36 mg/dL High 6-24 Creatinine 1.06 mg/dL N 0.67-1.17 BUN/Creatinine Ratio 34.0 High 8-20 Calcium 8.7 mg/dL N 8.6-10.3 Total Protein 5.2 g/dL Low 6.4-8.9 Albumin 2.6 g/dL Low 3.2-5.2 Globulin 2.6 g/dL N 2-4 Albumin/Globulin Ratio 1.0 N 1-3 Total Bilirubin 1.10 mg/dL High 0.2-1.0 Alkaline Phosphatase 97 U/L N 34-104 Alt 12 U/L N 7-52 Ast 29 U/L N 13-39 Egfr Non- 70.8 N >60 Egfr 91.0 N >60 39 Laboratory test 09/20/2016 [facility] Lactic Acid 1.5 mmol/L N 0.5-2.0 [address] [place] [address] [phone] Ammonia 82 ?mol/L High 16-53 Inr/Protime 09/20/2016 [facility] Inr 1.38 High 0.89-1.[address] [place] [address] [phone] CBC Auto Diff 09/20/2016 [facility] White Blood 12.4 High 3.5- 10.[address] Count 10^3/[place] [address] [phone] Red Blood Count 2.04 10^6/uL Low 4.0-5.4 Hemoglobin 6.4 g/dL Low 14.0-18.0 41 Hematocrit 19 % Low 42-52 Mean Corpuscular Volume 95 fL High 80-94 Mean Corpuscular Hemoglobin 31 pg N 27-31 Mean Corpuscular HGB Conc 33 g/dL N 31-36 Red Cell Distribution Width 18 % High 10.5-15 Platelet Count 113 10^3/uL Low 150-450 Mean Platelet Volume 10 um3 N 7.4-10.4 Abs Neutrophils 9.7 10^3/uL High 1.5-7.7 Abs Lymphocytes 1.4 10^3/uL N 1.0-4.8 Abs Monocytes 1.1 10^3/uL High 0-0.8 Abs Eosinophils 0.2 10^3/uL N 0-0.6 Abs Basophils 0.1 10^3/uL N 0-0.2 Abs Nucleated RBC 0.01 10^3/uL N Granulocyte % 78.2 % N 38-83 Lymphocyte % 11.0 % Low 25-47 Monocyte % 8.7 % N 1-9 Eosinophil % 1.5 % N 0-6 Basophil % 0.6 % N 0-2 Nucleated Red Blood Cells % 0.1 N Laboratory test 09/20/2016 [facility] Packed Cells SEE RESULTS [address] [place] <SEE NOTE> [place] [id number] [phone] Type & Screen 09/20/2016 [facility] Patient Blood A Positive N [address] [place] [address] [phone] Antibody Screen NEGATIVE N Urine Culture And 09/20/2016 [facility] Urine Culture SEE RESULT [address] [place] [address] [phone] Basic Metabolic 11/23/2010 [facility] Sodium 136 mmol/L 135- [address] [place] [address] [phone] Potassium 4.6 mmol/L 3.5-5.0 Chloride 101 mmol/L 101-111 Co2 (Carbon Dioxide) 27.0 mmol/L 22-32 Anion Gap 8.0 mmol/L 2-11 44 Glucose 89 mg/dL 70-100 BUN 7 mg/dL 6-24 Creatinine 0.90 mg/dL 0.50-1.40 One Over Creatinine 1.10 BUN/Creatinine Ratio 7.8 Low 8-20 Calcium 9.2 mg/dL 8.1-9.9 eGFR Non- 87.3 > 60 eGFR 112.3 > 60 45 Comp Metabolic Panel 11/22/2010 [facility] Sodium 139 mmol/L 135-[address] [place] [address] [phone] Potassium 5.6 mmol/L High 3.5-5.0 Chloride 105 mmol/L 101-111 Co2 (Carbon Dioxide) 28.0 mmol/L 22-32 Anion Gap 6.0 mmol/L 2-11 46 Glucose 97 mg/dL 70-100 BUN 4 mg/dL Low 6-24 Creatinine 0.90 mg/dL 0.50-1.40 One Over Creatinine 1.10 BUN/Creatinine Ratio 4.4 Low 8-20 Calcium 9.4 mg/dL 8.1-9.9 Total Protein 6.5 GM/DL 6.2-8.1 Albumin 3.2 GM/DL Low 3.6-5.4 Globulin 3.3 GM/DL 2-4 Albumin/Globulin Ratio 1.0 1-3 Bilirubin Total 1.5 mg/dL 0.4-1.5 47 Alkaline Phosphatase 234 U/L High 39-117 Alt (SGPT) 52 U/L 17-63 Ast (Sgot) 64 U/L High 12-42 eGFR Non- 87.3 > 60 eGFR 112.3 > 60 48 Lipid Profile 11/22/2010 [facility] Triglyceride 144 mg/dL 40 -200 (Trig/Chol/HDL) [address] [place] [address] [phone] Cholesterol 215 mg/dL High Less Than 200 49 High Density Lipoprotein 51 mg/dL 40-60 50 Cholesterol/HDL Ratio 4.22 AVERAGE 1-4.97 Low Density Lipoprotein 135 mg/dL High Less Than 100 51 Comp Metabolic Panel 11/15/2010 [facility] Sodium 133 mmol/L Low 135-[address] [place] [address] [phone] Potassium 4.0 mmol/L 3.5-5.0 Chloride 101 mmol/L 101-111 Co2 (Carbon Dioxide) 25.0 mmol/L 22-32 Anion Gap 7.0 mmol/L 2-11 52 Glucose 100 mg/dL 70-100 BUN 3 mg/dL Low 6-24 Creatinine 0.80 mg/dL 0.50-1.40 One Over Creatinine 1.20 BUN/Creatinine Ratio 3.8 Low 8-20 Calcium 9.1 mg/dL 8.1-9.9 Total Protein 7.3 GM/DL 6.2-8.1 Albumin 3.3 GM/DL Low 3.6-5.4 Globulin 4.0 GM/DL 2-4 Albumin/Globulin Ratio 0.8 Low 1-3 Bilirubin Total 1.9 mg/dL High 0.4-1.5 53 Alkaline Phosphatase 353 U/L High 39-117 Alt (SGPT) 100 U/L High 17-63 Ast (Sgot) 112 U/L High 12-42 eGFR Non- 100.0 > 60 eGFR 128.6 > 60 54 Laboratory 11/15/2010 [facility] Hepatitis C Negative Negative [address] [place] [address] [phone] Hepatitis B 11/15/2010 [facility] Hepatitis B Nonreactive Nonreactive Surface AB [address] [place] [address] [phone] Hbsab Index 0.13 56 Laboratory test 11/15/2010 [facility] PSA Screening 0.89 NG/ML 0-4 [address] [place] [address] [phone] TSH 3.98 MIU/ML 0.34-5.60 Lipid Profile 11/15/2010 [facility] Triglyceride 184 mg/dL 40 -200 (Trig/Chol/HDL) [address] [place] [address] [phone] Cholesterol 262 mg/dL High Less Than 200 58 High Density Lipoprotein 43 mg/dL 40-60 59 Cholesterol/HDL Ratio 6.09 AVERAGE High 1-4.97 Low Density Lipoprotein 182 mg/dL High Less Than 100 60 CBC Auto Diff 11/15/2010 [facility] White Blood 7.0 CUMM 4.8- 10.[address] [place] [address] [phone] Red Cell Count 3.43 CUMM Low 4.6-6.2 Hemoglobin 11.8 g/dL Low 14.0-18.0 Hematocrit 35 % Low 42-52 Mean Corpuscular Volume 103 um3 High 80-94 Mean Corpuscular Hemoglob 35 pg High 27-31 Mean Corpuscular HGB Cone 34 g/dL 32-36 Redcell Distribution WDTH 14 % 10.5-15 Platelet Count 428 CUMM 150-450 Mean Platelet Volume 9.0 um3 7.4-10.4 Gran % 62.5 % 38-83 Lymph % 24.7 % Low 25-47 Mononuclear % 10.9 % High 1-9 Eosinophil % 1.1 % 0-6 Basophil % 0.8 % 0-2 Abs Lymphs 1.7 1.0-4.8 Abs Mononuclear 0.8 0-0.8 Absolute Neutrophil Count 4.4 1.5-7.7 Abs Eosinophils 0.1 0-0.6 Abs Basophils 0.1 0-0.2 1 SEE RESULTS BELOW [id number] AP PC TRANSFUSED 06/17/18 1643 [id number] AP PC TRANSFUSED 06/17/18 2049 [id number] AP PC NOT AVAILABLE [id number] AP PC TRANSFUSED 06/18/18 0018 2 Because ethnic data is not always readily available, this report includes an eGFR for both -Americans and non- Americans. The National Kidney Disease Education Program (NKDEP) does not endorse the use of the MDRD equation for patients that are not between the ages of 18 and 70, are , have extremes of body size, muscle mass, or nutritional status, or are non- or non-. According to the National Kidney Foundation, irrespective of diagnosis, the stage of the disease is based on the level of kidney function: Stage Description GFR(mL/min/1.73 m(2)) 1 Kidney damage with normal or decreased GFR 90 2 Kidney damage with mild decrease in GFR 60-89 3 Moderate decrease in GFR 30-59 4 Severe decrease in GFR 15-29 5 Kidney failure <15 (or dialysis) 3 [facility] Severe Sepsis and Septic Shock Management Bundle Measure requires all lactic acids initially measuring >2.0 mmol/L be repeated. 4 NAUSEA/VOMITING/DIARRHEA 5 SEE RESULTS BELOW [id number] AP PC TRANSFUSED 03/21/18 0800 [id number] AP PC TRANSFUSED 03/21/18 1050 6 SEE RESULT BELOW Name: CHRISTINA GOODE : [address]: Deepthi Hein MD Acct: [id number] Unit: [id number] AGE: 62 Location: ED Re03/20/18 SEX: M Status: REG ER SPEC: [id number] SAMIR: 03/20/[address]: Deepthi Hein MD REQ: [id number] RECD: 03/20/18 STATUS: COMP OTHR DR: Leonardo Bolivar MD _ SOURCE: STOOL SPDESC: ORDERED: Occult Bl, Diag Procedure Result Reported Site Stool Occult Blood (1) Final 03/20/18- 2204 ML Stool Occult Blood Positive Collection Date (1) 03/20/18 * ML - Main Lab . END OF REPORT DEPARTMENT OF PATHOLOGY, [address] [place] [address] Giovani Hoyt M.D. Director [facility] # [id number] 7 Because ethnic data is not always readily available, this report includes an eGFR for both -Americans and non- Americans. The National Kidney Disease Education Program (NKDEP) does not endorse the use of the MDRD equation for patients that are not between the ages of 18 and 70, are , have extremes of body size, muscle mass, or nutritional status, or are non- or non-. According to the National Kidney Foundation, irrespective of diagnosis, the stage of the disease is based on the level of kidney function: Stage Description GFR(mL/min/1.73 m(2)) 1 Kidney damage with normal or decreased GFR 90 2 Kidney damage with mild decrease in GFR 60-89 3 Moderate decrease in GFR 30-59 4 Severe decrease in GFR 15-29 5 Kidney failure <15 (or dialysis) 8 *Ascorbic acid is present which may interfere with detection of blood. 9 Because ethnic data is not always readily available, this report includes an eGFR for both -Americans and non- Americans. The National Kidney Disease Education Program (NKDEP) does not endorse the use of the MDRD equation for patients that are not between the ages of 18 and 70, are , have extremes of body size, muscle mass, or nutritional status, or are non- or non-. According to the National Kidney Foundation, irrespective of diagnosis, the stage of the disease is based on the level of kidney function: Stage Description GFR(mL/min/1.73 m(2)) 1 Kidney damage with normal or decreased GFR 90 2 Kidney damage with mild decrease in GFR 60-89 3 Moderate decrease in GFR 30-59 4 Severe decrease in GFR 15-29 5 Kidney failure <15 (or dialysis) 10 [facility] Severe Sepsis and Septic Shock Management Bundle Measure requires all lactic acids initially measuring >2.0 mmol/L be repeated. 11 Because ethnic data is not always readily available, this report includes an eGFR for both -Americans and non- Americans. The National Kidney Disease Education Program (NKDEP) does not endorse the use of the MDRD equation for patients that are not between the ages of 18 and 70, are , have extremes of body size, muscle mass, or nutritional status, or are non- or non-. According to the National Kidney Foundation, irrespective of diagnosis, the stage of the disease is based on the level of kidney function: Stage Description GFR(mL/min/1.73 m(2)) 1 Kidney damage with normal or decreased GFR 90 2 Kidney damage with mild decrease in GFR 60-89 3 Moderate decrease in GFR 30-59 4 Severe decrease in GFR 15-29 5 Kidney failure <15 (or dialysis) 12 Acute inflammation: >10.00 13 Normal Range 180 to 914 Indeterminate Range 145 to 180 Deficient Range <145 14 Serum levels of PSA measured using the [employer] DXI Hybritech immunoassay should not be interpreted as absolute evidence of the presence or absence of disease. The PSA value should be used in conjunction with other pertinent clinical diagnostic procedures. The values obtained with different assay methods or kits cannot be used interchangeably. 15 Desirable <150 Borderline high 150-199 High 200-499 Very High >500 16 Desirable <200 Borderline high 200-239 High >239 17 Low <40 Desirable: 40-60 High: >60 18 Desirable: <100 mg/dL Near Optimal: 100-129 mg/dL Borderline High: 130-159 mg/dL High: 160-189 mg/dL Very High: >189 mg/dL 19 Because ethnic data is not always readily available, this report includes an eGFR for both -Americans and non- Americans. The National Kidney Disease Education Program (NKDEP) does not endorse the use of the MDRD equation for patients that are not between the ages of 18 and 70, are , have extremes of body size, muscle mass, or nutritional status, or are non- or non-. According to the National Kidney Foundation, irrespective of diagnosis, the stage of the disease is based on the level of kidney function: Stage Description GFR(mL/min/1.73 m(2)) 1 Kidney damage with normal or decreased GFR 90 2 Kidney damage with mild decrease in GFR 60-89 3 Moderate decrease in GFR 30-59 4 Severe decrease in GFR 15-29 5 Kidney failure <15 (or dialysis) 20 Because ethnic data is not always readily available, this report includes an eGFR for both -Americans and non- Americans. The National Kidney Disease Education Program (NKDEP) does not endorse the use of the MDRD equation for patients that are not between the ages of 18 and 70, are , have extremes of body size, muscle mass, or nutritional status, or are non- or non-. According to the National Kidney Foundation, irrespective of diagnosis, the stage of the disease is based on the level of kidney function: Stage Description GFR(mL/min/1.73 m(2)) 1 Kidney damage with normal or decreased GFR 90 2 Kidney damage with mild decrease in GFR 60-89 3 Moderate decrease in GFR 30-59 4 Severe decrease in GFR 15-29 5 Kidney failure <15 (or dialysis) 21 [facility] Severe Sepsis and Septic Shock Management Bundle Measure requires all lactic acids initially measuring >2.0 mmol/L be repeated. 22 Because ethnic data is not always readily available, this report includes an eGFR for both -Americans and non- Americans. The National Kidney Disease Education Program (NKDEP) does not endorse the use of the MDRD equation for patients that are not between the ages of 18 and 69, are , have extremes of body size, muscle mass, or nutritional status, or are non- or non-. According to the National Kidney Foundation, irrespective of diagnosis, the stage of the disease is based on the level of kidney function: Stage Description GFR(mL/min/1.73 m(2)) 1 Kidney damage with normal or decreased GFR 90 2 Kidney damage with mild decrease in GFR 60-89 3 Moderate decrease in GFR 30-59 4 Severe decrease in GFR 15-29 5 Kidney failure <15 (or dialysis) 23 Acute inflammation: >10.00 24 Persistent microcytic anemia with red cell indices suggestive of iron deficiency noted. Persisted Thrombocytopenia noted. Additional studies as clinically warranted. Reviewed by Dr. Hoyt 25 VOMITING BLOOD 26 SEE RESULTS BELOW [id number] AP PC TRANSFUSED 09/25/16 0918 [id number] AP PC TRANSFUSED 09/25/16 0918 [id number] AP PC TRANSFUSED 09/25/16 1826 [id number] AP PC TRANSFUSED 09/25/16 1556 27 Acute inflammation: >10.00 28 99th percentile=0.04 ng/mL Troponin results at [facility] and [facility] are not interchangeable. 29 Critical Result LACT:5.6 Called to [id number] at: 08:52:45 by:[id number] Read back by:VERONICA [facility] Severe Sepsis and Septic Shock Management Bundle Measure requires all lactic acids initially measuring >2.0 mmol/L be repeated. [facility] Severe Sepsis and Septic Shock Management Bundle Measure requires all lactic acids initially measuring >2.0 mmol/L be repeated. 30 Because ethnic data is not always readily available, this report includes an eGFR for both -Americans and non- Americans. The National Kidney Disease Education Program (NKDEP) does not endorse the use of the MDRD equation for patients that are not between the ages of 18 and 70, are , have extremes of body size, muscle mass, or nutritional status, or are non- or non-. According to the National Kidney Foundation, irrespective of diagnosis, the stage of the disease is based on the level of kidney function: Stage Description GFR(mL/min/1.73 m(2)) 1 Kidney damage with normal or decreased GFR 90 2 Kidney damage with mild decrease in GFR 60-89 3 Moderate decrease in GFR 30-59 4 Severe decrease in GFR 15-29 5 Kidney failure <15 (or dialysis) 31 Verbal to [id number] by [id number] at 0844 on 09/25/16. Results read back accurately. 32 [facility] Severe Sepsis and Septic Shock Management Bundle Measure requires all lactic acids initially measuring >2.0 mmol/L be repeated. 33 Because ethnic data is not always readily available, this report includes an eGFR for both -Americans and non- Americans. The National Kidney Disease Education Program (NKDEP) does not endorse the use of the MDRD equation for patients that are not between the ages of 18 and 70, are , have extremes of body size, muscle mass, or nutritional status, or are non- or non-. According to the National Kidney Foundation, irrespective of diagnosis, the stage of the disease is based on the level of kidney function: Stage Description GFR(mL/min/1.73 m(2)) 1 Kidney damage with normal or decreased GFR 90 2 Kidney damage with mild decrease in GFR 60-89 3 Moderate decrease in GFR 30-59 4 Severe decrease in GFR 15-29 5 Kidney failure <15 (or dialysis) 34 Acute inflammation: >10.00 35 Verbal to [id number] by [id number] at 0752 on 09/20/16. Results read back accurately. 36 SEE RESULT BELOW Name: CHRISTINA GOODE : [address]: Andrés Marrero MD Acct: [id number] Unit: [id number] AGE: 61 Location: ICU [id number] Re09/20/16 SEX: M Status: ADM IN SPEC: [id number] SAMIR: 09/20/[address] [facility] [address]: Andrés Marrero MD REQ: [id number] RECD: 09/20/16-124 STATUS: LEILA GUSTAFSON DR: Gallito Bolivar MD _ SOURCE: STOOL SPDESC: ORDERED: Hemoccult COMMENTS: SPECIMEN WAS LABLED 1929 BUT CONFIRMED COLLECTION TIME TO BE 0730 Procedure Result Reported Site Stool Occult Blood Final 09/20/16- 1300 ML Stool Occult Blood Positive * ML - MAIN LAB ([facility]) . END OF REPORT * ML=Testing performed at Main Lab DEPARTMENT OF PATHOLOGY, [address] [place] [address] Giovani Hoyt M.D. Director [facility] # [id number] 37 SEE RESULTS BELOW [id number] AP PC TRANSFUSED 09/20/16 0849 [id number] AP PC TRANSFUSED 09/20/16 0840 38 Acute inflammation: >10.00 39 Because ethnic data is not always readily available, this report includes an eGFR for both -Americans and non- Americans. The National Kidney Disease Education Program (NKDEP) does not endorse the use of the MDRD equation for patients that are not between the ages of 18 and 70, are , have extremes of body size, muscle mass, or nutritional status, or are non- or non-. According to the National Kidney Foundation, irrespective of diagnosis, the stage of the disease is based on the level of kidney function: Stage Description GFR(mL/min/1.73 m(2)) 1 Kidney damage with normal or decreased GFR 90 2 Kidney damage with mild decrease in GFR 60-89 3 Moderate decrease in GFR 30-59 4 Severe decrease in GFR 15-29 5 Kidney failure <15 (or dialysis) 40 [facility] Severe Sepsis and Septic Shock Management Bundle Measure requires all lactic acids initially measuring >2.0 mmol/L be repeated. 41 Verbal to [id number] by [id number] at 0752 on 09/20/16. Results read back accurately. 42 SEE RESULTS BELOW [id number] OP PC TRANSFUSED 09/21/16 0859 [id number] AP PC TRANSFUSED 09/20/16 0849 [id number] AP PC TRANSFUSED 09/20/16 0840 43 SEE RESULT BELOW Name: CHRISTINA GOODE : [address]: Andrés Marrero MD Acct: [id number] Unit: [id number] AGE: 61 Location: ICU [id number] Re09/20/16 SEX: M Status: ADM IN SPEC: [id number] SAMIR: 09/20/[address] [facility] [address]: Han Small MD REQ: [id number] RECD: 09/20/16 STATUS: LEILA GUSTAFSON DR: Leonardo Soliman MD _ SOURCE: URINE SPDESC: ORDERED: Urine Culture Procedure Result Reported Site Urine Culture Final 09/21/16- 1305 ML No growth of clinically significant organisms * ML - MAIN LAB ([facility]) . END OF REPORT * ML=Testing performed at Main Lab DEPARTMENT OF PATHOLOGY, [address] [place] [address] Giovani Hoyt M.D. Director [facility] # [id number] 44 Anion gap measurement may be of limited value in the presence of any alkalosis, especially in a combined acid base disorder. . 45 Because ethnic data is not always readily available, this report includes an eGFR for both -Americans and non- Americans. The National Kidney Disease Education Program (NKDEP) does not endorse the use of the MDRD equation for patients that are not between the ages of 18 and 70, are , have extremes of body size, muscle mass, or nutritional status, or are non- or non-. According to the National Kidney Foundation, irrespective of diagnosis, the stage of the disease is based on the level of kidney function: Stage Description GFR(mL/min/1.73 m(2)) 1 Kidney damage with normal or decreased GFR 90 2 Kidney damage with mild decrease in GFR 60-89 3 Moderate decrease in GFR 30-59 4 Severe decrease in GFR 15-29 5 Kidney failure <15 (or dialysis) 46 Anion gap measurement may be of limited value in the presence of any alkalosis, especially in a combined acid base disorder. . 47 A metabolite of Naproxen, O-desmethylnaproxen, has been shown to interfere with the [place] method for measuring total bilirubin. Samples from patients who have taken Naproxen have shown spurious elevation in total bilirubin levels. 48 Because ethnic data is not always readily available, this report includes an eGFR for both -Americans and non- Americans. The National Kidney Disease Education Program (NKDEP) does not endorse the use of the MDRD equation for patients that are not between the ages of 18 and 70, are , have extremes of body size, muscle mass, or nutritional status, or are non- or non-. According to the National Kidney Foundation, irrespective of diagnosis, the stage of the disease is based on the level of kidney function: Stage Description GFR(mL/min/1.73 m(2)) 1 Kidney damage with normal or decreased GFR 90 2 Kidney damage with mild decrease in GFR 60-89 3 Moderate decrease in GFR 30-59 4 Severe decrease in GFR 15-29 5 Kidney failure <15 (or dialysis) 49 CHOLESTEROL INTERPRETATION: Desirable: Less than 200 MG/DL Borderline-High Risk: 200-239 MG/DL High-Risk: 240 MG/DL and over 50 HDL INTERPRETATION: Undesirable: High Risk: Less than 40 MG/DL Desirable: Low Risk: Greater than 60 MG/DL 51 LDL INTERPRETATION: Low Risk Optimal Level: LDL Less than 100 MG/DL Near or Above Optimal: LDL 100-129 MG/DL Borderline High Risk: LDL 130-159 MG/DL High Risk: LDL 160-189 MG/DL Very High Risk: LDL Greater than 189 MG/DL 52 Anion gap measurement may be of limited value in the presence of any alkalosis, especially in a combined acid base disorder. . 53 A metabolite of Naproxen, O-desmethylnaproxen, has been shown to interfere with the [place] method for measuring total bilirubin. Samples from patients who have taken Naproxen have shown spurious elevation in total bilirubin levels. 54 Because ethnic data is not always readily available, this report includes an eGFR for both -Americans and non- Americans. The National Kidney Disease Education Program (NKDEP) does not endorse the use of the MDRD equation for patients that are not between the ages of 18 and 70, are , have extremes of body size, muscle mass, or nutritional status, or are non- or non-. According to the National Kidney Foundation, irrespective of diagnosis, the stage of the disease is based on the level of kidney function: Stage Description GFR(mL/min/1.73 m(2)) 1 Kidney damage with normal or decreased GFR 90 2 Kidney damage with mild decrease in GFR 60-89 3 Moderate decrease in GFR 30-59 4 Severe decrease in GFR 15-29 5 Kidney failure <15 (or dialysis) 55 No bands detected. Test Performed by: [facility] Dpt of Lab Med and Pathology [address] [place] [id number] Edi Coordinator: Srinath Matta III, M.D. 56 The World Health Organization (WHO) Hepatitis B Immunoglobulin 1st International Reference Preparation (1976): The accepted criteria for immunity to HBV is anti-HBs activity greater than or equal to 10 mIU/mL. An Index Value of 1.00 is equivalent to 10 mIU/mL. Samples with an Index Value of 1.00 or greater are considered reactive (protective) in accordance with the CDC guidelines. 57 * SERUM LEVELS OF PSA MEASURED USING THE FE EUSEBIA ACCESS HYBRITECH IMMUNOASSAY SHOULD NOT BE INTERPRETED ABSOLUTE EVIDENCE OF THE PRESENCE OR ABSENCE OF DISEASE. THE PSA VALUE SHOULD BE USED IN CONJUNCTION WITH OTHER PERTINENT CLINICAL DIAGNOSTIC PROCEDURES. 58 CHOLESTEROL INTERPRETATION: Desirable: Less than 200 MG/DL Borderline-High Risk: 200-239 MG/DL High-Risk: 240 MG/DL and over 59 HDL INTERPRETATION: Undesirable: High Risk: Less than 40 MG/DL Desirable: Low Risk: Greater than 60 MG/DL 60 LDL INTERPRETATION: Low Risk Optimal Level: LDL Less than 100 MG/DL Near or Above Optimal: LDL 100-129 MG/DL Borderline High Risk: LDL 130-159 MG/DL High Risk: LDL 160-189 MG/DL Very High Risk: LDL Greater than 189 MG/DL Procedures Date Code Description Status 08/14/2018 92077 Short Leg Cast Completed 07/14/2018 89404 Short Leg Cast Completed 03/11/2018 [id number] Colonoscopy Completed 09/05/2017 95729 Repair Hernia Umbilical > 5 Yrs, Reducible Completed 09/25/2016 60020 EKG, Interpretation Only Completed 07/31/2016 82656 Plethysmography Determination Lung Volumes & Per Airway Completed Resist 07/31/2016 97203 Pulmonary Function><Bronchodil Completed 02/19/2014 69421 Rad Exam; Foot Comp Completed Encounters Type Date Location Provider Dx Diagnosis Office Visit 09/02/2018 Orthopedic Cosmo Graham S82.61xD Disp fx of 2:00p Services Of Guido Merrill MD lateral malleolus of r fibula, 7thD L03.115 Cellulitis of right lower limb Office Visit 08/25/2018 3:15p Orthopedic Dirk Johanna, L03.115 Cellulitis of Services Of M.DAdele right lower limb Guido S82.61xD Disp fx of lateral malleolus of r fibula, 7thD Office Visit 08/14/2018 Orthopedic Cosmo F S82.61xD Disp fx of 1:30p Services Of Guido Merrill MD lateral malleolus of r fibula, 7thD Office Visit 07/14/2018 Orthopedic Cosmo F S82.61xA Disp fx of 11:30a Services Of Guido Merrill MD lateral malleolus of right fibula, init Office Visit 06/21/2018 [facility] K22.11 Ulcer of 10:01a Assoc,Renny YeungO. esophagus with Hospitalists bleeding K92.2 Gastrointestinal hemorrhage, unspecified K70.31 Alcoholic cirrhosis of liver with ascites R57.8 Other shock K76.6 Portal hypertension F10.188 Alcohol abuse with other alcohol-induced disorder Office Visit 06/20/2018 10:01a [facility] K22.11 Ulcer of Assoc,pc Divya Renteria.O. esophagus with Hospitalists bleeding R57.8 Other shock K92.2 Gastrointestinal hemorrhage, unspecified K70.31 Alcoholic cirrhosis of liver with ascites F10.288 Alcohol dependence with other alcohol-induced disorder Office Visit 06/19/2018 10:01a Intensivists Azael Oliva, K92.2 Gastrointestinal MD hemorrhage, unspecified K22.11 Ulcer of esophagus with bleeding T51.94xA Toxic effect of unsp alcohol, undetermined, init encntr K70.30 Alcoholic cirrhosis of liver without ascites F10.288 Alcohol dependence with other alcohol-induced disorder Office Visit 06/18/2018 10:00a Intensivists Azael Oliva MD R57.1 Hypovolemic shock K92.2 Gastrointestinal hemorrhage, unspecified K70.30 Alcoholic cirrhosis of liver without ascites F10.288 Alcohol dependence with other alcohol-induced disorder Office Visit 06/17/2018 10:00a Intensivists Azael Oliva MD R57.1 Hypovolemic shock K92.2 Gastrointestinal hemorrhage, unspecified K70.30 Alcoholic cirrhosis of liver without ascites F10.288 Alcohol dependence with other alcohol-induced disorder Office Visit 06/17/2018 [facility] Gastroenterology Peter T. K70.30 Alcoholic 7:00a MD Ramy cirrhosis of liver without ascites K76.6 Portal hypertension Office 03/25/2018 [facility] Jose K92.2 Gastrointestinal Visit 10:23a soniya Colmenares M.D. hemorrhage, Hospitalists unspecified K70.31 Alcoholic cirrhosis of liver with ascites K76.6 Portal hypertension F10.188 Alcohol abuse with other alcohol-induced disorder [facility] K76.6 Portal 10:22a soniya Colmenares MD hypertension Hospitalists K70.31 Alcoholic cirrhosis of liver with ascites K92.2 Gastrointestinal hemorrhage, unspecified J44.9 Chronic obstructive pulmonary disease, unspecified Office Visit 03/23/2018 10:22a [facility] Russ Penn K70.31 Alcoholic soniya Colmenares MD cirrhosis of Hospitalists liver with ascites K92.2 Gastrointestinal hemorrhage, unspecified K76.6 Portal hypertension J44.9 Chronic obstructive pulmonary disease, unspecified Office Visit 03/22/2018 [facility] Russ Penn K92.2 Gastrointestinal 10:22a soniya Colmenares MD hemorrhage, Hospitalists unspecified I10 Essential (primary) hypertension K70.31 Alcoholic cirrhosis of liver with ascites J44.9 Chronic obstructive pulmonary disease, unspecified Office Visit 03/21/2018 [facility] Russ Penn K92.2 Gastrointestinal 10:22a soniya Colmenares MD hemorrhage, Hospitalists unspecified K70.31 Alcoholic cirrhosis of liver with ascites I10 Essential (primary) hypertension Office 03/20/2018 [facility] Siddharth Brumfield K92.2 Gastrointestinal Visit 10:21a soniya Colmenares II, M.D. hemorrhage, Hospitalists unspecified K70.31 Alcoholic cirrhosis of liver with ascites Office Visit 09/02/2017 7:00a Surgical Han Abel K42.9 [facility]mb[facility]ana Christianson M.D. without obstruction or gangrene K70.30 Alcoholic cirrhosis of liver without ascites Office Visit 05/16/2017 11:40a [facility] Internal Leonardo Bolivar, N62 Hypertrophy of Medicine - M.D. breast [address] K42.9 Umbilical hernia without obstruction or gangrene Office Visit 04/04/2017 9:00a [facility] Internal Leonardo Bolivar, Z00.01 Encounter for Medicine - M.D. general adult [address] medical exam w abnormal findings N62 Hypertrophy of breast K70.31 Alcoholic cirrhosis of liver with ascites J44.9 Chronic obstructive pulmonary disease, unspecified M10.9 Gout, unspecified Z12.5 Encounter for screening for malignant neoplasm of prostate E78.2 Mixed hyperlipidemia K42.9 Umbilical hernia without obstruction or gangrene Office Visit 03/14/2017 10:00a [facility] Internal Leonardo Bolivar, M25.561 Pain in Medicine - [place] M.D. right knee Rd K70.31 Alcoholic cirrhosis of liver with ascites J44.9 Chronic obstructive pulmonary disease, unspecified F17.210 Nicotine dependence, cigarettes, uncomplicated Office Visit 10/02/2016 9:40a [facility] Internal Leonardo Bolivar, K70.31 Alcoholic Medicine - M.D. cirrhosis of [address] liver with ascites J44.9 Chronic obstructive pulmonary disease, unspecified D50.9 Iron deficiency anemia, unspecified Z23 Encounter for immunization [facility] Gastrointestinal 3:02p Assocsoniya M.D. hemorrhage, Hospitalists unspecified D62 Acute posthemorrhagic anemia I85.00 Esophageal varices without bleeding K70.31 Alcoholic cirrhosis of liver with ascites Office [facility]2 Gastrointestinal 3:02p Assocsoniya M.D. hemorrhage, Hospitalists unspecified D62 Acute posthemorrhagic anemia I85.00 Esophageal varices without bleeding K70.31 Alcoholic cirrhosis of liver with ascites Office Visit 09/26/2016 [facility] Lonny K92.2 Gastrointestinal 3:01p Assocsoniya M.D. hemorrhage, Hospitalists unspecified D62 Acute posthemorrhagic anemia I85.00 Esophageal varices without bleeding K70.31 Alcoholic cirrhosis of liver with ascites Office Visit 09/25/2016 [facility] Vignesh K92.2 Gastrointestinal 3:01p Assocsoniya MD hemorrhage, Hospitalists unspecified D62 Acute posthemorrhagic anemia I85.00 Esophageal varices without bleeding K70.31 Alcoholic cirrhosis of liver with ascites Office Visit 09/22/2016 1:47p [facility] Carlos Daylin, K70.31 Alcoholic Assocsoniya M.D. cirrhosis of Hospitalists liver with ascites I85.11 Secondary esophageal varices with bleeding F10.10 Alcohol abuse, uncomplicated Office Visit 09/20/2016 1:46p [facility] Andrés Marrero, K70.31 Alcoholic Assocsoniya M.D. cirrhosis of Hospitalists liver with ascites I85.11 Secondary esophageal varices with bleeding F10.10 Alcohol abuse, uncomplicated Office Visit 08/30/2016 1:00p Surgical Chi Sparks K42.9 Umbilical [facility]nia [facility] MD Chelsy, without FACS obstruction or gangrene K70.31 Alcoholic cirrhosis of liver with ascites Office Visit 07/25/2016 1:00p [facility] Internal Leonardo Bolivar, K70.31 Alcoholic Medicine Diego Quintero cirrhosis of [place] liver with ascites D50.9 Iron deficiency anemia, unspecified J44.9 Chronic obstructive pulmonary disease, unspecified F17.210 Nicotine dependence, cigarettes, uncomplicated B35.1 Tinea unguium M10.9 Gout, unspecified Z13.220 Encounter for screening for lipoid disorders Z12.5 Encounter for screening for malignant neoplasm of prostate K42.9 Umbilical hernia without obstruction or gangrene Office Visit 07/21/2016 [facility] Lorraine K92.2 Gastrointestinal 1:42p Assoc,soniya Renteria D.O. hemorrhage, Hospitalists unspecified I85.11 Secondary esophageal varices with bleeding K70.31 Alcoholic cirrhosis of liver with ascites K76.6 Portal hypertension Office Visit 07/20/2016 [facility] Lorraine K92.2 Gastrointestinal 1:42p Assoc,Renny YeungO. hemorrhage, Hospitalists unspecified I85.11 Secondary esophageal varices with bleeding K70.31 Alcoholic cirrhosis of liver with ascites K76.6 Portal hypertension Office Visit 07/19/2016 [facility] Lorraine K92.2 Gastrointestinal 1:42p Assoc,Renny YeungO. hemorrhage, Hospitalists unspecified I85.11 Secondary esophageal varices with bleeding K70.31 Alcoholic cirrhosis of liver with ascites K76.6 Portal hypertension Office Visit 07/18/2016 [facility] Don K92.2 Gastrointestinal 1:41p Assoc,soniya Sandoval M.D. hemorrhage, Hospitalists unspecified K70.31 Alcoholic cirrhosis of liver with ascites K76.6 Portal hypertension I85.11 Secondary esophageal varices with bleeding Office Visit 07/17/2016 [facility] Antonio K92.2 Gastrointestinal 1:39p Assoc,soniya Landis N.P. hemorrhage, Hospitalists unspecified K70.31 Alcoholic cirrhosis of liver with ascites K76.6 Portal hypertension I85.11 Secondary esophageal varices with bleeding Office Visit 01/18/2016 10:58a [facility] Vignesh D64.9 Anemia, Assoc,soniya Mane MD unspecified Hospitalists K70.31 Alcoholic cirrhosis of liver with ascites D50.9 Iron deficiency anemia, unspecified F10.10 Alcohol abuse, uncomplicated Office Visit 01/17/2016 10:57a [facility] Vignesh D64.9 Anemia, Assoc,soniya Mane MD unspecified Hospitalists K70.31 Alcoholic cirrhosis of liver with ascites D50.9 Iron deficiency anemia, unspecified F10.10 Alcohol abuse, uncomplicated Office Visit 02/19/2014 10:30a Orthopedic Andrzej 355.8 Mononeuritis Lower Services Of Ingrid Gudino Limb Unspec C.M.A. 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 Displacement Lumbar W/O Myelopathy 736.79 [facility] Other Acquired Office Visit 10/19/2008 Neurosurgery Maciel Raza 736.79 Deformity Ankle & 1:00p Services Of Rehana Arrington M.D. Foot Other Acquired Office Visit 10/04/2008 Neurosurgery Maciel Raza 722.10 Intervertebral Disc 10:40a Services Of Rehana Arrington M.D. Displacement Lumbar W/O Myelopathy Plan of Treatment Future Appointment(s):10/21/2018 2:00 pm - Dina Mortensen M.D. at [facility] Internal Medicine - Cuqmcjokt75/21/2019 2:00 pm - [facility] Merr[facility] - Dina Mortensen M.D.K70.31 Alcoholic cirrhosis of liver with ascitesComments:we discussed increasing the spironolactone 125 mg /day pay attention to water intake , should be less than 2000 ml per day ( approx 67 ounces a day )D50.8 Other iron deficiency rydryhlL02.188 Alcohol abuse with other alcohol-induced disorderComments:we discussed there is option of Alcohol and drug [place] available to help you in alcohol wcbptukdfO88.11 Ulcer of esophagus with bleedingComments:please discuss with Dr. Medrano about the pantoprazole dose , he might suggest decreasing the dose to 20 mg /day as you are not having any signs of active rjcbiiawJ07.14 Patient's other noncompliance with medication regimenComments:please take your medications kdslvQ40.371 Foot drop, right footComments:discussed use of walker to prevent falls and improve rspohsaejI87.210 Nicotine dependence, cigarettes, uncomplicatedComments:you are encouraged to quit smoking !
--- OUTSIDE RECORDS SUMMARY | 2018-10-07 12:52 | XMS REPORT | Continuity of Care Document ---
:1955 External Reference #:[id number] Author Name Shashi Barrosveronika Care Team Providers Name Role Phone Patient's Choice Primary Care Physician Unavailable Payers Date Identification Numbers Payment Provider Subscriber Policy Number: [id number] [facility] [employer] Christina Goode Group Number: [id number] [address] [address] PayID: [id number] [place] [address] Advance Directives Type Date Description Status Comment [facility] 04/04/2017 [facility] Current and Verified Problems Date Description Provider Status Onset: 11/20/2010 Acute alcoholic liver disease Leonardo Bolivar M.D. Active Onset: 11/20/2010 Tobacco user Leonardo Bolivar M.D. Active Onset: 11/20/2010 Anemia Leonardo Bolivar M.D. Active Onset: 07/25/2016 Alcoholic [...] Start: Unknown Current Cigarette Smoker 1 Pack Daily ETOH Use Former 6-8 drinks/day for 40yrs starting am ETOH Use drinks 12 drinks/week Recreational Drug Use Smokes pot Tobacco Use Start: Unknown Patient is a current smoker, smokes every day Tobacco Use Start: Unknown Light tobacco smoker (10 or fewer cigarettes/day) Smoking Status Reviewed: 10/02/18 Light tobacco smoker (10 or fewer cigarettes/day) Exercise Type/Frequency Exercises sporadically Allergies, Adverse Reactions, Alerts Description No Known Drug Allergies Medications Medication Date Status Form Strength Qnty SIG Indications Ordering Provider Right Ankle Foot 10/02/ 1units 1 afo S82.61xD [facility] 2019 right Desirae, for chronic right foot drop Keflex 08/25/ Active Capsules 500mg 21caps 1 by L03.115 Joselo 2019 mouth Johanna, four M.D. times a day Keflex 08/25/ Active Capsules 500mg 28caps 1 by L03.115 Joselo 2019 mouth Johanna, four M.D. times a day for 7 days Carafate 06/27/ Active Tablets 1gm 30tabs one tab Leonardo 2018 by mouth Pachikara, twice M.D. daily. Ferrous Sulfate 04/30/ Active Tablets 325(65Fe) 30tabs 1 by Leonardo 2017 mg mouth Pachikara, every M.D. day with food Thiamine HCL / Active Tablets 100mg 90tabs 1 by Leonardo 0000 mouth Pachikara, every M.D. day Folic Acid / Active Tablets 1mg 90tabs 1 by Conner 0000 mouth Pachikara, every M.D. day Vitamin B12 / Active Tablets ER 1000mcg 1 by Unknown 0000 mouth every day (03/25/18 [facility]) Melatonin 00/ Active Capsules 3mg 1 tab by Unknown 0000 mouth every night at bedtime (03/25/18 [facility]) Magnesium / Active Tablets 400mg 1 by Unknown 0000 mouth twice a day (03/25/18 [facility]) Pantoprazole / Active Tablets DR 40mg 14tabs 1 by Eli Sodium 0000 mouth MD Shahid every day Lactulose / Active Solution 10GM/15ML 473uni Take 30 Eli 0000 ts ML By MD Shahid Mouth Two Times A Day Furosemide / Active Tablets 40mg 30tabs Take One Karlee 0000 Tablet Cotton, By Mouth M.D. Every Day Spironolactone / Active Tablets 100mg 30tabs Take One Karlee 0000 Tablet Cotton, By Mouth M.D. Every Day [place] 09/02/ Hx Tablets 5-325mg 15tabs 1-2 tabs Vijay 2017 - by mouth Mecenas, 03/31/ every 6 MD, FACS 2018 hours as needed for pain Propranolol HCL 10/02/ Hx Tablets 10mg 60tabs 1 by K70.31 Leonardo 2016 - mouth Pachika, 03/04/ three M.D. 2017 times a day Furosemide 09/28/ Hx Tablets 20mg 90tabs 1 by Leonardo 2016 - mouth Pachika, 04/01/ every M.D. 2018 day Propranolol HCL 09/28/ Hx Tablets 10mg 30tabs 1 tab Other 2017 - daily Ordering 10/02/ Provider 2017 Omeprazole 09/28/ Hx Capsules 20mg 180cap 1 by Leonardo 2016 - DR sandhya Bolivar, 03/13/ twice a M.D. 2018 day Colchicine 09/28/ Hx Tablets 0.6mg 30tabs take one Leonardo 2016 - tablet Pachgabrielle, 06/16/ by mouth M.D. 2018 daily as needed for pain from gout attack Nadolol 09/28/ Hx Tablets 20mg 90tabs 1/2 tab Leonardo 2016 - by mouth Pachikara, 09/17/ every M.D. 2017 day (not on [facility] 03/12 [place] [facility] list) Lactulose 09/28/ Hx Solution 10GM/15ML 473uni Take Carlo 2017 - ts 30ML D. [place], 06/27/ Twice M.D.,FACP 2018 Daily Spironolactone 07/25/ Hx Tablets 25mg 180tab 1 by K70.31 Leonardo 2017 - s mouth Pachikara, 04/04/ twice a M.D. 2016 day Combivent 01/17/ Hx 1units 2puffs 496 Leonardo Inhaler 2010 - qid Pachikara, 01/17/ M.D. 2010 Proventil HFA 01/17/ Hx Aerosol 108(90Base 1units 2 puffs J44.9 Leonardo 2010 - ) mcg/ac qid Pachikara, 10/02/ M.D. 2016 Kayexalate 15GM 11/22/ Hx Powder 1 dose Leonardo 2010 - now Pachika, 02/18/ M.D. 2013 Flexeril 11/05/ Hx Tablets 10mg 45tabs 1 po Qid Maciel Raza 2008 - leroy Arrington, 11/15/ M.D. 2010 Magnesium Oxide / Hx 400mg po bid Unknown - 2016 Multivitamin / Hx po qday Unknown - 2016 Colchicine / Hx Capsules 0.6mg 1 by Unknown 0000 - mouth 07/25/ 2016 day Spironolactone / Hx Tablets 25mg 1 by Unknown 0000 - mouth 03/13/ 2017 day Pantoprazole / Hx Tablets DR 40mg 30tabs 1 by Leonardo Sodium 0000 - mouth Pachikara, 04/01/ every M.D. 2017 day (per [facility] 03/12 dc list) Omeprazole / Hx Tablets DR 20mg 1 by Unknown 0000 - mouth 06/27/ 2018 daily (03/25/18 [facility]) Immunizations CPT Code Status Date Vaccine Reaction Lot # [id number] Given 10/02/2016 Pneumonia Vaccine no reaction, pt tolerated well [id number] Vital Signs Date Vital Result Comment 10/02/2018 2:41pm Height 69 inches 5'9" Heart [...] Result H/L Range Note Laboratory test 06/17/2018 [facility] Partial 29.5 seconds N 26.0-36.[address] [place] [place] [address] PTT [phone] B-Type Natriuretic Peptide BNP 112 pg/mL High <=100 Ammonia 100 mcmol/L High 16-53 Inr/Protime 06/17/2018 [facility] Inr 1.16 High 0.77-1.[address] [place] [address] [phone] Urinalysis Profile 06/17/2018 [facility] Urine Color Yellow [address] [place] [address] [phone] Urine Appearance Clear Urine Specific Pandora 1.016 N 1.010-1.030 Urine pH 6.0 N 5-9 Urine Urobilinogen Negative Negative Urine Ketones Negative Negative Urine Protein Negative Negative Urine Leukocytes Negative Negative Urine Blood Negative Negative Urine Nitrite Negative Negative Urine Bilirubin Negative Negative Urine Glucose Negative Negative Laboratory test 06/17/2018 [facility] Packed Cells SEE RESULTS 1 finding [address] [facility] [address] BELO <SEE NOTE> [place] [address] [phone] Type & Screen 06/17/2018 [facility] Patient Blood A Positive [address] [facility] [place] [address] [phone] Antibody Screen NEGATIVE Laboratory test 06/17/2018 [facility] Magnesium 1.6 mg/dL Low 1.9-2.7 finding [address] [facility] [place] [address] [phone] Lipase 64 U/L N 11.0-82.0 C Reactive Protein 14.67 mg/L High <8.01 Comp Metabolic Panel 06/17/2018 [facility] Sodium 138 mmol/L N 135-[address] [place] [address] [place] [address] [phone] Potassium 4.6 mmol/L N 3.5-5.0 Chloride 107 [...] Egfr 87.3 >60 2 Laboratory test 06/17/2018 [facility] Lactic Acid 2.0 mmol/L N 0.5-2.0 [address] [place] [address] [phone] CBC Auto Diff 06/17/2018 [facility] White Blood 9.8 10^3/uL N 3.5-10.[address] [place] [address] [phone] Red Blood Count 3.49 10^6/uL Low 4.00-5.40 [...] Red Blood Cells % 0 Hemoglobin/Hematocrit 04/24/2018 [facility] Hemoglobin 11.2 Low 14.0-18.[address] g/[place] [address] [phone] Hematocrit 33 % Low 42-52 Type & Screen 03/20/2018 [facility] Patient Blood Type A Positive [address] [place] [address] [phone] Antibody Screen NEGATIVE Type & Screen 03/20/2018 [facility] Patient Blood Type A Positive [address] [place] [address] [phone] Antibody Screen NEGATIVE Laboratory test 03/20/2018 [facility] Packed Cells SEE RESULTS [address] BELO <[place] [address] NOTE> [phone] Stool Occult 03/20/2018 [facility] Stool Occult SEE RESULT [address] Blood, [place] [address] [phone] CBC Auto Diff 03/20/2018 [facility] White Blood 8.8 10^3/uL N 3.5-[address] Count .8 [place] [address] [phone] Red Blood Count 2.56 10^6/uL Low 4.00-5.40 [...] Blood Cells % 0.1 Laboratory test 03/20/2018 [facility] Partial 34.2 N 26.0- 36.[address] [place] [address] PTT [phone] Inr/Protime 03/20/2018 [facility] Inr 1.20 High 0.77-1.[address] [place] [address] [phone] Comp Metabolic 03/20/2018 [facility] Sodium 142 mmol/L N 135- 145 Panel 101 [place], [place] [id number] [phone] Potassium 4.6 mmol/L N 3.5-5.0 Chloride 109 [...] Egfr 94.6 >60 7 Laboratory test 03/20/2018 [facility] Magnesium 1.5 mg/dL Low 1.9-2.7 finding 101 [place], [place] [address] [phone] Alcohol 79 mg/dL High <10 Urinalysis Profile 03/20/2018 [facility] Urine Color Yellow [address] [place], [place] [address] [phone] Urine Appearance Clear Urine Specific Pandora 1.015 N 1.010-1.030 Urine pH 6.0 N 5-9 Urine Urobilinogen Negative Negative Urine Ketones Trace Abnormal Negative Urine Protein Negative Negative Urine Leukocytes Negative Negative Urine Blood Negative Negative * * Abnormal Negative 8 Urine Nitrite Negative Negative Urine Bilirubin Negative Negative Urine Glucose Negative Negative Inr/Protime 03/08/2018 [facility] Inr 1.35 High 0.77-1.02 [address] [place], [place] [address] [phone] Laboratory test 03/08/2018 [facility] Partial 31.5 N 26.0- 36.3 finding 101 [facility] [place] [address] Time PTT [phone] Comp Metabolic 03/08/2018 [facility] Sodium 139 mmol/L N 135- [address] [place] [address] [phone] Potassium 4.4 mmol/L N 3.5-5.0 Chloride 108 [...] Egfr 73.3 >60 9 Laboratory test 03/08/2018 [facility] Troponin-I (TnI) 0.01 ng/ mL <0.[address] [place] [address] [phone] Ammonia 72 mcmol/L High 16-53 CBC Auto 03/08/2018 [facility] White Blood 11.1 10^3/uL High 3.5-10.[address] [place] [address] [phone] Red Blood Count 3.21 10^6/uL Low 4.00-5.40 [...] Cells % 0 Type & Screen 03/08/2018 [facility] Patient Blood Type A Positive [address] [place] [address] [phone] Antibody Screen NEGATIVE Laboratory test 09/02/2017 [facility] Ammonia 65 ?mol/L High 16-[address] [place] [address] [phone] CBC Auto Diff 09/02/2017 [facility] White Blood 7.8 10^3/uL N 3.5-10.[address] [place] [address] [phone] Red Blood Count 4.18 10^6/uL N 4.0-5.4 [...] Red Blood Cells % 0.4 Inr/Protime 09/02/2017 [facility] Inr 1.11 High 0.77-1.[address] [place] [address] [phone] Laboratory test 09/02/2017 [facility] Partial 35.6 N 26.0- 36.3 finding [address] [place] [address] Time PTT [phone] Lactic Acid 1.4 mmol/L N 0.5-2.0 10 Comp Metabolic Panel 09/02/2017 [facility] Sodium 130 mmol/L Low 133-145 [address] [place] [address] [phone] Potassium 3.9 mmol/L N 3.5-5.0 Chloride 99 [...] Egfr 104.2 >60 11 Laboratory test 09/02/2017 [facility] Lipase 146 U/L High 11.0 -82.0 finding 101 [place] [address] [phone] C Reactive Protein 42.54 mg/L High < 5.00 12 Iron & Iron Binding 04/16/2017 [facility] Iron 24 g/dL Low 50-212 Capacity [address] [place] [address] [phone] Unsaturated Iron Binding 469 g/dL N Total Iron Binding Capacity 493 g/dL High 250-450 % Iron Saturation 5 % Low 15-55 Vitamin B12 And 04/16/2017 [facility] Vitamin B12 353 pg/mL N 180-914 13 Folate Serum [address] [place] [address] [phone] Folic Acid (Folate) 17.13 ng/mL N >3.99 Laboratory test 04/16/2017 [facility] Uric Acid 9.5 mg/dL High 4.4-7.[address] [place] [address] [phone] PSA Screening 1.764 ng/mL N 0-4.000 14 Comp Metabolic Panel 04/04/2017 [facility] Sodium 137 mmol/L N 133-145 [address] [place] [address] [phone] Potassium 3.8 mmol/L N 3.5-5.0 Chloride 105 [...] 74.0 N >60 Egfr 95.2 N >60 15 CBC Auto Diff 04/04/2017 [facility] White Blood 5.9 10^3/uL N 3.5-10.[address] [place] [address] [phone] Red Blood Count 4.01 10^6/uL N 4.0-5.4 [...] Nucleated Red Blood Cells % 0 N Laboratory test finding 04/04/2017 [facility] Ammonia 49 ?mol/L N 16-53 [address] [place] [address] [phone] Magnesium 1.6 mg/dL Low 1.9-2.7 Lipid Profile 04/04/2017 [facility] Triglycerides 128 mg/dL N 16 (Trig/Chol/HDL) [address] [place] [address] [phone] Cholesterol 169 mg/dL N 17 HDL Cholesterol 47.0 mg/dL N 18 LDL Cholesterol 96 mg/dL N 19 CBC Auto Diff 03/11/2017 [facility] White Blood 7.9 10^3/uL N 3.5-10.[address] [place] [address] [phone] Red Blood Count 4.41 10^6/uL N 4.0-5.4 [...] % 0 N Comp Metabolic Panel 03/11/2017 [facility] Sodium 134 mmol/L N 133-145 [address] [place] [address] [phone] Potassium 3.9 mmol/L N 3.5-5.0 Chloride 100 [...] 72.6 N >60 20 Laboratory test 03/11/2017 [facility] Magnesium 1.6 mg/dL Low 1.9-2.7 finding [address] [place] [address] [phone] Laboratory test 12/27/2016 [facility] Lactic Acid 2.0 mmol/L N 0.5-2.0 21 finding [address] [place] [address] [phone] CBC Auto Diff 12/27/2016 [facility] White Blood 5.9 N 3.5- 10.[address] Count 10^3/[place] [address] [phone] Red Blood Count 3.81 10^6/uL Low 4.0-5.4 [...] % 0 N Comp Metabolic Panel 12/27/2016 [facility] Sodium 138 mmol/L N 133-[address] [place] [address] [phone] Potassium 3.6 mmol/L N 3.5-5.0 Chloride 106 [...] 94.1 N >60 22 Laboratory test 12/27/2016 [facility] Magnesium 1.5 mg/dL Low 1.9-2.[address] [place] [address] [phone] Amylase 53 U/L N 29-103 Lipase 42 U/L N 11.0-82.0 C Reactive Protein 4.04 mg/L N < 5.00 23 Pathologist Review (SEE NOTE) N 24 CBC Auto 09/25/2016 [facility] White Blood 18.9 10^3/uL High 3.5-10.8 [address] [place] [address] [phone] Red Blood Count 1.87 10^6/uL Low 4.0-5.4 [...] 0 N Hemoglobin 5.6 g/dL Low 14.0-18.0 26 Inr/Protime 09/25/2016 [facility] Inr 1.31 High 0.89-1.[address] [place] [address] [phone] Laboratory test 09/25/2016 [facility] Partial 28.7 N 26.0- 36.[address] [place] [address] Time PTT [phone] TSH (Thyroid Stim Horm) 2.87 mcIU/mL N 0.34-5.60 Comp Metabolic Panel 09/25/2016 [facility] Sodium 138 mmol/L N 133-[address] [place] [address] [phone] Potassium 4.9 mmol/L N 3.5-5.0 Chloride 108 [...] 51.4 N >60 Egfr 66.0 N >60 27 Laboratory test 09/25/2016 [facility] Magnesium 1.7 mg/dL Low 1.9-2.[address] [place] [address] [phone] Lipase 86 U/L High 11.0-82.0 C Reactive Protein 11.88 mg/L High < 5.00 28 Troponin-I (TnI) 0.02 ng/mL N <0.04 29 Lactic Acid 5.6 mmol/L High 0.5-2.0 30 Type & Screen 09/25/2016 [facility] Patient Blood Type A Positive N [address] [place] [address] [phone] Antibody Screen NEGATIVE N Laboratory test 09/25/2016 [facility] Packed Cells SEE RESULTS 31 finding 101 [facility] BELO <[place] [address] NOTE> [phone] Urinalysis Profile 09/25/2016 [facility] Urine Color Yellow N [address] [place] [address] [phone] Urine Appearance Clear N Urine Specific Pandora 1.017 N 1.010-1.030 Urine pH 6.0 N 5-9 Urine Urobilinogen Negative N Negative Urine Ketones Negative N Negative Urine Protein Negative N Negative Urine Leukocytes Negative N Negative Urine Blood Negative N Negative Urine Nitrite Negative N Negative Urine Bilirubin Negative N Negative Urine Glucose Negative N Negative Iron & Iron Binding 09/25/2016 [facility] Iron 36 g/dL Low 50-212 Capacity [address] [place] [address] [phone] Unsaturated Iron Binding 289 g/dL N Total Iron Binding Capacity 325 g/dL N 250-450 % Iron Saturation 11 % Low 15-55 Laboratory test finding 09/25/2016 [facility] Alcohol < 10 mg/ dL N <10 [address] [place] [address] [phone] Ferritin 29.1 ng/mL N 24-336 Inr/Protime 09/20/2016 [facility] Inr 1.38 High 0.89-1.11 [address] [place] [address] [phone] Laboratory test 09/20/2016 [facility] Lactic Acid 1.5 N 0.5- 2.0 32 finding [facility] mmol/[place] [address] [phone] Ammonia 82 ?mol/L High 16-53 Comp Metabolic Panel 09/20/2016 [facility] Sodium 137 mmol/L N 133-145 [address] [place] [address] [phone] Potassium 3.9 mmol/L N 3.5-5.0 Chloride 109 [...] 91.0 N >60 33 Laboratory test 09/20/2016 [facility] Magnesium 1.4 mg/dL Low 1.9-2.[address] [place] [address] [phone] Lipase 60 U/L N 11.0-82.0 C Reactive Protein 19.29 mg/L High < 5.00 34 CBC Auto 09/20/2016 [facility] White Blood 12.4 10^3/uL High 3.5-10.[address] [place] [address] [phone] Red Blood Count 2.04 10^6/uL Low 4.0-5.4 [...] Cells % 0.1 N Cell Morphology 09/20/2016 [facility] Macrocytosis 1+ N [address] [place] [address] [phone] Microcytosis 2+ N Polychromasia 1+ N Urinalysis Profile 09/20/2016 [facility] Urine Color Yellow N [address] [place], [place] [address] [phone] Urine Appearance Clear N Urine Specific Pandora 1.019 N 1.010-1.030 Urine pH 5.0 N [...] Absent Urine Hyaline Casts Present Abnormal Absent Urine Culture And 09/20/2016 [facility] Urine Culture SEE RESULT [address] [place] [address] [phone] Type & Screen 09/20/2016 [facility] Patient Blood A Positive N [address] [place] [address] [phone] Antibody Screen NEGATIVE N Laboratory test 09/20/2016 [facility] Packed Cells SEE RESULTS [address] BELO <[place] [address] NOTE> [phone] Stool For Blood 09/20/2016 [facility] Stool Occult SEE RESULT [address] [place] [address] [phone] Urinalysis Profile 09/20/2016 [facility] Urine Color Yellow N [address] [place], [place] [address] [phone] Urine Appearance Clear N Urine Specific Pandora 1.019 N 1.010-1.030 Urine pH 5.0 N [...] Absent Urine Hyaline Casts Present Abnormal Absent Cell Morphology 09/20/2016 [facility] Macrocytosis 1+ N [address] [place] [address] [phone] Microcytosis 2+ N Polychromasia 1+ N Laboratory test 09/20/2016 [facility] Packed Cells SEE RESULTS [address] BELO <SEE NOTE> [place] [address] [phone] Type & Screen 09/20/2016 [facility] Patient Blood A Positive N [address] [place] [address] [phone] Antibody Screen NEGATIVE N Laboratory test 09/20/2016 [facility] Magnesium 1.4 mg/dL Low 1.9-2.[address] [place] [address] [phone] Lipase 60 U/L N 11.0-82.0 C Reactive Protein 19.29 mg/L High < 5.00 40 Comp Metabolic Panel 09/20/2016 [facility] Sodium 137 mmol/L N 133-[address] [place] [address] [phone] Potassium 3.9 mmol/L N 3.5-5.0 Chloride 109 [...] 70.8 N >60 Egfr 91.0 N >60 41 Laboratory test 09/20/2016 [facility] Lactic Acid 1.5 mmol/L N 0.5-2.[address] [place] [address] [phone] Ammonia 82 ?mol/L High 16-53 Inr/Protime 09/20/2016 [facility] Inr 1.38 High 0.89-1.[address] [place] [address] [phone] CBC Auto Diff 09/20/2016 [facility] White Blood 12.4 High 3.5- 10.[address] Count 10^3/[place] [address] [phone] Red Blood Count 2.04 10^6/uL Low 4.0-5.4 Hemoglobin 6.4 g/dL Low 14.0-18.0 43 Hematocrit 19 % Low 42-52 Mean Corpuscular [...] Nucleated Red Blood Cells % 0.1 N Basic Metabolic Panel 11/23/2010 [facility] Sodium 136 mmol/L 135-[address] [place] [address] [phone] Potassium 4.6 mmol/L 3.5-5.0 Chloride 101 mmol/L 101-111 Co2 (Carbon Dioxide) 27.0 mmol/L 22-32 Anion Gap 8.0 mmol/L 2-11 44 Glucose 89 mg/dL 70-100 BUN 7 mg/dL 6-24 Creatinine 0.90 mg/dL 0.50-1.40 One Over Creatinine 1.10 BUN/Creatinine Ratio 7.8 Low 8-20 Calcium 9.2 mg/dL 8.1-9.9 eGFR Non- 87.3 > 60 eGFR 112.3 > 60 45 Comp Metabolic Panel 11/22/2010 [facility] Sodium 139 mmol/L 135-145 [address] [place] [address] [phone] Potassium 5.6 mmol/L High 3.5-5.0 Chloride 105 [...] 112.3 > 60 48 Lipid Profile 11/22/2010 [facility] Triglyceride 144 mg/dL 40 -200 (Trig/Chol/HDL) [address] [place] [address] [phone] Cholesterol 215 mg/dL High Less Than 200 49 High Density Lipoprotein 51 mg/dL 40-60 50 Cholesterol/HDL Ratio 4.22 AVERAGE 1-4.97 Low Density Lipoprotein 135 mg/dL High Less Than 100 51 Comp Metabolic Panel 11/15/2010 [facility] Sodium 133 mmol/L Low 135-[address] [place] [address] [phone] Potassium 4.0 mmol/L 3.5-5.0 Chloride 101 mmol/L [...] > 60 eGFR 128.6 > 60 54 CBC Auto Diff 11/15/2010 [facility] White Blood 7.0 CUMM 4.8- 10.[address] [place] [address] [phone] Red Cell Count 3.43 CUMM Low 4.6-6.2 [...] Eosinophils 0.1 0-0.6 Abs Basophils 0.1 0-0.2 Laboratory 11/15/2010 [facility] Hepatitis C Negative Negative 55 test finding [address] [place] [address] [phone] Hepatitis B 11/15/2010 [facility] Hepatitis B Nonreactive Nonreactive Surface AB [address] [place] [place] [address] [phone] Hbsab Index 0.13 56 Laboratory test 11/15/2010 [facility] PSA Screening 0.89 NG/ML 0-4 [address] [place] [address] [phone] TSH 3.98 MIU/ML 0.34-5.60 Lipid Profile 11/15/2010 [facility] Triglyceride 184 mg/dL 40 -200 (Trig/Chol/HDL) [address] [place] [address] [phone] Cholesterol 262 mg/dL High Less Than 200 58 High Density Lipoprotein 43 mg/dL 40-60 59 Cholesterol/HDL Ratio 6.09 AVERAGE High 1-4.97 Low Density Lipoprotein 182 mg/dL High Less Than 100 60 1 SEE RESULTS BELOW [id number] AP PC TRANSFUSED 06/17/18 1643 [id number] AP PC TRANSFUSED 06/17/18 2049 [id number] AP PC NOT AVAILABLE [id number] AP PC TRANSFUSED 06/18/18 0018 2 Because [...] 5 Kidney failure <15 (or dialysis) 3 [facility] Severe Sepsis and Septic Shock Management Bundle Measure requires all lactic acids initially measuring >2.0 mmol/L be repeated. 4 NAUSEA/VOMITING/DIARRHEA 5 SEE RESULTS BELOW [id number] AP PC TRANSFUSED 03/21/18 0800 [id number] AP PC TRANSFUSED 03/21/18 1050 6 SEE RESULT BELOW Name: CHRISTINA GOODE Ramone : [address]: Deepthi Hein MD Acct: [id number] Unit: [id number] AGE: 62 Location: ED Re03/20/18 SEX: M Status: REG ER SPEC: [id number] SAMIR: 03/20/[address] [facility] [address]: Deepthi Hein MD REQ: [id number] RECD: 03/20/18 STATUS: LEILA GUSTAFSON DR: Leonardo Bolivar MD _ SOURCE: STOOL SPDESC: ORDERED: Occult Bl, Diag Procedure Result Reported Site Stool Occult Blood (1) Final 03/20/18- 2205 ML Stool Occult Blood Positive Collection Date (1) 03/20/18 * ML - Main Lab . END OF REPORT DEPARTMENT OF PATHOLOGY, [address] [place] [address] Giovani Hoyt M.D. Director [facility] # [id number] 7 Because ethnic data is not always [...] 5 Kidney failure <15 (or dialysis) 10 [facility] Severe Sepsis and Septic Shock Management Bundle [...] levels of PSA measured using the Fe [place] DXI Hybritech immunoassay should not be interpreted as absolute evidence of the presence or absence of disease. The PSA value should be used in conjunction with other pertinent clinical diagnostic procedures. The values obtained with different assay methods or kits cannot be used interchangeably. 15 Because ethnic data is not always readily [...] 15-29 5 Kidney failure <15 (or dialysis) 16 Desirable <150 Borderline high 150-199 High 200-499 Very High >500 17 Desirable <200 Borderline high 200-239 High >239 18 Low <40 Desirable: 40-60 High: >60 19 Desirable: <100 mg/dL Near Optimal: 100-129 mg/dL Borderline High: 130-159 mg/dL High: 160-189 mg/dL Very High: >189 mg/dL 20 Because ethnic data is not always [...] 5 Kidney failure <15 (or dialysis) 21 [place] Severe Sepsis and Septic Shock Management Bundle [...] by Dr. Hoyt 25 VOMITING BLOOD 26 Verbal to [id number] by [id number] at 0844 on 09/25/16. Results read back accurately. 27 Because ethnic data is not always readily [...] 15-29 5 Kidney failure <15 (or dialysis) 28 Acute inflammation: >10.00 29 99th percentile=0.04 ng/mL Troponin results at [facility] and [facility] are not interchangeable. 30 Critical Result LACT:5.6 Called to [id number] at: 08:52:45 by:[id number] Read back by:[id number] [facility] Severe Sepsis and Septic Shock Management Bundle Measure requires all lactic acids initially measuring >2.0 mmol/L be repeated. [facility] Severe Sepsis and Septic Shock Management Bundle Measure requires all lactic acids initially measuring >2.0 mmol/L be repeated. 31 SEE RESULTS BELOW [id number] AP PC TRANSFUSED 09/25/16917 [id number] AP PC TRANSFUSED 09/25/1618 [id number] AP PC TRANSFUSED 09/25/16 1826 [id number] AP PC TRANSFUSED 09/25/16 1556 32 [facility] Severe Sepsis and Septic Shock Management Bundle [...] 34 Acute inflammation: >10.00 35 Verbal to [id number] by [id number] at 0752 on 09/20/16. Results read back accurately. 36 SEE RESULT BELOW Name: CHRISTINA GOODE : [address]: nAdrés Marrero MD Acct: [id number] Unit: [id number] AGE: 61 Location: ICU [id number] Re09/20/16 SEX: M Status: ADM IN SPEC: [id number] SAMIR: 09/20/[address]: Han Small MD REQ: [id number] RECD: 09/20/16 STATUS: LEILA GUSTAFSON DR: Leonardo Soliman MD _ SOURCE: URINE SPDESC: ORDERED: Urine Culture Procedure Result Reported Site Urine Culture Final 09/21/16- 1305 ML No growth of clinically significant organisms * ML - MAIN LAB ([facility]) . END OF REPORT * ML=Testing performed at Main Lab DEPARTMENT OF PATHOLOGY, [address] [place] [address] Giovani Hoyt M.D. Director [facility] # [id number] 37 SEE RESULTS BELOW [id number] OP PC TRANSFUSED 09/21/16 0859 [id number] AP PC TRANSFUSED 09/20/1649 [id number] AP TRANSFUSED 09/20/16 0840 38 SEE RESULT BELOW Name: CHRISTINA GOODE : [address]: Andrés Marrero MD Acct: [id number] Unit: [id number] AGE: 61 Location: ICU [id number] Re09/20/16 SEX: M Status: ADM IN SPEC: [id number] SAMIR: 09/20/[address] [facility] [address]: Andrés Marrero MD REQ: [id number] RECD: 09/20/16-124 STATUS: LEILA GUSTAFSON DR: Gallito Bolivar MD _ SOURCE: STOOL SPDESC: ORDERED: Hemoccult COMMENTS: SPECIMEN WAS LABLED 1929 BUT CONFIRMED COLLECTION TIME TO BE 0730 Procedure Result Reported Site Stool Occult Blood Final 09/20/16- 1300 ML Stool Occult Blood Positive * ML - MAIN LAB ([facility]) . END OF REPORT * ML=Testing performed at Main Lab DEPARTMENT OF PATHOLOGY, [address] [place] [address] Giovani Hoyt M.D. Director [facility] # [id number] 39 SEE RESULTS BELOW [id number] [facility] 09/20/16 0849 [id number] [facility] 09/20/16 0840 40 Acute inflammation: >10.00 41 Because ethnic data is not always readily [...] 15-29 5 Kidney failure <15 (or dialysis) 42 [facility] Severe Sepsis and Septic Shock Management Bundle Measure requires all lactic acids initially measuring >2.0 mmol/L be repeated. 43 Verbal to [id number] by [id number] at 0752 on 09/20/16. Results read back accurately. 44 Anion gap measurement may be of [...] has been shown to interfere with the Jendrassik-Gerardo method for measuring total bilirubin. Samples from [...] has been shown to interfere with the Jendrassik-Blackstone method for measuring total bilirubin. Samples from [...] 55 No bands detected. Test Performed by: [facility] Dpt of Lab Med and Pathology [address] [place] [address] Flight Purser: Srinath Matta III, M.D. 56 The World [...] LEVELS OF PSA MEASURED USING THE FE [place] ACCESS HYBRITECH IMMUNOASSAY SHOULD NOT BE INTERPRETED [...] MG/DL Procedures Date Code Description Status 08/14/2018 53703 Short Leg Cast Completed 07/14/2018 09236 Short Leg Cast Completed 03/11/2018 25127862 Colonoscopy Completed 09/05/2017 21575 Repair Hernia Umbilical > 5 Yrs, Reducible Completed 09/25/2016 50759 EKG, Interpretation Only Completed 07/31/2016 06294 Plethysmography Determination Lung Volumes & Per Airway Completed Resist 07/31/2016 19870 Pulmonary Function><Bronchodil Completed 02/19/2014 10873 Rad Exam; Foot Comp Completed Encounters Type Date Location Provider Dx Diagnosis Office Visit 09/02/2018 Orthopedic Cosmo Graham S82.61xD Disp fx of 2:00p Services Of Guido Merrill MD lateral malleolus of r fibula, 7thD L03.115 Cellulitis of right lower limb Office Visit 08/25/2018 3:15p Orthopedic Joselo Spencer L03.115 Cellulitis of Services Of Ingrid right lower limb Guido S82.61xD Disp fx of lateral malleolus of r fibula, 7thD Office Visit 08/14/2018 Alphonso Graham S82.61xD Disp fx of 1:30p Services Of Guido Merrill MD lateral malleolus of r fibula, 7thD Office Visit 07/14/2018 Orthopedic Cosmo F S82.61xA Disp fx of 11:30a Services Of Guido Merrill MD lateral malleolus of right fibula, init Office Visit 06/21/2018 [facility] K22.11 Ulcer of 10:01a Assoc,soniya Renteria D.O. esophagus with Hospitalists bleeding K92.2 Gastrointestinal hemorrhage, unspecified K70.31 Alcoholic cirrhosis of liver with ascites R57.8 Other shock K76.6 Portal hypertension F10.188 Alcohol abuse with other alcohol-induced disorder Office Visit 06/20/2018 10:01a [facility] K22.11 Ulcer of Assoc,soniya Renteria D.O. esophagus with Hospitalists bleeding R57.8 Other shock K92.2 Gastrointestinal hemorrhage, unspecified K70.31 Alcoholic cirrhosis of liver with ascites F10.288 Alcohol dependence with other alcohol-induced disorder Office Visit 06/19/2018 10:01a [facility]ens[facility] Azael Oliva K92.2 Gastrointestinal MD hemorrhage, unspecified K22.11 Ulcer [...] with other alcohol-induced disorder Office Visit 06/17/2018 [facility] Gastroenterology Zen Juarez K70.30 Alcoholic 7:00a MD Ramy cirrhosis of liver without ascites K76.6 Portal hypertension Office 03/25/2018 [facility] K92.2 Gastrointestinal Visit 10:23a Assoc,soniya Wilcox M.D. hemorrhage, Hospitalists unspecified K70.31 Alcoholic cirrhosis of liver with ascites K76.6 Portal hypertension F10.188 Alcohol abuse with other alcohol-induced disorder Office Visit 03/24/2018 [facility] 1derick Fili K76.6 Portal 10:22a soniya Colmenares MD hypertension Hospitalists K70.31 Alcoholic cirrhosis of liver with ascites K92.2 Gastrointestinal hemorrhage, unspecified J44.9 Chronic obstructive pulmonary disease, unspecified Office Visit 03/23/2018 10:22a [facility] Russ Fili K70.31 Alcoholic soniya Colmenares MD cirrhosis of Hospitalists liver with ascites K92.2 Gastrointestinal hemorrhage, unspecified K76.6 Portal hypertension J44.9 Chronic obstructive pulmonary disease, unspecified Office Visit 03/22/2018 [facility] 1derick Fili K92.2 Gastrointestinal 10:22a soniya Colmenares MD hemorrhage, Hospitalists unspecified I10 Essential (primary) hypertension K70.31 Alcoholic cirrhosis of liver with ascites J44.9 Chronic obstructive pulmonary disease, unspecified Office Visit 03/21/2018 [facility] 1derick Fili K92.2 Gastrointestinal 10:22a soniya Colmenares MD hemorrhage, Hospitalists unspecified K70.31 Alcoholic cirrhosis of liver with ascites I10 Essential (primary) hypertension Office 03/20/2018 [facility] 1geteha Odomenberg K92.2 Gastrointestinal Visit 10:21a soniya Colmenares II, M.D. hemorrhage, Hospitalists unspecified K70.31 Alcoholic cirrhosis of liver with ascites Office Visit 09/02/2017 7:00a Surgical Han Abel K42.9 Umbilical hernia [facility] Christianson M.D. without obstruction or gangrene K70.30 Alcoholic cirrhosis of liver without ascites Office Visit 05/16/2017 11:40a [facility] Internal Leonardo Bolivar, N62 Hypertrophy of Medicine - M.D. breast [address] K42.9 Umbilical hernia without obstruction or gangrene Office Visit 04/04/2017 9:00a [facility] Internal Leonardo Bolivar, Z00.01 Encounter for Medicine - M.D. general adult [address] medical exam w abnormal findings N62 Hypertrophy of breast K70.31 Alcoholic cirrhosis of liver with ascites J44.9 Chronic obstructive pulmonary disease, unspecified M10.9 Gout, unspecified Z12.5 Encounter for screening for malignant neoplasm of prostate E78.2 Mixed hyperlipidemia K42.9 Umbilical hernia without obstruction or gangrene Office Visit 03/14/2017 10:00a [facility] Internal Leonardo Bolivar, M25.561 Pain in Medicine - [place] M.D. right knee Rd K70.31 Alcoholic cirrhosis of liver with ascites J44.9 Chronic obstructive pulmonary disease, unspecified F17.210 Nicotine dependence, cigarettes, uncomplicated Office Visit 10/02/2016 9:40a [facility] Internal Leonardo Bolivar, K70.31 Alcoholic Medicine - M.D. cirrhosis of [address] liver with ascites J44.9 Chronic obstructive pulmonary disease, unspecified D50.9 Iron deficiency anemia, unspecified Z23 Encounter for immunization Office Visit 09/28/2016 [facility] 1dric K92.2 Gastrointestinal 3:02p soniya Colmenares M.D. hemorrhage, Hospitalists unspecified D62 Acute posthemorrhagic anemia I85.00 Esophageal varices without bleeding K70.31 Alcoholic cirrhosis of liver with ascites Office Visit 09/27/2016 [facility] 1dric K92.2 Gastrointestinal 3:02p soniya Colmenares M.D. hemorrhage, Hospitalists unspecified D62 Acute posthemorrhagic anemia I85.00 Esophageal varices without bleeding K70.31 Alcoholic cirrhosis of liver with ascites Office Visit 09/26/2016 [facility] 1dric K92.2 Gastrointestinal 3:01p soniya Colmenares M.D. hemorrhage, Hospitalists unspecified D62 Acute posthemorrhagic anemia I85.00 Esophageal varices without bleeding K70.31 Alcoholic cirrhosis of liver with ascites Office Visit 09/25/2016 [facility] Vignesh K92.2 Gastrointestinal 3:01p soniya Colmenares MD hemorrhage, Hospitalists unspecified D62 Acute posthemorrhagic anemia I85.00 Esophageal varices without bleeding K70.31 Alcoholic cirrhosis of liver with ascites Office Visit 09/22/2016 1:47p [facility] Carlos Mao, K70.31 Alcoholic soniya Colmenares M.D. cirrhosis of Hospitalists liver with ascites I85.11 Secondary esophageal varices with bleeding F10.10 Alcohol abuse, uncomplicated Office Visit 09/20/2016 1:46p [facility] Andrés Marrero, K70.31 Alcoholic Asssoniya storey M.D. cirrhosis of Hospitalists liver with ascites I85.11 Secondary esophageal varices with bleeding F10.10 Alcohol abuse, uncomplicated Office Visit 08/30/2016 1:00p Surgical Chi P. K42.9 Umbilical [facility]nia [facility] Valentino MD, without FACS obstruction or gangrene K70.31 Alcoholic cirrhosis of liver with ascites Office Visit 07/25/2016 1:00p [facility] Internal Connerkatlin Bolivar, K70.31 Alcoholic Medicine - M.D. cirrhosis of [place] liver with ascites D50.9 Iron deficiency anemia, unspecified J44.9 Chronic obstructive pulmonary disease, unspecified F17.210 Nicotine dependence, cigarettes, uncomplicated B35.1 Tinea unguium M10.9 Gout, unspecified Z13.220 Encounter for screening for lipoid disorders Z12.5 Encounter for screening for malignant neoplasm of prostate K42.9 Umbilical hernia without obstruction or gangrene Office Visit 07/21/2016 [facility] 1ice K92.2 Gastrointestinal 1:42p Assoc,soniya Renteria D.O. hemorrhage, Hospitalists unspecified I85.11 Secondary esophageal varices with bleeding K70.31 Alcoholic cirrhosis of liver with ascites K76.6 Portal hypertension Office Visit 07/20/2016 [facility]ice K92.2 Gastrointestinal 1:42p Assoc,Geetha Yeung.Tiffany. hemorrhage, Hospitalists unspecified I85.11 Secondary esophageal varices with bleeding K70.31 Alcoholic cirrhosis of liver with ascites K76.6 Portal hypertension Office Visit 07/19/2016 [facility]ice K92.2 Gastrointestinal 1:42p Assoc,Geetha Yeung.Tiffany. hemorrhage, Hospitalists unspecified I85.11 Secondary esophageal varices with bleeding K70.31 Alcoholic cirrhosis of liver with ascites K76.6 Portal hypertension Office Visit 07/18/2016 [facility] Don K92.2 Gastrointestinal 1:41p Assoc,soniya Sandoval M.D. hemorrhage, Hospitalists unspecified K70.31 Alcoholic cirrhosis of liver with ascites K76.6 Portal hypertension I85.11 Secondary esophageal varices with bleeding Office Visit 07/17/2016 [facility] Antonio K92.2 Gastrointestinal 1:39p Assoc,pc Boby NAdeleP. hemorrhage, Hospitalists unspecified K70.31 Alcoholic cirrhosis of liver with ascites K76.6 Portal hypertension I85.11 Secondary esophageal varices with bleeding Office Visit 01/18/2016 10:58a [facility] Vignesh D64.9 Anemia, Assoc,soniya Mane MD unspecified Hospitalists K70.31 Alcoholic cirrhosis of liver with ascites D50.9 Iron deficiency anemia, unspecified F10.10 Alcohol abuse, uncomplicated Office Visit 01/17/2016 10:57a [facility] Vignesh D64.9 Anemia, Assoc,soniya Mane MD unspecified Hospitalists K70.31 Alcoholic cirrhosis of liver with ascites D50.9 Iron deficiency anemia, unspecified F10.10 Alcohol abuse, uncomplicated Office Visit 02/19/2014 10:30a Orthopedic Andrzej 355.8 Mononeuritis Lower [facility] Ingrid Gudino Limb Unspec [facility] Office Visit 01/17/2011 9:20a DO Not Use [employer] AT [place] 496 COPD Airway [facility] Pachgabrielle, Obstruction M.D. Chronic Not Class Elsewhere 305.1 Tobacco Use Disorder 571.1 Alcoholic Hepatitis Acute 272.4 Hyperlipidemia Other Unspec 285.8 Anemia Other Spec V70.0 Examination General Medical Routine AT Health Care Facility Office Visit 11/15/2010 8:20a DO Not Use [employer] [facility], 571.1 Alcoholic AT [place] M.DAdele Hepatitis Acute 722.10 Intervertebral Disc Displacement [...] Lumbar W/O Myelopathy Plan of Treatment Future Appointment(s):12/02/2018 2:00 pm - Cosmo Merrill MD at [facility]10/02/2018 - Cosmo Merrill, MDS82.61xD Displaced fracture of lateral malleolus of right fibula, subNew Medication: Right Ankle Foot Orthosis - 1 afo right for chronic right foot dropNew Therapy :Physical TherapyFollow up:Follow up: 2 months
[2018-10-07 13:28] LABS: ABS Basophils 0.1 10^3/ul (0-0.2); ABS Eosinophils 0.1 10^3/ul (0-0.6); ABS Lymphocytes 0.9 10^3/ul (1.0-4.8); ABS Monocytes 0.6 10^3/ul (0-0.8); ABS Neutrophils 4.1 10^3/ul (1.5-7.7); ABS Nucleated RBC 0 10^3/ul; Eosinophil % 2.4 %; Hematocrit 32 % (36-46); Hemoglobin 10.8 g/dL (14.0-18.0); Lymphocyte % 16.1 %; Mean Corpuscular HGB Conc 34 g/dL (31-36); Mean Corpuscular Hemoglobin 29 pg (27-31); Mean Corpuscular Volume 87 fL (80-94); Mean Platelet Volume 7.5 fL (7.4-10.4); Nucleated Red Blood Cells % 0; Platelet Count 105 10^3/uL (150-450); Red Blood Count 3.69 10^6 /uL (4.18-5.48); Red Cell Distribution Width 19 % (10.5-15); White Blood Count 5.8 10^3/uL (3.5-10.8)
[2018-10-07 13:46] LABS: ALT 10 U/L (7-52); AST 32 U/L (13-39); Albumin 3.3 g/dL (3.2-5.2); Albumin/Globulin Ratio 0.8 (1-3); Alkaline Phosphatase 333 U/L (34-104); BUN/Creatinine Ratio 8.4 (8-20); Blood Urea Nitrogen 61 mg/dL (6-24); C Reactive Protein 64.04 mg/L (<8.01); CO2 Carbon Dioxide 19 mmol/L (22-32); Calcium 9.4 mg/dL (8.6-10.3); Chloride 100 mmol/L (101-111); EGFR African American 9.3 (>60); EGFR Non-African American 7.7 (>60); Globulin 4.3 g/dL (2-4); Glucose 123 mg/dL (70-100); Sodium 131 mmol/L (135-145); Total Protein 7.6 g/dL (6.4-8.9)
[2018-10-07 13:47] LABS: Anion Gap 12 mmol/L (2-11); Potassium 5.3 mmol/L (3.5-5.0)
[2018-10-07 14:05] LABS: Alcohol < 10 mg/dL (<10)
--- NOTE | 2018-10-07 14:05 | ED ---
Complex/Multi-Sys Presentation - HPI Summary HPI Summary: This pt is a 63 y/o male presenting to [facility] referred by PCP for abnormal blood work results. Pt's PCP called to report pt had elevated BUN, elevated creatinine and elevated potassium levels. Pt denies any pain. He notes at night time his abdomen "gets hard as a rock." Pt has swelling of right leg but notes he fractured his right ankle. Denies fever, chills, urinary retentions, abd pain , nausea, vomiting, chest pain, SOB. Pt sees his PCP every [address] Mortensen for the first time yesterday. Pt used to see Dr. Bolivar but recently . PMHx includes alcohol abuse, liver cirrhosis. He admits to still drinking alcohol, although states "not much." He also admits to smoking marijuana. - History Of Current Complaint Chief Complaint: EDGeneral Time Seen by Provider: 10/07/18 13:52 Hx Obtained From: Patient Onset/Duration: Lasting Days, Still Present Timing: Days Severity Currently: None Location: Negative Aggravating Factor(s): nothing Alleviating Factor(s): nothing Associated Signs And Symptoms: Positive: Other - POS: abdomen "hard as a rock" at night, right leg swelling. NEG: urinary retention. Negative: SOB, Chest Pain , Nausea, Vomiting, Fever Related History: Other - blood work yesterday and was abnormal - Allergies/Home Medications Allergies/Adverse Reactions: Allergies Allergy/AdvReac Type Severity Reaction Status Date / Time No Known Allergies Allergy Verified 10/07/18 12:44 Home Medications: Home Medications Ferrous Sulfate TAB* 325 mg PO DAILY WITH MEAL 10/07/18 [History Confirmed 10/07] Melatonin (NF) 3 mg PO BEDTIME 10/07/18 [History Confirmed 10/07/18] Spironolactone 100 mg PO DAILY 10/07/18 [History Confirmed 10/07/18] Spironolactone TAB* [Aldactone TAB*] 25 mg PO DAILY 10/07/18 [History Confirmed 10/07/18] PMH/Surg Hx/FS Hx/Imm Hx Endocrine/Hematology History: Reports: Hx Blood Disorders, Hx Blood Transfusions , Hx Anemia - takes iron, Other Endocrine/Hematological Disorders - elevated INR -liver disease Denies: Hx Anticoagulant Therapy, Hx Bone Marrow Disease, Hx Diabetes, Hx Sickle Cell Disease, Hx Unexplained Bleeding - Report hematoemesis prior to ED arrival today, Hx varices bands x2 06/12/18 Cardiovascular History: Reports: Hx Coronary Artery Disease, Hx Hypercholesterolemia, Hx Hypertension - Was told he does but no meds, Other Cardiovascular Problems/Disorders - STENTS PLACED IN CHEST PT. UNSURE WHERE OR WHY Denies: Hx Pacemaker/ICD, Hx Peripheral Vascular Disease Respiratory History: Reports: Hx Chronic Obstructive Pulmonary Disease (COPD), Other Respiratory Problems/Disorders - SMOKER, ENVIRONMENTAL EXPOSURE TOXIC WELDING GASES GI History: Reports: Hx Cirrhosis - liver from ETOH, Hx Gastroesophageal Reflux Disease - ON MEDS, Hx Hiatal Hernia, Hx Jaundice - NOT PRESENTLY, Hx Ulcer, Other GI Disorders - hx of upper GI bleed, esophageal varices WITH STENTS X 3 History: Reports: Other Problems/Disorders - Hx cirrhosis of the liver Musculoskeletal History: Reports: Hx Arthritis - GENERALIZED, Hx Back Problems - back surgery, foot drop, Other Musculoskeletal History - right arm surgery, drop foot occured at some point Sensory History: Denies: Hx Cataracts, Hx Contacts or Glasses, Hx Glaucoma, Hx Hearing Aid Opthamlomology History: Denies: Hx Cataracts, Hx Contacts or Glasses, Hx Glaucoma Neurological History: Reports: Hx Spinal Cord Injury - hx back surg with drop foot right Denies: Hx Dementia, Hx Developmental Delay, Hx Headaches, Other Neuro Impairments/Disorders Psychiatric History: Reports: Other Psychiatric Issues/Disorders - ETOH abuse - Cancer History Hx Chemotherapy: No - Surgical History Surgery Procedure, Year, and Place: lumbar fusion back,. right forearm. EGD with ligation of esophageal varices 2 or 3 times last one 04/01 [facility] and [facility] [place] after that one. EGD with variceal banding x2 bands on 06/12/18 Hx Anesthesia Reactions: No Infectious Disease History: No Infectious Disease History: Denies: Hx Clostridium Difficile, Hx Hepatitis, Hx Human Immunodeficiency Virus (HIV), Traveled Outside the [place] in Last 30 Days - Family History Known Family History: Positive: Cardiac Disease - Social History Alcohol Use: Daily Alcohol Amount: vodka 2-3 glasses daily Hx Substance Use: No Substance Use Type: Reports: Marijuana Substance Use Comment - Amount & Last Used: smoked 04/18/18 Hx Tobacco Use: Yes Smoking Status (MU): Current Every Day Smoker Type: Cigarettes Amount Used/How Often: 50 yr hx 1ppd Length of Time of Smoking/Using Tobacco: 50 Have You Smoked in the Last Year: Yes Review of Systems Negative: Fever, Chills Negative: Chest Pain Negative: Shortness Of Breath Gastrointestinal: Other - POS: abdomen "hard as a rock" at night Negative: Vomiting, Nausea Negative: other - NEG: urinary retention Positive: Edema - right leg All Other Systems Reviewed And Are Negative: Yes Physical Exam - Summary Physical Exam Summary: Appearance: Well appearing, no pain distress Skin: warm, dry, reflects adequate perfusion Head/face: normal Eyes: EOMI, LUIS ENT: normal Neck: supple, non-tender Respiratory: CTA, breath sounds present Cardiovascular: RRR, pulses symmetrical Abdomen: non-tender, soft. Abdomen distension. Musculoskeletal: normal, strength/ROM intact Neuro: normal, sensory motor intact, A&Ox3 Triage Information Reviewed: Yes Vital Signs On Initial Exam: Initial Vitals Temp Pulse Resp BP Pulse Ox 97.5 F 98 16 142/89 95 10/07/18 12:40 10/07/18 12:40 10/07/18 12:40 10/07/18 12:40 10/07/18 12:40 Vital Signs Reviewed: Yes Diagnostics - Vital Signs Vital Signs Temp Pulse Resp BP Pulse Ox 10/07/18 12:40 97.5 F 98 16 142/89 95 - Laboratory Lab Results: Lab Results 10/07/18 10/07/18 10/07/18 Range/Units 13:03 13:03 13:03 WBC 5.8 (3.5-10.8) 10^3/uL RBC 3.69 L (4.18-5.48) 10^6 /uL Hgb 10.8 L (14.0-18.0) g/dL Hct 32 L (36-46) % MCV 87 (80-94) fL MCH 29 (27-31) pg MCHC 34 (31-36) g/dL RDW 19 H (10.5-15) % Plt Count 105 L (150-450) 10^3/uL MPV 7.5 (7.4-10.4) fL Neut % (Auto) 69.9 % Lymph % (Auto) 16.1 % [place] % (Auto) 10.7 % Eos % (Auto) 2.4 % Baso % (Auto) 0.9 % Absolute Neuts (auto) 4.1 (1.5-7.7) 10^3/ul Absolute Lymphs (auto) 0.9 L (1.0-4.8) 10^3/ul Absolute Monos (auto) 0.6 (0-0.8) 10^3/ul Absolute Eos (auto) 0.1 (0-0.6) 10^3/ul Absolute Basos (auto) 0.1 (0-0.2) 10^3/ul Absolute Nucleated RBC 0 10^3/ul Nucleated RBC % 0 Sodium 131 L (135-145) mmol/L Potassium 5.3 H (3.5-5.0) mmol/L Chloride 100 L (101-111) mmol/L Carbon Dioxide 19 L (22-32) mmol/L Anion Gap 12 H (2-11) mmol/L BUN 61 H (6-24) mg/dL Creatinine 7.22 H (0.67-1.17) mg/dL Est GFR ( Amer) 9.3 (>60) Est GFR (Non-Af Amer) 7.7 (>60) BUN/Creatinine Ratio 8.4 (8-20) Glucose 123 H (70-100) mg/dL Lactic Acid (0.5-2.0) mmol/L Calcium 9.4 (8.6-10.3) mg/dL Total Bilirubin 2.50 H (0.2-1.0) mg/dL AST 32 (13-39) U/L ALT 10 (7-52) U/L Alkaline Phosphatase 333 H (34-104) U/L Ammonia 56 H (16-53) mcmol/L C-Reactive Protein 64.04 H (<8.01) mg/L Total Protein 7.6 (6.4-8.9) g/dL Albumin 3.3 (3.2-5.2) g/dL Globulin 4.3 H (2-4) g/dL Albumin/Globulin Ratio 0.8 L (1-3) Serum Alcohol Pending 10/07/18 Range/Units 13:03 WBC (3.5-10.8) 10^3/uL RBC (4.18-5.48) 10^6 /uL Hgb (14.0-18.0) g/dL Hct (36-46) % MCV (80-94) fL MCH (27-31) pg MCHC (31-36) g/dL RDW (10.5-15) % Plt Count (150-450) 10^3/uL MPV (7.4-10.4) fL Neut % (Auto) % Lymph % (Auto) % [place] % (Auto) % Eos % (Auto) % Baso % (Auto) % Absolute Neuts (auto) (1.5-7.7) 10^3/ul Absolute Lymphs (auto) (1.0-4.8) 10^3/ul Absolute Monos (auto) (0-0.8) 10^3/ul Absolute Eos (auto) (0-0.6) 10^3/ul Absolute Basos (auto) (0-0.2) 10^3/ul Absolute Nucleated RBC 10^3/ul Nucleated RBC % Sodium (135-145) mmol/L Potassium (3.5-5.0) mmol/L Chloride (101-111) mmol/L Carbon Dioxide (22-32) mmol/L Anion Gap (2-11) mmol/L BUN (6-24) mg/dL Creatinine (0.67-1.17) mg/dL Est GFR ( Amer) (>60) Est GFR (Non-Af Amer) (>60) BUN/Creatinine Ratio (8-20) Glucose (70-100) mg/dL Lactic Acid 1.5 (0.5-2.0) mmol/L Calcium (8.6-10.3) mg/dL Total Bilirubin (0.2-1.0) mg/dL AST (13-39) U/L ALT (7-52) U/L Alkaline Phosphatase (34-104) U/L Ammonia (16-53) mcmol/L C-Reactive Protein (<8.01) mg/L Total Protein (6.4-8.9) g/dL Albumin (3.2-5.2) g/dL Globulin (2-4) g/dL Albumin/Globulin Ratio (1-3) Serum Alcohol Result Diagrams: 10/07/18 13:03 10/07/18 13:03 Lab Statement: Any lab studies that have been ordered have been reviewed, and results considered in the medical decision making process. - Radiology Chest XR Radiology Interpretation Completed By: Radiologist Summary of Radiographic Findings: IMPRESSION: No evidence of acute disease. Dr. Razo has reviewed this report. - EKG 14:32 Cardiac Rate: NL - at 75 bpm EKG Rhythm: Sinus Rhythm Summary of EKG Findings: No acute changes. Complex Multi-Symp Course/Dx Assessment/Plan: Pt is a 63 y/o male, with hx of alcohol abuse, who presents to the ED referred by PCP for abnormal blood work results. Pt's PCP called to report pt had elevated BUN, elevated creatinine and elevated potassium levels. Blood work, CXR, EKG obtained. Chest XR is negative. Pt reports he still drinks alcohol. Discussed the case with Dr. Merino, hospitalist, who accepted the pt for admission. GI will consult on pt. - Diagnoses Differential Diagnoses/HQI/PQRI: Metabolic Abnormality Provider Diagnoses: Renal failure, Cirrhosis of liver, Hepatorenal failure - Physician Notifications Discussed Care Of Patient With: Sarah Merino Time Discussed With Above Provider: 14:34 Instructed by Provider To: Other - Discussed case with Dr. Merino, hospitalist, who recommends consulting GI. Discharge - Sign-Out/Discharge Documenting (check all that apply): Patient Departure - [place] [facility] [place] Received Moderate/Deep Sedation with Procedure: No - Discharge Plan Condition: Stable Disposition: ADMITTED TO [facility] Referrals: No Primary Care Phys,NOPCP [Primary Care Provider] - - Billing Disposition and Condition Condition: STABLE Disposition: Admitted to [facility] - Attestation Statements Document Initiated by Helena: Yes Documenting Scribe: Loretta Anderson Provider For Whom Scribe is Documenting (Include Credential): Emanuel Razo MD Scribe Attestation: Loretta Moreno, scribed for Emanuel Razo MD on 10/07/18 at 1602. Scribe Documentation Reviewed: Yes Provider Attestation: The documentation as recorded by the Loretta figueroa accurately reflects the service I personally performed and the decisions made by me, Emanuel Razo MD Status of Scribe Document: Viewed
[2018-10-07] MEDS ORDERED: Acetaminophen TAB* 325 MG PO PRN (15:26)
[2018-10-07 16:50] LABS: INR 1.1 (0.77-1.02)
[2018-10-07] MEDS ORDERED: LORazepam TAB(*) 1 MG PO SCH (17:00)
[2018-10-07 17:08] LABS: Urine Appearance Clear; Urine Bacteria Absent (Absent); Urine Bilirubin Negative (Negative); Urine Blood 3+ (Negative); Urine Color Yellow; Urine Glucose Negative (Negative); Urine Ketones Negative (Negative); Urine Nitrite Negative (Negative); Urine Protein 1+(30 mg/dL) (Negative); Urine Red Blood Cell 3+(>10/hpf) (Absent); Urine Specific Gravity 1.011 (1.010-1.030); Urine Squamous Epithelial Cell Present (Absent); Urine Urobilinogen Positive (Negative); Urine White Blood Cell 1+(6-10/hpf) (Absent)
[2018-10-07 17:20] LABS: Ferritin 123.8 ng/mL (24-336)
[2018-10-07] MEDS: Albumin Human 25%* 25 GM/100 ML BTL IV SCH (18:11)
[2018-10-07 20:20] LABS: Urine Creatinine Concentration 90.39 mg/dL
[2018-10-07] MEDS: CMCS: Midodrine (NF) 5 MG TAB PO SCH (20:20)
[2018-10-07] MEDS: Magnesium Oxide TAB* 400 MG PO SCH (20:20)
[2018-10-07] MEDS: Melatonin 3 MG TAB PO SCH (20:21)
[2018-10-07] MEDS: Octreotide Acetate* 100 MCG/ML 1 ML VIAL SUBCUT SCH (20:22)
--- NOTE | 2018-10-07 20:39 | HP ---
HISTORY AND PHYSICAL: DATE OF ADMISSION: ADDENDUM: A diagnostic paracentesis was attempted, however, I could not find an adequate pocket of a scites, so this attempt was aborted. [id number]/[facility] #: [id number]
--- NOTE | 2018-10-07 20:39 | HP ---
CC: Dr. Mortensen; Dr. Mendoza; Dr. Peraza* HISTORY AND PHYSICAL: DATE OF ADMISSION: 10/07/18 CHIEF COMPLAINT: Abnormal labs. HISTORY OF PRESENT ILLNESS: This is a 63-year-old male with a history of alcoholic cirrhosis, who presents to the ED after Dr. Mendoza checked routine blood work yesterday and he was found to have elevated BUN and creatinine, and so Dr. Mendoza called him and urged him to come to the emergency department. Mayur was surprised to hear about this blood work. He would not have known anything was wrong if Dr. Mendoza had not called him. He does note some swelling in his abdomen, but he says it is the same as it has been for months. He reports that during the day, it is normal and during the evening, it gets bloated. He reports adherence with his diuretics. He has not noticed any change in urine output. He has not been sick lately. He does note poor sleep and some insomnia at night, but does not take naps during the day. He notes no change in appetite; however, he does admit that after he eats, he get nauseous. He has taken no NSAIDs and has no recent addition of new medications. PAST MEDICAL HISTORY: 1. Alcoholic cirrhosis. 2. Thrombocytopenia. 3. History of variceal bleeding and banding. 4. Coronary artery disease. 5. COPD. 6. Foot drop. 7. Recent malleolar fracture, for which he is following with Ortho. HOME MEDICATIONS: 1. Vitamin B12 1000 mcg daily. 2. Lasix 40 mg daily. 3. Spironolactone 100 mg daily. 4. Ferrous sulfate 325 mg daily. 5. Folic acid 1 mg daily. 6. Lactulose 30 mL t.i.d. 7. Magnesium oxide 400 mg b.i.d. 8. Melatonin 3 mg q.h.s. 9. Thiamine 100 mg daily. FAMILY HISTORY: He knows of no family history of liver or kidney disease. The rest of his family history is unknown. SOCIAL HISTORY: He drinks 3 Smirnoff or Alexsander's Hard Lemonade per day. This is a reduction from his prior alcohol consumption. He smokes a half a pack of cigarettes per day, and he smokes marijuana every other day. His emergency contact is his partner, Iva Lowe. He lives alone. REVIEW OF SYSTEMS: As per the HPI. Remainder of the 14-point review of systems is negative. PHYSICAL EXAMINATION GENERAL: Alert, well-appearing man, in no distress. He is resting comfortably in bed. VITAL SIGNS: Temperature 97.5, heart rate 69, respiratory rate 16, pulse ox 95 % on room air, blood pressure 123/87. HEENT: Pupils are 3 mm bilaterally and reactive to light with no nystagmus. Sclerae are muddy with no jaundice. His oral mucosa is moist. NECK: JVP to 10 cm of water. His EJs are distended. CHEST: He has had a regular rate and rhythm with a diastolic murmur. ABDOMEN: Distended but not tense. It is soft and nontender. He has an umbilical reducible hernia and no CVA tenderness. EXTREMITIES: No edema, rashes, or ulcers. NEUROLOGIC: No asterixis. He is oriented x3. Alert with good attention. LABORATORY DATA: Sodium 131, potassium 5.3, chloride 100, bicarb 19, BUN 61, creatinine 7.22, glucose 123. Lactic acid 1.5. Total bilirubin 2.5, AST 32, ALT 10, alk phos 333. Ammonia 56. Serum alcohol is less than 10. White blood cells 5.8, hemoglobin 10.8, and platelets 105. IMAGING: Chest x-ray today shows no evidence for acute disease. An EKG shows normal sinus rhythm, normal axis, normal intervals and no Qs, no ST or T changes. ASSESSMENT AND PLAN: This is a 63-year-old man with a history of alcoholic cirrhosis, who presents to the emergency department with incidentally discovered abnormal labs as an outpatient. 1. Acute renal failure. Based on his history, he has not been oliguric, but we need a close monitoring of his urine output and I am placing a Fletcher catheter now. The etiology of his renal failure has a broad differential and includes most likely hepatorenal syndrome versus spontaneous bacterial peritonitis versus an obstructive uropathy. As mentioned, I am placing a Fletcher catheter to rule out uropathy and checking a renal and bladder ultrasound. I will do a diagnostic paracentesis to rule out spontaneous bacterial peritonitis. I am treating him empirically for hepatorenal syndrome with albumin, octreotide, and midodrine. I have discussed the case with his roading engineer Dr. Mendoza, and he agrees with this plan. I have also consulted Dr. Peraza who agrees to see Mr. Goode. He has no indication for renal replacement therapy at this time, and we will give him a trial on these medications to see if he improves. I will also check 24-hour urine protein, spot microalbumin, creatinine, sodium, and urea. 2. Hyperkalemia. He has no EKG changes and this is likely related to his renal failure. 3. Alcoholic cirrhosis. He appears to be compensated to me other than his renal failure from a volume standpoint. He does have a history of bleeding and an INR has not yet been checked, so I am adding an INR. He does have a history of positive smooth muscle antibody, so I am rechecking that as well as an CHAPARRO and ferritin. 4. Hyponatremia. Likely related to liver failure and mild volume overload. 5. History of coronary artery disease. Antiplatelets contraindicated in the setting of recent variceal bleeding. 6. History of variceal bleeding. He should be on beta-jess, but I will hold off until this stabilizes. 7. DVT prophylaxis contraindicated in the setting of varices and recent bleed. 8. Diet: Renal. 9. Disposition: Admit to [facility] for hyperkalemia with a GI and nephrology consult. ADDENDUM TO HISTORY AND PHYSICAL: A diagnostic paracentesis was attempted, however, I could not find an adequate pocket of ascites, so this attempt was aborted. [id number]/[facility] #: [id number]/[facility] #: [id number] [place]
[2018-10-07] MEDS ORDERED: Furosemide IV* 10 MG/ML 2 ML VIAL (20 MG) IV ONE (20:48)
[2018-10-07] MEDS ORDERED: Nicotine Inhaler* 10 MG AMP INH PRN (20:48)
[2018-10-07] MEDS ORDERED: Mouth Piece, Nicotine* 1 EACH CARTRIDGE INH ONE (21:00)
--- NOTE | 2018-10-07 23:53 | CONS ---
NEPHROLOGY CONSULTATION NOTE: DATE OF CONSULT: 10/07/18 REQUESTING PHYSICIAN: Dr. Merino. SERVICE: [facility]. REASON FOR CONSULT: Acute kidney injury. HISTORY OF PRESENT ILLNESS: A 63-year-old male with history of alcoholic cirrhosis seen in the ER for acute kidney injury. The patient had labs done in June, which showed a BUN of 10 and a creatinine of 0.89. 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 Mendoza, yesterday for alcoholic cirrhosis and had some routine labs checked. The patient was noted to have a BUN of 55 and a creatinine of 2.26 and a potassium of 5.7 and was advised to come to the emergency room for further evaluation. The patient reports that he has been feeling very tired with lack of energy and inability to walk from the couch to the chair because of weakness and fatigue over the last month, otherwise denies that he has no other complaints. Thinks his urine output may have reduced a little. With respect to his alcohol use, the patient repots that he has been drinking for 50 years since age 13 and usually drinks a vodka with Smirnoff and his last drink was 2 days ago. The patient reports that he used Aleve only once because recently he had a fracture and his leg was casted, but does not endorse to routine use of Aleve and reports that his last Aleve 1 pill that he took was 2 months ago. Denies any change in medications recently. The patient is on 40 mg Lasix and 100 mg spironolactone and thinks the dose has been the same for a while. PAST MEDICAL HISTORY: 1. Alcoholic cirrhosis. 2. Recent GI bleed noted. 3. Portal hypertension with varices. 4. EGD with ligation of esophageal varices 2 or 3 times, the last one at [facility]. 5. Variceal bleeding, banded twice. MEDICATIONS: Medication list has been reviewed. 1. Ferrous sulfate 325 p.o. daily. 2. Melatonin. 3. Spironolactone 100 mg p.o. daily. 4. Lasix 40 mg once a day. FAMILY HISTORY: Denies any known family history of kidney disease or liver disease. SOCIAL HISTORY: As mentioned above, drinks vodka mainly and has been drinking for the last 50 years. Reports that he smokes about a pack in 2 days and reports occasional marijuana usage. Denies use of any other recreational drugs. REVIEW OF SYSTEMS: As mentioned in the HPI, other 14-point review of systems noted to be negative. The patient reports that his abdomen has been getting distended; however, his last paracentesis was a while ago has not needed routine paracentesis. PHYSICAL EXAM: Vitals: Temperature 97.5, pulse 98, respirations 16, blood pressure 142/89, pulse ox 95%. HEENT: NCAT. Heart: S1, S2 present. Regular at the time of exam. Lungs: Decreased breath sounds bilaterally. Abdomen: Distended with moderate ascites. No rebound, no guarding. No costovertebral angle tenderness. Extremities: Noted to have 2+ edema. Neuro: Alert, oriented. Able to move all 4 extremities. Gait not tested. ASSESSMENT AND PLAN: A 63-year-old male with history of alcoholic cirrhosis, here for further evaluation of acute kidney injury. 1. Acute kidney injury in the setting of liver cirrhosis. Most likely etiology could be hepatorenal syndrome; however, other etiologies would need to be eliminated and the patient can have multiple mechanisms of renal failure in the setting of liver cirrhosis. In light of this, recommend getting renal ultrasound to rule out any obstructive pathology or other etiology for his renal failure. Also recommend placement of Fletcher catheter. Recommend checking 24-hour urine for protein excretion. Also, a spot urine for urine-protein microalbumin and creatinine to see if the patient has any proteinuria. If the patient does have proteinuria, other etiologies can be considered as well. Recommend rechecking hepatitis panel, hepatitis B and C. Prior hepatitis C was noted to be negative. If hep C is noted to be positive, cryoglobulinemia can also be considered. Also recommend checking serum electrophoresis, urine electrophoresis, and serum free light chains to rule out paraproteinemia as etiology of the patient's renal dysfunction. Interestingly, the patient's antismooth muscle antibody noted to be positive. Recommend discussing with GI if the patient would have predisposed autoimmune hepatitis with his alcohol use making it worse. Recommend rechecking liver function test, INR, and further evaluation of his liver pathology. Can also get a ferritin for completion. 2. With respect to hepatorenal syndrome, can start with stopping his diuretics and start off with IV fluids and then do an albumin challenge for 48 hours. If the patient's kidney function does not improve with hydration and further albumin challenge, HRS can be considered further. Also recommend getting a urine sodium and urine creatinuria for FeNa and urine sodium evaluation to evaluate prerenal causes. 3. Intraabdominal hypertension causing decreased perfusion to the kidney and renal failure is also possible in the setting of liver failure and significant ascites. In this case, a therapeutic paracentesis can be considered, but further information can be obtained if the patient's numbers look more prerenal and with evaluation of the patient's condition with the IV fluid and albumin challenge. For now, we can attempt this first. 4. Dialysis was briefly discussed with the patient. At this time, the patient reports that he is not interested in dialysis. He is not interested in liver transplant. Counseled on the importance of stopping alcohol use. Reports that he might rather drink vodka, then go on dialysis. This can be re-addressed at a later time if the patient's kidney function does no recover. The patient also does not have any emergent indications for dialysis currently and recommend plan above to evaluate etiology of the patient's renal failure. 5. Hyperkalemia. This has improved and can use Veltassa if the patient's potassium is noted to be elevated further. 6. Case discussed with the patient's hospitalist, Dr. Merino and further plan per the patient's primary medical team. [id number]/[facility] #: [id number] MTDD
[2018-10-08 06:31] LABS: Hematocrit 27 % (36-46); Hemoglobin 9.1 g/dL (14.0-18.0); Mean Corpuscular HGB Conc 34 g/dL (31-36); Mean Corpuscular Hemoglobin 29 pg (27-31); Mean Corpuscular Volume 87 fL (80-94); Mean Platelet Volume 7.7 fL (7.4-10.4); Platelet Count 76 10^3/uL (150-450); Red Cell Distribution Width 20 % (10.5-15); White Blood Count 3.8 10^3/uL (3.5-10.8)
[2018-10-08 06:35] LABS: INR 1.17 (0.77-1.02)
[2018-10-08 06:44] LABS: Albumin 3.2 g/dL (3.2-5.2); Albumin/Globulin Ratio 0.9 (1-3); BUN/Creatinine Ratio 8.4 (8-20); Calcium 8.7 mg/dL (8.6-10.3); EGFR African American 8.9 (>60); EGFR Non-African American 7.4 (>60); Globulin 3.4 g/dL (2-4); Total Bilirubin 1.9 mg/dL (0.2-1.0); Total Protein 6.6 g/dL (6.4-8.9)
[2018-10-08 06:45] LABS: ABS Basophils 0 10^3/ul (0-0.2); ABS Eosinophils 0.1 10^3/ul (0-0.6); ABS Lymphocytes 0.6 10^3/ul (1.0-4.8); ABS Monocytes 0.4 10^3/ul (0-0.8); ABS Neutrophils 2.6 10^3/ul (1.5-7.7); ABS Nucleated RBC 0 10^3/ul; Eosinophil % 2.5 %; Lymphocyte % 17.1 %; Nucleated Red Blood Cells % 0
[2018-10-08 06:49] LABS: Potassium 5.7 mmol/L (3.5-5.0)
[2018-10-08] MEDS: Albumin Human 25%* 25 GM/100 ML BTL IV SCH ×3 (08:40→15:09)
[2018-10-08] MEDS: Folic Acid TAB* 1 MG PO SCH (08:42)
[2018-10-08] MEDS: CMCS: Midodrine (NF) 5 MG TAB PO SCH ×2 (08:42→17:59)
[2018-10-08] MEDS: Multivitamins/Minerals TAB PO SCH (08:42)
[2018-10-08] MEDS: Magnesium Oxide TAB* 400 MG PO SCH ×2 (08:42→21:52)
[2018-10-08] MEDS: Ferrous Sulfate TAB* 325 MG PO SCH (08:43)
[2018-10-08] MEDS: Octreotide Acetate* 100 MCG/ML 1 ML VIAL SUBCUT SCH ×3 (08:43→21:53)
[2018-10-08] MEDS: Thiamine TAB* 100 MG TAB PO SCH (08:46)
[2018-10-08 11:32] LABS: Hepatitis B Surface Antigen Nonreactive (Nonreactive)
[2018-10-08] MEDS: Patiromer POWDER* 8.4 GM PAK PO SCH (12:09)
[2018-10-08 12:58] LABS: Hepatitis C Antibody Nonreactive (Nonreactive)
--- NOTE | 2018-10-08 13:56 | PN ---
Subjective Date of Service: 10/08/18 Interval History: Mayur continues to refuse a cardona catheter despite our encouragement. He feels fine, he is sitting in the sun at the end of the hallway. He has no complaints. He had an uneventful night. I explained that his kidney function is not improving and that we will give it another day, but if it continues not to get better, we may be discussing hemodialysis and he said he'd never accept it, HOWEVER, he did not know what dialysis is. He thought he would have to be hooked up to a machine forever so we discussed HD at length and he now has a better understanding and will think about it. Objective Active Medications: Acetaminophen (Tylenol Tab*) 650 mg PO Q4H PRN PRN Reason: FEVER/PAIN Ferrous Sulfate (Ferrous Sulfate Tab*) 325 mg PO DAILY WITH MEAL [facility] Last Admin: 10/08/18 08:43 Dose: 325 mg Folic Acid (Folvite Tab*) 1 mg PO QAM [facility] Last Admin: 10/08/18 08:42 Dose: 1 mg Albumin Human (Albumin Human 25%*) 25 gm in 100 mls @ 60 mls/hr IV Q6HR [facility] Last Admin: 10/08/18 08:40 Dose: 60 mls/hr Lactulose (Lactulose*) 30 ml PO TID [facility] Last Admin: 10/08/18 08:42 Dose: 30 ml Lorazepam (Ativan Tab(*)) 0 - 6 mg PO .PER [facility] PROTOCOL [facility]; Protocol Magnesium Oxide (Magox 400 Tab*) 400 mg PO BID [facility] Last Admin: 10/08/18 08:42 Dose: 400 mg Melatonin (Melatonin) 3 mg PO BEDTIME [facility] Last Admin: 10/07/18 20:21 Dose: 3 mg Midodrine (Midodrine (Nf)) 5 mg PO TID [facility]; Protocol Last Admin: 10/08/18 08:42 Dose: 5 mg Multivitamins/Minerals (Theragran/Minerals Tab*) 1 tab PO DAILY [facility] Last Admin: 10/08/18 08:42 Dose: 1 tab Nicotine (Nicotine Inhaler*) 10 mg INH Q2H PRN PRN Reason: CRAVING Last Admin: 10/07/18 21:21 Dose: 10 mg Octreotide Acetate (Octreotide Acetate*) 100 mcg SUBCUT TID [facility] Last Admin: 10/08/18 08:43 Dose: 100 mcg Patiromer (Veltassa Powder*) 8.4 gm PO DAILY [facility] Last Admin: 10/08/18 12:09 Dose: 8.4 gm Thiamine HCl (Vitamin B-1 Tab*) 100 mg PO QAM [facility] Last Admin: 10/08/18 08:46 Dose: 100 mg Vital Signs - 8 hr 10/08/18 10/08/18 10/08/18 06:01 07:52 08:00 Temperature 98.0 F 98.5 F Pulse Rate 54 58 Respiratory 18 16 16 Rate Blood Pressure 99/55 99/57 (mmHg) O2 Sat by Pulse 96 96 Oximetry 10/08/18 12:01 Temperature 97.8 F Pulse Rate 58 Respiratory 20 Rate Blood Pressure 96/47 (mmHg) O2 Sat by Pulse 92 Oximetry Oxygen Devices in Use Now: None Appearance: alert, well appearing Eyes: No Scleral Icterus Ears/Nose/Mouth/Throat: NL Teeth, Lips, Gums Neck: NL Appearance and Movements; NL JVP Respiratory: Symmetrical Chest Expansion and Respiratory Effort Cardiovascular: NL Sounds; No Murmurs; No JVD, RRR Abdominal: - - mild distension, prominent abd veins Lymphatic: No Cervical Adenopathy Extremities: No Edema Skin: No Rash or Ulcers Neurological: Alert and Oriented x 3, - - no asterixis Result Diagrams: 10/08/18 05:57 10/08/18 05:57 Additional Lab and Data: Lab Results 10/07/18 10/07/18 10/07/18 Range/Units 13:03 13:03 13:03 WBC 5.8 (3.5-10.8) 10^3/uL RBC 3.69 L (4.18-5.48) 10^6 /uL Hgb 10.8 L (14.0-18.0) g/dL Hct 32 L (36-46) % MCV 87 (80-94) fL MCH 29 (27-31) pg MCHC 34 (31-36) g/dL RDW 19 H (10.5-15) % Plt Count 105 L (150-450) 10^3/uL MPV 7.5 (7.4-10.4) fL Neut % (Auto) 69.9 % Lymph % (Auto) 16.1 % Kane % (Auto) 10.7 % Eos % (Auto) 2.4 % Baso % (Auto) 0.9 % Absolute Neuts (auto) 4.1 (1.5-7.7) 10^3/ul Absolute Lymphs (auto) 0.9 L (1.0-4.8) 10^3/ul Absolute Monos (auto) 0.6 (0-0.8) 10^3/ul Absolute Eos (auto) 0.1 (0-0.6) 10^3/ul Absolute Basos (auto) 0.1 (0-0.2) 10^3/ul Absolute Nucleated RBC 0 10^3/ul Nucleated RBC % 0 Sodium 131 L (135-145) mmol/L Potassium 5.3 H (3.5-5.0) mmol/L Chloride 100 L (101-111) mmol/L Carbon Dioxide 19 L (22-32) mmol/L Anion Gap 12 H (2-11) mmol/L BUN 61 H (6-24) mg/dL Creatinine 7.22 H (0.67-1.17) mg/dL Est GFR ( Amer) 9.3 (>60) Est GFR (Non-Af Amer) 7.7 (>60) BUN/Creatinine Ratio 8.4 (8-20) Glucose 123 H (70-100) mg/dL Lactic Acid (0.5-2.0) mmol/L Calcium 9.4 (8.6-10.3) mg/dL Total Bilirubin 2.50 H (0.2-1.0) mg/dL AST 32 (13-39) U/L ALT 10 (7-52) U/L Alkaline Phosphatase 333 H (34-104) U/L Ammonia 56 H (16-53) mcmol/L C-Reactive Protein 64.04 H (<8.01) mg/L Total Protein 7.6 (6.4-8.9) g/dL Albumin 3.3 (3.2-5.2) g/dL Globulin 4.3 H (2-4) g/dL Albumin/Globulin Ratio 0.8 L (1-3) Serum Alcohol Pending 10/07/18 Range/Units 13:03 WBC (3.5-10.8) 10^3/uL RBC (4.18-5.48) 10^6 /uL Hgb (14.0-18.0) g/dL Hct (36-46) % MCV (80-94) fL MCH (27-31) pg MCHC (31-36) g/dL RDW (10.5-15) % Plt Count (150-450) 10^3/uL MPV (7.4-10.4) fL Neut % (Auto) % Lymph % (Auto) % Kane % (Auto) % Eos % (Auto) % Baso % (Auto) % Absolute Neuts (auto) (1.5-7.7) 10^3/ul Absolute Lymphs (auto) (1.0-4.8) 10^3/ul Absolute Monos (auto) (0-0.8) 10^3/ul Absolute Eos (auto) (0-0.6) 10^3/ul Absolute Basos (auto) (0-0.2) 10^3/ul Absolute Nucleated RBC 10^3/ul Nucleated RBC % Sodium (135-145) mmol/L Potassium (3.5-5.0) mmol/L Chloride (101-111) mmol/L Carbon Dioxide (22-32) mmol/L Anion Gap (2-11) mmol/L BUN (6-24) mg/dL Creatinine (0.67-1.17) mg/dL Est GFR ( Amer) (>60) Est GFR (Non-Af Amer) (>60) BUN/Creatinine Ratio (8-20) Glucose (70-100) mg/dL Lactic Acid 1.5 (0.5-2.0) mmol/L Calcium (8.6-10.3) mg/dL Total Bilirubin (0.2-1.0) mg/dL AST (13-39) U/L ALT (7-52) U/L Alkaline Phosphatase (34-104) U/L Ammonia (16-53) mcmol/L C-Reactive Protein (<8.01) mg/L Total Protein (6.4-8.9) g/dL Albumin (3.2-5.2) g/dL Globulin (2-4) g/dL Albumin/Globulin Ratio (1-3) Serum Alcohol Assess/Plan/Problems-Billing Assessment: This is a 63 year old man with history of etoh cirrhosis (still drinking, not on transplant list) who was admitted 10/07 for incidentally found elevated BUN/ creat. - Patient Problems (1) Acute renal failure Current Visit: Yes Status: Acute Comment: differential is broad, but hepatorenal syndrome is likely continue trial of albumin (x 48 hours) 24 hour urine protein, spot urine studies Dr. Peraza following no indication for renal replacement therapy at this time, but he may need it soon He had been adamantly declining the possibility of dialysis, but he did not understand what dialysis it--after I explained it to him, he says he will think about it. Volume status okay (2) Hyperkalemia Current Visit: Yes Status: Acute Code(s): E87.5 - HYPERKALEMIA SNOMED Code (s): 37867572 Comment: stat EKG okay repeat dose of patiromer (3) Alcoholism Current Visit: No Status: Acute Code(s): F10.20 - ALCOHOL DEPENDENCE, UNCOMPLICATED SNOMED Code(s): 0705938 Comment: not interested in quitting continue WAM, no evidence of withdrawal (4) Portal hypertension Current Visit: No Status: Acute Code(s): K76.6 - PORTAL HYPERTENSION SNOMED Code(s): 46498474 Comment: may need nadolol diuretics on hold in setting of possible HRS (5) Alcoholic cirrhosis Current Visit: No Status: Chronic Priority: Medium Code(s): K70.30 - ALCOHOLIC CIRRHOSIS OF LIVER WITHOUT ASCITES SNOMED Code(s): 743534082 Comment: MELD=27 unfortunately not a transplant candidate case discussed with Dr. Mendoza, he will see him tomorrow
[2018-10-08] MEDS ORDERED: Patiromer POWDER* 8.4 GM PAK PO ONE (15:00)
[2018-10-08 16:21] LABS: Urine Appearance Cloudy; Urine Bacteria Absent (Absent); Urine Bilirubin Negative (Negative); Urine Blood 3+ (Negative); Urine Color Yellow; Urine Glucose Negative (Negative); Urine Ketones Negative (Negative); Urine Nitrite Negative (Negative); Urine Protein 1+(30 mg/dL) (Negative); Urine Red Blood Cell 3+(>10/hpf) (Absent); Urine Specific Gravity 1.009 (1.010-1.030); Urine Squamous Epithelial Cell Present (Absent); Urine Urobilinogen Negative (Negative); Urine White Blood Cell 1+(6-10/hpf) (Absent)
[2018-10-08 16:29] LABS: UR Microalbumin (mg/L) 161.2 mg/L; Urine Creatinine 86.73 mg/dL; Urine Microalbumin/Creatinine 185.8 (<31)
[2018-10-08 20:15] LABS: Urine TP Concentration 76 mg/dL
[2018-10-08] MEDS: Midodrine (NF) 5 MG TAB PO SCH (21:52)
[2018-10-08] MEDS: Melatonin 3 MG TAB PO SCH (21:53)
[2018-10-09 06:12] LABS: Hematocrit 28 % (36-46); Hemoglobin 9.2 g/dL (14.0-18.0); Mean Corpuscular HGB Conc 33 g/dL (31-36); Mean Corpuscular Hemoglobin 29 pg (27-31); Mean Corpuscular Volume 88 fL (80-94); Mean Platelet Volume 7.5 fL (7.4-10.4); Platelet Count 93 10^3/uL (150-450); Red Blood Count 3.14 10^6 /uL (4.18-5.48); Red Cell Distribution Width 20 % (10.5-15); White Blood Count 4.4 10^3/uL (3.5-10.8)
[2018-10-09 06:17] LABS: INR 1.12 (0.77-1.02)
[2018-10-09 06:36] LABS: Albumin 3.4 g/dL (3.2-5.2); BUN/Creatinine Ratio 8.2 (8-20); Calcium 9.2 mg/dL (8.6-10.3); EGFR African American 8.5 (>60); Globulin 3.3 g/dL (2-4); Total Bilirubin 1.8 mg/dL (0.2-1.0); Total Protein 6.7 g/dL (6.4-8.9)
[2018-10-09 06:42] LABS: Potassium 5.8 mmol/L (3.5-5.0)
[2018-10-09] MEDS: Ferrous Sulfate TAB* 325 MG PO SCH (07:56)
[2018-10-09] MEDS: Thiamine TAB* 100 MG TAB PO SCH (07:56)
[2018-10-09] MEDS: Multivitamins/Minerals TAB PO SCH (07:56)
[2018-10-09] MEDS: Folic Acid TAB* 1 MG PO SCH (07:56)
[2018-10-09] MEDS: Patiromer POWDER* 8.4 GM PAK PO SCH (07:56)
[2018-10-09] MEDS: Midodrine (NF) 5 MG TAB PO SCH (07:56)
[2018-10-09] MEDS: Magnesium Oxide TAB* 400 MG PO SCH (07:57)
[2018-10-09] MEDS: Octreotide Acetate* 100 MCG/ML 1 ML VIAL SUBCUT SCH (08:31)
[2018-10-09 09:01] VITALS: BP 118/74
--- NOTE | 2018-10-09 09:26 | PN ---
NEPHROLOGY FOLLOWUP NOTE: DATE OF SERVICE: 10/08/18 SERVICE: [facility] Nephrology. SUBJECTIVE: The patient has been seen and examined at bedside. Patient has been on albumin trial for 36 hours, currently with no improvement in kidney function. Patient was also placed on midodrine and octreotide by the primary team. Patient's blood pressure appears borderline. Per discussion with Dr. Merino, bedside paracentesis for SBP evaluation was attempted, but patient was not noted to have adequate fluid pocket to tap. Vitals and labs have been reviewed. PHYSICAL EXAMINATION: HEENT: NCAT. Heart: S1, S2 present. Tachycardic at time of exam. Lungs: Decreased breath sounds bilaterally. Patient noted to have minimal crackles at the bases. Abdomen: Distended. Noted to have ascites. Extremities: Noted to have 1+ edema bilaterally. Neuro: Alert and oriented. ASSESSMENT AND PLAN: A 63-year-old male with history of significant alcohol use with alcoholic cirrhosis and renal failure likely hepatorenal syndrome. 1. Acute kidney injury in the setting of liver cirrhosis: Please refer to the consult note from yesterday for full details. Most likely etiology is hepatorenal syndrome and patient also noted to be failing his albumin challenge as expected. Workup to exclude other etiologies of renal failure in progress. Ultrasound does not show clear obstructive pathology, but patient refusing Fletcher catheter placement. A 24-hour urine for protein evaluation is in check. Hepatitis B and C being checked. Serum urine electrophoresis and serum free light chains to rule out paraproteinemia is also in progress. Interestingly, patient's antismooth muscle antibody noted to be positive. Recommend discussing with GI if the patient could be predisposed to autoimmune hepatitis with alcohol use making it significantly worse. 2. With respect to the hepatorenal syndrome, to test this, patient's diuretics were held and patient had albumin challenge. Currently, kidney function has only worsened and not improving suggesting hepatorenal physiology. Also, patient is on midodrine and octreotide with soft blood pressures also indicative. Patient's urine electrolytes and other studies in progress as above to rule out other etiology. Increased intraabdominal hypertension can also lead to decreased perfusion. However, it appears that therapeutic paracentesis may not be feasible and patient does not have adequate ascites to tap. 3. Either way, patient's renal function appears to be declining. Patient is becoming hyperkalemic and developing some signs of volume overload with the albumin. Recommend holding further albumin infusion as patient has failed his albumin trial and can use Lasix for diuresis. 4. Hyperkalemia. Recommend starting Veltassa and Lasix may help with increased urine output and kaliuresis temporarily. 5. Patient does not have an EKG changes. Potassium noted to be 5.7. 6. Dialysis discussed in detail with the patient. While it is very unfortunate , as the patient would not be a transplant candidate as he is actively drinking and does not want to give up alcohol and due to his complex liver and renal physiology, his kidney function may never improve without a definitive plan with his liver. Patient is also not ready to imminently in the next few weeks from renal failure. Patient wants time and wants to think about this and after detailed discussion. Even though initially patient did not want dialysis and initially said he would much rather drink than , now wants to reevaluate his options and the patient has agreed to initiate dialysis if his kidney do not improve by tomorrow. This has been discussed with the hospitalist team. If patient's kidney functions do not recover with measures above, can plan further placement of dialysis catheter tomorrow and dialysis. It has been discussed in detail with the patient that this may be futile without a definitive plan with his liver and specifically if he continues to drink. All questions have been answered. [id number]/[facility] #: [id number] [place]
--- NOTE | 2018-10-09 10:25 | PN ---
Subjective Date of Service: 10/09/18 Interval History: No new c/o. Liquid stools about 3 x daily. Objective Active Medications: Acetaminophen (Tylenol Tab*) 650 mg PO Q4H PRN PRN Reason: FEVER/PAIN Ferrous Sulfate (Ferrous Sulfate Tab*) 325 mg PO DAILY WITH MEAL [facility] Last Admin: 10/09/18 07:56 Dose: 325 mg Folic Acid (Folvite Tab*) 1 mg PO QAM [facility] Last Admin: 10/09/18 07:56 Dose: 1 mg Lactulose (Lactulose*) 30 ml PO DAILY [facility] Lorazepam (Ativan Tab(*)) 0 - 6 mg PO .PER [facility] PROTOCOL [facility]; Protocol Magnesium Oxide (Magox 400 Tab*) 400 mg PO BID [facility] Last Admin: 10/09/18 07:57 Dose: 400 mg Midodrine (Midodrine (Nf)) 10 mg PO TID [facility]; Protocol Last Admin: 10/09/18 07:56 Dose: 10 mg Multivitamins/Minerals (Theragran/Minerals Tab*) 1 tab PO DAILY [facility] Last Admin: 10/09/18 07:56 Dose: 1 tab Nicotine (Nicotine Inhaler*) 10 mg INH Q2H PRN PRN Reason: CRAVING Last Admin: 10/07/18 21:21 Dose: 10 mg Octreotide Acetate (Octreotide Acetate*) 100 mcg SUBCUT TID [facility] Last Admin: 10/09/18 08:31 Dose: 100 mcg Patiromer (Veltassa Powder*) 8.4 gm PO BID [facility] Thiamine HCl (Vitamin B-1 Tab*) 100 mg PO QAM [facility] Last Admin: 10/09/18 07:56 Dose: 100 mg Vital Signs - 8 hr 10/09/18 10/09/18 10/09/18 03:57 04:00 06:00 Temperature 97.8 F Pulse Rate 55 Respiratory 18 18 18 Rate Blood Pressure 113/64 (mmHg) O2 Sat by Pulse 93 Oximetry 10/09/18 10/09/18 10/09/18 06:46 07:20 08:08 Temperature 97.4 F 99.1 F Pulse Rate 57 61 Respiratory 18 16 16 Rate Blood Pressure 101/54 118/74 (mmHg) O2 Sat by Pulse 94 93 Oximetry Oxygen Devices in Use Now: None Appearance: Alert, parlty up in bed. In good spirits. Looks comfortable. Eyes: No Scleral Icterus Respiratory: Symmetrical Chest Expansion and Respiratory Effort, Clear to Auscultation, Clear to Percussion Cardiovascular: NL Sounds; No Murmurs; No JVD, RRR, No Edema, - Extremities: No Edema, No Clubbing, Cyanosis, - Skin: No Rash or Ulcers, No Nodules or Sclerosis, - Neurological: Alert and Oriented x 3, NL Sensation Result Diagrams: 10/09/18 05:50 10/09/18 05:50 Additional Lab and Data: Lab Results 10/07/18 10/07/18 10/07/18 Range/Units 13:03 13:03 13:03 WBC 5.8 (3.5-10.8) 10^3/uL RBC 3.69 L (4.18-5.48) 10^6 /uL Hgb 10.8 L (14.0-18.0) g/dL Hct 32 L (36-46) % MCV 87 (80-94) fL MCH 29 (27-31) pg MCHC 34 (31-36) g/dL RDW 19 H (10.5-15) % Plt Count 105 L (150-450) 10^3/uL MPV 7.5 (7.4-10.4) fL Neut % (Auto) 69.9 % Lymph % (Auto) 16.1 % Wilkin % (Auto) 10.7 % Eos % (Auto) 2.4 % Baso % (Auto) 0.9 % Absolute Neuts (auto) 4.1 (1.5-7.7) 10^3/ul Absolute Lymphs (auto) 0.9 L (1.0-4.8) 10^3/ul Absolute Monos (auto) 0.6 (0-0.8) 10^3/ul Absolute Eos (auto) 0.1 (0-0.6) 10^3/ul Absolute Basos (auto) 0.1 (0-0.2) 10^3/ul Absolute Nucleated RBC 0 10^3/ul Nucleated RBC % 0 Sodium 131 L (135-145) mmol/L Potassium 5.3 H (3.5-5.0) mmol/L Chloride 100 L (101-111) mmol/L Carbon Dioxide 19 L (22-32) mmol/L Anion Gap 12 H (2-11) mmol/L BUN 61 H (6-24) mg/dL Creatinine 7.22 H (0.67-1.17) mg/dL Est GFR ( Amer) 9.3 (>60) Est GFR (Non-Af Amer) 7.7 (>60) BUN/Creatinine Ratio 8.4 (8-20) Glucose 123 H (70-100) mg/dL Lactic Acid (0.5-2.0) mmol/L Calcium 9.4 (8.6-10.3) mg/dL Total Bilirubin 2.50 H (0.2-1.0) mg/dL AST 32 (13-39) U/L ALT 10 (7-52) U/L Alkaline Phosphatase 333 H (34-104) U/L Ammonia 56 H (16-53) mcmol/L C-Reactive Protein 64.04 H (<8.01) mg/L Total Protein 7.6 (6.4-8.9) g/dL Albumin 3.3 (3.2-5.2) g/dL Globulin 4.3 H (2-4) g/dL Albumin/Globulin Ratio 0.8 L (1-3) Serum Alcohol Pending 10/07/18 Range/Units 13:03 WBC (3.5-10.8) 10^3/uL RBC (4.18-5.48) 10^6 /uL Hgb (14.0-18.0) g/dL Hct (36-46) % MCV (80-94) fL MCH (27-31) pg MCHC (31-36) g/dL RDW (10.5-15) % Plt Count (150-450) 10^3/uL MPV (7.4-10.4) fL Neut % (Auto) % Lymph % (Auto) % Wilkin % (Auto) % Eos % (Auto) % Baso % (Auto) % Absolute Neuts (auto) (1.5-7.7) 10^3/ul Absolute Lymphs (auto) (1.0-4.8) 10^3/ul Absolute Monos (auto) (0-0.8) 10^3/ul Absolute Eos (auto) (0-0.6) 10^3/ul Absolute Basos (auto) (0-0.2) 10^3/ul Absolute Nucleated RBC 10^3/ul Nucleated RBC % Sodium (135-145) mmol/L Potassium (3.5-5.0) mmol/L Chloride (101-111) mmol/L Carbon Dioxide (22-32) mmol/L Anion Gap (2-11) mmol/L BUN (6-24) mg/dL Creatinine (0.67-1.17) mg/dL Est GFR ( Amer) (>60) Est GFR (Non-Af Amer) (>60) BUN/Creatinine Ratio (8-20) Glucose (70-100) mg/dL Lactic Acid 1.5 (0.5-2.0) mmol/L Calcium (8.6-10.3) mg/dL Total Bilirubin (0.2-1.0) mg/dL AST (13-39) U/L ALT (7-52) U/L Alkaline Phosphatase (34-104) U/L Ammonia (16-53) mcmol/L C-Reactive Protein (<8.01) mg/L Total Protein (6.4-8.9) g/dL Albumin (3.2-5.2) g/dL Globulin (2-4) g/dL Albumin/Globulin Ratio (1-3) Serum Alcohol Assess/Plan/Problems-Billing Assessment: This is a 63 year old man with history of etoh cirrhosis (still drinking, not on transplant list) who was admitted 10/07 for incidentally found elevated BUN/ creat. - Patient Problems (1) Acute renal failure Current Visit: Yes Status: Acute Comment: Hepatorenal syndrome is likely cause. Discussed with Dr. Peraza. I discussed HD with patient vs Hospice care 10/09. I am not sure he has made a final decison. I left a message for his friend Iva ([phone]) to call me back. Plan HD 10/10 unless pt refuses. (2) Cirrhosis Current Visit: No Status: Acute Comment: [place] to alcoholism. He is not ready to quit drinking. Reduce lactulose to once daily 10/09. Discussed with Dr. Mendoza 10/09. No indication for steroids. (3) Alcoholism Current Visit: No Status: Acute Code(s): F10.20 - ALCOHOL DEPENDENCE, UNCOMPLICATED SNOMED Code(s): 2674912 Comment: not interested in quitting continue thiamine. (4) COPD (chronic obstructive pulmonary disease) Current Visit: No Status: Acute Code(s): J44.9 - CHRONIC OBSTRUCTIVE PULMONARY DISEASE, UNSPECIFIED SNOMED Code(s): 14584326 Comment: Continue NRT.
--- NOTE | 2018-10-09 13:49 | PN ---
Progress Note - Progress Note Date of Service: 10/09/18 Note: Time spent on discharge including exam of patient, discussion with patient, patient's friend, nurse, Dr. Villegas, Dr. Mendoza, CM, nurse, review of EMR and preparation of discharge documents 55 minutes.
[2018-10-09] MEDS ORDERED: Patiromer POWDER* 8.4 GM PAK PO SCH (21:00)
--- NOTE | 2018-10-09 22:25 | DS ---
CC: Dr. Mortensen; Dr. Mendoza * DISCHARGE SUMMARY: DATE OF ADMISSION: DATE OF DISCHARGE: 10/09/18 HISTORY OF PRESENT ILLNESS: This 63-year-old man was admitted after lab tests done at a routine office visit with Dr. Mendoza revealed acute renal failure, his creatinine was 7 and he was admitted to the hospital. He was subsequently asymptomatic. He has been treated for cirrhosis. He continues to drink alcohol in excess. Dr. Mendoza had prescribed nadolol for him to reduce the chance of GI bleeding, but the patient has not had time to pick up operator the prescription yet. The patient was stable here, he was seen in consultation by Dr. Peraza. He was offered dialysis, after considering this and going back and forth many times , he decided to go home without dialysis. Much discussion was done with the patient and myself and other providers. I also spoke to his closest social support and friend, Iva Lowe. Hospice referral was made. Hopefully, they will see him in a few days. The patient was advised that he could choose a low-salt, low-potassium diet, but there was no reason why he could not choose to eat any food that gave him pleasure. I suspect he will continue to drink alcohol. The only medication I am prescribing is the potassium binder. FINAL DIAGNOSES: 1. Hepatorenal syndrome. 2. Alcoholic cirrhosis. DISCHARGE MEDICATIONS: 1. Patiromer 8.5 g b.i.d. 2. Lactulose 30 mL b.i.d. CONDITION ON DISCHARGE: Guarded. DISPOSITION ON DISCHARGE: Discharge home. The patient is referred to the hospice service. [id number]/[facility] #: [id number] [place]
--- NOTE | 2018-10-09 22:33 | PN ---
PROGRESS NOTE: DATE OF VISIT: 10/09/18 SERVICE: [facility] Nephrology. SUBJECTIVE: The patient seen and examined at bedside. The patient's kidney function continues to worsen, the patient becoming hyperkalemic. Yesterday, dialysis was discussed with the patient and the patient had reported that he would think about it. Vitals and labs have been reviewed. PHYSICAL EXAMINATION: HEENT: NCAT. Heart: S1, S2 present. Tachycardic at the time of exam. Lungs: Decreased breath sounds bilaterally. No crackles. Abdomen: Distended. Moderate ascites. Extremities: Noted to have 1+ edema. Neuro: Alert and oriented. ASSESSMENT AND PLAN: Acute kidney injury in the setting of liver cirrhosis/ alcoholic liver cirrhosis. Most likely etiology is hepatorenal syndrome with rapid worsening; however, workup to rule out other etiologies are currently in progress including autoimmune workup and kidney protein assessment and workup is outlined in the initial note. Dialysis has been discussed in detail with the patient and the risks of not performing dialysis with rapidly worsening kidney failure with even possible in 1 to 2 weeks without dialysis has been discussed with the patient. The patient also counseled to stop drinking. However, the patient reports that he will continue to drink and initially did not want dialysis then told me that he would agree to dialysis as he does not want to in 1 to 2 weeks. However, without him drinking with worsening liver failure, his prognosis with the decompensated liver cirrhosis in the future is very concerning as well. As the workup is still in progress and his kidney function has deteriorated, time limited trial of dialysis is also discussed with the patient. The patient was given an option to stop at a later time; however, the patient at this time, agreed to attempt dialysis, but continues to go back and forth on this decision as he initially mentions that he does not want to or give up and then mentions that he is 64 years old and does not want to stop drinking and is willing to take his chances. In light of this, we will continue to plan for dialysis as he has agreed unless he declines later in the day today. Case has also been discussed with the hospitalist team and we will work together with the medical team and continue discussion with the patient. [id number]/[facility] #: [id number] [place]
[2018-10-09 23:10] LABS: Kappa Free Light Chain 23.1 mg/dL; Lambda Free Light Chain 16.3 mg/dL
--- NOTE | 2018-10-10 12:51 | PN ---
Progress Note - Progress Note Date of Service: 10/10/18 Note: Pt was discharged before I could see him. Called significant other and pt to clarify their plans. They are interested in hospice. I called hospice they have the referral and are currently getting an order from Dr. Mortensen or Dr. Mendoza. Once order is received they will set up a sign on time. Pt does have a MOLST form completed. Iva Bowles [phone] Mayur(pt) [phone] may not always answer and Hilary (daughter) [phone].
[2018-10-10 17:16] LABS: Albumin 2.8 g/dL (3.4-4.7); Albumin/Globulin Ratio 0.74; Total Protein(PEP) 6.7 g/dL (6.3 - 7.9)
[2018-10-13 09:25] LABS: Albumin 38 %; Albumin/Globulin Ratio 0.62; Gamma Globulin 14 %; Total Protein Concentration 38 mg/dL; Total Protein(PEP) Urine 247 mg/24 h (<229)
== END 2018-10-09 14:13 | disposition hospice, home (50) | DRG 682 ==
LOC: ED 12:37 → MEDTELE 15:26
PROVIDERS: ADMIT Internal Medicine; ATTEND Internal Medicine
PROC: 0T9B70Z Drainage of Bladder with Drainage Device, Via Natural or Artificial Opening (ICD-10-PCS; principal; 2018-10-07)
DX: N17.9 Acute kidney failure, unspecified (principal); K76.7 Hepatorenal syndrome; E87.1 Hypo-osmolality and hyponatremia; K76.6 Portal hypertension; I25.10 Atherosclerotic heart disease of native coronary artery without angina pectoris; E78.00 Pure hypercholesterolemia, unspecified; I10 Essential (primary) hypertension; J44.9 Chronic obstructive pulmonary disease, unspecified; K21.9 Gastro-esophageal reflux disease without esophagitis; K44.9 Diaphragmatic hernia without obstruction or gangrene; M15.9 Polyosteoarthritis, unspecified; F17.210 Nicotine dependence, cigarettes, uncomplicated; G47.00 Insomnia, unspecified; E87.5 Hyperkalemia; E87.70 Fluid overload, unspecified; F10.20 Alcohol dependence, uncomplicated; K70.30 Alcoholic cirrhosis of liver without ascites; Y90.0 Blood alcohol level of less than 20 mg/100 ml; Z82.49 Family history of ischemic heart disease and other diseases of the circulatory system; Z95.5 Presence of coronary angioplasty implant and graft; Z98.1 Arthrodesis status
CPT/HCPCS: 36415; 71045; 76705; 76770; 80053; 80320; 81003; 81015; 82043; 82140; 82570; 82728; 83605; 83883; 84155; 84156; 84165; 84166; 84300; 84540; 85025; 85027; 85610; 86038; 86140; 86803; 87086; 87340; 93005; 99284; 99406; A9270-GY; G0480; J1940; J2354; P9047

== ENCOUNTER 2018-10-13 04:41 | Inpatient (IN) | payer MEDICARE ==
--- OUTSIDE RECORDS SUMMARY | 2018-10-13 04:49 | XMS REPORT | Continuity of Care Document ---
:1955 External Reference #:[id number] Author Name Nora Sotelo Care Team Providers Name Role Phone Dina Mortensen MD Primary Care Physician Unavailable Payers Date Identification Numbers Payment Provider Subscriber Policy Number: [id number] [facility] Medicare Solutions Christina Goode Group Number: [id number] [address] [address] PayID: [id number] [place] [address] Advance Directives Type Date Description Status Comment MOLST 04/04/2017 MOL Current and Verified Problems Date Description Provider Status Onset: 11/20/2010 Tobacco user Leonardo Bolivar M.D. Active Onset: 07/25/2016 Alcoholic cirrhosis Leonardo Bolivar M.D. Active Onset: 07/25/2016 Iron deficiency anemia Leonardo Bolivar M.D. Active Onset: 07/25/2016 Chronic obstructive lung disease Leonardo Bolivar M.D. Active Onset: 07/25/2016 Onychomycosis Leonardo Bolviar M.D. Active Onset: 07/25/2016 Gout Leonardo Bolivar M.D. Active Onset: 03/14/2017 Alcohol abuse, uncomplicated Leonardo Bolivar M.D. Active Onset: 04/04/2017 Umbilical hernia Leonardo Bolivar M.D. Active Onset: 05/16/2017 Hypertrophy of breast Leonardo Bolivar M.D. Active Note: non tender Onset: 03/21/2018 Essential hypertension Russ Trevino MD Active Onset: 03/23/2018 Portal hypertension Russ Trevino MD Active Onset: 03/25/2018 Alcohol abuse with other Jose Moussallem, M.D. Active alcohol-induced disorder Onset: 06/20/2018 Alcohol dependence with other Lorraine Renteria D.O. Active alcohol-induced disorder Onset: 10/06/2018 Foot-drop Dina Mortensen M.D. Active Onset: 11/20/2010 Acute alcoholic liver disease Leonardo Bolivar M.D. Inactive Inactive: 10/06/2018 Onset: 03/20/2018 Gastrointestinal hemorrhage Siddharth Brumfield II, M.D. Resolved Resolved: 10/06/2018 Onset: 06/20/2018 Bleeding ulcer of esophagus Lorraine Renteria D.O. Resolved Resolved: 10/06/2018 Onset: 06/20/2018 Other shock Lorraine Renteria D.O. Resolved Resolved: 10/06/2018 Family History Date Family Member(s) Observation Comments [...] Tablets 25mg 30tab once a day Dina /2019 s along with Balbina 100 mg of Ingrid spironolacton e Right Ankle 10/02 Active 1unit 1 afo right S82.61xD Cosmo F Foot Orthosis /2018 s for chronic Desirae, right foot MD drop Ferrous Sulfate 04/30 Active Tablets 325(65Fe) 30tab 1 by mouth mg s every day Osmel with food Ingrid Thiamine HCL Active Tablets 100mg 90tab 1 by mouth / s every day Ingrid Bolivar Folic Acid Active Tablets 1mg 90tab 1 by mouth / s every day Ingrid Bolivar Vitamin B12 Active Tablets 1000mcg 1 by mouth Unknown /0000 ER every day (03/25/18 [facility]) Melatonin Active Capsules 3mg 1 tab by Unknown /0000 mouth every night at bedtime (03/25/18 [facility]) Magnesium Active Tablets 400mg 1 by mouth Unknown /0000 twice a day (03/25/18 [facility]) Lactulose Active Solution 10GM/15ML 473un Take 30 ML By Eli / its Mouth Two MD Shahid Times A Day Furosemide Active Tablets 40mg 30tab Take One Karlee /0000 s Tablet By Cotton, Mouth Every M.D. Day Spironolactone Active Tablets 100mg 30tab Take One Karlee 0000 s Tablet By Cotton, Mouth Every M.D. [...] M.D. 10/06 e tab mouth twice daily. Celeste 09/02 Hx Tablets 5-325mg 15tab 1-2 tabs by s mouth every 6 [place], - hours as , FACS 03/31 needed for pain Propranolol HCL 10/02 Hx Tablets 10mg 60tab 1 by mouth K70.31 Leonardo s three times a Osmel, - day M.D. 03/04 Furosemide 09/28 Hx Tablets 20mg 90tab 1 by mouth [place] s every day Diego Bolivar M.D. 04/01 Propranolol HCL 09/28 Hx Tablets 10mg 30tab 1 tab daily s Ordering - Provider 10/02 Omeprazole 09/28 Hx Capsules 20mg 180ca [address] burks twice a day Diego Bolivar M.D. 03/13 Colchicine 09/28 Hx Tablets 0.6mg 30tab take one s tablet by Osmel, - mouth daily M.D. 06/16 as needed for /2017 pain from gout attack Nadolol 09/28 Hx Tablets 20mg 90tab 1/2 tab by s mouth every Osmel, - day (not on M.D. 03/31 [facility] 03/12 med list) Lactulose 09/28 Hx Solution 10GM/15ML 473un Take 30ML Carlo its Twice Daily Diego Herrera M.D.,FACP 06/27 Spironolactone 07/25 Hx Tablets 25mg 180ta 1 by mouth K70.31 bs twice a day Diego Bolivar M.D. 04/04 Combivent 01/17 Hx 1unit 2puffs qid 496 Leonardo Inhal Diego Dover M.D. 01/17 Proventil HFA 01/17 Hx Aerosol 108(90Bas 1unit 2 puffs qid J44.9 e) mcg/ac Diego Dover M.D. 10/02 Kayexalate 15GM 11/22 Hx Powder 1 dose now Diego Bolivar M.D. 02/18 Flexeril 11/05 Hx Tablets 10mg 45tab 1 po Qid federican Maciel Raza /Diego Lebron M.D. 11/15 Magnesium Oxide Hx 400mg po bid Unknown / - 10/02 Multivitamin Hx po qday Unknown - 10/02 Colchicine Hx Capsules 0.6mg 1 by mouth Unknown every day - 07/25 Spironolactone Hx Tablets 25mg 1 by mouth Unknown / every day - 03/13 Pantoprazole Hx Tablets 40mg 30tab [address] [place] [address] arthur every day Osmel, - (per [facility] 03/12 M.DAdele 04/01 dc list) Omeprazole Hx Tablets 20mg 1 by mouth Unknown / twice daily - (03/25/18 [facility] 06/27 [place]) Pantoprazole 00 Hx Tablets 40mg 14tab 1 by mouth Eli Sodium /0000 DR arthur every day MD Shahid - 10/06 Immunizations CPT Code Status Date Vaccine Reaction Lot # [id number] Given 10/02/2016 Pneumonia Vaccine no reaction, pt tolerated well [id number] Vital Signs Date Vital Result Comment 10/06/2018 [...] Result H/L Range Note Laboratory test 06/17/2018 [facility] Partial 29.5 seconds N 26.0-36.[address] [place] [address] PTT [phone] B-Type Natriuretic Peptide BNP 112 pg/mL High <=100 Ammonia 100 mcmol/L High 16-53 Inr/Protime 06/17/2018 [facility] Inr 1.16 High 0.77-1.02 [place] [address] [phone] Urinalysis Profile 06/17/2018 [facility] [place] [address] [phone] Urine Appearance Clear Urine Specific [place] 1.016 N 1.010-1.030 Urine pH 6.0 N 5-9 Urine Urobilinogen Negative Negative Urine Ketones Negative Negative Urine Protein Negative Negative Urine Leukocytes Negative Negative Urine Blood Negative Negative Urine Nitrite Negative Negative Urine Bilirubin Negative Negative Urine Glucose Negative Negative Laboratory test 06/17/2018 [facility] Packed Cells SEE RESULTS 1 finding [facility] BELO <SEE NOTE> [place] [address] [phone] Type & Screen 06/17/2018 [facility] [place] [address] [phone] Antibody Screen NEGATIVE Laboratory test 06/17/2018 [facility] Magnesium 1.6 mg/dL Low 1.9-2.7 [place] [address] [phone] Lipase 64 U/L N 11.0-82.0 C Reactive Protein 14.67 mg/L High <8.01 Comp Metabolic Panel 06/17/2018 [facility] Sodium 138 mmol/L N 135-145 [place] [address] [phone] Potassium 4.6 mmol/L N 3.5-5.0 Chloride 107 [...] Egfr 87.3 >60 2 Laboratory test 06/17/2018 [facility] Lactic Acid 2.0 mmol/L N 0.5-2.0 [address] [place] [address] [phone] CBC Auto Diff 06/17/2018 [facility] White Blood 9.8 10^3/uL N 3.5-10.[address] [place] [address] [phone] Red Blood Count 3.49 10^6/uL Low 4.00-5.40 [...] Red Blood Cells % 0 Hemoglobin/Hematocrit 04/24/2018 [facility] Hemoglobin 11.2 Low 14.0-18.[address] g/[place] [address] [phone] Hematocrit 33 % Low 42-52 Type & Screen 03/20/2018 [facility] Patient Blood Type A Positive [address] [place] [address] [phone] Antibody Screen NEGATIVE Type & Screen 03/20/2018 [facility] Patient Blood Type A Positive [address] [place] [address] [phone] Antibody Screen NEGATIVE Laboratory test 03/20/2018 [facility] Packed Cells SEE RESULTS [address] BELO <[place] [address] NOTE> [phone] Stool Occult 03/20/2018 [facility] Stool Occult SEE RESULT 6 Blood Diag [address] Blood, [place] [address] [phone] CBC Auto Diff 03/20/2018 [facility] White Blood 8.8 10^3/uL N 3.5-[address] Count .8 [place] [address] [phone] Red Blood Count 2.56 10^6/uL Low 4.00-5.40 [...] Blood Cells % 0.1 Laboratory test 03/20/2018 [facility] Partial 34.2 N 26.0- 36.3 finding 101 [facility] [place] [address] PTT [phone] Inr/Protime 03/20/2018 [facility] Inr 1.20 High 0.77-1.02 [address] [place] [address] [phone] Comp Metabolic 03/20/2018 [facility] Sodium 142 mmol/L N 135- 145 Panel [address] [place] [address] [phone] Potassium 4.6 mmol/L N 3.5-5.0 Chloride 109 [...] Egfr 94.6 >60 7 Laboratory test 03/20/2018 [facility] Magnesium 1.5 mg/dL Low 1.9-2.7 finding [address] [place] [address] [phone] Alcohol 79 mg/dL High <10 Urinalysis Profile 03/20/2018 [facility] Urine Color Yellow [address] [place] [address] [phone] Urine Appearance Clear Urine Specific [place] 1.015 N 1.010-1.030 Urine pH 6.0 N 5-9 Urine Urobilinogen Negative Negative Urine Ketones Trace Abnormal Negative Urine Protein Negative Negative Urine Leukocytes Negative Negative Urine Blood Negative Negative * * Abnormal Negative 8 Urine Nitrite Negative Negative Urine Bilirubin Negative Negative Urine Glucose Negative Negative Inr/Protime 03/08/2018 [facility] Inr 1.35 High 0.77-1.[address] [place] [address] [phone] Laboratory test 03/08/2018 [facility] Partial 31.5 N 26.0- 36.[address] [place] [address] Time PTT [phone] Comp Metabolic 03/08/2018 [facility] Sodium 139 mmol/L N 135- [address] [place] [address] [phone] Potassium 4.4 mmol/L N 3.5-5.0 Chloride 108 [...] Egfr 73.3 >60 9 Laboratory test 03/08/2018 [facility] Troponin-I (TnI) 0.01 ng/ mL <0.[address] [place] [address] [phone] Ammonia 72 mcmol/L High 16-53 CBC Auto 03/08/2018 [facility] White Blood 11.1 10^3/uL High 3.5-10.[address] [place] [address] [phone] Red Blood Count 3.21 10^6/uL Low 4.00-5.40 [...] Cells % 0 Type & Screen 03/08/2018 [facility] Patient Blood Type A Positive [address] [place] [address] [phone] Antibody Screen NEGATIVE Laboratory test 09/02/2017 [facility] Ammonia 65 ?mol/L High 16-[address] [place] [address] [phone] CBC Auto Diff 09/02/2017 [facility] White Blood 7.8 10^3/uL N 3.5-10.[address] [place] [address] [phone] Red Blood Count 4.18 10^6/uL N 4.0-5.4 [...] Red Blood Cells % 0.4 Inr/Protime 09/02/2017 [facility] Inr 1.11 High 0.77-1.[address] [place] [address] [phone] Laboratory test 09/02/2017 [facility] Partial 35.6 N 26.0- 36.[address] [place] [address] Time PTT [phone] Lactic Acid 1.4 mmol/L N 0.5-2.0 10 Comp Metabolic Panel 09/02/2017 [facility] Sodium 130 mmol/L Low 133-[address] [place] [address] [phone] Potassium 3.9 mmol/L N 3.5-5.0 Chloride 99 [...] Egfr 104.2 >60 11 Laboratory test 09/02/2017 [facility] Lipase 146 U/L High 11.0 -82.0 finding [address] [place], [place] [address] [phone] C Reactive Protein 42.54 mg/L High < 5.00 12 Iron & Iron Binding 04/16/2017 [facility] Iron 24 g/dL Low 50-212 Capacity [address] [place] [address] [phone] Unsaturated Iron Binding 469 g/dL N Total Iron Binding Capacity 493 g/dL High 250-450 % Iron Saturation 5 % Low 15-55 Vitamin B12 And 04/16/2017 [facility] Vitamin B12 353 pg/mL N 180-914 13 Folate Serum [address] [place] [address] [phone] Folic Acid (Folate) 17.13 ng/mL N >3.99 Laboratory test 04/16/2017 [facility] Uric Acid 9.5 mg/dL High 4.4-7.6 finding [address] [place] [address] [phone] PSA Screening 1.764 ng/mL N 0-4.000 14 Lipid Profile 04/04/2017 [facility] Triglycerides 128 mg/dL N 15 (Trig/Chol/HDL) [address] [place] [address] [phone] Cholesterol 169 mg/dL N 16 HDL Cholesterol 47.0 mg/dL N 17 LDL Cholesterol 96 mg/dL N 18 Laboratory test finding 04/04/2017 [facility] Ammonia 49 ?mol/L N 16-53 [address] [place] [address] [phone] Magnesium 1.6 mg/dL Low 1.9-2.7 CBC Auto Diff 04/04/2017 [facility] White Blood 5.9 10^3/uL N 3.5-10.8 [address] [facility] [place] [address] [phone] Red Blood Count 4.01 10^6/uL N 4.0-5.4 [...] % 0 N Comp Metabolic Panel 04/04/2017 [facility] Sodium 137 mmol/L N 133-145 [address] [place] [address] [phone] Potassium 3.8 mmol/L N 3.5-5.0 Chloride 105 [...] N >60 19 CBC Auto Diff 03/11/2017 [facility] White Blood 7.9 10^3/uL N 3.5-10.[address] [place] [address] [phone] Red Blood Count 4.41 10^6/uL N 4.0-5.4 [...] % 0 N Comp Metabolic Panel 03/11/2017 [facility] Sodium 134 mmol/L N 133-[address] [place] [address] [phone] Potassium 3.9 mmol/L N 3.5-5.0 Chloride 100 [...] 72.6 N >60 20 Laboratory test 03/11/2017 [facility] Magnesium 1.6 mg/dL Low 1.9-2.[address] [place] [address] [phone] Laboratory test 12/27/2016 [facility] Lactic Acid 2.0 mmol/L N 0.5-2.0 [address] [place] [address] [phone] CBC Auto Diff 12/27/2016 [facility] White Blood 5.9 N 3.5- 10.[address] Count 10^3/[place] [address] [phone] Red Blood Count 3.81 10^6/uL Low 4.0-5.4 [...] % 0 N Comp Metabolic Panel 12/27/2016 [facility] Sodium 138 mmol/L N 133-145 [address] [place] [address] [phone] Potassium 3.6 mmol/L N 3.5-5.0 Chloride 106 [...] 94.1 N >60 22 Laboratory test 12/27/2016 [facility] Magnesium 1.5 mg/dL Low 1.9-2.7 finding [address] [place] [address] [phone] Amylase 53 U/L N 29-103 Lipase 42 U/L N 11.0-82.0 C Reactive Protein 4.04 mg/L N < 5.00 23 Pathologist Review (SEE NOTE) N 24 Laboratory test finding 09/25/2016 [facility] Alcohol < 10 mg/ dL N <10 25 [address] [place] [address] [phone] Ferritin 29.1 ng/mL N 24-336 Iron & Iron Binding 09/25/2016 [facility] Iron 36 g/dL Low 50-212 Capacity [address] [place] [address] [phone] Unsaturated Iron Binding 289 g/dL N Total Iron Binding Capacity 325 g/dL N 250-450 % Iron Saturation 11 % Low 15-55 Urinalysis Profile 09/25/2016 [facility] Urine Color Yellow N [address] [place] [address] [phone] Urine Appearance Clear N Urine Specific [place] 1.017 N 1.010-1.030 Urine pH 6.0 N 5-9 Urine Urobilinogen Negative N Negative Urine Ketones Negative N Negative Urine Protein Negative N Negative Urine Leukocytes Negative N Negative Urine Blood Negative N Negative Urine Nitrite Negative N Negative Urine Bilirubin Negative N Negative Urine Glucose Negative N Negative Laboratory test 09/25/2016 [facility] Packed Cells SEE RESULTS 26 finding [address] <SEE NOTE> [place] [address] [phone] Type & Screen 09/25/2016 [facility] Patient Blood A Positive [address] [place] [address] [phone] Antibody Screen NEGATIVE N Laboratory test 09/25/2016 [facility] Magnesium 1.7 mg/dL Low 1.9-2.7 finding [address] [place] [address] [phone] Lipase 86 U/L High 11.0-82.0 C Reactive Protein 11.88 mg/L High < 5.00 27 Troponin-I (TnI) 0.02 ng/mL N <0.04 28 Lactic Acid 5.6 mmol/L High 0.5-2.0 29 Comp Metabolic Panel 09/25/2016 [facility] Sodium 138 mmol/L N 133-145 [address] [place] [address] [phone] Potassium 4.9 mmol/L N 3.5-5.0 Chloride 108 [...] 66.0 N >60 30 Laboratory test 09/25/2016 [facility] Partial 28.7 seconds N 26.0-36.[address] [place] [address] PTT [phone] TSH (Thyroid Stim Horm) 2.87 mcIU/mL N 0.34-5.60 Inr/Protime 09/25/2016 [facility] Inr 1.31 High 0.89-1.[address] [place] [address] [phone] CBC Auto Diff 09/25/2016 [facility] White Blood 18.9 High 3.5- 10.[address] Count 10^3/[place] [address] [phone] Red Blood Count 1.87 10^6/uL Low 4.0-5.4 [...] 5.6 g/dL Low 14.0-18.0 31 Inr/Protime 09/20/2016 [facility] Inr 1.38 High 0.89-1.[address] [place] [address] [phone] Laboratory test 09/20/2016 [facility] Lactic Acid 1.5 N 0.5- 2.[address] mmol/[place] [address] [phone] Ammonia 82 ?mol/L High 16-53 Comp Metabolic Panel 09/20/2016 [facility] Sodium 137 mmol/L N 133-[address] [place] [address] [phone] Potassium 3.9 mmol/L N 3.5-5.0 Chloride 109 [...] 91.0 N >60 33 Laboratory test 09/20/2016 [facility] Magnesium 1.4 mg/dL Low 1.9-2.[address] [place] [address] [phone] Lipase 60 U/L N 11.0-82.0 C Reactive Protein 19.29 mg/L High < 5.00 34 CBC Auto 09/20/2016 [facility] White Blood 12.4 10^3/uL High 3.5-10.[address] [place] [address] [phone] Red Blood Count 2.04 10^6/uL Low 4.0-5.4 [...] Cells % 0.1 N Cell Morphology 09/20/2016 [facility] Macrocytosis 1+ [place] [address] [phone] Microcytosis 2+ N Polychromasia 1+ N Urinalysis Profile 09/20/2016 [facility] [place] [address] [phone] Urine Appearance Clear N Urine Specific [place] 1.019 N 1.010-1.030 Urine pH 5.0 N [...] Casts Present Abnormal Absent Urinalysis Profile 09/20/2016 [facility] Urine Color Yellow N [address] [place] [address] [phone] Urine Appearance Clear N Urine Specific [place] 1.019 N 1.010-1.030 Urine pH 5.0 N [...] Present Abnormal Absent Stool For Blood 09/20/2016 [facility] Stool Occult Blood SEE RESULT [address] [place] [address] [phone] Cell Morphology 09/20/2016 [facility] Macrocytosis 1+ [place] [address] [phone] Microcytosis 2+ N Polychromasia 1+ N Laboratory test 09/20/2016 [facility] Packed Cells SEE RESULTS [address] BELO <SEE NOTE> [place] [address] [phone] Type & Screen 09/20/2016 [facility] Patient Blood [place] [address] [phone] Antibody Screen NEGATIVE N Laboratory test 09/20/2016 [facility] Magnesium 1.4 mg/dL Low 1.9-2.[address] [place] [address] [phone] Lipase 60 U/L N 11.0-82.0 C Reactive Protein 19.29 mg/L High < 5.00 38 Comp Metabolic Panel 09/20/2016 [facility] Sodium 137 mmol/L N 133-145 [place] [address] [phone] Potassium 3.9 mmol/L N 3.5-5.0 Chloride 109 [...] 91.0 N >60 39 Laboratory test 09/20/2016 [facility] Lactic Acid 1.5 mmol/L N 0.5-2.0 [address] [place] [address] [phone] Ammonia 82 ?mol/L High 16-53 Inr/Protime 09/20/2016 [facility] Inr 1.38 High 0.89-1.[address] [place] [address] [phone] CBC Auto Diff 09/20/2016 [facility] White Blood 12.4 High 3.5- 10.[address] Count 10^3/[place] [address] [phone] Red Blood Count 2.04 10^6/uL Low 4.0-5.4 [...] Cells % 0.1 N Laboratory test 09/20/2016 [facility] Packed Cells SEE RESULTS [address] [place] <SEE NOTE> [place] [address] [phone] Type & Screen 09/20/2016 [facility] Patient Blood A Positive N [address] [place] [address] [phone] Antibody Screen NEGATIVE N Urine Culture And 09/20/2016 [facility] Urine Culture SEE RESULT [address] [place] [address] [phone] Basic Metabolic 11/23/2010 [facility] Sodium 136 mmol/L 135- [address] [place] [address] [phone] Potassium 4.6 mmol/L 3.5-5.0 Chloride 101 mmol/L 101-111 Co2 (Carbon Dioxide) 27.0 mmol/L 22-32 Anion Gap 8.0 mmol/L 2-11 44 Glucose 89 mg/dL 70-100 BUN 7 mg/dL 6-24 Creatinine 0.90 mg/dL 0.50-1.40 One Over Creatinine 1.10 BUN/Creatinine Ratio 7.8 Low 8-20 Calcium 9.2 mg/dL 8.1-9.9 eGFR Non- 87.3 > 60 eGFR 112.3 > 60 45 Comp Metabolic Panel 11/22/2010 [facility] Sodium 139 mmol/L 135-[address] [place] [address] [phone] Potassium 5.6 mmol/L High 3.5-5.0 Chloride 105 [...] 112.3 > 60 48 Lipid Profile 11/22/2010 [facility] Triglyceride 144 mg/dL 40 -200 (Trig/Chol/HDL) [address] [place] [address] [phone] Cholesterol 215 mg/dL High Less Than 200 49 High Density Lipoprotein 51 mg/dL 40-60 50 Cholesterol/HDL Ratio 4.22 AVERAGE 1-4.97 Low Density Lipoprotein 135 mg/dL High Less Than 100 51 Comp Metabolic Panel 11/15/2010 [facility] Sodium 133 mmol/L Low 135-[address] [place] [address] [phone] Potassium 4.0 mmol/L 3.5-5.0 Chloride 101 mmol/L [...] eGFR 128.6 > 60 54 Laboratory 11/15/2010 [facility] Hepatitis C Negative Negative [address] [place] [address] [phone] Hepatitis B 11/15/2010 [facility] Hepatitis B Nonreactive Nonreactive Surface AB [address] [place] [address] [phone] Hbsab Index 0.13 56 Laboratory test 11/15/2010 [facility] PSA Screening 0.89 NG/ML 0-4 [address] [place] [address] [phone] TSH 3.98 MIU/ML 0.34-5.60 Lipid Profile 11/15/2010 [facility] Triglyceride 184 mg/dL 40 -200 (Trig/Chol/HDL) [address] [place] [address] [phone] Cholesterol 262 mg/dL High Less Than 200 58 High Density Lipoprotein 43 mg/dL 40-60 59 Cholesterol/HDL Ratio 6.09 AVERAGE High 1-4.97 Low Density Lipoprotein 182 mg/dL High Less Than 100 60 CBC Auto Diff 11/15/2010 [facility] White Blood 7.0 CUMM 4.8- 10.[address] [place] [address] [phone] Red Cell Count 3.43 CUMM Low 4.6-6.2 [...] Basophils 0.1 0-0.2 1 SEE RESULTS BELOW [id number] [facility] TRANSFUSED 06/17/18 1643 [id number] AP PC TRANSFUSED 06/17/182048 [id number] AP PC NOT AVAILABLE [id number] AP PC TRANSFUSED 06/18/18 0018 2 Because [...] 5 Kidney failure <15 (or dialysis) 3 [facility] Severe Sepsis and Septic Shock Management Bundle Measure requires all lactic acids initially measuring >2.0 mmol/L be repeated. 4 NAUSEA/VOMITING/DIARRHEA 5 SEE RESULTS BELOW [id number] [facility] TRANSFUSED 03/21/18 0800 [id number] [facility] TRANSFUSED 03/21/18 1050 6 SEE RESULT BELOW Name: CHRISTINA GOODE : [address]: Deepthi Hein MD Acct: [id number] Unit: [id number] AGE: 62 Location: ED Re03/20/18 SEX: M Status: REG ER SPEC: [id number] [place]IR: 03/20/[address] [facility] [address]: Deepthi Hein MD REQ: [id number] RECD: 03/20/18 STATUS: LEILA GUSTAFSON DR: Leonardo Bolivar MD _ SOURCE: STOOL SPDES: ORDERED: Occult Bl, Diag Procedure Result Reported Site Stool Occult Blood (1) Final 03/20/18- 2204 ML Stool Occult Blood Positive Collection Date (1) 03/20/18 * ML - Main Lab . END OF REPORT DEPARTMENT OF PATHOLOGY, [address] [place] [address] Giovani Hoyt M.D. Director [facility] # [id number] Because ethnic data is not always [...] 5 Kidney failure <15 (or dialysis) 10 [facility] Severe Sepsis and Septic Shock Management [...] levels of PSA measured using the [employer] DXI Hybritech immunoassay should not be interpreted [...] 5 Kidney failure <15 (or dialysis) 21 [facility] Severe Sepsis and Septic Shock Management [...] 25 VOMITING BLOOD 26 SEE RESULTS BELOW [id number] [facility] PC TRANSFUSED 09/25/16 0918 [id number] AP PC TRANSFUSED 09/25/16 0918 [id number] AP PC TRANSFUSED 09/25/16 1826 [id number] AP PC TRANSFUSED 09/25/16 1556 27 Acute inflammation: >10.00 28 99th percentile=0.04 ng/mL Troponin results at [facility] and [facility] are not interchangeable. 29 Critical Result LACT:5.6 Called to [id number] at: 08:52:45 by:[email or web address] Read back by:[id number] [facility] Severe Sepsis and Septic Shock Management Bundle Measure requires all lactic acids initially measuring >2.0 mmol/L be repeated. [facility] Severe Sepsis and Septic Shock Management [...] failure <15 (or dialysis) 31 Verbal to [id number] by [id number] at 0844 on 09/25/16. Results read back accurately. 32 [facility] Severe Sepsis and Septic Shock Management [...] 34 Acute inflammation: >10.00 35 Verbal to [id number] by [id number] at 0752 on 09/20/16. Results read back accurately. 36 SEE RESULT BELOW Name: CHRISTINA GOODE : [address]: Andrés Marrero MD Acct: [id number] Unit: [id number] AGE: 61 Location: ICU [id number] Re09/20/16 SEX: M Status: ADM IN SPEC: [id number] SAMIR: 09/20/[address]: Andrés Marrero MD REQ: [id number] RECD: 09/20/16-1248 STATUS: COMP JANAY DR: Gallito Bolivar MD _ SOURCE: STOOL SPDESC: ORDERED: Hemoccult COMMENTS: SPECIMEN WAS LABLED 1929 BUT CONFIRMED COLLECTION TIME TO BE 0730 Procedure Result Reported Site Stool Occult Blood Final 09/20/16- 1300 ML Stool Occult Blood Positive * ML - MAIN LAB (PSC1) . END OF REPORT * ML=Testing performed at Main Lab DEPARTMENT OF PATHOLOGY, [address] [place] [address] Giovani Hoyt M.D. Director [facility] # [id number] 37 SEE RESULTS BELOW [id number] AP PC TRANSFUSED 09/20/16 0849 [id number] AP PC TRANSFUSED 09/20/16 0840 38 Acute [...] 5 Kidney failure <15 (or dialysis) 40 [facility] Severe Sepsis and Septic Shock Management Bundle Measure requires all lactic acids initially measuring >2.0 mmol/L be repeated. 41 Verbal to [id number] by [email or web address] at 0752 on 09/20/16. Results read back accurately. 42 SEE RESULTS BELOW [id number] OP PC TRANSFUSED 09/21/16 0859 [id number] [facility] 09/20/16 0849 [id number] [facility] 09/20/16 0840 43 SEE RESULT BELOW Name: CHRISTINA GOODE : [address]: Andrés Marrero MD Acct: [id number] Unit: [id number] AGE: 61 Location: ICU [id number] Re09/20/16 SEX: M Status: ADM IN SPEC: [id number] SAMIR: 09/20/[address] [facility] [address]: Hna Small MD REQ: [id number] RECD: 09/20/16 STATUS: COMP RIMAHR DR: Leonardo Soliman MD _ SOURCE: URINE SPDESC: ORDERED: Urine Culture Procedure Result Reported Site Urine Culture Final 09/21/16- 1305 ML No growth of clinically significant organisms * ML - MAIN LAB (PSC1) . END OF REPORT * ML=Testing performed at Main Lab DEPARTMENT OF PATHOLOGY, [address] [place] [address] Giovani Hoyt M.D. Director [facility] # [id number] 44 Anion gap measurement may be of [...] has been shown to interfere with the Jendrassik-Crozet method for measuring total bilirubin. Samples from [...] 55 No bands detected. Test Performed by: [facility] Dpt of Lab Med and Pathology [address] [place], [place] [id number] Substance Abuse Services Director: Srinath Matta III, M.D. 56 [employer] [...] MG/DL Procedures Date Code Description Status 08/14/2018 72605 Short Leg Cast Completed 07/14/2018 52512 Short Leg Cast Completed 03/11/2018 03222249 Colonoscopy Completed 09/05/2017 86585 Repair Hernia Umbilical > 5 Yrs, Reducible Completed 09/25/2016 32038 EKG, Interpretation Only Completed 07/31/2016 71493 Plethysmography Determination Lung Volumes & Per Airway Completed Resist 07/31/2016 84810 Pulmonary Function><Bronchodil Completed 02/19/2014 04333 Rad Exam; Foot Comp Completed Encounters Type Date Location Provider Dx Diagnosis Office Visit 09/02/2018 [facility] Cosmo Graham S82.61xD Disp fx of 2:00p Services Of Guido Merrill MD lateral malleolus of r fibula, 7thD L03.115 Cellulitis of right lower limb Office Visit 08/25/2018 3:15p Orthopedic Joselo Spencer, L03.115 Cellulitis of Services Of M.D. right lower limb Guido S82.61xD Disp fx of lateral malleolus of r fibula, 7thD Office Visit 08/14/2018 [facility]opedic Cosmo Graham S82.61xD Disp fx of 1:30p Services Of Guido Merrill MD lateral malleolus of r fibula, 7thD Office Visit 07/14/2018 Orthopedic Cosmo Graahm S82.61xA Disp fx of 11:30a Services Of Guido Merrill MD lateral malleolus of right fibula, init Office Visit 06/21/2018 [facility] K22.11 Ulcer of 10:01a Assoc,pc Dexter D.O. esophagus with Hospitalists bleeding K92.2 Gastrointestinal hemorrhage, unspecified K70.31 Alcoholic cirrhosis of liver with ascites R57.8 Other shock K76.6 Portal hypertension F10.188 Alcohol abuse with other alcohol-induced disorder Office Visit 06/20/2018 10:01a [facility] K22.11 Ulcer of Assoc,Divya Yeung.O. esophagus with Hospitalists bleeding R57.8 Other shock [...] with other alcohol-induced disorder Office Visit 06/17/2018 [facility] Gastroenterology Peter T. K70.30 Alcoholic 7:00a MD Ramy cirrhosis of liver without ascites K76.6 Portal hypertension Office 03/25/2018 [facility] Jose K92.2 Gastrointestinal Visit 10:23a Asssoniya storey M.D. hemorrhage, Hospitalists unspecified K70.31 Alcoholic cirrhosis of liver with ascites K76.6 Portal hypertension F10.188 Alcohol abuse with other alcohol-induced disorder Office Visit 03/24/2018 [facility] Russ Fili K76.6 Portal 10:22a soniya Colmenares MD hypertension Hospitalists K70.31 Alcoholic cirrhosis of liver with ascites K92.2 Gastrointestinal hemorrhage, unspecified J44.9 Chronic obstructive pulmonary disease, unspecified Office Visit 03[facility]23[facility]2018 [facility] K70.31 Alcoholic Assocsoniya MD cirrhosis of Hospitalists liver with ascites K92.2 Gastrointestinal hemorrhage, unspecified K76.6 Portal hypertension J44.9 Chronic obstructive pulmonary disease, unspecified Office Visit 03/22/2018 [facility] Russ Fiil K92.2 Gastrointestinal 10:22a soniya Colmenares MD hemorrhage, Hospitalists unspecified I10 Essential (primary) hypertension K70.31 Alcoholic cirrhosis of liver with ascites J44.9 Chronic obstructive pulmonary disease, unspecified Office Visit 03/21/2018 [facility] Russ Fili K92.2 Gastrointestinal 10:22a soniya Colmenares MD hemorrhage, Hospitalists unspecified K70.31 Alcoholic cirrhosis of liver with ascites I10 Essential (primary) hypertension Office 03/20/2018 [facility] Siddharth Brumfield K92.2 Gastrointestinal Visit 10:21a Assocsoniya II, M.D. hemorrhage, Hospitalists unspecified K70.31 Alcoholic cirrhosis of liver with ascites Office Visit 09/02/2017 7:00a [facility] Robb. K42.9 [facility] Re[facility]ana Christianson M.D. without obstruction or gangrene K70.30 Alcoholic cirrhosis of liver without ascites Office Visit 05/16/2017 11:40a [facility] Internal Leonardo Bolivar, N62 Hypertrophy of Medicine - M.D. breast [address] K42.9 Umbilical hernia without obstruction or gangrene Office Visit 04/04/2017 9:00a [facility] Internal Leonardo Bolivar, Z00.01 Encounter for Medicine - M.D. general adult [address] medical exam w abnormal findings N62 Hypertrophy of breast K70.31 Alcoholic cirrhosis of liver with ascites J44.9 Chronic obstructive pulmonary disease, unspecified M10.9 Gout, unspecified Z12.5 Encounter for screening for malignant neoplasm of prostate E78.2 Mixed hyperlipidemia K42.9 Umbilical hernia without obstruction or gangrene Office Visit 03/14/2017 10:00a [facility] Internal Leonardo Bolivar, M25.561 Pain in Medicine - [place] M.D. right knee Rd K70.31 Alcoholic cirrhosis of liver with ascites J44.9 Chronic obstructive pulmonary disease, unspecified F17.210 Nicotine dependence, cigarettes, uncomplicated Office Visit 10/02/2016 9:40a [facility] Internal Leonardo Bolivar, K70.31 Alcoholic Medicine - M.D. cirrhosis of [address] liver with ascites J44.9 Chronic obstructive pulmonary disease, unspecified D50.9 Iron deficiency anemia, unspecified Z23 Encounter for immunization Office Visit 09/28/2016 [facility] K92.2 Gastrointestinal 3:02p Asssoniya storey M.D. hemorrhage, Hospitalists unspecified D62 Acute posthemorrhagic anemia I85.00 Esophageal varices without bleeding K70.31 Alcoholic cirrhosis of liver with ascites Office Visit 09/27/2016 [facility] K92.2 Gastrointestinal 3:02p Asssoniya storey M.D. hemorrhage, Hospitalists unspecified D62 Acute posthemorrhagic anemia I85.00 Esophageal varices without bleeding K70.31 Alcoholic cirrhosis of liver with ascites Office Visit 09/26/2016 [facility] K92.2 Gastrointestinal 3:01p Asssoniya storey M.D. hemorrhage, Hospitalists unspecified D62 Acute posthemorrhagic anemia I85.00 Esophageal varices without bleeding K70.31 Alcoholic cirrhosis of liver with ascites Office Visit 09/25/2016 [facility] Vignesh K92.2 Gastrointestinal 3:01p Assocsoniya MD hemorrhage, Hospitalists unspecified D62 Acute posthemorrhagic anemia I85.00 Esophageal varices without bleeding K70.31 Alcoholic cirrhosis of liver with ascites Office Visit 09/22/2016 1:47p [facility] Carlos Mao, K70.31 Alcoholic Assocsoniya M.D. cirrhosis of Hospitalists liver with ascites I85.11 Secondary esophageal varices with bleeding F10.10 Alcohol abuse, uncomplicated Office Visit 09/20/2016 1:46p [facility] Andrés Marrero, K70.31 Alcoholic Assocsoniya M.D. cirrhosis of Hospitalists liver with ascites I85.11 Secondary esophageal varices with bleeding F10.10 Alcohol abuse, uncomplicated Office Visit 08/30/2016 1:00p Surgical Chi Sparks K42.9 [facility] MD Chelsy, without FACS obstruction or gangrene K70.31 Alcoholic cirrhosis of liver with ascites Office Visit 07/25/2016 1:00p [facility] Internal Leonardo Bolivar, K70.31 Alcoholic Medicine - M.Renny cirrhosis of [place] liver with ascites D50.9 Iron deficiency anemia, unspecified J44.9 Chronic obstructive pulmonary disease, unspecified F17.210 Nicotine dependence, cigarettes, uncomplicated B35.1 Tinea unguium M10.9 Gout, unspecified Z13.220 Encounter for screening for lipoid disorders Z12.5 Encounter for screening for malignant neoplasm of prostate K42.9 Umbilical hernia without obstruction or gangrene Office Visit 07/21/2016 [facility] Lorraine K92.2 Gastrointestinal 1:42p Assoc,Renny YeungO. hemorrhage, Hospitalists unspecified I85.11 Secondary esophageal varices with bleeding K70.31 Alcoholic cirrhosis of liver with ascites K76.6 Portal hypertension Office Visit 07/20/2016 [facility] [place] K92.2 Gastrointestinal 1:42p Assoc,Divya Yeung.O. hemorrhage, Hospitalists unspecified I85.11 Secondary esophageal varices with bleeding K70.31 Alcoholic cirrhosis of liver with ascites K76.6 Portal hypertension Office Visit 07/19/2016 [facility] [place] K92.2 Gastrointestinal 1:42p Assoc,pc Sarika Renteria hemorrhage, Hospitalists unspecified I85.11 Secondary esophageal varices with bleeding K70.31 Alcoholic cirrhosis of liver with ascites K76.6 Portal hypertension Office Visit 07/18/2016 [facility] Don K92.2 Gastrointestinal 1:41p Assoc,soniya Sandoval M.D. hemorrhage, Hospitalists unspecified K70.31 Alcoholic cirrhosis of liver with ascites K76.6 Portal hypertension I85.11 Secondary esophageal varices with bleeding Office Visit 07/17/2016 [facility] Antonio K92.2 Gastrointestinal 1:39p Assoc,pc Subha Landis hemorrhage, Hospitalists unspecified K70.31 Alcoholic cirrhosis of liver with ascites K76.6 Portal hypertension I85.11 Secondary esophageal varices with bleeding Office Visit 01/18/2016 10:58a [facility] Vignesh D64.9 Anemia, Assoc,pc MD Alhaji unspecified Hospitalists K70.31 Alcoholic cirrhosis of liver with ascites D50.9 Iron deficiency anemia, unspecified F10.10 Alcohol abuse, uncomplicated Office Visit 01/17/2016 10:57a [facility] Vignesh D64.9 Anemia, Assoc,pc MD Alhaji unspecified Hospitalists K70.31 Alcoholic cirrhosis of liver with ascites D50.9 Iron deficiency anemia, unspecified F10.10 Alcohol abuse, uncomplicated Office Visit 02/19/2014 10:30a Orthopedic Andrzej 355.8 Mononeuritis Lower Services Of Ingrid Gudino Limb Unspec C.M.A. 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 V72.62 Laboratory Exam Ordered as Part Of Routine General Med Exam 709.09 Dyschromia Other 305.1 Tobacco Use Disorder Office Visit 11/05/2008 Neurosurgery Maciel Raza 722.10 Intervertebral Disc 1:00p Services Of Order Packer [employer] Packager Ingrid Arrington Displacement Lumbar W/O Myelopathy 736.79 [facility] Other Acquired Office Visit 10/19/2008 Neurosurgery Maciel Raza 736.79 Deformity Ankle & 1:00p [facility] Of [facility] Ingrid Arrington Foot Other Acquired Office Visit 10/04/2008 Neurosurgery Maciel Raza 722.10 Intervertebral Disc 10:40a Services Of [facility] Ingrid Arrington Displacement Lumbar W/O Myelopathy Plan of Treatment Future Appointment(s):10/21/2018 2:00 pm - Dina Mortensen M.D. at [facility] Internal Medicine [facility]12/02/2018 2:00 pm - Cos[facility] Merrill [facility]2018 - Cosmo Merrill, MDS82.61xD Displaced fracture of lateral malleolus of right fibula, subNew Medication: Right Ankle Foot Orthosis - 1 afo right for chronic right foot dropNew Therapy :Physical TherapyFollow up:Follow up: 2 months
[2018-10-13] MEDS ORDERED: Morphine 4 MG/ML VIAL (1 ml) 4 MG/ML VIAL IV ONE (04:51)
--- NOTE | 2018-10-13 04:54 | ED ---
GI/ HPI - HPI Summary HPI Summary: Pt is a 63 y/o M presenting to the ED brought in by EMS for vomiting blood. Per EMS, the pt is coming from home and has hx of liver and kidney cancer. He expressed to EMS and in the emergency department that he would like to and would only like to be given pain medication. He denied bloodwork, and has stopped taking all his medications in the past week with his doctors approval. He has been vomiting blood and passing it rectally. He denies fever. - History of Current Complaint Chief Complaint: EDGIBleed Time Seen by Provider: 10/13/18 04:49 Stated Complaint: "GI BLEED" PER EMS Hx Obtained From: Patient, EMS Onset/Duration: Started Hours Ago, Still Present Timing: Constant, Lasting Hours Severity: Severe Current Severity: Severe Pain Intensity: 9 Pain Characteristics: Cramping Associated Signs and Symptoms: Positive: Hematemesis, Nausea, Blood w/Stool Aggravating Factor(s): Nothing Alleviating Factor(s): Nothing - Additional Pertinent History Primary Care Physician: FRANCK - Allergy/Home Medications Allergies/Adverse Reactions: Allergies Allergy/AdvReac Type Severity Reaction Status Date / Time No Known Allergies Allergy Verified 10/07/18 12:44 PMH/Surg Hx/FS Hx/Imm Hx Previously Healthy: No Endocrine/Hematology History: Reports: Hx Blood Disorders, Hx Blood Transfusions , Hx Anemia - takes iron, Other Endocrine/Hematological Disorders - elevated INR -liver disease, hepatorenal syndrome Denies: Hx Anticoagulant Therapy, Hx Bone Marrow Disease, Hx Diabetes, Hx Sickle Cell Disease, Hx Unexplained Bleeding - Report hematoemesis prior to ED arrival today, Hx varices bands x2 06/12/18 Cardiovascular History: Reports: Hx Coronary Artery Disease, Hx Hypercholesterolemia, Hx Hypertension - Was told he does but no meds Denies: Hx Pacemaker/ICD, Hx Peripheral Vascular Disease, Other Cardiovascular Problems/Disorders - pt. denied stents in heart Respiratory History: Reports: Hx Chronic Obstructive Pulmonary Disease (COPD), Hx Pneumonia, Other Respiratory Problems/Disorders - SMOKER, ENVIRONMENTAL EXPOSURE TOXIC WELDING GASES GI History: Reports: Hx Cirrhosis - liver from ETOH, Hx Gastroesophageal Reflux Disease - ON MEDS, Hx Gastrointestinal Bleed, Hx Hiatal Hernia, Hx Jaundice - NOT PRESENTLY, Hx Ulcer, Other GI Disorders - hx of upper GI bleed, esophageal varices WITH STENTS X 3 History: Reports: Hx Acute Renal Failure, Other Problems/Disorders - Hx cirrhosis of the liver, hepatorenal syndrome Musculoskeletal History: Reports: Hx Arthritis - GENERALIZED, Hx Back Problems - back surgery, foot drop, Other Musculoskeletal History - right arm surgery, drop foot occured at some point Sensory History: Reports: Hx Contacts or Glasses Denies: Hx Cataracts, Hx Glaucoma, Hx Hearing Aid Opthamlomology History: Reports: Hx Contacts or Glasses Denies: Hx Cataracts, Hx Glaucoma Neurological History: Reports: Hx Spinal Cord Injury - hx back surg with drop foot right Denies: Hx Dementia, Hx Developmental Delay, Hx Headaches, Other Neuro Impairments/Disorders Psychiatric History: Reports: Other Psychiatric Issues/Disorders - ETOH abuse - Cancer History Hx Chemotherapy: No - Surgical History Surgery Procedure, Year, and Place: lumbar fusion back,. right forearm. EGD with ligation of esophageal varices 2 or 3 times last one 04/01 [facility] after that one. EGD with variceal banding x2 bands on 06/12/18 Hx Anesthesia Reactions: No Infectious Disease History: No Infectious Disease History: Denies: Hx Clostridium Difficile, Hx Hepatitis, Hx Human Immunodeficiency Virus (HIV), Traveled Outside the [place] in Last 30 Days - Family History Known Family History: Positive: Cardiac Disease - Social History Alcohol Use: Daily Alcohol Amount: vodka 2-3 glasses daily Hx Substance Use: No Substance Use Type: Reports: Marijuana Substance Use Comment - Amount & Last Used: smoked 04/18/18 Hx Tobacco Use: Yes Smoking Status (MU): Current Every Day Smoker Type: Cigarettes Amount Used/How Often: 50 yr hx 1ppd Length of Time of Smoking/Using Tobacco: 50 Have You Smoked in the Last Year: Yes Review of Systems Negative: Fever Positive: Vomiting, Nausea, Other - passing blood in stool All Other Systems Reviewed And Are Negative: Yes Physical Exam - Summary Physical Exam Summary: VITAL SIGNS: Reviewed. GENERAL: Patient is a pale male who is lying in the stretcher actively vomiting. Patient is not in any acute respiratory distress. HEAD AND FACE: No signs of trauma. No ecchymosis, hematomas or skull depressions. No sinus tenderness. EYES: PERRLA, EOMI x 2, No injected conjunctiva, no nystagmus. EARS: Hearing grossly intact. Ear canals and tympanic membranes are within normal limits. MOUTH: Oropharynx within normal limits. NECK: Supple, trachea is midline, no adenopathy, no JVD, no carotid bruit, no c- spine tenderness, neck with full ROM. CHEST: Symmetric, no tenderness at palpation LUNGS: Clear to auscultation bilaterally. No wheezing or crackles. CVS: Tachycardic, S1 and S2 present, no murmurs or gallops appreciated. ABDOMEN: Soft, non-tender. No signs of distention. No rebound no guarding, and no masses palpated. Bowel sounds are normal. EXTREMITIES: Bilateral LE edema NEURO: Alert and oriented x 3. No acute neurological deficits. Speech is normal and follows commands. SKIN: Dry and warm Triage Information Reviewed: Yes Vital Signs On Initial Exam: Initial Vitals Temp Pulse Resp BP Pulse Ox 97.0 F 101 17 101/54 98 10/13/18 04:46 10/13/18 04:46 10/13/18 04:46 10/13/18 04:46 10/13/18 04:46 Vital Signs Reviewed: Yes Diagnostics - Vital Signs Vital Signs Temp Pulse Resp BP Pulse Ox 10/13/18 04:46 97.0 F 101 17 101/54 98 - Laboratory Lab Statement: Any lab studies that have been ordered have been reviewed, and results considered in the medical decision making process. GIGU Course/Dx - Course Course Of Treatment: Pt is a 63 y/o M presenting to the ED brought in by EMS for vomiting blood. Per EMS, the pt is coming from home and has hx of liver and kidney cancer. He expressed to EMS and in the emergency department that he would like to and would only like to be given pain medication. He denied bloodwork, and has stopped taking all his medications in the past week with his doctors approval. He has been vomiting blood and passing it rectally, and he denies fever. He states he only wants comfort care. The pt [place] be [place] [facility] with dx including liver cirrhosis and GI bleed under Dr. Ridley. - Diagnoses Provider Diagnoses: Liver cirrhosis, GI bleed Discharge - Sign-Out/Discharge Documenting (check all that apply): Patient Departure - Discharge Plan Condition: Stable Disposition: ADMITTED TO [facility] Referrals: Dina Mortensen MD [Primary Care Provider] - - Attestation Statements Document Initiated by Scribe: Yes Documenting Scribe: Kim Borjas Provider For Whom Scribe is Documenting (Include Credential): Deepthi Hein MD. Scribe Attestation: Kim Moreno, scribed for Deepthi Hein MD. on 10/13/18 at 0524. Status of Scribe Document: Ready Consult Consult: [id number] - Spoke with Dr. Ridley about the pt's present condition who will be accepting the pt to [facility].
[2018-10-13] MEDS ORDERED: Metoclopramide IV* 5 MG/ML 2 ML VIAL IV SLOW PU ONE (05:01)
[2018-10-13] MEDS ORDERED: Morphine 4 MG/ML VIAL (1 ml) 4 MG/ML VIAL IV PRN (06:15)
[2018-10-13] MEDS ORDERED: LORazepam INJ* 2 MG/ML 1 ML VIAL IV PUSH PRN ×2 (06:17→07:42)
[2018-10-13] MEDS ORDERED: Ondansetron INJ* 2 MG/ML VIAL IV ONE (06:34)
[2018-10-13] MEDS ORDERED: Ondansetron INJ* 2 MG/ML VIAL ONE (06:35)
[2018-10-13] MEDS ORDERED: Ondansetron INJ* 2 MG/ML VIAL IV PRN (07:41)
--- NOTE | 2018-10-13 08:29 | HP ---
CC: Dina Mortensen MD HISTORY AND PHYSICAL: DATE OF ADMISSION: 10/13/18 PRIMARY CARE PROVIDER: Dina Mortensen MD CODE STATUS: DNR/DNI. CHIEF COMPLAINT: Bloody emesis and bloody diarrhea. HISTORY OF PRESENT ILLNESS: Mr. Goode is a 63-year-old man with a history of alcoholic cirrhosis complicated by variceal bleeding s/p banding and recent admission for hepatorenal syndrome, who is presenting to the ER a few days after his prior discharge requesting hospice services. He reports an episode of bloody emesis followed by bloody bowel movement on morning of presentation. He reports that after his last discharge he was referred to hospice but that the hospice was not able to be set up on time. So, after having bloody vomit and diarrhea this morning he wanted to come to the hospital to receive hospice services. He also reports feeling tired, cold, and nauseated for the last couple of days but otherwise 10-point review of systems is negative. PAST MEDICAL HISTORY: 1. Alcoholic cirrhosis complicated by thrombocytopenia; variceal bleeding, status post banding; 2. coronary artery disease; 3. COPD; 4. foot drop; 5. recent ankle fracture. HOME MEDICATIONS: The patient only takes lactulose. ALLERGIES: He has no known drug allergies. FAMILY HISTORY: Denies family history of liver disease, otherwise noncontributory. SOCIAL HISTORY: The patient previously would drink 3 alcoholic drinks per day, which is a reduction from his prior use. He also previously smoked half a pack of cigarettes per day and marijuana every other day. PHYSICAL EXAMINATION GENERAL: Tired-appearing pale man, lying on his side, appears mildly uncomfortable as he reports he is cold. He is alert and conversant, speaking in full sentences to myself and his partner at bedside. VITAL SIGNS: afebrile, heart rate upper 90s, blood pressure 70s/50s, respiratory rate 18, saturation 98% on room air. CHEST: Clear to auscultation bilaterally; Notable for gynecomastia bilaterally. HEART: Regular rate and rhythm. No murmurs, gallops, or rubs. ABDOMEN: Soft, nontender noted. Umbilical surgical scars well-healed. EXTREMITIES: Warm and well-perfused. No lower extremity edema. DIAGNOSTIC STUDIES AND LABORATORY DATA: No diagnostic studies or labs performed per the patient's request. ASSESSMENT AND PLAN: A 63-year-old man with alcoholic cirrhosis complicated by variceal bleeding and hepatorenal syndrome with recent discharge to home with hospice services presents few days after discharge requesting hospice services in the hospital after episode of bloody emesis and bloody diarrhea. 1. Bleed likely recurrence of known variceal bleeding. The patient does not want diagnostic workup or intervention for bleed and requests to be kept comfortable in the hospital. This is consistent with [facility] orders, as well. We will order lorazepam prn for anxiety and morphine p.r.n. for pain or air hunger. Care team can explore in the morning options for hospice facility as unlikely the patient will be able to go home with hospice at this point. 2. Alcoholic cirrhosis, the patient can take lactulose if he desires to prevent hepatic encephalopathy but can refuse as he prefers. 3. DVT prophylaxis: Not indicated given the patient is at comfort care, also has active bleed so medical prophylaxis would be contraindicated. 4. Code status: He is DNR/DNI. TIME SPENT: Approximately 60 minutes spent on admission of this patient, more than half of which was spent at bedside for interview and exam. [id number]/[facility] #: [id number] [place]
[2018-10-13] MEDS ORDERED: Octreotide Acetate* 50 MCG in NS 0.9% 50 ML* 50 ML IVPB ONE (11:00)
--- NOTE | 2018-10-13 11:10 | PN ---
Subjective Date of Service: 10/13/18 Interval History: Patient assessed at bedside this morning. At time of visit, patient is interactive and denies pain/nausea/vomiting. He feels comfortable overall. He reports he will need to have a BM today. His partner is at bedside. Later in the morning at approx 11:00, nursing calls me to bedside. Patient is sitting on bedside commode. Nurse Laurence is at bedside and reports that when patient went to bear down to have BM, his eyes rolled back and his head began leaning backward. She caught him and he then proceeded to vomit dark brown emesis. At this time, patient is only oriented to self and is only occasionally answering questions appropriately. He is sitting upright on commode with some support. Objective Active Medications: Octreotide Acetate 50 mcg/ (Sodium Chloride) 51 mls @ 204 mls/hr IVPB ONCE ONE Stop: 10/13/18 11:14 Octreotide Acetate 500 mcg/ (Sodium Chloride) 101 mls @ 10.1 mls/hr IVPB .ENTER FREQUENCY ZITA Lactulose (Lactulose*) 30 ml PO BID ZITA Lorazepam (Ativan Inj*) 1 mg IV PUSH Q4H PRN PRN Reason: ANXIETY Morphine Sulfate (Morphine 4 Mg/Ml Vial (1 Ml)) 4 mg IV Q2H PRN PRN Reason: Pain or air hunger Ondansetron HCl (Zofran Inj*) 4 mg IV Q4H PRN PRN Reason: NAUSEA/VOMITING Vital Signs - 8 hr 10/13/18 10/13/18 10/13/18 04:45 04:46 04:55 Temperature 97.0 F Pulse Rate 99 101 Respiratory 24 17 18 Rate Blood Pressure 101/54 101/54 (mmHg) O2 Sat by Pulse 98 98 Oximetry 10/13/18 10/13/18 10/13/18 05:00 05:19 05:21 Temperature Pulse Rate 100 92 92 Respiratory 20 19 15 Rate Blood Pressure 74/55 79/44 (mmHg) O2 Sat by Pulse 100 98 97 Oximetry 10/13/18 10/13/18 06:00 06:16 Temperature 97.0 F Pulse Rate 88 92 Respiratory 17 18 Rate Blood Pressure 79/44 (mmHg) O2 Sat by Pulse 97 98 Oximetry Appearance: Laying comfortably in hospital bed, appearing in NAD Eyes: No Scleral Icterus, PERRLA Ears/Nose/Mouth/Throat: Mucous Membranes Moist Neck: NL Appearance and Movements; NL JVP Respiratory: Symmetrical Chest Expansion and Respiratory Effort Cardiovascular: RRR, No Edema Abdominal: - - abdomen soft, nontender, nondistended Neurological: Alert and Oriented x 3, - - strength 4/5 in all extremities Assess/Plan/Problems-Billing Assessment: - Patient Problems (1) Upper GI bleed Code(s): K92.2 - GASTROINTESTINAL HEMORRHAGE, UNSPECIFIED SNOMED Code(s): 37732624 Comment: -patient recently discharged from hospital for esophageal variceal bleeding -pt refused workup during this admission and requested comfort measures only -increased frequency of zofran to q2h, added IV pantoprazole -as patient is comfort measures only, will not assess extent of bleed with labs (2) Alcoholic cirrhosis Code(s): K70.30 - ALCOHOLIC CIRRHOSIS OF LIVER WITHOUT ASCITES SNOMED Code(s) : 557413131 Comment: -patient diagnosed with hepatorenal syndrome secondary to alcoholic cirrhosis on last admission, patient declined dialysis -patient continues to decline dialysis and requests comfort care measures -awaiting hospice placement -continue lactulose to avoid encephalopathy, though patient is able to refuse at any time in setting of comfort measures; Discussed with patient that this is increasing his frequency of BMs and he wishes to continue at this time (3) Comfort measures only status Code(s): Z51.5 - ENCOUNTER FOR PALLIATIVE CARE SNOMED Code(s): 15771700299984 Comment: -discontinued vital signs -patient allows limited medical treatment as per [facility] (4) DNR (do not resuscitate) (5) DVT prophylaxis Code(s): POE0684 - SNOMED Code(s): 726658030 Comment: -not indicated as patient is comfort measures only -also contraindicated in setting of GI bleed
[2018-10-13] MEDS ORDERED: Octreotide Acetate* 500 MCG in NS 0.9% 100 ML* 100 ML IVPB SCH (12:00)
[2018-10-13] MEDS: Pantoprazole IV* 40 MG IV SCH (15:08)
[2018-10-14] MEDS: Ondansetron INJ* 2 MG/ML VIAL IV PRN ×4 (00:33→19:39)
[2018-10-14 11:30] VITALS: BP 78/35
[2018-10-14] MEDS: Pantoprazole IV* 40 MG IV SCH (13:47)
--- NOTE | 2018-10-14 14:20 | PN ---
Subjective Date of Service: 10/14/18 Interval History: Patient has been frequently moving his bowels. He is interested in holding the lactulose to avoid frequent BMs. He otherwise denies pain and nausea at time of visit. Objective Active Medications: Lorazepam (Ativan Inj*) 1 mg IV PUSH Q4H PRN PRN Reason: ANXIETY Morphine Sulfate (Morphine 4 Mg/Ml Vial (1 Ml)) 4 mg IV Q2H PRN PRN Reason: Pain or air hunger Ondansetron HCl (Zofran Inj*) 4 mg IV Q2H PRN PRN Reason: NAUSEA/VOMITING Last Admin: 10/14/18 08:54 Dose: 4 mg Pantoprazole Sodium (Protonix Iv*) 40 mg IV Q24H ZITA Last Admin: 10/14/18 13:47 Dose: 40 mg Vital Signs - 8 hr 10/14/18 10/14/18 08:00 11:29 Respiratory 16 Rate Blood Pressure 78/35 (mmHg) Oxygen Devices in Use Now: None Appearance: thin, elderly-appearing male lays in hospital bed, appearing in NAD ; girlfriend at bedside Eyes: No Scleral Icterus, PERRLA Ears/Nose/Mouth/Throat: Mucous Membranes Moist Neck: NL Appearance and Movements; NL JVP Respiratory: Symmetrical Chest Expansion and Respiratory Effort Cardiovascular: NL Sounds; No Murmurs; No JVD, RRR Abdominal: - - abdomen soft and nontender Extremities: No Edema, No Clubbing, Cyanosis Skin: - - skin is warm, dry, intact Neurological: Alert and Oriented x 3 Assess/Plan/Problems-Billing Assessment: - Patient Problems (1) Upper GI bleed Code(s): K92.2 - GASTROINTESTINAL HEMORRHAGE, UNSPECIFIED SNOMED Code(s): 39350500 Comment: -patient recently discharged from hospital for esophageal variceal bleeding -pt refused workup during this admission and requested comfort measures only -continue zofran IV q2h, continue IV pantoprazole -home hospice will see patient at home tomorrow -as patient is comfort measures only, will not assess extent of bleed with labs (2) Alcoholic cirrhosis Code(s): K70.30 - ALCOHOLIC CIRRHOSIS OF LIVER WITHOUT ASCITES SNOMED Code(s) : 336775301 Comment: -patient diagnosed with hepatorenal syndrome secondary to alcoholic cirrhosis on last admission, patient declined dialysis -patient continues to decline dialysis and requests comfort care measures -awaiting hospice placement -discontinued lactulose per decision of patient to avoid frequent BMs (3) Comfort measures only status Code(s): Z51.5 - ENCOUNTER FOR PALLIATIVE CARE SNOMED Code(s): 86236821556655 Comment: -discontinued vital signs -patient allows limited medical treatment as per [facility] (4) DNR (do not resuscitate) (5) DVT prophylaxis Code(s): [id number] - SNOMED Code(s): 238686587 Comment: -not indicated as patient is comfort measures only -also contraindicated in setting of GI bleed
[2018-10-14] MEDS: Morphine 4 MG/ML VIAL (1 ml) 4 MG/ML VIAL IV PRN (19:36)
[2018-10-15] MEDS: Morphine 4 MG/ML VIAL (1 ml) 4 MG/ML VIAL IV PRN (00:02)
[2018-10-15] MEDS ORDERED: Morphine INJ* 2 MG/ML 1 ML SYRINGE (TWO MG - NEW SYRINGE VERSION) IV PRN (02:08)
[2018-10-15] MEDS: Ondansetron INJ* 2 MG/ML VIAL IV PRN (10:21)
--- NOTE | 2018-10-15 23:13 | DS ---
CC: Dr. Dina Mortensen * DISCHARGE SUMMARY: DATE OF ADMISSION: 10/13/18 DATE OF DISCHARGE: 10/15/18 PROVIDER: MAURISIO Colbert ATTENDING PHYSICIAN: Dr. Portia Quiroz * (dictated by MAURISIO Colbert). PRIMARY CARE PROVIDER: Dr. Dina Mortensen. PRIMARY DIAGNOSES: 1. Hepatorenal syndrome. 2. Upper gastrointestinal bleed. SECONDARY DIAGNOSES: 1. Alcoholic cirrhosis, complicated by thrombocytopenia, variceal bleeding, status post banding. 2. Coronary artery disease. 3. Chronic obstructive pulmonary disease. 4. Footdrop. 5. Recent ankle fracture. DISCHARGE MEDICATIONS: 1. Ativan 1 mg p.o. q.4 hours p.r.n. anxiety. 2. Morphine oral concentrate 5 mg per 0.25 mL 5 mg sublingually q.2 hours p.r.n. pain or shortness of breath. 3. Zofran oral solution 4 mg per 5 mL, give 4 mg p.o. q.2 hours p.r.n. nausea. Continued home medications: None. HISTORY OF PRESENT ILLNESS/HOSPITAL COURSE: Mayur Goode is a 63-year-old white male who has past medical history of alcoholic liver cirrhosis complicated by variceal bleeding status post banding, coronary artery disease, COPD, who presented to the emergency department on 10/16/18 with hematochezia and hematemesis. He was recently discharged from [facility] on 10/07/18 and diagnosed with hepatorenal syndrome. At this time, he was offered dialysis and refused this treatment and wished to go home with hospice care. In this period of time between this presentation and the most recent discharge period, hospice had not yet met with the patient at home. When he presented to the hospital on 10/13/18 , he declined workup or treatment aside from comfort measures. He stated that he wanted to come to the hospital to receive hospice services. He was feeling fatigued and nauseous at this time. The patient was admitted to the hospital and treated with comfort measures. He continued receiving his home Patiromer and Lactulose, which he was comfortable with continuing to receive and understood that he was able to decline at any time. Additionally, he was receiving Zofran for nausea and p.r.n. IV morphine. On the morning of 10/13/18 , it was extensively discussed with the patient and his girlfriend, Iva, that it was recommended that the patient go to a group home facility to receive hospice care. The patient stated he was not interested in going to a nursing facility and wanted to either stay in the hospital or go home. Iva stated that she would be able to care for him, though in the same conversation mentioned that she was not able to pick him up. When asked what she would do for his care once he was not able to walk or roll over in bed, she said that the patient's daughter or the patient's close friend would be able to come help her with his care. It was frequently encouraged that the patient go to a group home facility for the benefit of the patient and his soon to be caregiver, Iva. The patient and his girlfriend continued to request home hospice care. This was also discussed between the patient and the case aide , Janet. On 10/14/18, home hospice accepted the patient and stated that they would be able to see him at home on 10/15/18. This information was relayed to the patient and his girlfriend, Iva. During this time, the patient was continuing to have vomiting and frequent bowel movements. It was discussed with the patient and he decided to discontinue Lactulose to prevent the frequency of bowel movements. On date of discharge, the patient was occasionally still feeling nauseous, though denied any pain. Additionally, he was reporting that he felt cold. On date of discharge, Home Hospice did confirm that they would be able to see the patient at 12:30 p.m. at his home. Iva Lowe, the patient's girlfriend, stated that she would be able to help with the patient to his home with the assistance of a close friend. She also stated that his daughter who lives in the area would be home for the meeting with home hospice as she had an appointment in the afternoon. She additionally mentioned that his other daughter who lives in [place] has been considering coming to stay with him to assist with care. During his stay, as he was placed comfort measures only on admission, there was no laboratory data, imaging, or procedures to report. PHYSICAL EXAMINATION: General: Thin-appearing male, lying in hospital bed, appearing in no acute distress. Head: Normocephalic, atraumatic. Eyes: Sclerae icteric. Pupils approximately 1 mm bilaterally. ENT: Mucous membranes moist. Neck: Supple. Cardio: Regular rate and rhythm without murmurs, rubs, or gallops. Respiratory : The patient refused respiratory exam of auscultation. Chest expansions were observed to be symmetrical with respiration. Abdomen: The patient refused abdominal exam. Extremities: Without clubbing or edema. Neuro: The patient is alert and oriented to self and location but not time. DISCHARGE PLAN: Diet: Unrestricted as the patient is going home on hospice. Activity: The patient may ambulate with assistance with walker, arrangements have been made for a walker to be delivered to the home in addition to a bedside commode. Hospice care will be meeting the patient at home shortly after discharge. The patient was prescribed the above medications for treatment with hospice and he is to follow up with his PCP to continue these prescriptions. Again, the patient is being discharged to home on hospice despite recommendation that the patient stay at nursing facility for hospice. Reference number on [employer] is [id number]. CONDITION ON DISCHARGE: Guarded. TIME SPENT: Approximately 50 minutes was spent on this discharge, approximately half of this time was spent at bedside. MAURISIO COLBERT [id number]/[facility] #: [id number] [place]
== END 2018-10-15 10:55 | disposition hospice, home (50) | DRG 442 ==
LOC: ED 04:41 → MED 05:25
PROVIDERS: ADMIT Internal Medicine; ATTEND Internal Medicine
DX: K76.7 Hepatorenal syndrome (principal); K92.0 Hematemesis; K92.1 Melena; I25.10 Atherosclerotic heart disease of native coronary artery without angina pectoris; E78.00 Pure hypercholesterolemia, unspecified; I10 Essential (primary) hypertension; J44.9 Chronic obstructive pulmonary disease, unspecified; K21.9 Gastro-esophageal reflux disease without esophagitis; K44.9 Diaphragmatic hernia without obstruction or gangrene; M15.9 Polyosteoarthritis, unspecified; F17.210 Nicotine dependence, cigarettes, uncomplicated; K70.30 Alcoholic cirrhosis of liver without ascites; M21.379 Foot drop, unspecified foot; Z66 Do not resuscitate; D69.6 Thrombocytopenia, unspecified; Z51.5 Encounter for palliative care; Z85.528 Personal history of other malignant neoplasm of kidney; Z98.1 Arthrodesis status; Z85.05 Personal history of malignant neoplasm of liver; Z82.49 Family history of ischemic heart disease and other diseases of the circulatory system; Z72.89 Other problems related to lifestyle
CPT/HCPCS: 99283; A9270-GY; J2270; J2354; J2405; J2765